=== PATIENT | female | born 1990 | race Caucasian/White ===

== ENCOUNTER 2023-08-05 05:45 | Emergency (ER) | payer MEDICAID, SELFPAY ==
[2023-08-05 05:46] VITALS: BP 163/101; PULSE 105; RESP 18; O2SAT 99
[2023-08-05 05:48] VITALS: BP 163/101; PULSE 105; RESP 20; TEMP 36.2; O2SAT 99; BMI 70.2
[2023-08-05] MEDS: Bupivacaine Mpf 0.5% 30 ML VIAL 10 ML INFILT (06:39)
[2023-08-05] MEDS: Amox/Clavulanate 875 MG Tablet PO (06:39)
--- NOTE | 2023-08-05 07:14 | EDS_ITS ---
HPI History of Present Illness Chief Complaint: Dental Informant: patient Narrative Narrative: Patient is a 33-year-old female with past medical history of anxiety. She states that she has a broken left lower tooth that has been there for quite some time. She states in the last 2 to 3 days she has had increasing dental pain and facial swelling. She denies any difficulty breathing or swallowing any fevers or chills but states that with persistent and increasing pain and swelling she is concerned for infection and therefore comes in for evaluation. [facility] Medical History (Updated 08/05/23 @ 07:[address] El Kasper, DO) PTSD (post-traumatic stress disorder) Depression Anxiety Cyst near [facility] Miscarriage Home Medications ?Medication ?Instructions ?Recorded ?Last Taken ?Type amoxicillin 875 mg-potassium 1 tab PO BID 10 days #20 tabs 08/05/23 Unknown Rx clavulanate 125 mg tablet bupropion HCl 150 mg 24 hr tablet, 150 mg PO DAILY 08/05/23 Unknown History extended release (Wellbutrin XL) buspirone 10 mg tablet 10 mg PO BID 08/05/23 Unknown History hydroxyzine HCl 10 mg tablet 30 mg PO QHS 08/05/23 Unknown History norgestimate 0.25 mg-ethinyl 1 tab PO DAILY 08/05/23 Unknown History estradiol 35 mcg tablet (Estarylla) ondansetron 4 mg disintegrating 4 mg PO Q6H PRN nausea and vomiting 08/05/23 Unknown History tablet oxycodone-acetaminophen 5 mg-325 1 tab PO Q6H PRN pain 3 days #12 08/05/23 Unknown Rx mg tablet (Percocet) tabs paroxetine HCl 30 mg tablet (Paxil) 30 mg PO DAILY 08/05/23 Unknown History trazodone 100 mg tablet 100 mg PO DAILY 08/05/23 Unknown History Allergy/AdvReac Type Severity Reaction Status Date / Time No Known Allergies Allergy Verified 08/05/23 06:39 Social History Smoking Status: Current some day smoker tobacco type: e-cigarettes ROS ROS ED Constitutional Constitutional ED: Denies chills or fever(s) ENT ENT ED: Reports other Details: Positive dental pain and gum/facial swelling ; Denies sore throat Cardiovascular Cardiovascular: Denies chest pain Respiratory/Chest Respiratory/Chest: Denies cough or dyspnea Gastrointestinal Gastrointestinal: Denies abdominal pain, diarrhea, nausea or vomiting Genitourinary Genitourinary ED: Denies dysuria Musculoskeletal Musculoskeletal: Denies neck pain Integumentary Reports abscess; Denies rash Neurologic Neurologic: Denies headache(s) Hematologic/Lymphatic Hematologic/Lymphatic: Denies easy bleeding or easy bruising EXAM Physical Exam Const Vital Signs: 08/05/23 05:46 08/05/23 05:48 Temperature 97.2 F L Temperature Source Temporal Pulse Rate 105 H 105 H Respiratory Rate 18 20 H Blood Pressure 163/101 H 163/101 H Blood Pressure Mean 121 121 Pulse Ox 99 99 Oxygen Delivery Method Room Air Room Air Positive well nourished, well developed and obese General Appearance ED: well developed Nutritional Appearance: obese HEENT HEENT Narrative: Patient has dental carry noted in the left lower jaw and at this site there is soft tissue swelling and erythema of the gingiva consistent with dental abscess. No tongue or lip swelling. No airway edema or compromise No signs of ANUG Eyes PERRL and EOMs intact bilaterally Neck supple Neck Narrative: No brawny edema in the submental space to suggest Demario's angina Resp normal respiratory effort and clear to auscultation bilaterally Cardio regular rate and regular rhythm Extremity normal to inspection Neuro oriented x3, CN's II-XII intact bilaterally and no sensory deficits noted Sensorium / Orientation: alert Motor Exam: strength 5/5 throughout Psych mental status grossly normal Skin Skin Narrative: Soft tissue swelling with faint erythema to the left lower jaw/cheek region consistent with abscess MDM MDM MDM Narrative Medical decision making narrative: Patient arrived to the ER hypertensive and tachycardic but states she has a history of anxiety and PTSD and feels is related to her pain as this is not a typical finding for her. She denies any trauma and states has been no difficulty swallowing or breathing going against systemic infection or posterior pharynx infection. Differential diagnosis is for dental abscess versus Demario's angina versus salivary gland infection versus cellulitis. Without brawny edema in the submental space there is no physical exam findings to suggest Demario's angina and based on physical exam there is no swelling along the salivary gland going against sialadenitis. With exam indicating this is dental abscess the patient underwent a dental block and then incision and drainage as documented below. Without signs of airway edema or respiratory distress or systemic infection there is no need for admission and she is otherwise safe for discharge Patient was given the left inferior alveolar dental block using 2 ml's of 2% lidocaine with epinephrine and 1 mL of 0.5% Marcaine. Patient achieved good anesthesia with this injection. Then a #11 blade was used to make a 1 cm incision over top the area of fluctuance within the left lower jaw/gingiva. A large amount of purulent material was expressed. Patient tolerated the procedure well without complication. History & Record Review Discussion w/independent historian: Patient Discharge Plan Triage Chief Complaint: Dental ED Provider: El Kasper Dx/Rx/DC Orders Clinical Impression: Dental abscess, Dental caries, Anxiety, Morbid obesity Instructions: Dental Abscess Prescriptions: New amoxicillin-pot clavulanate 875-125 mg tablet 1 tab PO BID 10 Days Qty: 20 0RF oxycodone-acetaminophen [Percocet] 5-325 mg tablet 1 tab PO Q6H PRN (Reason: pain) 3 Days Qty: 12 0RF No Action norgestimate-ethinyl estradiol [Estarylla] 0.25-35 mg-mcg tablet 1 tab PO DAILY bupropion HCl [Wellbutrin XL] 150 mg tablet extended release 24 hr 150 mg PO DAILY buspirone 10 mg tablet 10 mg PO BID hydroxyzine HCl 10 mg tablet 30 mg PO QHS ondansetron 4 mg tablet,disintegrating 4 mg PO Q6H PRN (Reason: nausea and vomiting) paroxetine HCl [Paxil] 30 mg tablet 30 mg PO DAILY trazodone 100 mg tablet 100 mg PO DAILY Stand Alone Forms: ED Work / School Excuse Primary Care Provider: Care Physician,No Primary Referrals: Care Physician,No Primary [Primary Care Provider] - Activity Restrictions/Additional Instructions: Please follow-up with your dentist for further evaluation. Continue with salt water gargles roughly 3 times a day to help pull out any remaining infection. Use the antibiotic as directed to resolve the infection as well and return to the ER should you have any further concerns Print Language: Belgian Disposition Disposition: Home, Self Care
[2023-08-05 07:17] VITALS: BP 158/90; PULSE 100; RESP 18; TEMP 36.6; O2SAT 100
== END 2023-08-05 07:23 | disposition home or self-care (01) ==
PROVIDERS: Emergency Provider Emergency Medicine; Visit Provider Emergency Medicine
DX: K04.7 Periapical abscess without sinus (principal); E66.01 Morbid (severe) obesity due to excess calories; K02.9 Dental caries, unspecified; F17.290 Nicotine dependence, other tobacco product, uncomplicated; Z79.899 Other long term (current) drug therapy
CPT/HCPCS: 64999; 99282

== ENCOUNTER 2024-03-21 17:16 | Emergency (ER) | payer MEDICAID, SELFPAY ==
[2024-03-21 17:16] VITALS: BP 150/89; PULSE 99; RESP 16; TEMP 36.9; O2SAT 98; BMI 67.0
--- NOTE | 2024-03-21 17:28 | EKG12_ITS ---
Test Reason : CP Blood Pressure : */* mmHG Vent. Rate : 103 BPM Atrial Rate : 103 BPM P-R Int : 138 ms QRS Dur : 90 ms QT Int : 370 ms P-R-T Axes : 55 33 40 degrees QTcB Int : 484 ms Sinus tachycardia Possible Left atrial enlargement Borderline ECG Confirmed by JEAN GUERRERO, ANGEL ([id number]), greeting card editor YVETTE ULRICH ([id number]) on 03/23/2024 7:01:42 AM Referred By: BB/AR Confirmed By: ANGEL PENA MD
--- NOTE | 2024-03-21 17:40 | RAD_ITS ---
EXAM: XR CHEST, 2 VIEWS CLINICAL INDICATION: chest pain TECHNIQUE: Frontal and lateral views of the chest. COMPARISON: No relevant prior studies available. FINDINGS: LUNGS AND PLEURAL SPACES: Unremarkable. No consolidation or edema. No pneumothorax. No effusion. HEART: Unremarkable. Cardiac silhouette not enlarged. MEDIASTINUM: Central airways and mediastinal contour are unremarkable. BONES/JOINTS: Unremarkable. No acute fracture. SOFT TISSUES: Unremarkable. Cholecystectomy clips are noted. RAD/Chest PA and Lateral IMPRESSION: No radiographic evidence of acute cardiopulmonary disease. Electronically Signed: Samira Bundy MD at 19:30 EST ,
--- NOTE | 2024-03-21 17:56 | EDS_ITS ---
HPI <REJI Matthews - Last Filed: 03/21/24 20:43> History of Present Illness Chief Complaint: Chest Pain Narrative Narrative: Patient presenting today due to pressure across her chest that started randomly this afternoon. She reports that she feels anxious/panicked, lightheaded, feeling like she cannot catch her breath, and is shaky. She does have a history of anxiety, depression, and panic attacks and has had panic attacks in the past but never this severe. She did try taking hydroxyzine around 3 PM with minimal relief. She denies any personal or significant family cardiac history. No history of blood clots or recent surgery/immobilization/oral contraceptive use/unilateral leg swelling. [facility] <REJI Matthews - Last Filed: 03/21/24 20:43> [facility] Medical History PTSD (post-traumatic stress disorder) Depression Anxiety Cyst near [facility] Miscarriage Home Medications ?Medication ?Instructions ?Recorded ?Last Taken ?Type amoxicillin 875 mg-potassium 1 tab PO BID 10 days #20 tabs 08/05/23 Unknown Rx clavulanate 125 mg tablet bupropion HCl 150 mg 24 hr tablet, 150 mg PO DAILY 08/05/23 Unknown History extended release (Wellbutrin XL) buspirone 10 mg tablet 10 mg PO BID 08/05/23 Unknown History hydroxyzine HCl 10 mg tablet 30 mg PO QHS 08/05/23 Unknown History norgestimate 0.25 mg-ethinyl 1 tab PO DAILY 08/05/23 Unknown History estradiol 35 mcg tablet (Estarylla) ondansetron 4 mg disintegrating 4 mg PO Q6H PRN nausea and vomiting 08/05/23 Unknown History tablet oxycodone-acetaminophen 5 mg-325 1 tab PO Q6H PRN pain 3 days #12 08/05/23 Unknown Rx mg tablet (Percocet) tabs paroxetine HCl 30 mg tablet (Paxil) 30 mg PO DAILY 08/05/23 Unknown History trazodone 100 mg tablet 100 mg PO DAILY 08/05/23 Unknown History Allergy/AdvReac Type Severity Reaction Status Date / Time No Known Allergies Allergy Verified 03/21/24 17:16 Social History Smoking Status: Current some day smoker tobacco type: e-cigarettes ROS <REJI Matthews - Last Filed: 03/21/24 20:43> ROS ED Constitutional Constitutional ED: Denies chills or fever(s) Cardiovascular Cardiovascular: Reports chest pain; Denies palpitations Respiratory/Chest Respiratory/Chest: Reports dyspnea; Denies cough Gastrointestinal Gastrointestinal: Denies abdominal pain, nausea or vomiting Musculoskeletal Musculoskeletal: Denies arthralgias or myalgias Integumentary Denies rash Neurologic Neurologic: Denies weakness Psychiatric Psychiatric: Reports anxiety; Denies suicidal ideation or suicidal thoughts EXAM <REJI Matthews - Last Filed: 03/21/24 20:43> Physical Exam Const Vital Signs: 03/21/24 17:16 03/21/24 18:16 03/21/24 19:00 Temperature 98.5 F Temperature Source Oral Pulse Rate 99 84 85 Respiratory Rate 16 16 16 Blood Pressure 150/89 H 128/72 H Blood Pressure Mean 109 90 Pulse Ox 98 99 99 Oxygen Delivery Method Room Air Room Air Room Air 03/21/24 20:00 03/21/24 20:19 Temperature 98.0 F Temperature Source Pulse Rate 81 82 Respiratory Rate 18 Blood Pressure 108/69 Blood Pressure Mean 82 Pulse Ox 97 Oxygen Delivery Method Positive well nourished, well developed and no apparent distress General Appearance ED: well developed HEENT Reports normocephalic and head/scalp atraumatic Mouth ED: Yes moist mucous membranes normal Eyes PERRL and EOMs intact bilaterally Neck full ROM and supple Chest Wall inspection of chest normal Resp normal respiratory effort and clear to auscultation bilaterally Cardio regular rate and regular rhythm GI soft to palpation, non-tender, non-distended and no masses Back/Spine normal ROM and normal to inspection Extremity normal to inspection and full ROM Extremity Narrative: No asymmetric leg edema or pain. General Extremety ED: Negative for edema General Extremity: Negative for edema Neuro oriented x3, CN's II-XII intact bilaterally, moves all extremities, no focal motor deficits and no sensory deficits noted Sensorium / Orientation: awake and alert Psych cooperative and denies suicidal ideation Mood & Affect: anxious and tearful Skin no rashes or lesions noted and no wounds <Leodan Naylor MD - Last Filed: 03/21/24 21:48> Physical Exam Const Vital Signs: 03/21/24 17:16 03/21/24 18:16 03/21/24 19:00 Temperature 98.5 F Temperature Source Oral Pulse Rate 99 84 85 Respiratory Rate 16 16 16 Blood Pressure 150/89 H 128/72 H Blood Pressure Mean 109 90 Pulse Ox 98 99 99 Oxygen Delivery Method Room Air Room Air Room Air 03/21/24 20:00 03/21/24 20:19 Temperature 98.0 F Temperature Source Pulse Rate 81 82 Respiratory Rate 18 Blood Pressure 108/69 Blood Pressure Mean 82 Pulse Ox 97 Oxygen Delivery Method MDM <REJI Matthews - Last Filed: 03/21/24 20:43> [facility] Narrative Medical decision making narrative: Patient presenting today with pressure across her chest, anxiety, dyspnea, and shakiness that started this afternoon. She does appear to be having a panic attack and is visibly anxious and hyperventilates at times, I was able to calm her down. I do think she would benefit from Ativan here and she is agreeable with trying this. She is PERC negative, low suspicion for PE. Cardiac labs obtained, her CBC, BMP, and troponin are unremarkable. Her chest x-ray is negative for any acute cardiopulmonary abnormality. Her EKG is sinus rhythm with no ischemia. On reexamination she does report improvement of her symptoms. She does appear more calm. I do suspect that patient likely was having a panic attack which caused her chest discomfort. I recommended that she follow-up closely with her PCP. She will be discharged in stable condition. Lab Data Attestation: I reviewed the patient's lab results. Labs: Laboratory Results - last 24 hr 03/21/24 18:06 WBC 7.4 RBC 4.50 Hgb 12.3 Hct 39.1 MCV 86.9 MCH 27.3 MCHC 31.5 L RDW Std Deviation 44.1 H RDW Coeff of Cecilia 13.8 Plt Count 296 MPV 10.4 Immature Gran % (Auto) 0.300 Neut % (Auto) 69.2 Lymph % (Auto) 20.7 Tyrrell % (Auto) 8.4 Eos % (Auto) 1.1 Baso % (Auto) 0.3 Absolute Neuts (auto) 5.1 Absolute Lymphs (auto) 1.53 Nucleated RBC % 0 Sodium 141 Potassium 3.9 Chloride 114 H Carbon Dioxide 23.0 Anion Gap 4 L BUN 16 Creatinine 0.73 Estim Creat Clear Calc 167.11 Est GFR (MDRD) Af Amer 118 Est GFR (MDRD) Non-Af 98 BUN/Creatinine Ratio 22.0 H Glucose 112 H Calcium 9.4 Troponin I High Sens < 3 L Radiography X-Ray: Read by ED Physician Diagnostic Testing: Clinical Impression(s) from Imaging Studies Chest X-Ray 03/21/24 17:40 IMPRESSION: No radiographic evidence of acute cardiopulmonary disease. Electronically Signed: Samira Bundy MD at 19:30 EST , EKG Initial EKG: Comments: 103 bpm, sinus tachycardia, no ST elevation, interpreted by attending ED physician <Leodan Naylor MD - Last Filed: 03/21/24 21:48> [facility] MDM Narrative Medical decision making narrative: Patient presenting today with pressure across her chest, anxiety, dyspnea, and shakiness that started this afternoon. She does appear to be having a panic attack and is visibly anxious and hyperventilates at times, I was able to calm her down. I do think she would benefit from Ativan here and she is agreeable with trying this. She is PERC negative, low suspicion for PE. Cardiac labs obtained, her CBC, BMP, and troponin are unremarkable. Her chest x-ray is negative for any acute cardiopulmonary abnormality. Her EKG is sinus rhythm with no ischemia. On reexamination she does report improvement of her symptoms. She does appear more calm. I do suspect that patient likely was having a panic attack which caused her chest discomfort. I recommended that she follow-up closely with her PCP. She will be discharged in stable condition. Dr. Naylor: I have personally performed a face to face assessment of the patient and have reviewed the LODY Note. I performed a substantive portion of the visit including all aspects of the following. My regan findings include: History is chest pain and heaviness. History of panic attacks/PTSD. Exam is afebrile. Vital signs noted. Intermittent tachycardia. Lungs clear to auscultation bilaterally. Abdomen soft nontender with positive bowel sounds. Neurological examination nonfocal and nonlateralizing. Medical Decision Making: EKG obtained and interpreted by myself independently as sinus tachycardia [address] changes. No STEMI. Chest x-ray in 1 view interpreted by myself independently shows no evidence of pneumothorax or pneumonia. I reviewed the radiology report which confirms my independent interpretation. Check labs. I doubt pulmonary embolism as she has no longer tachycardic and was not initially, and her pulse ox is 97 to 98% on room air and she does not have any risk factors. Patient reassured. Check troponin. I do not feel she requires serial enzymes. Discharge. Other additions or changes: [None] History & Record Review Discussion w/independent historian: Patient Lab Data Labs: Laboratory Results - last 24 hr 03/21/24 18:06 WBC 7.4 RBC 4.50 Hgb 12.3 Hct 39.1 MCV 86.9 MCH 27.3 MCHC 31.5 L RDW Std Deviation 44.1 H RDW Coeff of Cecilia 13.8 Plt Count 296 MPV 10.4 Immature Gran % (Auto) 0.300 Neut % (Auto) 69.2 Lymph % (Auto) 20.7 Tyrrell % (Auto) 8.4 Eos % (Auto) 1.1 Baso % (Auto) 0.3 Absolute Neuts (auto) 5.1 Absolute Lymphs (auto) 1.53 Nucleated RBC % 0 Sodium 141 Potassium 3.9 Chloride 114 H Carbon Dioxide 23.0 Anion Gap 4 L BUN 16 Creatinine 0.73 Estim Creat Clear Calc 167.11 Est GFR (MDRD) Af Amer 118 Est GFR (MDRD) Non-Af 98 BUN/Creatinine Ratio 22.0 H Glucose 112 H Calcium 9.4 Troponin I High Sens < 3 L Radiography Diagnostic Testing: Clinical Impression(s) from Imaging Studies Chest X-Ray 03/21/24 17:40 IMPRESSION: No radiographic evidence of acute cardiopulmonary disease. Electronically Signed: Samira Bundy MD at 19:30 EST , Discharge Plan Triage Chief Complaint: Chest Pain ED Midlevel Provider: Lizzette Rivers ED Provider: Leodan Naylor Dx/Rx/DC Orders Clinical Impression: Anxiety, Atypical chest pain Instructions: ED Anxiety Reaction, ED Chest Pain, Noncardiac Prescriptions: No Action norgestimate-ethinyl estradiol [Estarylla] 0.25-35 mg-mcg tablet 1 tab PO DAILY bupropion HCl [Wellbutrin XL] 150 mg tablet extended release 24 hr 150 mg PO DAILY buspirone 10 mg tablet 10 mg PO BID hydroxyzine HCl 10 mg tablet 30 mg PO QHS ondansetron 4 mg tablet,disintegrating 4 mg PO Q6H PRN (Reason: nausea and vomiting) paroxetine HCl [Paxil] 30 mg tablet 30 mg PO DAILY trazodone 100 mg tablet 100 mg PO DAILY amoxicillin-pot clavulanate 875-125 mg tablet 1 tab PO BID 10 Days Qty: 20 0RF oxycodone-acetaminophen [Percocet] 5-325 mg tablet 1 tab PO Q6H PRN (Reason: pain) 3 Days Qty: 12 0RF Primary Care Provider: Care Physician,No Primary Referrals: Care Physician,No Primary [Primary Care Provider] - Activity Restrictions/Additional Instructions: Follow-up with your PCP and return for any other concerns. Print Language: Bulgarian Disposition Disposition: Home, Self Care Discharge Date/Time: 03/21/24 20:20
[2024-03-21] MEDS: LORazepam 2 MG/ML Syringe 0.5 MG IV (18:03)
[2024-03-21 18:15] LABS: Absolute Lymphocyte Count 1.53 X10^3/uL (0.83-4.51); Absolute Neutrophil Count 5.1 X10^3/uL (2.0-7.7); Basophil# 0.02 X10^3/uL; Basophil% 0.3 % (0-1); Eosinophil# 0.08 X10^3/uL; Eosinophils% 1.1 % (0-5); Hematocrit 39.1 % (37-47); Hemoglobin 12.3 g/dL (12.0-15.0); Lymphocyte # 1.53 X10^3/ul (0.83-4.51); Lymphocyte % 20.7 % (19-41); Mean Corp Hgb Conc 31.5 g/dL (32-36); Mean Corpuscular Hgb 27.3 pg (27.0-32.0); Mean Corpuscular Volume 86.9 fL (81-99); Mean Platelet Vol. 10.4 fl (6.2-12.0); Monocyte# 0.62 X10^3/uL; Monocyte% 8.4 % (0-10); NRBC Flagged by Analyzer 0 % (0-5); Neutrophil # 5.12 X10^3/uL (2.7-7.7); Neutrophil % 69.2 % (47-70); Platelet Count 296 K/mm3 (150-450); RBC Distribution Width CV 13.8 % (11.6-14.6); RBC Distribution Width SD 44.1 fl (35.1-43.9); White Blood Count 7.4 K/mm3 (4.4-11.0)
[2024-03-21 18:16] VITALS: BP 128/72; PULSE 84; RESP 16; O2SAT 99
[2024-03-21 18:31] LABS: Anion Gap 4 (5-15); BUN 16 mg/dL (7-18); Calcium,Total 9.4 mg/dL (8.5-10.1); Chloride 114 mmol/L (98-107); Creatinine, Serum 0.73 mg/dL (0.55-1.02); EST Glomerular Filtration Rate 98 mL/min (>60); Est Glom Filt Rate - Afr Amer 118 mL/min (>60); Estimated Creatinine Clearance 167.11 ml/min; Glucose 112 mg/dL (74-106); Potassium 3.9 mmol/L (3.5-5.1); Sodium Level 141 mmol/L (136-145); Troponin-I HS < 3 pg/mL (3.0-54.0)
[2024-03-21 19:00] VITALS: PULSE 85; RESP 16; O2SAT 99
[2024-03-21 20:00] VITALS: PULSE 81
[2024-03-21 20:19] VITALS: BP 108/69; PULSE 82; RESP 18; TEMP 36.7; O2SAT 97
== END 2024-03-21 20:20 | disposition home or self-care (01) ==
PROVIDERS: Physician Assistant; Emergency Provider Emergency Medicine; Visit Provider Emergency Medicine
DX: F41.9 Anxiety disorder, unspecified (principal); R07.89 Other chest pain; R06.00 Dyspnea, unspecified; F17.210 Nicotine dependence, cigarettes, uncomplicated; F32.A Depression, unspecified; F43.10 Post-traumatic stress disorder, unspecified
CPT/HCPCS: 71046; 80048; 84484; 85025; 93005; 99283

== ENCOUNTER 2025-03-09 00:45 | Emergency (ER) | payer SELFPAY ==
[2025-03-09 00:46] VITALS: BP 155/95; PULSE 90; RESP 18; TEMP 36.8; O2SAT 99; BMI 68.5
--- NOTE | 2025-03-09 00:55 | EDS_ITS ---
HPI HPI - Female History of Present Illness Chief Complaint: Complaint Informant: patient Narrative Narrative: Patient is a 34-year-old female with no significant PMHx presenting to the ED with frequent urination and right-sided abdominal pain. 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 - Tonight, experienced sudden onset of severe right-sided abdominal pain described as doubling over pain while showering; pain has since decreased to a dull ache, rated 4/10. - Denies radiation of pain to groin or back. Denies nausea, emesis, or fevers. - Noted an abnormal menstrual period, with only a pinky smear for 2 days instead of her usual heavy flow; LMP was due on the . - History of miscarriage at age 23. - Denies known previous UTIs. [facility] Medical History PTSD (post-traumatic stress disorder) Depression Anxiety Cyst near [facility] Miscarriage Home Medications ?Medication ?Instructions ?Recorded ?Last Taken ?Type amoxicillin 875 mg-potassium 1 tab PO BID 10 days #20 tabs 08/05/23 Unknown Rx clavulanate 125 mg tablet bupropion HCl 150 mg 24 hr tablet, 150 mg PO DAILY Unknown History extended release (Wellbutrin XL) buspirone 10 mg tablet 10 mg PO BID 08/05/23 Unknow n History hydroxyzine HCl 10 mg tablet 30 mg PO QHS 08/05/23 Unk nown History norgestimate 0.25 mg-ethinyl 1 tab PO DAILY 08/05/23 U nknown History estradiol 0.035 mg tablet (Estarylla) ondansetron 4 mg disintegrating 4 mg PO Q6H PRN nausea and vomiting 08/05/23 Unknown History tablet oxycodone-acetaminophen 5 mg-325 1 tab PO Q6H PRN pain 3 days #12 08/05/23 Unknown Rx mg tablet (Percocet) tabs paroxetine HCl 30 mg tablet (Paxil) 30 mg PO DAILY Unknown History trazodone 100 mg tablet 100 mg PO DAILY 08/05/23 Unk nown History Allergy/AdvReac Type Severity Reaction Status Date / Time No Known Allergies Allergy Verified 03/09/25 00:49 Social History Smoking Status: Former smoker ROS ROS ED Constitutional Constitutional ED: Denies chills or fever(s) Eyes Eyes: Denies change in vision or diplopia ENT ENT ED: Denies rhinorrhea or sore throat Cardiovascular Cardiovascular: Denies chest pain or palpitations Respiratory/Chest Respiratory/Chest: Denies cough or dyspnea Gastrointestinal Gastrointestinal: Reports abdominal pain; Denies diarrhea, nausea or vomiting Genitourinary Genitourinary ED: Reports as per HPI, flank pain, urinary frequency and urinary urgency; Denies dysuria or hematuria Musculoskeletal Musculoskeletal: Denies back pain or neck pain Integumentary Denies abscess or rash Neurologic Neurologic: Denies headache(s), paresthesias or weakness Psychiatric Psychiatric: Denies suicidal thoughts EXAM Physical Exam Const Vital Signs: 03/09/25 00:46 Temperature 98.2 F Temperature Source Oral Pulse Rate 90 Respiratory Rate 18 Blood Pressure 155/95 H Blood Pressure Mean 115 Pulse Ox 99 Oxygen Delivery Method Room Air Positive well nourished, well developed and obese Constitutional Narrative: comfortable General Appearance ED: well developed and NAD Nutritional Appearance: obese HEENT Reports moist mucous membranes normocephalic and atraumatic Eyes PERRL and EOMs intact bilaterally Neck full ROM and supple Resp normal respiratory effort and clear to auscultation bilaterally Cardio regular rate, regular rhythm and no murmurs GI non-distended GI Narrative: Tender throughout the right mid abdomen and a little bit in the right lower quadrant but not distally in the pelvis. Some mild involuntary guarding. No rebound tenderness. Negative obturator and Rovsing and psoas signs. No right upper quadrant tenderness. No left-sided abdominal tenderness. Obesity limits exam. Auscultation: normoactive bowel sounds Palpation: soft Back/Spine no CVA tenderness General Back: other FROM Extremity normal to inspection General Extremety ED: Negative for edema, pulses abnormal or tenderness General Extremity: Negative for edema or pulses abnormal Neuro oriented x3, CN's II-XII intact bilaterally and no sensory deficits noted Sensorium / Orientation: awake and alert Motor Exam: strength 5/5 throughout Skin no rashes or lesions noted and no wounds MDM MDM MDM Narrative Medical decision making narrative: Assessment: The patient is a 34-year-old female with history of prior miscarriage at age 23 presenting for three weeks of pronounced urinary frequency and urgency culminating in urge incontinence, now accompanied by new right-sided abdominal/flank pain rated 4/10. Exam maneuvers (psoas/obturator) were negative, making appendicitis less likely. Differential considered included nephrolithiasis versus ovarian pathology; CT abdomen/pelvis revealed a 3 cm right ovarian cyst with no obstructive uropathy, and urinalysis was negative, arguing against infection or stone. Post-void residual was 20 cc, making urinary retention unlikely. Most likely diagnoses are urge incontinence with incidental right ovarian cyst. Not able to obtain ultrasound of the pelvis at 3:30 AM given that it is not for torsion or ectopic since staff is not in the hospital; she is not having severe pain, Toradol really helped and she is virtually pain- free right now, this is may be related to the pain but at 3 cm without any ad ditional mass or ovarian enlargement torsion is considered extremely unlikely. She could have had a ruptured cyst or a hemorrhagic cyst that could have caused this pain as well. The urinary symptoms are thought to be unrelated and a pelvic ultrasound may help diagnose why. Thought less likely to be neurologic at this time. Follow-up advised. Plan: - Offered Walker catheter for symptomatic relief; patient declined. - Discussed findings and possible need for outpatient pelvic ultrasound; patient agrees. - Advised follow-up with urology and gynecology through [facility] where she is established. - Discharge home in stable condition; understands return precautions. Diagnostics: - CT abdomen/pelvis: 3 cm right ovarian cyst; no obstructive uropathy; a few enlarged lymph nodes; otherwise no acute abnormality. Independently interpreted by me, Mert Pratt. - Urinalysis: negative for infection. - Serum test: negative. - Basic metabolic panel: renal function normal. - Bladder scan post-void residual: 20 cc. Portions of this note were generated using voice recognition software ([employer]). I have reviewed the contents and every effort has been made to ensur e accuracy; however, inadvertent errors in grammar, spelling, punctuation, or word choice may occur, that were not noted before signing the document and should not alter the intended clinical meaning. Lab Data Attestation: I reviewed the patient's lab results. Labs: Laboratory Results - last 24 hr 03/09/25 03/09/25 01:00 02:18 WBC 8.4 RBC 4.31 Hgb 12.0 Hct 38.7 MCV 89.8 MCH 27.8 MCHC 31.0 L RDW Std Deviation 43.2 RDW Coeff of Cecilia 13.1 Plt Count 338 MPV 10.6 Immature Gran % (Auto) 0.200 Neut % (Auto) 55.7 Lymph % (Auto) 35.1 [place]aves % (Auto) 6.0 Eos % (Auto) 2.6 Baso % (Auto) 0.4 Absolute Neuts (auto) 4.7 Absolute Lymphs (auto) 2.94 Nucleated RBC % 0 Sodium 140 Potassium 4.0 Chloride 103 Carbon Dioxide 25.0 Anion Gap 12 BUN 16 Creatinine 0.78 Estim Creat Clear Calc 157.32 Est GFR (MDRD) Non-Af 100 BUN/Creatinine Ratio 21.0 H Glucose 100 H Calcium 9.3 Serum , Qual NEGATIVE Urine Color Yellow Urine Clarity Clear Urine pH 5.0 Ur Specific [place] 1.025 Urine Protein 30 H Urine Glucose (UA) Normal Urine Ketones Negative Urine Occult Blood Negative Urine Nitrite Negative Urine Bilirubin Negative Urine Urobilinogen Normal Ur Leukocyte Esterase 25 H Urine RBC 0 SEEN Urine WBC 0-5 SEEN Ur Squamous Epith Cells 0-5 SEEN Urine Bacteria 0 SEEN Urine Mucus 0 SEEN Radiography Diagnostic Testing: Clinical Impression(s) from Imaging Studies Abdomen/Pelvis CT 03/09/25 01:35 IMPRESSION: No obstructive uropathy. Mesenteric stranding with prominent mesenteric lymph nodes may reflect panniculitis. Reading Location: [facility] Discharge Plan Triage Chief Complaint: Complaint ED Provider: Mert Pratt Dx/Rx/DC Orders Clinical Impression: Urge incontinence of urine, Frequency of micturition, Acute right flank pain, Cyst of right ovary Instructions: ED Flank Pain with Uncertain Cause, ED Ovarian Cyst Prescriptions: No Action norgestimate-ethinyl estradiol [Estarylla] 0.25-35 mg-mcg tablet 1 tab PO DAILY bupropion HCl [Wellbutrin XL] 150 mg tablet extended release 24 hr 150 mg PO DAILY buspirone 10 mg tablet 10 mg PO BID hydroxyzine HCl 10 mg tablet 30 mg PO QHS ondansetron 4 mg tablet,disintegrating 4 mg PO Q6H PRN (Reason: nausea and vomiting) paroxetine HCl [Paxil] 30 mg tablet 30 mg PO DAILY trazodone 100 mg tablet 100 mg PO DAILY amoxicillin-pot clavulanate 875-125 mg tablet 1 tab PO BID 10 Days Qty: 20 0RF oxycodone-acetaminophen [Percocet] 5-325 mg tablet 1 tab PO Q6H PRN (Reason: pain) 3 Days Qty: 12 0RF Primary Care Provider: Care Physician,No Primary Referrals: Pilar Stallworth MD [Med Staff - Active Staff, Urology] - As soon as possible Mora Jett DO [Med Staff - Active Staff, Obstetrics-Gynecology (OBGYN)] - As soon as possible Referral Note: with first available provider Print Language: Romansh Disposition Disposition: Home, Self Care
[2025-03-09] MEDS: Ketorolac 30 MG/ML Syringe IV (00:59)
[2025-03-09 01:06] LABS: Hematocrit 38.7 % (37-47); Hemoglobin 12.0 g/dL (12.0-15.0); Immature Granulocytes Count 0.020 X10^3/uL (0.0-0.0); Mean Corp Hgb Conc 31.0 g/dL (32-36); Mean Corpuscular Volume 89.8 fL (81-99); Mean Platelet Vol. 10.6 fl (6.2-12.0); NRBC Flagged by Analyzer 0 % (0-5); Platelet Count 338 K/mm3 (150-450); RBC Distribution Width CV 13.1 % (11.6-14.6); RBC Distribution Width SD 43.2 fl (35.1-43.9); Red Blood Count 4.31 M/mm3 (4.2-5.4); White Blood Count 8.4 K/mm3 (4.4-11.0)
--- OUTSIDE RECORDS SUMMARY | 2025-03-09 01:12 | XMS RPT_ITS | CCD ---
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 Sergio Haywood Referring Unavailable Dr. Jonathan Ramírez Attending Nia vailable NO FAMILY PHYSICIAN, 837 Primary Care Unavail able CHING ANDERSON PsyD Attending Unavailable NO FAMILY PHYSICIAN, 837 Primary Care Unavail able DEREK HALEY, ALBERT Attending Unavailable NO FAMILY PHYSICIAN, 837 Primary Care Unavail able NO FAMILY PHYSICIAN, 837 Primary Care Unavail able NO FAMILY PHYSICIAN, 837 Primary Care Unavail able DEREK BUILD ENGINEER, ALBERT Attending Unavailable NO FAMILY PHYSICIAN, 837 Primary Care Unavail able PRISTLIZZIE DAVIS DO Attending Unavailable NO FAMILY PHYSICIAN, 837 Primary Care Unavail able PRISTLIZZIE DAVIS DO K Attending Unavailable NO FAMILY PHYSICIAN, 837 Primary Care Unavail able NO FAMILY PHYSICIAN, 837 Primary Care Unavail able PRISTLIZZIE DAVIS DO Admitting Unavailable PRISTLIZZIE DAVIS DO Attending Unavailable NO FAMILY PHYSICIAN, 837 Primary Care Unavail able DEREK BUILD ENGINEER, ALBERT Attending Unavailable PRISTAS CHEN JOHNSONLILori Ayala Attending Unavailable NO FAMILY PHYSICIAN, 837 Primary Care Unavail able PRISTAS LIZZIE JOHNSON Attending Unavailable NO FAMILY PHYSICIAN, 837 Primary Care Unavail able NO FAMILY PHYSICIAN, 837 Primary Care Unavail able DEREK BUILD ENGINEER, ALBERT Attending Unavailable Nae Aguilar MD [facility] Primary Care Provider DEREK BUILD ENGINEER, ALBERT Attending Unavailable NO FAMILY PHYSICIAN, 837 Primary Care Unavail able PRISTAS DO, LIZZIE K Admitting Unavailable PRISTAS DO, LIZZIE K Attending Unavailable NO FAMILY PHYSICIAN, 837 Primary Care Unavail able PRISTAS DO, LIZZIE K Attending Unavailable NO FAMILY PHYSICIAN, 837 Primary Care Unavail able PRISTAS DO, LIZZIE K Attending Unavailable NO FAMILY PHYSICIAN, 837 Primary Care Unavail able PRISTAS DO, LIZZIE K Attending Unavailable NO FAMILY PHYSICIAN, 837 Primary Care Unavail able PRISTAS DO, LIZZIE K Attending Unavailable NO FAMILY PHYSICIAN, 837 Primary Care Unavail able DEREK BUILD ENGINEER, ALBERT Attending Unavailable NO FAMILY PHYSICIAN, [facility] Primary Care Unavail able Lizeth GUERRERO, [facility] Primary Care Provider France Sutton PA-C Unavailable [phone] [facility] Care Physician, No Primary Primary Care Unava ilable Leodan Naylor Attending Unavailable Care Physician, No Primary Primary Care Unava ilable El Kasper Attending Unavailable KELSEY, SOCO Attending Unavailable LIZETH, NAE [facility] Primary Care Unavailable KELSEYSOCO Attending Unavailable LIZETH, NAE [facility] Primary Care Unavailable LIZETH, NAE JOHNSON Primary Care Unavailable LIZETH, NAE JOHNSON Primary Care Unavailable JULIENNE BOYLE Attending Unavailable LIZETH, NAE JOHNSON Primary Care Unavailable TOSIN AVINA Attending Unavailable LIZETH, NAE JOHNSON Primary Care Unavailable JULIENNE BOYLE Referring Unavailable MARLEN RILEY Attending Unavailable LIZETH, NAE JOHNSON Primary Care Unavailable JULIENNE BOYLE Referring Unavailable LIZETH, NAE JOHNSON Primary Care Unavailable MARLEN RILEY Referring Unavailable KELSEY, SOCO Attending Unavailable LIZETH, NAE JOHNSON Primary Care Unavailable LIZETH, NAE JOHNSON Primary Care Unavailable KELSEY, SOCO Referring Unavailable KELSEY, SOCO Attending Unavailable LIZETH, NAE JOHNSON Primary Care Unavailable PADMINI FARR DO Attending Unavailable PADMINI FARR DO Primary Care Unavailable PADMINI FARR DO Admitting Unavailable Medications Current Medications Medication Drug Class(es) Dates Sig (Normalized) Sig (Original) [id number] 200 actuat albuterol 0.09 mg/actuat metered dose inhaler (13 sources) beta2-Adrenergic Agonist Start: 04-27-2023 take 2 puff(s) by inhalation every four hours as needed for cough albuterol HFA (PROVENTIL HFA, VENTOLIN HFA) 90 mcg/actuation inhaler INHALE 2 (TWO) puffs EVERY 4 HOURS NEEDED for cough 04/27/2023 Active Comment on above: INHALE 2 (TWO) puffs EVERY 4 HOURS NEEDED for cough amoxicillin 875 mg / clavulanate 125 mg oral tablet (1 source) Penicillin-class Antibacterial Start: 06-09-2023 End: 06-14-2023 take 1 tablet by mouth twice daily amoxicillin-clavula dee potassium (AUGMENTIN) 875-125 mg per tablet Indications: Cracked tooth , Tooth abscess Take 1 tablet by mouth two times a day for 5 days. 10 tablet 0 06/09/2023 06/14/2023 Active Comment on above: Take 1 tablet by natali two times a day for 5 days. ARIPiprazole 5 mg oral tablet (10 sources) Atypical Antipsychotic take 1 tablet by mouth once daily ARIPiprazole (ABILIFY) 5 mg tablet Take 5 mg by mouth once daily. Active 24 hr buPROPion hydrochloride 150 mg extended release oral tablet (14 sources) Aminoketone Start: 03-21-2023 take 1 tablet by mouth once daily in the morning buPROPion XL (WELLBUTRIN XL) 150 mg 24 hr tablet Take 1 oral tablet every morning 03/21/2023 Active Comment on above: Take 1 oral tablet e very morning busPIRone hydrochloride 10 mg oral tablet (14 sources) Start: 04-17-2023 take 1 tablet by mouth every twelve hours busPIRone (BUSPAR) 10 mg tablet Take 1 tablet by mouth every 12 hours. 04/17/2023 Active Comment on above: Take 1 tablet by natali th every 12 hours. clindamycin 10 mg/ml topical lotion (14 sources) Lincosamide Antibacterial Start: 05-17-2023 Clindamycin Phosphate (CLEOCIN T) 1 % lotion Indications: Acne vulgaris Apply a thin film 1-2 times daily to affected areas on chin. Use enough to cover the entire affected area lightly 60 mL 3 05/17/2023 Active Comment on above: Apply a thin film 1- 2 times daily to affected areas on chin. Use enough to cover the entire affected area lightly 0.5 ml dulaglutide 1.5 mg/ml auto-injector (6 sources) GLP-1 Receptor Agonist Start: 03-25-2024 inject 0.75 mg by subcutaneous injection every week dulaglutide (TRULICITY) 0.75 mg/0.5 mL pen injector Inject 0.75 mg subcutaneously one time a week. 2 mL 2 03/25/2024 Active ergocalciferol 1.25 mg oral capsule (18 sources) Provitamin D2 Compound Start: 12-02-2023 End: 05-30-2024 take 1 capsule by mouth every week ergocalciferol 50,000 unit capsule (VITAMIN D2, DRISDOL) Take 1 capsule by mouth one time a week. 25 capsule 12/02/2023 05/30/2024 Active Start: 08-27-2022 End: 05-20-2023 take 1 capsule by mouth every week ergocalciferol 50,000 unit capsule (VITAMIN D2, DRISDOL) Indications: vitamin D deficiency Take 1 capsule by mouth one time a week. 4 capsule 5 08/27/2022 05/20/2023 Discontinued (Other) Start: 12-20-2021 take 1 capsule by mo uth every week ergocalciferol 50,000 unit capsule (VITAMIN D2, DRISDOL) Take 1 capsule by mouth one time a week. 12 capsule 0 12/20/2021 Active Start: 09-04-2021 End: 01-02-2022 take 1 capsule by mouth two times weekly, then take 1 capsule by mouth every week ergocalciferol 50,000 unit capsule (VITAMIN D2, DRISDOL) Indications: vitamin D deficiency Take 1 capsule by mouth two times a week for 30 days, THEN 1 capsule one time a week. 8 capsule 2 09/04/2021 12/20/2021 Discontinued Comment on above: Take 1 capsule by mo uth two times a week for 30 days, THEN 1 capsule one time a week. Take 1 capsule by mo uth one time a week. Ethinyl Estradiol / norgestimate (10 sources) Progestin, Estrogen Start: End: 01-10-202 5 take 1 tablet by mouth once daily norgestimate 0.25 mg-ethinyl estradiol 35 mcg (SPRINTEC) 0.25-35 mg-mcg per tablet Take 1 tablet by mouth once daily. 28 tablet 3 05/20/2023 03/27/2024 Discontinued (Course of therapy completed) Start: 05-20-2023 take 1 tablet by natali th once daily norgestimate 0.25 mg-ethinyl estradiol 35 mcg (SPRINTEC) 0.25-35 mg-mcg per tablet Take 1 tablet by mouth once daily. 28 tablet 3 05/20/2023 Active Comment on above: Take 1 tablet by natali th once daily. hydrOXYzine hydrochloride 10 mg oral tablet (14 sources) Antihistamine Start : 03-20 take 3 tablets by mouth once daily at bedtime hydrOXYzine HCl (ATARAX) 10 mg tablet Take 30 mg by mouth daily at bedtime. 03/20/2023 Active Comment on above: Take 30 mg by mouth daily at bedtime. medroxyPROGESTERone acetate 10 mg oral tablet (6 sources) Progestin Start : 03-27 End: 04-10 take 1 tablet by mouth once daily medroxyPROGESTERone (PROVERA) 10 mg tablet Take 1 tablet by mouth once daily. 10 tablet 5 04/10/2024 Active Start: 06-08-2021 End: 09-01-2021 take 1 tablet by mouth once daily medroxyPROGESTERone (PROVERA) 10 mg tablet Take 1 tablet by mouth once daily. 5 tablet 11 06/08/2021 09/01/2021 Discontinued (Course of therapy completed) Comment on above: Take 1 tablet by natali th once daily. ondansetron 4 mg disintegrating oral tablet (14 sources) Serotonin-3 Receptor Antagonist Start: 04-27-19 take 1 tablet by mouth four times daily as needed for nausea ondansetron orally disintegrating (ZOFRAN ODT) 4 mg disintegrating tablet TAKE 1 TABLET BY MOUTH FOUR TIMES DAILY NEEDED FOR NAUSEA 04/27/2023 Active Comment on above: TAKE 1 TABLET BY NATALI TH FOUR TIMES DAILY NEEDED FOR NAUSEA PARoxetine hydrochloride 30 mg oral tablet (14 sources) Serotonin Reuptake Inhibitor Start: 03-20-19 take 1 tablet by mouth once PARoxetine (PAXIL) 30 mg tablet Take 1 tablet by mouth every afternoon. 03/20/2023 Active Comment on above: [facility] topiramate 25 mg oral tablet (6 sources) Start: 01-06-20 24 TOPAMAX 25 mg tablet 01/06/2024 Active traZODone hydrochloride 100 mg oral tablet (14 sources) Serotonin Reuptake Inhibitor Start: 03-21-19 take 1 tablet by mouth once daily at bedtime traZODone (DESYREL) 100 mg tablet Take 100 mg by mouth daily at bedtime. 03/21/2023 Active Comment on above: Take 100 mg by mouth daily at bedtime. Completed/Discontinued Medications Medication Drug Class(es) Dates Sig (Normalized) Sig (Original) ascorbic acid / biotin / ferrous bisglycinate / folic acid / formic acid / iron-dextran complex / niacin / pantothenate / pyridoxine / riboflavin / thiamine / vitamin B12 (3 sources) Nicotinic Acid, Vitamin B12, Vitamin C iron bisgly,ps-FA-B-C#12 -succ 65 mg-65 mg -1,000 mcg (24) tab Take by mouth once daily. 0 Active Comment on above: Take by mouth once d aily. Bacillus coagulans / Inulin (6 sources) take 1 capsule by mouth once daily Bacillus coagulans/inulin (PROBIOTIC WITH PREBIOTIC ORAL) Take 1 capsule by mouth once daily. 0 Active Comment on above: Take 1 capsule by mo [facility] once daily. metroNIDAZOLE 0.0075 mg/mg topical gel (9 sources) Nitroimidazole Antimicrobial Start: 05-17-2023 End: 03-25-2024 metroNIDAZOLE (METROGEL) 0.75 % Topical Gel Indications: Rosacea Apply to affected areas twice daily 45 g 3 05/17/2023 03/25/2024 Discontinued (Course of therapy completed) Comment on above: Apply to affected ar eas twice daily Multivitamin preparation (3 sources) multivitamin (MULTI-DAY ORAL) Take by mouth once daily. 0 Active Comment on above: Take by mouth once d aily. multivitamin with minerals (HAIR,SKIN AND NAILS ORAL) (3 sources) multivitamin wit h minerals (HAIR,SKIN AND NAILS ORAL) Take by mouth once daily. 0 Active Comment on above: Take by mouth once d aily. PNV no.95/ferrous fum/folic ac ( ORAL) (2 sources) PNV no.95/ferrou s fum/folic ac ( ORAL) Take by mouth. 0 Active Comment on above: Take by mouth. vitamin b12 1 mg oral tablet (3 sources) Vitamin B12 take 1 tablet by mouth once daily cyanocobalamin (VITAMIN B-12) 1,000 mcg tab Take 1,000 mcg by mouth once daily. 0 Active Comment on above: Take 1,000 mcg by mo ut once daily. Problems Active Problems Problem Classification Problem Date Documented Da te Episodic/Chronic Abdominal hernia (1 source) Hiatal hernia; Translations: [Diaphragmatic hernia without obstruction or gangrene] Onset: 05-22-2024 05-22-2024 Episodic Abdominal pain (1 source) Unspecified abdominal pain; Translations: [Unspecified abdominal pain] Onset: 02-06-2018 Episodic Anxiety disorders (20 sources) Mixed anxiety and depressive disorder; Translations: [Anxiety disorder, unspecified] Onset: 04-20-2001 Chronic Disorders of lipid metabolism (2 sources) Mixed hyperlipidemia; Translations: [Mixed hyperlipidemia] Onset: 11-28-2023 11-05-2023 Chronic Immunizations and screening for infectious disease (8 sources) Patient encounter status; Translations: [Encounter for immunization] Episodic Menstrual disorders (20 sources) Amenorrhea; Translations: [Amenorrhea, unspecified] Onset: 05-22-2021 05-22-2021 Chronic Mood disorders (20 sources) Bipolar affective disorder, most recent episode mixed; Translations: [Bipolar disorder, in partial remission, most recent episode mixed] Onset: 10-28-2014 Chronic Nonspecific chest pain (1 source) Other chest pain; Translations: [Other chest pain] Onset: 04-15-2024 Episodic Nutritional deficiencies (4 sources) Vitamin D deficiency; Translations: [Vitamin D deficiency, unspecified] Onset: 11-28-2023 Chronic Other and unspecified benign neoplasm (1 source) Melanocytic nevus of skin ; Translations: [Melanocytic nevi, unspecified] 05-17-2023 Episodic Other complications of (1 source) ; Translations: [ with inconclusive viability, not applicable or unspecified] Episodic Other endocrine disorders (1 source) Polycystic ovary syndrome; Translations: [Polycystic ovarian syndrome] 04-10-2024 Chronic Other gastrointestinal disorders (1 source) Constipation, unspecified; Translations: [Constipation, unspecified] Onset: 02-06-2018 Episodic Other inflammatory condition of skin (1 source) Rosacea; Translations: [Rosacea, unspecified] 05-17-2023 Chronic Other nervous system disorders (1 source) Spasmodic movement; Translations: [Fasciculation] Episodic Other non-traumatic joint disorders (1 source) Pain in right knee; Translations: [Pain in joint, lower leg] 10-10-2023 Episodic Other nutritional; endocrine; and metabolic disorders (20 sources) Body mass index 40+ - severely obese; Translations: [Body mass index (BMI) 70 or greater, adult] Onset: 09-01-2021 Chronic Other nutritional; endocrine; and metabolic disorders (1 source) Obesity, unspecified; Translations: [Obesity, unspecified] Onset: 03-26-2022 Chronic Other nutritional; endocrine; and metabolic disorders (2 sources) Body mass index (BMI) 60.0-69.9, adult; Translations: [Body mass index [BMI] 60.0-69.9, adult] Onset: 03-26-2022 Chronic Other nutritional; endocrine; and metabolic disorders (1 source) Morbid obesity; Translations: [Body mass index (BMI) 60.0-69.9, adult] 03-25-2024 Chronic Other nutritional; endocrine; and metabolic disorders (1 source) Morbid (severe) obesity due to excess calories; Translations: [Class 3 severe obesity due to excess calories without serious comorbidity with body mass index (BMI) of 60.0 to 69.9 in adult (HCC)] Onset: 03-25-2024 Chronic Other skin disorders (1 source) Acne vulgaris; Translations: [Acne vulgaris] 05-17-2023 Episodic Residual codes; unclassified (4 sources) Obstructive sleep apnea (adult) (pediatric); Translations: [Obstructive sleep apnea (adult) (pediatric)] Onset: 03-26-2022 Chronic Residual codes; unclassified (1 source) Sleep apnea; Translations: [Sleep apnea, unspecified] Onset: 05-22-2024 05-22-2024 Chronic Spontaneous (1 source) Miscarriage; Translations: [Complete or unspecified spontaneous without complication] Episodic Unclassified (1 source) Tobacco use / Z72.0(ICD-9) Onset: 02-06-2018 Unclassified (1 source) Hemorrhage of anus and rectum / K62.5(ICD-9) Onset: 02-06-2018 Unclassified (1 source) Residual hemorrhoidal skin tags / K64.4(ICD-9) Onset: 02-06-2018 Unclassified (1 source) Herpesviral infection of urogenital system, unspecified / A60.00(ICD-9) Onset: 02-06-2018 Unclassified (1 source) Bipolar disorder, unspecified / F31.9(ICD-9) Onset: 02-06-2018 Unclassified (1 source) Borderline personality disorder / F60.3(ICD-9) Onset: 02-06-2018 Unclassified (1 source) Unspecified abdominal pain / R10.9(ICD-9) Onset: 02-06-2018 Unclassified (1 source) Constipation, unspecified / K59.00(ICD-9) Onset: 02-06-2018 Unclassified (1 source) Class 3 severe obesity due to excess calories without serious comorbidity with body mass index (BMI) of 60.0 to 69.9 in adult ([facility]); Translations: [Class 3 severe obesity due to excess calories without serious comorbidity with body mass index (BMI) of 60.0 to 69.9 in adult ([facility])] Onset: 03-25-2024 Urinary tract infections (1 source) Urinary tract infections Onset: 02-06-2018 Viral infection (20 sources) Herpes simplex; Translations: [Herpesviral infection of urogenital system, unspecified] Onset: 02-06-2018 06-08-2021 Chronic Past or Other Problems Problem Classification Problem Date Documented Da te Episodic/Chronic Disorders of teeth and jaw (3 sources) Cracked tooth; Translations: [Cracked tooth] Onset: 08-09-2023 06-09-2023 Episodic Other female genital disorders (2 sources) Recurrent loss; Translations: [Recurrent loss without current ] Onset: 11-28-2023 11-28-2023 Episodic Other nervous system disorders (20 sources) Tremor; Translations: [Tremor, unspecified] Onset: 09-01-2021 Episodic Other nutritional; endocrine; and metabolic disorders (19 sources) Severe obesity; Translations: [Morbid (severe) obesity due to excess calories] Onset: 10-28-2014 Resolved: 08-24-2022 05-22-2021 Chronic Other screening for suspected conditions (not mental disorders or infectious disease) (20 sources) Decreased vitamin D; Translations: [Other specified abnormal findings of blood chemistry] Onset: 12-20-2021 Episodic Residual codes; unclassified (14 sources) Tobacco user; Translations: [Tobacco use] Onset: 02-06-2018 Resolved: 12-20-2021 06-08-2021 Episodic Screening and history of mental health and substance abuse codes (18 sources) H/O: psychiatric disorder; Translations: [Personal history of other mental and behavioral disorders] Onset: 08-24-2022 08-24-2022 Episodic Unclassified (1 source) Hemorrhage of anus and rectum; Translations: [Hemorrhage of anus and rectum] Onset: 02-06-2018 Results Test Name Value Interpretation Reference Range Facil ity ED MED ADMINISTRATION DETAIL on 07-20-2024 ED MED ADMINISTRATION DETAIL Reading Efficiency Course Director Medication Administration Record [address] [address] [id number] 07/19/2024 Patient: MORGAN ORELLANA Sex: Female : 1990 Age: 34y MEASUREMENTS: Wt: 154.2 kg, Ht/Charlie: 62.0 in, BMI: 62.19 ALLERGIES: No known drug allergies Medication Ordered Medication Administration Date/Time Aspirin PO Chew 20:25 07/19 Aspirin PO Chew 324 mg given. Allergies verified and Given 324 mg (NOW x1) confirmed 5 rights. Information reviewed with patient including 20:25 07/19/2024 reason for taking this medication. Verbalizes understanding. - Lina Klein R.N. 20:25 Lina Klein R.N. Scanned Milind-Synephrine Completed Nasal Sikes 2 spray 21:17 07/19/2024 Lina Klein R.N. Order Comments: 21:17 07/19/2024 administered Lina Klein R.N. 1 of 3 Reading Efficiency Course Director Medication Ordered Medication Administration Date/Time TXA Tranexamic 21:58 07/19 TXA Tranexamic Started Acid IVPB Acid IVPB 1000mg/100ml NS 21:58 07/19/2024 1000mg/100ml NS 1000 mg started in bag#1 100 Joshua Supa, E.M.T.-P. 1000 mg at 300 mL at 300 mL/hr over 20 Stopped mL/hr (NOW x1) minute(s) via Site# 1. Allergies 01:15 07/20/2024 verified and confirmed 5 rights. Lina Klein R.N. IV patency established. IV site Scanned checked: no pain, redness, or swelling. IV flushed thoroughly pre-medication administration. Information reviewed with patient. Verbalizes understanding. Vitals: 21:31 07/19/2024 BP: 94/63 MAP: 74 mmHg. HR: 75 bpm. Completed per protocol. - 21:59 Joshua Cowart E.M.T.-P. 01:15 07/20 Medication Discontinued: bag #1 infused. Total amount infused: 100 mL. IV patency established. IV site checked: no pain, redness, or swelling. IV flushed thoroughly post-medication administration. - 01:15 Lina Klein R.N. Silver Sulfadiazine Completed Topical Sticks 1 22:44 07/19/2024 applic Lina Klein R.N. Order Comments: 22:44 07/19/2024 MD administered Lina Klein R.N. 2 of 3 Reading Efficiency Course Director Medication Ordered Medication Administration Date/Time lidocaine Viscous 21:59 07/19 lidocaine Viscous Given Liq 2 % 15ml UD 10 Liq 2 % 15ml UD 10 mL given. 21:59 07/19/2024 mL (NOW x1) Allergies verified and confirmed Joshua Cowart E.M.T.-P. 5 rights. Information reviewed Scanned with patient. (Used for rapid rhino insertion.). Vitals: 21:31 07/19/2024 BP: 94/63 MAP: 74 mmHg. HR: 75 bpm. Medication Wastage: 5 mL wasted. - 22:00 Joshua Cowart E.M.T.-P. [address] [facility] ED NURSES CLINICAL NOTEon ED NURSES CLINICAL NOTE Nurse Narrative Nurse Clinical [address] [address] [id number] 07/19/2024 19:32:00 Patient: MORGAN ORELLANA Sex: Female : 1990 Age: 34y Disposition: Discharge to Home Disposition Decision Time: 00:57 07/20/2024 Departure Time: 01:16 07/20/2024 TRIAGE Arrived by private vehicle. Historian: (patient). Primary physician (none). Triage time: 19:25 07/19/2024. Acuity: LEVEL 3. Chief Complaint: CHEST PAIN and (CP started at 1855 while pt was at work. Pt started with nosebleed at 1730.). Alert. No acute distress. This started just prior to arrival. No difficulty breathing, sweating episodes, nausea, vomiting or fever. No cough. SEPSIS SCREEN: NEGATIVE. SIRS criteria negative. No possible sources of infection. -- 19:53 07/19/24 EDT Lina Klein R.N. 19:51 07/19/24. BP: 122/81 (regular cuff) taken on right arm, while sitting. MAP: 95. HR: 82. Regular and normal rate. RR: 20. Regular and unlabored. O2 saturation: 96% on room air. Temperature: 98.2 F (oral). Pain level now 5/10. Describes the pain as sharp. Constant. -- 19:52 07/19/24 EDT Lina Klein R.N. Measurements: 19:50 07/19/24 Wt: 154.2 kg, Ht/Charlie: 62.0 in, BMI: 62.19 -- 19:51 07/19/24 EDT Lina Klein R.N. Medications: topiramate 25 mg tablet: TAKE 1 TABLET BY MOUTH TWICE DAILY -- 20:16 07/19/24 KYLET Lina Klein R.N. 1 of 4 Nurse Narrative medroxyprogesterone 10 mg tablet: Take 1 tablet by mouth once daily. -- 20:16 07/19/24 KYLET Lina Klein R.N. bupropion HCl XL 150 mg 24 hr tablet, extended release: TAKE 1 TABLET BY MOUTH EVERY MORNING -- 20:16 07/19/24 LOW Klein R.N. buspirone 10 mg tablet: Take 1 oral tablet 2 times a day -- 20:16 07/19/24 LOW Klein R.N. paroxetine 30 mg tablet: Take 1 oral tablet once a day -- 20:16 07/19/24 EDT Lina Klein R.N. aripiprazole 5 mg tablet: Take 1 oral tablet once a day -- 20:16 07/19/24 EDT Lina Klein R.N. Trulicity 0.75 mg/0.5 mL subcutaneous pen injector: Inject 0.75 mg subcutaneously one time a week. -- 20:16 07/19/24 EDT Lina Klein R.N.Patient no longer takes -- 20:19 07/19/24 EDT Tory Arreola R.N. Allergies: no known drug allergies -- 19:47 07/19/24 EDT Lina Klein R.N. Problems: Depression -- 19:47 07/19/24 KYLET Lina Klein R.N. Anxiety disorder -- 19:48 07/19/24 EDT Lina Klein R.N. PTSD -- 19:48 07/19/24 EDT Lina Klein R.N. ADDITIONAL SURGERIES: Cholecystectomy -- 19:48 07/19/24 EDT Lina Klein R.N. miscarriage X2 -- 19:49 07/19/24 EDT Lina Klein R.N. cyst on tailbone -- 19:49 07/19/24 EDT Lina Klein R.N. hiatal hernia -- 19:49 07/19/24 EDT Lina Klein R.N. History 19:25 07/19/24. SOCIAL HX: Former smoker, end date 2022. Occasional alcohol use. Weekly drug use: marijuana. The patient has not traveled outside the [place] Infectious disease exposure: No infectious disease exposure. ABUSE ASSESSMENT: The patient answered yes to the question(s) Do you feel safe in your home? and no to the question(s) Are you afraid to go home?. SELF HARM ASSESSMENT: Self harm assessment was performed. The patient answered no to the question(s) Have you recently felt down, depressed, or hopeless? and Do you have thoughts of harming or killing yourself?. 2 of 4 Nurse Narrative FALL RISK ASSESSMENT: Fall risk assessment completed. No risk factors identified. -- 19:53 07/19/24 KYLET Lina Klein R.N. Interventions 19:25 07/19/24. Identification band on patient. Advanced care plan discussed with patient. Patient does not have advanced directive. -- 19:53 07/19/24 EDT Lina Klein R.N. PHYSICAL ASSESSMENT 20:19 07/19/24. Ambulatory to room. Patient gowned. GENERAL / NEURO / PSYCH: Alert. Oriented X 4. Appears in no acute distress. ( Nose bleed X 3 since 1730 today. Left nares. Clip applied to nares, ice pack applied). RESPIRATORY: Respirations not labored. Chest nontender. Breath sounds within normal limits. CVS: Normal sinus rhythm noted. Heart sounds within normal limits. Pulses within normal limits. Capillary refill less than 2 seconds. GI / : Abdomen soft and nontender. No nausea noted. No emesis noted. EXTREMITIES: No lower extremity edema. SKIN: Skin is warm and dry. Skin is non-tender. -- 20:19 07/19/24 EDT Lina Klein R.N. NURSING PROGRESS NOTES 20:07 07/19/24. Site #1 started via IV in the left antecubital space with an 18g angiocath with aseptic technique and good blood return; 1 attempt. Blood drawn: rainbow set tube(s). Labeled in the presence of the patient and sent to the lab. Saline lock flushed with 5 mL saline. -- 20:11 07/19/24 EDT Joshua Cowart E.M.T.-P. 20:22 07/19/24. 12-LEAD EKG: EKG time: (19:35 07/19/2024). 12-Lead EKG was ordered, performed by me and shown to the ED physician (19:35 07/19/2024). Two patient identifiers checked. Call light placed in reach. Side rails up x 2. [facility] placed in [facility] (more content not included)... Normal [facility] ED ORDER SHEET (CPOE ONLY)on 07-20-2024 ED ORDER SHEET (CPOE ONLY) Order Sheet Order Sheet [address] [place] [address] [id number] 07/19/2024 Patient: MORGAN ORELLANA Sex: Female : 1990 Age: 34y MEASUREMENTS: Wt: 154.2 kg, Ht/Charlie: 62.0 in, BMI: 62.19 ALLERGIES: No known drug allergies MEDICATION/IV/DRIP/FLUID ORDERS Order Description Priority Entered Acknowledged Completed Aspirin PO Vckr220 mg (NOW 20:17 07/19/2024 20:23 20:25 x1) Padmini Farr D.O. 07/19/2024 07/19/2024 Karo Bobo R.N. Milind-Synephrine Nasal Spray2 20:46 07/19/2024 20:47 21:17 spray (NOW x1, left nare) Padmini Farr D.O. 07/19/2024 07/19/2024 Karo Bobo R.N. Order Comments: 21:17 07/19/2024: administered Lina Klein R.N. TXA Tranexamic Acid IVPB 21:47 07/19/2024 21:47 21:59 1000mg/100ml [id number] mg at Padmini Farr D.O. 07/19/2024 07/19/2024 300 mL/hr (NOW x1) Karo Bobo E.M.T.-PLaurent Silver Sulfadiazine Topical 21:47 07/19/2024 21:47 22:44 Sticks1 applic (NOW x1) Padmini Farr D.O. 07/19/2024 07/19/2024 Karo Bobo R.N. Order Comments: 22:44 07/19/2024: administered Lina Klein R.N. lidocaine Viscous Liq 2 % 15ml 21:53 07/19/2024 21:57 22:00 1 of 4 Order Sheet UD10 mL (NOW x1) Padmini Farr D.O. 07/19/2024 07/19/2024 Joshua Millard E.M.T.-P. ELaurentMLaurentT.-P. LAB ORDERS Order Description Priority Entered Acknowledged Collected Completed CBC w Diff Stat Stat 20:17 07/19/2024 20:20 07/19/2024 20:20 07/19/2024 Manoj Lovett Bryan Parker, E.M.T.-PLaurent IsaacsT.-P. BNP Stat Stat 20:17 07/19/2024 20:20 07/19/2024 20:20 07/19/2024 Manoj Lovett Bryan Parker, E.M.T.-PLaurent IsaacsT.-P. CMP Stat Stat 20:17 07/19/2024 20:20 07/19/2024 20:20 07/19/2024 Manoj Lovett Bryan Parker, E.M.T.-PLaurent IsaacsT.-P. PT with INR Stat Stat 20:17 07/19/2024 20:20 07/19/2024 20:20 07/19/2024 Manoj Lovett Bryan Parker, E.M.T.-PLaurent IsaacsT.-P. PTT Stat Stat 20:17 07/19/2024 20:20 07/19/2024 20:20 07/19/2024 Manoj Lovett Bryan Parker, E.M.T.-PLaurent IsaacsT.-PLaurent D-Dimer Stat Stat 20:17 07/19/2024 20:20 07/19/2024 20:20 07/19/2024 Manoj Lovett Bryan Parker, E.M.T.-PLaurent IsaacsT.-P. EKG - ED Stat Stat 20:17 07/19/2024 20:20 07/19/2024 20:20 07/19/2024 Manoj Lovett Bryan Parker, E.M.T.-PLaurent IsaacsT.-P. Troponin-I Protocol Stat 20:17 07/19/2024 20:20 07/19/2024 20:20 07/19/2024 (STAT 1hr) (Sched: q1h Manoj Lovett Bryan Parker, X2); Stat 1 of 2 E.M.T.-P. E.M.T.-P. 2 of 4 Order Sheet Troponin-I Protocol Stat 20:17 07/19/2024 20:20 07/19/2024 21:17 07/19/2024 (STAT 1hr) (Sched: q1h Manoj Lovett Anne Rutt, R.N. X2); Stat 2 of 2 E.M.T.-P. HCG, Qual Serum Stat Stat 20:17 07/19/2024 20:20 07/19/2024 20:20 07/19/2024 Manoj Lovett Bryan Parker, E.MLaurentT.-P. E.M.T.-P. DIAGNOSTIC STUDY ORDERS Order Description Priority Entered Acknowledged Completed Chest 1V Stat Stat 20:17 07/19/2024 20:20 21:16 Padmini Farr D.O. 07/19/2024 07/19/2024 Lina Millard R.N. E.M.T.-P. Order Comments: 20:17 07/19/2024: Status: Not . Padmini Farr D.O. Reason for Study: Chest Pain CT Chest PE Study Stat Stat 21:46 07/19/2024 21:47 23:25 Padmini Farr D.O. 07/19/2024 07/19/2024 Lina Klein, R.N. Lina Klein, R.N. Reason for Study: Chest Pain STAFF ORDERS Order Description Priority Entered Acknowledged Collected Completed Obtain Old EKG 20:17 07/19/2024 20:20 07/19/2024 20:23 07/19/2024 Manoj Lovett Anne Rutt, R.N. E.M.T.-P. Oxygen titrate to 92% 20:17 07/19/2024 20:20 07/19/2024 20:20 07/19/2024 Manoj Lovett Bryan Parker, E.MLaurentT.-PLaurent MaganaM.T.-P. Rail Operator 20:17 07/19/2024 20:20 07/19/2024 20:20 07/19/2024 Manoj Lovett Bryan Parker, E.M.T.-P. E.M.T.-P. 3 of 4 Order Sheet Vital signs every 15 20:17 07/19/2024 20:20 07/19/2024 20:20 07/19/2024 minutes Manoj Lovett Bryan Parker, E.M.T.-P. E.M.T.-P. IV Saline Lock 20:17 07/19/2024 20:20 07/19/2024 20:20 07/19/2024 Manoj Lovett Bryan Parker, E.M.T.-P. E.M.T.-P. [Electronically signed by Padmini Farr D.O. (07/20/2024 01:00 EDT)] [address] [facility] ED PHYSICIAN CLINICAL REPORT on 07-20-2024 ED PHYSICIAN CLINICAL REPORT Narrative Physician Clinical Narrative [address] [address] [id number] 07/19/2024 19:32:00 Patient: MORGAN ORELLANA Sex: Female : 1990 Age: 34y Disposition: Discharge to Home Disposition Decision Time: 00:57 07/20/2024 Measurements Wt: 154.2 kg, Ht/Charlie: 62.0 in, BMI: 62.19 Initial Vital Sign Measured Time BP MAP HR RR O2Sat ETCO2 Temp Pain GCS RTS 19:51 07/19/2024 122/81 95 82 20 96% RA 98.2 F 5 Time Seen: 19:49 07/19/2024. Arrived- By private vehicle. Historian- patient. HISTORY OF PRESENT ILLNESS Chief Complaint: CHEST PAIN. It is described as sharp and it is described as located in the central chest area. This started today Started at 6:45 p.m. today. and is still present (better). At its maximum, severity described as 6 / 10. When seen in the E.D., severity described as 3 / 10. No nausea, vomiting or diaphoresis. The patient has had difficulty breathing. Similar symptoms previously. Patient has had similar symptoms once. ( Had chest pain once before when she had a panic attack.). Recent medical care: Not recently seen/assessed. REVIEW OF SYSTEMS 1 of 14 Narrative RESPIRATORY: No cough. CVS: No pedal edema or calf pain. NEUROLOGICAL: No fainting episodes or headache. THROAT: No sore throat. EYES: No blurred vision. GI: No abdominal pain or black stools. CONSTITUTIONAL: No fever or chills. : No difficulty with urination. ENDO/HEME/LYMPH: No enlarged lymph nodes. MUSCULOSKELETAL: No joint pain. SKIN: No skin rash. Status: Not . PAST HISTORY See nurses notes. Anxiety disorder Depression PTSD Surgeries: Cholecystectomy cyst on tailbone hiatal hernia miscarriage X2 Medications: aripiprazole 5 mg tablet: Take 1 oral tablet once a day bupropion HCl XL 150 mg 24 hr tablet, extended release: TAKE 1 TABLET BY MOUTH EVERY MORNING buspirone 10 mg tablet: Take 1 oral tablet 2 times a day medroxyprogesterone 10 mg tablet: Take 1 tablet by mouth once daily. paroxetine 30 mg tablet: Take 1 oral tablet once a day topiramate 25 mg tablet: TAKE 1 TABLET BY MOUTH TWICE DAILY Allergies: no known drug allergies SOCIAL HISTORY Heavy tobacco smoker- less than 1 pack per day. Occasional alcohol use. Drug use: marijuana. ADDITIONAL NOTES The nursing notes have been reviewed. 2 of 14 Narrative PHYSICAL EXAM Appearance: Alert. Oriented X3. No acute distress. Eyes: Pupils equal, round and reactive to light. ENT: Pharynx normal. Neck: Normal inspection. Neck supple. CVS: Normal heart rate and rhythm. Heart sounds normal. Pulses normal. Respiratory: No respiratory distress. Breath sounds normal. Chest nontender. Abdomen: Soft and nontender. Bowel sounds normal. No mass. Skin: Skin warm and dry. No rash. Extremities: Extremities exhibit normal ROM. No lower extremity edema. Neuro: Oriented X 3. No motor deficit. No sensory deficit. LABS, X-RAYS, AND EKG 12-LEAD EKG: EKG time: 19:35 07/19/2024. Normal sinus rhythm. Rate: 95. Normal P waves. Normal QRS complex. Normal ST and T waves. The study has been interpreted contemporaneously by me. The EKG appears to be a good tracing. Interpretation time: 19:36 07/19/2024. Chest X-ray: No acute disease. Views: PA. Technique: under penetrated. The X-rays were independently viewed by me. Interpretation time: 22:59 07/19/2024. Chest CT: No acute disease. (Negative for pulmonary embolism. Negative for thoracic aortic aneurysm. No infiltrate, pleural effusion or pneumothorax. No acute fracture. No acute process in the upper abdomen.). Chest CT performed with contrast. The study was interpreted by the radiologist. Interpretation time: 00:04 07/20/2024. Laboratory Tests: APTT Final EVGENY: 07/19/2024 20:07:00 EDT MsgRcvd: 07/19/2024 20:49 EDT Lab Test Result Reference Status Received Comments 07/19/2024 20:49 PTT 27.8 sec 25.4 - 38.4 Final EDT CBC + DIFF Final EVGENY: 07/19/2024 20:07:00 EDT MsgRcvd: 07/19/2024 20:33 EDT 3 of 14 Narrative Lab Test Result Reference Status Received Comments 07/19/2024 20:33 CBC-COMPLETE CBC + DIFF Final EDT BLOOD COUNT 07/19/2024 20:33 WBC 7.9 x 10/UL 4.5 - 10.8 Final EDT 07/19/2024 20:33 RBC 4.53 x 10/UL 4.10 - 5.30 Final EDT 07/19/2024 20:33 HEMOGLOBIN 12.9 g/dl 12.0 - 16.0 Final EDT 07/19/2024 20:33 HEMATOCRIT 38.0 % 34.0 - 46.0 Final EDT 07/19/2024 20:33 MCV 84 fl 80 - 99 Final EDT 07/19/2024 20:33 MCH 28 pg 27 - 33 Final EDT 07/19/2024 20:33 MCHC 34 X10 3 32 - 36 Final EDT 07/19/2024 20:33 RDW/CV 13.3 % 12.0 - 15.6 Final EDT 07/19/2024 20:33 PLATELET 309 x10/UL 150 - 450 Final EDT 07/19/2024 20:33 AUTOMATED MPV 8.1 fl 6.6 - 10.5 Final EDT DIFFERENTIAL 07/19/2024 20:33 NEUT % 71.3 % 46.0 - 76.0 (more content not included)... Normal [facility] ED SUPER BILLon 07-20-2024 ED SUPER BILL [place] [id number] [place] [address] [phone] 07/19/2024 Patient: MORGAN ORELLANA Sex: Female : 1990 Age: 34y Facility Professional Category Item Description Code Code Quantity Fee Total Nurse/E/M EMERGENCY 118882 1 $0.00 $0.00 DEPT VISIT HIGH SEVERITYFUNCJ (96554-48) Nurse/IV/IM/Infusions Drip/IVPB 308011 2 $0.00 $0.00 additional hour (49841) Nurse/IV/IM/Infusions Drip/IVPB initial 568696 1 $0.00 $0.00 (96966) Nurse/Supplies Nosebleed Tray 836056 1 $0.00 $0.00 (716541) Physician/Procedures Epistaxis 112749 727645 1 $0.00 $0.00 management- Anterior simple (48535) Grand $0.00 Total Providers Padmini Farr D.O. 1 of 2 [facility] Chief Complaint CHEST PAIN. Principal Diagnosis Acute anterior, mild epistaxis Atypical chest pain. ICD-10 Codes R07.89: Other chest pain R04.0: Epistaxis [address] [facility] ED VISIT SUMMARYon ED VISIT SUMMARY Visit Overview Visit Overview [address] [place] [address] [id number] 07/19/2024 Patient: MORGAN ORELLANA Sex: Female : 1990 Age: 34y 07/20/2024 01:24 AM EDT ED Arrival:19:32 07/19/2024 EDT Status:not Recent Travel:no Language:eng Adv Directive:No Isolation Status: Ethnicity:N Fall Risk:no risk Infectious Disease Exposure:no Measurements:5'2 / 157.5 Self-Harm Status:risk Sepsis Screen:negative cm 340.0 lb / 154.2 kg Chief Complaint:CHEST PAIN, (CP started at 1855 while pt was at work. Pt started with nosebleed at 1730. ), and (none) ALLERGIES No Known Drug Allergies HOME MEDICATIONS aripiprazole 5 mg tablet: Take 1 oral tablet once a day bupropion HCl XL 150 mg 24 hr tablet, extended release: TAKE 1 TABLET BY MOUTH EVERY MORNING buspirone 10 mg tablet: Take 1 oral tablet 2 times a day medroxyprogesterone 10 mg tablet: Take 1 tablet by mouth once daily. 1 of 4 Visit Overview paroxetine 30 mg tablet: Take 1 oral tablet once a day topiramate 25 mg tablet: TAKE 1 TABLET BY MOUTH TWICE DAILY PAST MEDICAL HISTORY / PROBLEMS Anxiety disorder Depression PTSD See nurses notes PAST SURGICAL HISTORY Cholecystectomy miscarriage X2 SOCIAL HISTORY Smoking status: No Alcohol use: Yes Drug use: Yes ED COURSE MEDICATIONS GIVEN IN EMERGENCY DEPARTMENT 20:25 07/19/24 Aspirin PO Chew 324 mg 21:58 07/19/24 TXA Tranexamic Acid IVPB 1000mg/100ml NS 1000 mg 300 mL/hr over 20 minute(s) 21:59 07/19/24 lidocaine Viscous Liq 2 % 15ml UD 10 mL IV SITE INFORMATION INTAKE OUTPUT REASSESMENT (most recent) 2 of 4 Visit Overview 20:19 07/19/24. Ambulatory to room. Patient gowned. GENERAL / NEURO / PSYCH: Alert. Oriented X 4. Appears in no acute distress. ( Nose bleed X 3 since 1730 today. Left nares. Clip applied to nares, ice pack applied). RESPIRATORY: Respirations not labored. Chest nontender. Breath sounds within normal limits. CVS: Normal sinus rhythm noted. Heart sounds within normal limits. Pulses within normal limits. Capillary refill less than 2 seconds. GI / : Abdomen soft and nontender. No nausea noted. No emesis noted. EXTREMITIES: No lower extremity edema. SKIN: Skin is warm and dry. Skin is non-tender. VITAL SIGNS First Vitals Last Vitals Temp 19:51 07/19/24 98.2 F Temp 00:07/20/24 BP 19:07/19/24 122/81 BP 00:07/20/24 125/79 HR 19:07/19/24 82 HR 00:07/20/24 62 RR 19:07/19/24 20 RR 00:07/20/24 O2 Sat 19:51 07/19/24 96% RA O2 Sat 00:31 07/20/24 Pain 19:51 07/19/24 5 Pain 00:31 07/20/24 ETCO2 19:51 07/19/24 ETCO2 00:31 07/20/24 GCS 19:51 07/19/24 GCS 00:31 07/20/24 RTS 19:51 07/19/24 RTS 00:31 07/20/24 PROCEDURES NURSING INTERVENTIONS LABS / STUDIES LABS / STUDIES ORDERED BNP CBC w Diff Chest 1V CMP CT Chest PE Study D-Dimer EKG - ED HCG, Qual Serum PT with INR PTT Troponin-I Protocol (STAT 1hr) 3 of 4 Visit Overview Troponin-I Protocol (STAT 1hr) CLINICAL IMPRESSION ACUTE ANTERIOR, MILD EPISTAXIS ATYPICAL CHEST PAIN [address] [facility] ED VITALS FLOW SHEETon 07-20 ED VITALS FLOW SHEET Vitals Vital Sign Flow Sheet [address] [address] [id number] 07/19/2024 Patient: MORGAN ORELLANA Sex: Female : 1990 Age: 34y Measurements Wt: 154.2 kg, Ht/Charlie: 62.0 in, BMI: 62.19 Measured Time BP MAP HR RR O2Sat ETCO2 Temp Pain GCS RTS 00:31 07/20/2024 125/79 89 62 00:07 07/20/2024 65 95% 00:02 07/20/2024 62 95% 00:01 07/20/2024 118/71 84 66 23:57 07/19/2024 64 95% 23:52 07/19/2024 60 95% 23:47 07/19/2024 64 96% 23:42 07/19/2024 60 97% 23:32 07/19/2024 68 96% 23:31 07/19/2024 92/67 75 63 23:22 07/19/2024 65 96% 23:01 07/19/2024 108/67 80 64 22:31 07/19/2024 113/76 88 69 22:01 07/19/2024 142/86 99 69 21:31 07/19/2024 94/63 74 75 1 of 2 Vitals Measured Time BP MAP HR RR O2Sat ETCO2 Temp Pain GCS RTS 21:01 07/19/2024 108/71 80 72 20:31 07/19/2024 111/69 76 78 20:02 07/19/2024 88 95% 20:01 07/19/2024 118/68 84 82 19:51 07/19/2024 122/81 95 82 20 96% RA 98.2 F [address] [facility] APTTon 07-19-2024 aPTT Coag (Bld) [Time] 27.8 s Normal 25.4 - 38.4 [facility] Comment on above: Performed By: #### 2 10360 #### [facility],[address] [place] [address] CBC + DIFFon 07-19-2024 Baso # 0.02 x10EE3/UL Normal 0.00 - 0.10 [facility] Comment on above: Performed By: #### 2 73308 #### [facility],[address] [place], [place] [id number] Basophils/100 WBC (Bld) 0.3 % Normal 0.0 - 2.0 [facility] Comment on above: Performed By: #### 2 02009 #### [facility],[address] [place] [address] CBC + DIFF Normal [facility] Comment on above: Result Comment: CBC- COMPLETE BLOOD COUNT Performed By: #### 2 82578 #### [facility],[address] [place] [address] EO # 0.19 x10EE3/UL Normal 0.00 - 0.50 [facility] Comment on above: Performed By: #### 2 48516 #### [facility],[address] [place] [address] Eosinophils/100 WBC (Bld) 2.4 % Normal 0.0 - 7.0 [facility] Comment on above: Performed By: #### 2 62985 #### [facility],[address] [place], [place] [id number] Erythrocyte distribution width (RBC) [Ratio] 13.3 % Normal 12.0 - 15.6 [facility] Comment on above: Performed By: #### 2 14426 #### [facility],[address] [place] [address] Hematocrit (Bld) [Volume fraction] 38.0 % Normal 34.0 - 46.0 [facility] Comment on above: Performed By: #### 2 90638 #### [facility],[address] [place] [address] Hemoglobin (Bld) [Mass/Vol] 12.9 g/dL Normal 12.0 - 16.0 [facility] Comment on above: Performed By: #### 2 29156 #### [facility],[address] [place] [address] Lymph # 1.53 x10EE3/UL Normal 0.80 - 2.80 [facility] Comment on above: Performed By: #### 2 82750 #### [facility],[address] [place], [place] [id number] Lymphocytes/100 WBC (Bld) 19.4 % Low 20.0 - 45.0 [facility] Comment on above: Performed By: #### 2 83580 #### [facility],[address] [place], [place] [id number] MANUAL DIFF N/A Normal [facility] Comment on above: Performed By: #### 2 18097 #### [facility],[address] [place] [address] MCH (RBC) [Entitic mass] 28 pg Normal 27 - 33 [facility] Comment on above: Performed By: #### 2 37073 #### [facility],[address] [place] [address] MCHC 34 X10 3 Normal 32 - 36 [facility] Comment on above: Performed By: #### 2 06028 #### [facility],[address] [place] [address] MCV (RBC) [Entitic vol] 84 fL Normal 80 - 99 [facility] Comment on above: Performed By: #### 2 30264 #### [facility],[address] [place] [address] Upson # 0.53 x10EE3/UL Normal 0.20 - 1.00 [facility] Comment on above: Performed By: #### 2 40830 #### [facility],[address] [place] [address] 25285 MONOS % 6.7 % Normal 0.0 - 10.0 [facility] Comment on above: Performed By: #### 2 85643 #### [facility],[address] [place] [address] Morphology Cornel (Bld) [Interp] N/A Normal [facility] Comment on above: Performed By: #### 2 92226 #### [facility],[address] [place] [address] Neut # 5.63 x10EE3/UL Normal 1.50 - 7.10 [facility] Comment on above: Performed By: #### 2 07464 #### [facility],[address] [place], [place] [id number] Neutrophils/100 WBC (Bld) 71.3 % Normal 46.0 - 76.0 [facility] Comment on above: Performed By: #### 2 57692 #### [facility],[address] [place], [place] [address] PLATELET 309 x10EE3/UL Normal 150 - 450 [facility] Comment on above: Performed By: #### 2 75578 #### [facility],[address] [place] [address] Platelet mean volume (Bld) [Entitic vol] 8.1 fL Normal 6.6 - 10.5 [facility] Comment on above: Result Comment: AUTO MATED DIFFERENTIAL Performed By: #### 2 98611 #### [facility],[address] [place] [address] 80232 RBC 4.53 x 10EE6/UL Normal 4.10 - 5.30 [facility] Comment on above: Performed By: #### 2 75083 #### [facility],[address] [place] [address] 19634 WBC 7.9 x 10EE3/UL Normal 4.5 - 10.8 [facility] Comment on above: Performed By: #### 2 53987 #### [facility],[address] [place] [address] CHEST 1 VIEWon 07-19-2024 CHEST [address] [address] Patient: MORGAN ORELLANA Phone#: : 1990 Age: 34 Gender: F Pt. Type: ER Account: [id number] Location: [facility] Ordering: PADMINI FARR Exam Date: 07/19/2024/20:49 Family Phys: Charge Code: 193363 Physician: [place] Order #: [id number] Dose#: PROCEDURE: X-RAY CHEST 1 VIEW COMPARISON: [facility], CT, CHEST PE W CON, 07/19/2024, 23:13. INDICATIONS: Chest pain FINDINGS: Study limited by patient body habitus LUNGS: Poor inspiratory effort. Bilateral perihilar bronchial wall thickening. VASCULATURE: Normal. Unremarkable pulmonary vasculature. CARDIAC: Cardiomegaly MEDIASTINUM: Normal. No visible mass or adenopathy. PLEURA: Normal. No effusion or pleural thickening. BONES: Normal. No fracture or visible bony lesion. OTHER: Negative. CONCLUSION: 1. Bilateral perihilar bronchial wall thickening, this can be seen with bronchial inflammation. Dictated by: Darlene Foster MD on 07/20/2024 at 9:00 Approved by: Darlene Foster MD on 07/20/2024 at 9:[address] [facility] CMP with eGFRon 07-19-[address] AGE [address] [facility] Comment on above: Performed By: #### 2 91884 #### [facility],[address] [place] [address] 76513 Albumin [Mass/Vol] 3.4 g/dL Normal 3.4 - 5.0 [facility] Comment on above: Performed By: #### 2 82827 #### [facility],[address] [place] [address] Albumin/Globulin [Mass ratio] 0.9 {ratio} Normal 0.9 - 1.6 [facility] Comment on above: Performed By: #### 2 39098 #### [facility],[address] [place], [place] [id number] ALK PHOS 73 U/L Normal 46 - 116 [facility] Comment on above: Performed By: #### 2 37174 #### [facility],[address] [place], [place] [id number] ALT [Catalytic activity/Vol] 17 U/L Normal 16 - 63 [facility] Comment on above: Performed By: #### 2 74476 #### [facility],[address] [place] [address]98[address] Anion gap [Moles/Vol] 13 mmol/L Normal 10 - 20 [facility] Comment on above: Performed By: #### 2 15071 #### [facility],[address] [place] [address] AST [Catalytic activity/Vol] 8 U/L Low 13 - 39 [facility] Comment on above: Performed By: #### 2 68861 #### [facility],[address] [place] [address] B/C RATIO 16 ratio Normal 0 - 30 [facility] Comment on above: Performed By: #### 2 47672 #### [facility],[address] [place], [place] [id number] Bilirubin [Mass/Vol] 0.2 mg/dL Normal 0.2 - 1.0 [facility] Comment on above: Performed By: #### 2 22768 #### [facility],[address] [place], [place] [address] Calcium [Mass/Vol] 9.5 mg/dL Normal 8.5 - 10.1 [facility] Comment on above: Performed By: #### 2 62201 #### [facility],[address] [place] [address] Chloride [Moles/Vol] 108 mmol/L High 98 - 107 [facility] Comment on above: Performed By: #### 2 80278 #### [facility],[address] [place] [address] CMP with eGFR Normal [facility] Comment on above: Result Comment: CORRECTED REPORT COMPREHENSIVE METABOLIC PANEL Performed By: #### 2 48400 #### [place] [id number] CO2 [Moles/Vol] 26.1 mmol/L Normal 21.0 - 32.0 [facility] Comment on above: Performed By: #### 2 84162 #### [facility],[address] [place] [address] Creatinine [Mass/Vol] 0.80 mg/dL Normal 0.55 - 1.02 [facility] Comment on above: Performed By: #### 2 50862 #### [place] [address] ERROR DUE TO Normal [facility] Comment on above: Result Comment: AUTO RESULT REPEATED NA eGFR 33 L <-- *Previously reported in error [id number]/19/24.2107.LZ . . . .64193-2 . eGFR(AA) 40 L <-- *Previously reported in error 07/19/24.2106.LZ . . . .36594-5 . ERROR Performed By: #### 2 13045 #### [facility],[address] [place] [address]474 GFR/1.73 sq M.predicted among non-blacks MDRD (S/P/Bld) [Vol rate/Area] mL/min/{1.73_m2} Normal 60 - 999 [facility] Comment on above: Performed By: #### 2 79907 #### [facility],[address] [place] [address] Result Comment: ACCO RDING TO THE NATIONAL KIDNEY DISEASE EDUCATION PROGRAM(NKDE), A NORMAL eGFR IS A VALUE GREATER THAN OR EQUAL TO 60 ML/MIN/1.73 SQ METERS. CHRONIC KIDNEY DISEASE: <60mL/MIN/1.73 SQ METERS KIDNEY FAILURE: <15mL/MIN/1.73 SQ METERS THIS TEST SHOULD ONLY BE USED FOR PATIENTS 18 YEARS OF AGE AND OLDER. FOLLOWING RESULTS REPORTED IN ERROR ] AST/SGOT 0 L <-- *Previously reported in error 07/19/24.LZ . .DIM1. .1920-8 . AGE 34 <-- *Previously reported in error 07/19/24.LZ . .DIM1. . . eGFR > 60 <-- *Previously reported in error 07/19/24.LZ . . . .93854-7 . eGFR(AA) > 60 <-- *Previously reported in error 07/19/24.LZ . . . .85858-1 . Globulin (S) [Mass/Vol] 3.8 g/dL Normal 1.5 - 3.8 [facility] Comment on above: Performed By: #### 2 37655 #### [facility],[address] [place] [address] Glucose [Mass/Vol] 91 mg/dL Normal 74 - 106 [facility] Comment on above: Performed By: #### 2 04321 #### [facility],[address] [place] [address]46 Potassium [Moles/Vol] 4.1 mmol/L Normal 3.5 - 5.1 [facility] Comment on above: Performed By: #### 2 39341 #### [address] [address] Protein [Mass/Vol] 7.2 g/dL Normal 6.4 - 8.2 [facility] Comment on above: Performed By: #### 2 05014 #### [address] [address] Sodium [Moles/Vol] 143 mmol/L Normal 136 - 145 [facility] Comment on above: Performed By: #### 2 44801 #### [facility],[address] [place] [address] Urea nitrogen [Mass/Vol] 13 mg/dL Normal 7 - 18 [facility] Comment on above: Performed By: #### 2 13528 #### [address] [address] [address] CHEST (PE PROTOCOL)on CT CHEST (PE PROTOCOL) [place] [address] Patient: MORGAN ORELLANA Phone#: : 1990 Age: 34 Gender: F Pt. Type: ER Account: [id number] Location: [facility] Ordering: PADMINI AFRR Exam Date: 07/19/2024/23:13 Family Phys: Charge Code: [id number] Physician: Redwood Order #: [id number] Dose#: 12.3 PROCEDURE: CT CHEST WITH CONTRAST FOR PE COMPARISON: None. INDICATIONS: Chest pain. TECHNIQUE: After obtaining the patient's consent, CT images were obtained with non-ionic intravenous contrast material. Multi-planar images were created to optimize visualization of vascular anatomy with MPR/MIPS and 3D imaging. All CT scans at this facility use dose modulation, iterative reconstruction, and/or weight based dosing when appropriate to reduce radiation dose to as low as reasonably achievable. IV CONTRAST: Omnipaque 350,80ml TOTAL DOSE: 12.3 CTDIvol(mGy) FINDINGS: VASCULATURE: No pulmonary embolism. AORTA: No aortic aneurysm. LUNGS: Normal. No visible pulmonary disease. WING: Normal. No mass or adenopathy. MEDIASTINUM: Normal. No mass or adenopathy. CARDIAC: Normal. No enlargement, pericardial thickening, or significant calcification. PLEURA: Normal. No mass or effusion. CHEST WALL: Normal. No mass or axillary adenopathy. LIMITED ABDOMEN: Normal. Limited images of the upper abdomen are unremarkable. BONES: Normal. No bony lesion or fracture. OTHER: Negative. CONCLUSION: 1. No pulmonary embolism. No appreciable acute intrathoracic abnormality. Dictated by: Darlene Foster MD on 07/20/2024 at 9:40 Continued Report - Page 2 of 2 Patient: MORGAN ORELLANA Phone#: : 1990 Age: 34 Gender: F Pt. Type: ER Account: [id number] Location: 052 Ordering: PADMINI FARR Exam Date: 07/19/2024/23:13 Family Phys: Charge Code: [id number] Physician: Redwood Order #: [id number] Dose#: 12.3 Approved by: Darlene Foster MD on 07/20/2024 at 9:[address] [facility] D-DIMER, QUANTITATIVEon 05-0 D-DIMER QUANT 377 ng/ml High 0 - 230 [facility] Comment on above: Result Comment: ==== FOLLOWING RESULTS REPORTED IN ERROR DD] D-DIMER QUANT 428 H <-- *Previously reported in error 07/19/24.2049.LZ . .ACLT Performed By: #### 2 26229 ####[facility],[address] [place], [place] [id number] D-DIMER, QUANTITATIVE Normal [facility] Comment on above: Result Comment: CORRECTED REPORT QUANT D-DIMER Performed By: #### 2 83577 ####[facility],[address] [place] [address] ERROR DUE TO QC ERROR Normal [facility] Comment on above: Performed By: #### 2 26982 ####[facility],[address] [place] [address] NT-proBNPon 07-19-2024 Natriuretic peptide B (Bld) [Mass/Vol] 195 pg/mL High 0 - 125 [facility] Comment on above: Performed By: #### 2 31050 ####[facility],[address] [place] [address] SERUM QUALon 07-19 EXTERNAL QC DONE? YES Normal [facility] Comment on above: Performed By: #### 2 76844 ####[facility],[address] [place] [address] INTERNAL QC PASS Normal [facility] Comment on above: Performed By: #### 2 99578 ####[facility],[address] [place], [place] [id number] SER Negative Normal NEGATIVE [facility] Comment on above: Performed By: #### 2 99300 ####[facility],[address] [place], [place] [address] PROTHROMBIN TIME AND INRon 0 07-19-2024 INR Coag (PPP) [Relative time] 1.0 {INR} Normal 0.8 - 1.2 [facility] Comment on above: Result Comment: T HE HEMOSIL THROMBOPLASTIN REAGENT USED IN THE PROTHROMBIN TIME TEST INTERACTS WITH THE DRUG CUBICIN (DAPTOMYCIN) AND WILL RESULT IN FALSELY ELEVATED PT / INR RESULTS INR INTERPRETATION INR INDICATION PREVENTION AND TREATMENT OF THROMBOEMBOLISM ASSOCIATED WITH: 2.0 - 3.0 ATRIAL FIBRILLATION, BIOPROSTHETIC HEART VALVES, PULMONARY EMBOLISM, VENOUS THROMBOSIS, SYSTEMIC EMBOLISM POST MYOCARDIAL INFARCTION 2.5 - 3.5 MECHANICAL HEART VALVES Performed By: #### 2 73315 ####[facility],[address] [place] [address] PROTHROMBIN TIME AND INR Normal [facility] Comment on above: Result Comment: PROT HROMBIN TIME AND INR Performed By: #### 2 33376 ####[place] [address] PT-COUMADIN 11.0 sec Normal 9.3 - 14.1 [facility] Comment on above: Performed By: #### 2 38125 ####[place] [address] TROPONINon 07-19-2024 HS TROPONIN <4.0 Normal 0.0 - 51.4 [facility] Comment on above: Performed By: #### 2 97794 #### [facility],[address] [place] [address] HS TROPONIN <4.0 Normal 0.0 - 51.4 [facility] Comment on above: Performed By: #### 2 03952 #### 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 LMP 05/01/2024- w/o Provera Menses: cycles irregular days and 3-5 days of flow Contraception: none HPV vaccine: no HPV:negative, 05/22/2021 Last pap: 05/22/2021, negative. History of abnormal pap: No, all prior PAP smears have been normal Last mammogram: never Sexually active: Yes OB History Gravida2 Para0 Term0 Preterm0 AB2 Living0 SAB2 IAB0 Ectopic0 Multiple0 Live Births0 Mailroom Manager History LMP: 05/01/2024 (Exact Date), Having periods Age at Menarche: 12 Age at First : Age at Menopause: Mailroom Manager History Comments: Sexual Activity: Yes; Male Contraception: Not used Menstrual Tracking History Flowsheet Row Office Visit from 05/22/2024 in OB/Gynecology Menstrual Flow Moderate PAST MEDICAL HISTORY Diagnosis Date Anxiety Bipolar affective disorder (HCC) 03/18/1999 multiple personalities? Cyst near tailbone Gall stones H/O borderline personality disorder Hiatal hernia Manic-depressive (HCC) Miscarriage 07/2022 PCOS (polycystic ovarian syndrome) 03/2024 Tobacco user 02/06/2018 PAST SURGICAL HISTORY Procedure Laterality Date CHOLECYSTECTOMY 12/16/2012 Cholecystectomy PAST SURGICAL HISTORY OF removal of tailbone cyst FAMILY HISTORY Problem Relation Age of Onset Multiple Sclerosis Mother Mental illness Mother No Known Problems Father No Known Problems Sister No Known Problems Sister No Known Problems Brother No Known Problems Brother Heart Maternal Grandmother stent AND pacemaker other (endometrial cancer) Maternal Grandmother COPD Maternal Grandfather No Known Problems Paternal Grandmother Prostate Cancer Paternal Grandfather SOCIAL HISTORY Social History Tobacco Use Smoking status: Former Types: Cigarettes Smokeless tobacco: Never Tobacco comments: Quit July 2021 Vaping Use Vaping status: Former Substances: Flavoring Devices: Pre-filled or refillable cartridge Substance Use Topics Alcohol use: Yes Comment: Occasionally Drug use: No REVIEW OF SYSTEMS Abdomen: No abdominal pain, nausea, vomiting, diarrhea, or constipation. No bloating, early satiety, indigestion, or increased flatulence. Bladder: No dysuria, gross hematuria, urinary frequency, urinary urgency, or incontinence. Breast: No breast lumps, nipple d/c, overlying skin changes, redness or skin retraction. Allergies and current medication updated:Yes SENSITIVE EXAM: The sensitive examination was discussed with the Patient or Patient's Authorized Driver License Technician. As applicable, any other physician, advance practice provider, medical student, or other health professional student that will be observing or involved in the sensitive examination for educational or training purposes was discussed with the Patient or Authorized Driver License Technician. The Patient or Authorized Driver License Technician has agreed to proceed with the sensitive examination. (Sensitive examination includes inspection and/or palpation of the breasts, pelvis, prostate and anorectal regions). EXAM: BP 122/74 Ht 5' 1.85 (1.57m) Wt 345 lb (156.5kg) LMP 05/01/2024 BMI 63.41 kg/(m2). GENERAL: pleasant, female in no apparent distress HEENT: Normocephalic, atraumatic, mucus membranes moist, and no lesions DERMATOLOGY: Normal, without lesions, non-icteric, and non-hirsute BREAST: soft, non-tender, symmetric, no dominant mass, normal nipple-areolar complex, no lymphadenopathy, and no nipple discharge CHEST: Normal inspiratory effort ABDOMEN: soft, non-tender, and no masses PELVIC: external genitalia normal, normal Bartholin's glands, urethra, [place]'s glands, no vulvar lesions, no cervical lesions, good vaginal support, physiologic discharge present, normal appearing perineal body and perianal region BIMANUAL: uterus normal size, shape and consistency, no adnexal masses, and non-tender RECTOVAGINAL: deferred. NEURO: alert and oriented x3,exam grossly non-focal EXTREMITIES: normal ASSESSMENT/PLAN: 1) Health maintenance: Pap/HPV up to date. Mammogram starting age 40. Nutrition, exercise and routine health maintenance exams reviewed. Calcium/Vitamin D supplementation information provided. Colon cancer screening: start at age 45 2) Contraception: none. Contraceptive options reviewed and information provided. 3) STD screening: Declined STD check. 4) Follow up one year or sooner as needed Soco Cole APRN.BUILD ENGINEER Allergies As of (more content not included)... Normal [facility] CNPNon 03-27-2024 CNPN Telephone (OBGYWM) -- ELAINE ORELLANA ([id number]) 1990 [facility] Date Time Provider Department 03/27/24 SOCO COLE OBGYWM During your visit today, we recorded the following information about you: Soco Cole APRN.CNP 03/27/2024 7:06 AM Signed Please let the pt know that her test is negative and I sent in Provera for her to induce a period. PHILIP Almazan Trisha, RN 03/27/2024 8:30 AM Signed Patient notified. Briana Flower RN The following approved medication requests have been transmitted electronically. Requested Prescriptions Signed Prescriptions Disp Refills medroxyPROGESTERone (PROVERA) 10 mg tablet 10 tablet 0 Sig: Take 1 tablet by mouth once daily. Authorizing Provider: SOCO COLE Pharmacy Information Pharmacy Address [phone], [place] [address] Allergies As of Date: 03/27/2024 (No Known Allergies) Date Reviewed: 03/26/2024 Reviewed by: Odette Wilcox LPN - Fully Assessed Reason for Visit: Results [95] Order(s):medroxyPROGESTERo ne (PROVERA) 10 mg tabletTake 1 tablet by mouth once daily.Disp: 10 tabletRfl: 0 Prescriptions as of 03/27/2024 - medroxyPROGESTERone (PROVERA) 10 mg tablet Take 1 tablet by mouth once daily. - TOPAMAX 25 mg tablet - dulaglutide (TRULICITY) 0.75 mg/0.5 mL pen injector Inject 0.75 mg subcutaneously one time a week. - ergocalciferol 50,000 unit capsule (VITAMIN D2, DRISDOL) Take 1 capsule by mouth one time a week. - ARIPiprazole (ABILIFY) 5 mg tablet Take 5 mg by mouth once daily. - albuterol HFA (PROVENTIL HFA, VENTOLIN HFA) 90 mcg/actuation inhaler INHALE 2 (TWO) puffs EVERY 4 HOURS NEEDED for cough - buPROPion XL (WELLBUTRIN XL) 150 mg 24 hr tablet Take 1 oral tablet every morning - busPIRone (BUSPAR) 10 mg tablet Take 1 tablet by mouth every 12 hours. - hydrOXYzine HCl (ATARAX) 10 mg tablet Take 30 mg by mouth daily at bedtime. - ondansetron orally disintegrating (ZOFRAN ODT) 4 mg disintegrating tablet TAKE 1 TABLET BY MOUTH FOUR TIMES DAILY NEEDED FOR NAUSEA - PARoxetine (PAXIL) 30 mg tablet Take 1 tablet by mouth every afternoon. - traZODone (DESYREL) 100 mg tablet Take 100 mg by mouth daily at bedtime. - Clindamycin Phosphate (CLEOCIN T) 1 % lotion Apply a thin film 1-2 times daily to affected areas on chin. 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 Medications Discontinued During This Encounter Prescriptions - norgestimate 0.25 mg-ethinyl estradiol 35 mcg (SPRINTEC) 0.25-35 mg-mcg per tablet (Discontinued) Take 1 tablet by mouth once daily. Encounter Status:Closed by BRIANA FLOWER on 03/27/24 Normal [facility] B-HCG SerPl-aCncon 5 HCG.beta subunit Qn m[IU]/mL Normal <5.0 [facility] Comment on above: Order Comment: Speci men Type: BLOOD SPECIMENOrdering Facility: [facility] Address: [address] [place] [address] Result Comment: Nega tive Performed By: #### 2 1198-7 ####[facility] LABCLIA [id number] [address] [facility] CNOVon 03-26-2024 CNOV Office Visit (OBGYWM ) -- JOSEROBERT IRWINY ([id number]) 1990 [facility] Date Time Provider Department 03/26/24 10:00 AM SOCO COLE OBGYWM During your visit today, we recorded the following information about you: Blood pressure Last Period 128/86 01/19/24 Soco Cole APRN.BUILD ENGINEER 03/26/2024 10:15 AM Signed Elaine Orellana is a 33 year old female who presents for problem visit irregular menses for 2 month(s), HPT negative February 2024, denied pain. HPI: LMP 01/18-01/21, cycle are regular. She has never gone this long w/o a period. 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 Cyst near tailbone Gall stones H/O borderline personality disorder Hiatal hernia Manic-depressive (HCC) Miscarriage 07/2022 Tobacco user 02/06/2018 PAST SURGICAL HISTORY Procedure Laterality Date CHOLECYSTECTOMY 12/16/2012 Cholecystectomy PAST SURGICAL HISTORY OF removal of tailbone cyst FAMILY HISTORY Problem Relation Age of Onset Multiple Sclerosis Mother Mental illness Mother No Known Problems Father No Known Problems Sister No Known Problems Sister No Known Problems Brother No Known Problems Brother Heart Maternal Grandmother stent AND pacemaker other (endometrial cancer) Maternal Grandmother COPD Maternal Grandfather No Known Problems Paternal Grandmother Prostate Cancer Paternal Grandfather Social History Tobacco Use Smoking status: Former Types: Cigarettes Smokeless tobacco: Never Tobacco comments: Quit July 2021 Vaping Use Vaping status: Former Substances: Flavoring Devices: Pre-filled or refillable cartridge Substance Use Topics Alcohol use: Yes Comment: Occasionally Drug use: No Current Outpatient Medications Medication Sig TOPAMAX 25 mg tablet dulaglutide (TRULICITY) 0.75 mg/0.5 mL pen injector Inject 0.75 mg subcutaneously one time a week. ergocalciferol 50,000 unit capsule (VITAMIN D2, DRISDOL) Take 1 capsule by mouth one time a week. ARIPiprazole (ABILIFY) 5 mg tablet Take 5 mg by mouth once daily. albuterol HFA (PROVENTIL HFA, VENTOLIN HFA) 90 mcg/actuation inhaler INHALE 2 (TWO) puffs EVERY 4 HOURS NEEDED for cough norgestimate 0.25 mg-ethinyl estradiol 35 mcg (SPRINTEC) 0.25-35 mg-mcg per tablet Take 1 tablet by mouth once daily. buPROPion XL (WELLBUTRIN XL) 150 mg 24 hr tablet Take 1 oral tablet every morning busPIRone (BUSPAR) 10 mg tablet Take 1 tablet by mouth every 12 hours. hydrOXYzine HCl (ATARAX) 10 mg tablet Take 30 mg by mouth daily at bedtime. ondansetron orally disintegrating (ZOFRAN ODT) 4 mg disintegrating tablet TAKE 1 TABLET BY MOUTH FOUR TIMES DAILY NEEDED FOR NAUSEA PARoxetine (PAXIL) 30 mg tablet Take 1 tablet by mouth every afternoon. traZODone (DESYREL) 100 mg tablet Take 100 mg by mouth daily at bedtime. Clindamycin Phosphate (CLEOCIN T) 1 % lotion Apply a thin film 1-2 times daily to affected areas on chin. Use enough to cover the entire affected area lightly No current facility-administered medications for this visit. Allergies As of Date: 03/26/2024 (No Known Allergies) Fully Assessed 03/26/2024 REVIEW OF SYSTEMS Abdomen: No bloating, early satiety, indigestion, or increased flatulence. No abdominal pain, nausea, vomiting, diarrhea, or constipation. Bladder: No dysuria, gross hematuria, urinary frequency, urinary urgency, or incontinence. Expanded ROS: N/A Allergies and current medication updated:Yes SENSITIVE EXAM: Sensitive exam not performed. EXAM: BP 128/86 Wt 0 lb (0.0kg) LMP 01/19/2024 GENERAL: pleasant, female in no apparent distress HEENT: Normocephalic, atraumatic, mucus membranes moist, and no lesions CHEST: Normal inspiratory effort NEURO: alert and oriented x3,exam grossly non-focal EXTREMITIES: normal ASSESSMENT AND PLAN: Assessment AND Plan Irregular menses Orders: PROLACTIN; Future TESTOSTERONE, FREE AND TOTAL, BY EQUILIBRIUM ULTRAFILTRATION MASS SPECTROMETRY; Future DHEA-S BLD; Future HYDROXYPROGESTERONE-17; Future FOLLICLE STIMULATING HORMONE; Future LUTEINIZING HORMONE; Future ESTRADIOL-17B BLD; Future HCG QUANTITATIVE; Future If HCG is negative will order 10 days of yudi Cole APRN.CNP Medical Decision Making: Problems: Low: Acute, uncomplicated illness or injury Data: Unique test(s) ordered: 3+ Risk: Low: Low risk from testing/treatment Medical Decision Making Level: 3 - Low Allergies As of Date: 03/26/2024 (No Known Allergies) Date Reviewed: (more content not included)... Normal [facility] DHEA-S BLDon 03-26-2024 DHEA-S [Mass/Vol] 362.6 ug/dL High 98.8-340.0 [facility] Comment on above: Order Comment: Speci men Type: BLOOD SPECIMENOrdering Facility: [facility] Address: [address] [place] [address] Result Comment: Jaye maldonado ranges are age and gender specific. For additional information, reference range tables can be found in the laboratory test directory. The normal values are based on the following source: Dehydroepiandrosterone sulfate (DHEA S) [package insert V 17.0 [place]an]. [employer], [place], [place]: October 2012. Performed By: #### Rodney ARTEAGA, 2243-4, 13890-7, 23099-1 ####[facility] LABCLIA [id number] [place] [address] [place] Estradiol SerPl-mCncon 03-26 E2 [Mass/Vol] 62 pg/mL Normal [facility] Comment on above: Order Comment: Speci men Type: BLOOD SPECIMENOrdering Facility: [facility] Address: [address] [place] [address] Result Comment: This test is not suitable for patients receiving treatment with the drug Fulvestrant (Faslodex). The drug causes an interference leading to falsely elevated estradiol results. Menstrual cycle Estradiol reference ranges: Follicular : < 234 pg/mL Ovulation : 41 to 398 pg/mL Luteal : < 342 pg/mL Estradiol reference ranges vary by gestational period: First trimester : 154 to 3243 pg/mL Second trimester : 1561 to 79127 pg/mL Third trimester : 8285 to >08135 pg/mL Post-menopausal Estradiol reference range: < 41 pg/mL Reference: 1. Estradiol - E2 (Estradiol III) [package insert V 3.0 [place]an]. [employer], [place], [place], August 2015. Performed By: #### Rodney ARTEAGA, 2243-4, 14752-5, 86442-5 ####[facility]CL[facility] [id number] [place] [id number] [place] FSH SerPl-aCncon 03-26-2024 Follitropin Qn 1.9 m[IU]/mL Normal See comment [facility] Comment on above: Order Comment: Speci men Type: BLOOD SPECIMENOrdering Facility: [facility] Address: [address] [place] [address] Result Comment: Refe rence range: Follicular: 3.5-12.5 mIU/mL Ovulation: 4.7-21.5 mIU/mL Luteal: 1.7-7.7 mIU/mL Postmenopausal: 25.8-134.8 mIU/mL Performed By: #### D JENNI, 2243-4, 07809-2, 69045-7 ####[facility]CLIA [id number] TAMANNARodney [facility]Jamie [id number] [facility] HYDROXYPROGESTERONE-17on 17-HYDROXYPROGEST ERONE QUANTITATIVE BY HPLC-MS/MS, SERUM OR PLASMA 27.52 ng/dL Normal <=206.00 [facility] Comment on above: Order Comment: Speci men Type: BLOOD SPECIMENOrdering Facility: [facility] Address: [address] [place] [address] Result Comment: INTERPRETIVE INFORMATION for 17-Hydroxyprogesterone in females: Follicular 15 to 70 ng/dL Luteal 35 to 290 ng/dL REFERENCE INTERVAL: 17-Hydroxyprogesterone Qnt, HPLC-MS/MS Access complete set of age- and/or gender-specific reference intervals for this test in the [facility] Test Directory (Animated Speech). This test was developed and its performance characteristics determined by [employer]. It has not been cleared or approved by the [place] Food and Drug Administration. This test was performed in a CLIA certified laboratory and is intended for clinical purposes. Performed By: [employer] [address] [place] [address] Leather Tooler: Cruz Zimmer MD, PhD CLIA Number: [id number] Performed By: #### H PROG ####[facility] LABORATORIESIA [id number] [place] [address] LH SerPl-aCncon 03-26-2024 Lutropin Qn 2.1 m[IU]/mL Normal See comment [facility] Comment on above: Order Comment: Speci men Type: BLOOD SPECIMENOrdering Facility: [facility] Address: [address] [place] [address] Result Comment: Refe rence range: Follicular: 2.4-12.6 mIU/mL Midcycle: 14.0-95.6 mIU/mL Luteal: 1.0-11.4 mIU/mL Post Neva: 7.7-58.5 mIU/mL Performed By: #### D JENNI, 2243-4, 10778-3, 86592-6 ####[facility]CLIA [id number] [place] [address] [place] Prolactin SerPl-mCncon 03-26 Prolactin [Mass/Vol] 29.0 ng/mL Normal 4.4-33.8 [facility] Comment on above: Order Comment: Speci men Type: BLOOD SPECIMENOrdering Facility: [facility] Address: [address] [place] [address] Result Comment: Prol actin test is performed using the [employer] Electrochemiluminescence Immunoassay method. Results obtained with different methods or kits cannot be used interchangeably. Performed By: #### 2 842-3 ####[facility]CLIA [id number] [place] [address] [place] OF [place] TESTOSTERONE, FREE AND TOTAL , BY EQUILIBRIUM ULTRAFILTRATION MASS SPECTROMETRYon 03-26-2024 Testosterone [Mass/Vol] 30.9 ng/dL Normal 10.0-55.0 [facility] Comment on above: Order Comment: Speci men Type: BLOOD SPECIMENOrdering Facility: [facility] Address: [address] [place] [address] Performed By: #### T FTEST ####[facility] LABCLIA [id number] [place] [address] Testosterone Free [Mass/Vol] 1.00 ng/dL High 0.10-0.85 [facility] Comment on above: Order Comment: Speci men Type: BLOOD SPECIMENOrdering Facility: [facility] Address: [address] [place] [address] Performed By: #### T FTEST ####[facility] LABCLIA [id number] [place] [address] Testosterone Free/Testosterone .total [Mass fraction] 3.24 % High 0.50-2.80 [facility] Comment on above: Order Comment: Speci men Type: BLOOD SPECIMENOrdering Facility: [facility] Address: [address], [place] [address] Performed By: #### T FTEST ####[facility] LABNARESH [id number] [place] [address] CNOVon 03-25-2024 CNOV Office Visit (ENMBHT ) -- ELAINE ORELLANA ([id number]) 1990 F [facility] Date Time Provider Department 03/25/24 1:00 PM MARLEN RILEY During your visit today, we recorded the following information about you: Temperature Pulse Blood pressure Weight 98.6 degrees 85/minute 104/69 165.8 kg Height Last Period 1.575 m 01/19/24 Marlen Riley, MANNIE.BUILD ENGINEER 03/25/2024 1:28 PM Addendum Start Trulicity 0.75 mg weekly. -Possible side effects of this class of medications: nausea, reflux, constipation, redness/irritation at the injection site. If you experience nausea or reflux, eating smaller meals can be helpful. -Acute pancreatitis is a rare side effect, presents with severe abdominal pain, nausea/vomiting--go to ER if you experience these side effects. -For more information on the medication, including instructions on how to administer the medication, visit [email or web address] General recommendations: - Weight loss medications are more effective if combined with healthy diets and routine exercise - Recommend a daily probiotic (such as Culturelle or Align, or similar) for healthy gut biome - Weigh yourself at least once per week - Recommend diet/nutrition trackers (food log, MyFitnessPal) and activity trackers (smart watch, etc) - Adequate, good quality sleep is an important part of weight management. We recommend 7-8 hours of sleep nightly and routine sleep schedules when possible. - For females of child-bearing age: it is not recommended to become while taking medications for weight loss. Please contact our office if you become . Follow-up with [facility] Follow-up with me in 3 months Marlen Riley APRN.BUILD ENGINEER 03/25/2024 1:59 PM Addendum [facility] NEW PATIENT VISIT HISTORY OF PRESENT ILLNESS: Patient is 33 year old year old female with a history of obesity class 3, bipolar disorder, anxiety, vitamin D deficiency presenting as a new patient to me for weight management. Referred by: Julienne Boyle PA PCP: Nae Aguilar MD Consultation requested for an opinion regarding weight management and my final recommendations will be communicated back to the requesting physician by way of shared medical record or letter via US mail. Weight history: Struggled with weight since age 15 Previous attempts at weight loss: Adipex, 12/2021-07/2022 Bariatric [place] at [facility] (surgery canceled d/t ), WW, calorie deficit Most weight lost: 60 lbs with calorie deficit Weight at end of high school: unsure Maximum weight: 420 lbs Current weight: 365 lbs Patient goal or motivation for weight loss: be healthy, be a mom someday Weight graph: Factors associated with weight gain: Family history of overweight: dad, MGM Weight gain associated with or menopause: n/a Tobacco use: smoked off and on over the years Weight gain associated with shift work: no Poor quality, unrestful sleep: no Medications that may be associated with weight gain: hydroxyzine, Abilify, Paxil, trazodone Diet: 24 hour recall: B at 0800: ham sandwich L at 1600: cheese quesadilla with odessa sauce D: none Sn: none Beverages: water Sugar-containing beverages: none EtOH: none Eating out/take out: 2 meals per week Feel hungry frequently: no Takes more food than average to feel full: no Feels hungry quickly after eating a meal: no Eat when not hungry (boredom, stress/emotional): no Frequent cravings or preoccupation with food: no Frequently overeating or binge eating: no Portion control: good Late night or middle of night eating: no Exercise/activity level: Cardio + weight lifting at [employer] 1 hr every other day Hikes some days On feet long hours at work Sleep: Averages 7 hours per night No difficulty falling or staying asleep Feels rested upon waking Denies snoring, improved after weight loss TANIA: moderate TANIA per PSG 12/25/21 CPAP: used previously, stopped after weight loss Mood, stress: Stress elevated Struggles with panic attacks, depression, PTSD Sees therapist every 2 weeks and psychiatrist 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 Weight Watchers, Noom, medically supervised programs, etc.)? no Medical history pertaining to weight loss medications: History of pancreatitis or gallstones: s/p cholecystectomy 2012 History of kidney stones: no (more content not included)... Normal [facility] HEMOGLOBIN A1C (POC)on 03-25 HbA1c (Bld) [Mass fraction] 5.5 % 4.3 - 5.6 % [facility] Comment on above: Location:[facility], [address], [place], [address] Point of care (POC) Hemoglobin A1c (HGBA1C) testing is intended to assess glucose control and provide a management tool for patients known to have diabetes and their healthcare providers. Target HGBA1C levels may depend on specific clinical circumstances. POC HGBA1C is not intended for use as a diagnostic or screening test; laboratory-based testing should be used for diagnostic purposes. The following information is supplemental and may not be applicable to specific diabetes management situations: The POC device canal equipment maintenance supervisor provides a normal range of 4.2% to 6.5% for the HGBA1C POC test. However, the [place] Diabetes Association guidelines indicate that patients with HGBA1C in the range of 5.7% to 6.4% are at increased risk for development of diabetes and that intervention by lifestyle modification may be beneficial. A HGBA1C level greater than or equal to 6.5% is considered diagnostic of diabetes, pending confirmatory testing. Use of HGBA1C testing to evaluate glucose control may not be appropriate for patients with hemoglobin variants or other conditions (e.g. anemia) that alter red blood cell lifespan. [facility] TSH SerPl-aCncon 03-25-2024 TSH Qn 3.880 m[IU]/L Normal 0.270-4.200 [facility] Comment on above: Order Comment: Speci men Type: BLOOD SPECIMENOrdering Facility: [facility] Address: [address] [place] [address] Result Comment: If t he patient is , TSH reference range varies by gestational period: First Trimester (weeks 9-12): 0.180-2.990 mIU/L Second Trimester: 0.110-3.980 mIU/L Third Trimester: 0.480-4.710 mIU/L Jose Walton et al. A Practical Approach for the Verifications and Determination of Site- and Trimester-Specific Reference Intervals for Thyroid Function tests in . Thyroid, 2019:29:3:412-420. Percy Sandoval, et al. 2017 Guidelines of the [place] Thyroid Association for the Diagnosis and Management of Thyroid Disease during and the . Thyroid, 2017:27:3:315-389. Performed By: #### 3 016-3 ####[facility] LABCLIA [id number] [facility] [id number] [place] [address] [place] 12 Lead EKGon 03-21-2024 12 Lead EKG [facility] Cardiovascular Services [address] [place] [address] 12 Lead EKG 03/21/24 1725 MR#: [id number] Acct: [id number] Name: ELAINE ORELLANA Howard Rep #: [id number] : 1990 33 From: Michael Dueñas MD Attending Dr: Status: DEP ER Ordering Dr: Lizzette Rivers Date: 03/21/24 Location: ED Sex: F C Admitted: Test Reason : CP Blood Pressure : */* mmHG Vent. Rate : 103 BPM Atrial Rate : 103 BPM P-R Int : 138 ms QRS Dur : 90 ms QT Int : 370 ms P-R-T Axes : 55 33 40 degrees QTcB Int : 484 ms Sinus tachycardia Possible Left atrial enlargement Borderline ECG Confirmed by JEAN GUERRERO, MICHAEL ([id number]), commissioning editor YVETTE ULRICH ([id number]) on 03/23/2024 7:01:42 AM Referred By: OTIS/CEE Confirmed By: MICHAEL DUEÑAS MD 03/23/24 07 Date Michael Dueñas MD CC: Dr. Leodan Naylor MD; REJI Matthews; No Primary Care Physician Signed Normal [facility] Basic Metabolic Profile (BMP )on 03-21-2024 BUN/CRE 22.0 RATIO High 10-20 [facility] Comment on above: Order Comment: 'TROP ' Serial specimen #1, #2 or #3: 1 Performed By: #### L 501.4020, L500.2500 #### [facility] Laboratory [address] [place], [address] CA,Total 9.4 mg/dL Normal 8.5-10.1 [facility] Comment on above: Order Comment: 'TROP ' Serial specimen #1, #2 or #3: 1 Performed By: #### L 501.4020, L500.2500 #### [facility] [address] [place], [address] Chloride [Moles/Vol] 114 mmol/L High 98-107 [facility] Comment on above: Order Comment: 'TROP ' Serial specimen #1, #2 or #3: 1 Performed By: #### L 501.4020, L500.2500 #### [facility] [address] [place], [address] CO2 [Moles/Vol] 23.0 mmol/L Normal 21.0-32.0 [facility] Comment on above: Order Comment: 'TROP ' Serial specimen #1, #2 or #3: 1 Performed By: #### L 501.4020, L500.2500 #### [facility] [address] [place], [address] Creatinine [Mass/Vol] 0.73 mg/dL Normal 0.55-1.02 [facility] Comment on above: Order Comment: 'TROP ' Serial specimen #1, #2 or #3: 1 Result Comment: The validity of the calculated GFR GFRAA in patients over 70 years has not been determined. Clinical correlation is essential. Performed By: #### L 501.4020, L500.2500 #### [facility] [address] [place], [address] ECRCL 167.11 ml/min Normal [facility] Comment on above: Order Comment: 'TROP ' Serial specimen #1, #2 or #3: 1 Performed By: #### L 501.4020, L500.2500 #### [facility] [address] [place], [address] EST GFR - AA 118 mL/min Normal >60 [facility] Comment on above: Order Comment: 'TROP ' Serial specimen #1, #2 or #3: 1 Result Comment: Afri can [place] GFR Calc Performed By: #### L 501.4020, L500.2500 #### [facility] [address] [place], [address] GAP 4 Low 5-15 [facility] Comment on above: Order Comment: 'TROP ' Serial specimen #1, #2 or #3: 1 Performed By: #### L 501.4020, L500.2500 #### [facility] [address] [place], [address] GFR/1.73 sq M.predicted among non-blacks MDRD (S/P/Bld) [Vol rate/Area] 98 mL/min/{1.73_m2} Normal >60 [facility] Comment on above: Order Comment: 'TROP ' Serial specimen #1, #2 or #3: 1 Result Comment: Non- GFR Calc Performed By: #### L 501.4020, L500.2500 #### [facility] [address] [place], [address] Glucose [Mass/Vol] 112 mg/dL High 74-106 [facility] Comment on above: Order Comment: 'TROP ' Serial specimen #1, #2 or #3: 1 Result Comment: Fast ing Glucose result from 100 to 125 mg/dL suggests IMPAIRED HOMEOSTASIS per A.D.A. criteria. Performed By: #### L 501.4020, L500.2500 #### [facility] [address] [place], [address] Potassium [Moles/Vol] 3.9 mmol/L Normal 3.5-5.1 [facility] Comment on above: Order Comment: 'TROP ' Serial specimen #1, #2 or #3: 1 Performed By: #### L 501.4020, L500.2500 #### [facility] [address] [place], [address] Sodium [Moles/Vol] 141 mmol/L Normal 136-145 [facility] Comment on above: Order Comment: 'TROP ' Serial specimen #1, #2 or #3: 1 Performed By: #### L 501.4020, L500.2500 #### [facility] [address] [place], [address] Urea nitrogen [Mass/Vol] 16 mg/dL Normal 7-18 [facility] Comment on above: Order Comment: 'TROP ' Serial specimen #1, #2 or #3: 1 Performed By: #### L 501.4020, L500.2500 #### [facility] [address] [place], [address] CBC W/Diff, Automatedon 01-0 4-2024 Absolute Lymph 1.53 X10 3/uL Normal 0.83-4.51 [facility] Comment on above: Performed By: #### L 100.0100 #### [facility] [address] [place], [address] Absolute Neut 5.1 X10 3/uL Normal 2.0-7.7 [facility] Comment on above: Performed By: #### L 100.0100 #### [facility] [address] [place], [address] Basophils/100 WBC (Bld) 0.3 % Normal 0-1 [facility] Comment on above: Performed By: #### L 100.0100 #### [facility] [address] [place], [address] Eosinophils/100 WBC (Bld) 1.1 % Normal 0-5 [facility] Comment on above: Performed By: #### L 100.0100 #### [facility] [address] [place], [address] Erythrocyte distribution width (RBC) [Ratio] 13.8 % Normal 11.6-14.6 [facility] Comment on above: Performed By: #### L 100.0100 #### [facility] [address] [place], [address] Hematocrit (Bld) [Volume fraction] 39.1 % Normal 37-47 [facility] Comment on above: Performed By: #### L 100.0100 #### [facility] [address] [place], [address] Hemoglobin (Bld) [Mass/Vol] 12.3 g/dL Normal 12.0-15.0 [facility] Comment on above: Performed By: #### L 100.0100 #### [facility] [address] [place], [address] IG% 0.300 Normal 0.0-0.9 [facility] Comment on above: Result Comment: IG% - Immature Granulocytes (promyelocytes, myelocytes and metamyelocytes) > 1% indicates that a LEFT SHIFT is Present. Performed By: #### L 100.0100 #### [facility] [address] [place], [address] Lymphocytes/100 WBC (Bld) 20.7 % Normal 19-41 [facility] Comment on above: Performed By: #### L 100.0100 #### [facility] [address] [place], [address] MCH (RBC) [Entitic mass] 27.3 pg Normal 27.0-32.0 [facility] Comment on above: Performed By: #### L 100.0100 #### [facility] [address] [place], [address] MCHC (RBC) [Mass/Vol] 31.5 g/dL Low 32-36 [facility] Comment on above: Performed By: #### L 100.0100 #### [facility] [address] [place], [address] MCV (RBC) [Entitic vol] 86.9 fL Normal 81-99 [facility] Comment on above: Performed By: #### L 100.0100 #### [facility] [address] [place], [address] Monocytes/100 WBC (Bld) 8.4 % Normal 0-10 [facility] Comment on above: Performed By: #### L 100.0100 #### [facility] [address] [place], [address] Neutrophils/100 WBC (Bld) 69.2 % Normal 47-70 [facility] Comment on above: Performed By: #### L 100.0100 #### [facility] [address] [place], [address] Nucleated RBC (Bld) [#/Vol] 0 10*3/uL Normal 0-5 [facility] Comment on above: Performed By: #### L 100.0100 #### [facility] [address] [place], [address] Platelet mean volume (Bld) [Entitic vol] 10.4 fL Normal 6.2-12.0 [facility] Comment on above: Performed By: #### L 100.0100 #### [facility] [address] [place], [address] Platelets (Bld) [#/Vol] 296 10*3/uL Normal 150-450 [facility] Comment on above: Performed By: #### L 100.0100 #### [facility] [address] [place], [address] RBC (Bld) [#/Vol] 4.50 10*6/uL Normal 4.2-5.4 [facility] Comment on above: Performed By: #### L 100.0100 #### [facility] [address] [place], [address] RDW SD 44.1 fl High 35.1-43.9 [facility] Comment on above: Performed By: #### L 100.0100 #### [facility] [address] [place], [address] WBC (Bld) [#/Vol] 7.4 10*3/uL Normal 4.4-11.0 [facility] Comment on above: Performed By: #### L 100.0100 #### [facility] [address] [place], [address] Chest PA and Lateralon 03-21 Chest PA and Lateral [facility] Imaging Services [address] [place] [address] Chest PA and Lateral MR#: [id number] Acct: [id number] Name: ELAINE ORELLANA Rep #: [id number] : 1990 F 33 From: Samira Bundy MD PCP: Care Physician,No Primary Status: [facility] ER Study: Chest PA and Lateral Date of Exam: 03/21/24 Exam# [id number] Ordering Dr: Lizzette Rivers [id number] EXAM: XR CHEST, 2 VIEWS CLINICAL INDICATION: chest pain TECHNIQUE: Frontal and lateral views of the chest. COMPARISON: No relevant prior studies available. FINDINGS: LUNGS AND PLEURAL SPACES: Unremarkable. No consolidation or edema. No pneumothorax. No effusion. HEART: Unremarkable. Cardiac silhouette not enlarged. MEDIASTINUM: Central airways and mediastinal contour are unremarkable. BONES/JOINTS: Unremarkable. No acute fracture. SOFT TISSUES: Unremarkable. Cholecystectomy clips are noted. RAD/Chest PA and Lateral IMPRESSION: No radiographic evidence of acute cardiopulmonary disease. Electronically Signed: Samira Bundy MD at 19:30 EST , CC: REJI Matthews; No Primary Care Physician Assistant Professor Of Spanish: Signed Normal [facility] Emergency Department Summary on 03-21-2024 Emergency Department Summary [facility] Medical Records Department [address] [place] [address] Emergency Department Summary 03/21/24 MR#: [id number] Acct: [id number] Name: ELAINE ORELLANA Rep #: [id number] : 1990 33 From: Lizzette MENDOZA PCP: Care Physician,No Primary Status:DEP ER Location: ED HPI History of Present Illness Chief Complaint: Chest Pain Narrative Narrative: Patient presenting today due to pressure across her chest that started randomly this afternoon. She reports that she feels anxious/panicked, lightheaded, feeling like she cannot catch her breath, and is shaky. She does have a history of anxiety, depression, and panic attacks and has had panic attacks in the past but never this severe. She did try taking hydroxyzine around 3 PM with minimal relief. She denies any personal or significant family cardiac history. No history of blood clots or recent surgery/immobilization/ora l contraceptive use/unilateral leg swelling. [facility] Medical History PTSD (post-traumatic stress disorder) Depression Anxiety Cyst near tailbone Miscarriage Home Medications ???Medication ???Instructions ???Recorded ???Last Taken ???Type amoxicillin 875 mg-potassium 1 tab PO BID 10 days #20 tabs 08/05/23 Unknown Rx clavulanate 125 mg tablet bupropion HCl 150 mg 24 hr tablet, 150 mg PO DAILY 08/05/23 Unknown History extended release (Wellbutrin XL) buspirone 10 mg tablet 10 mg PO BID 08/05/23 Unknown History hydroxyzine HCl 10 mg tablet 30 mg PO QHS 08/05/23 Unknown History norgestimate 0.25 mg-ethinyl 1 tab PO DAILY 08/05/23 Unknown History estradiol 35 mcg tablet (Estarylla) ondansetron 4 mg disintegrating 4 mg PO Q6H PRN nausea and vomiting 08/05/23 Unknown History tablet oxycodone-acetaminophen 5 mg-325 1 tab PO Q6H PRN pain 3 days #12 08/05/23 Unknown Rx mg tablet (Percocet) tabs paroxetine HCl 30 mg tablet (Paxil) 30 mg PO DAILY 08/05/23 Unknown History trazodone 100 mg tablet 100 mg PO DAILY 08/05/23 Unknown History Allergy/AdvReac Type Severity Reaction Status Date / Time No Known Allergies Allergy Verified 03/21/24 17:16 Social History Smoking Status: Current some day smoker tobacco type: e-cigarettes ROS ROS ED Constitutional Constitutional ED: Denies chills or fever(s) Cardiovascular Cardiovascular: Reports chest pain; Denies palpitations Respiratory/Chest Respiratory/Chest: Reports dyspnea; Denies cough Gastrointestinal Gastrointestinal: Denies abdominal pain, nausea or vomiting Musculoskeletal Musculoskeletal: Denies arthralgias or myalgias Integumentary Denies rash Neurologic Neurologic: Denies weakness Psychiatric Psychiatric: Reports anxiety; Denies suicidal ideation or suicidal thoughts EXAM Physical Exam Const Vital Signs: 03/21/24 17:16 03/21/24 18:16 03/21/24 19:00 Temperature 98.5 F Temperature Source Oral Pulse Rate 99 84 85 Respiratory Rate 16 16 16 Blood Pressure 150/89 H 128/72 H Blood Pressure Mean 109 90 Pulse Ox 98 99 99 Oxygen Delivery Method Room Air Room Air Room Air 03/21/24 20:00 03/21/24 20:19 Temperature 98.0 F Temperature Source Pulse Rate 81 82 Respiratory Rate 18 Blood Pressure 108/69 Blood Pressure Mean 82 Pulse Ox 97 Oxygen Delivery Method Positive well nourished, well developed and no apparent distress General Appearance ED: well developed HEENT Reports normocephalic and head/scalp atraumatic Mouth ED: Yes moist mucous membranes normal Eyes PERRL and EOMs intact bilaterally Neck full ROM and supple Chest Wall inspection of chest normal Resp normal respiratory effort and clear to auscultation bilaterally Cardio regular rate and regular rhythm GI soft to palpation, non-tender, non-distended and no masses Back/Spine normal ROM and normal to inspection Extremity normal to inspection and full ROM Extremity Narrative: No asymmetric leg edema or pain. General Extremety ED: Negative for edema General Extremity: Negative for edema Neuro oriented x3, CN's II-XII intact bilaterally, moves all extremities, no focal motor deficits and no sensory deficits noted Sensorium / Orientation: awake and alert Psych cooperative and denies suicidal ideation Mood Affect: anxious and tearful Skin no rashes or lesions noted and no wounds Physical Exam Const Vital Signs: 03/21/24 17:16 03/21/24 18:16 03/21/24 19:00 Temperature 98.5 F Temperature Source Oral Pulse Rate 99 84 85 Respiratory Rate 16 16 16 Blood Pressure 150/89 H 128/72 H Blood Pressure Mean 109 90 Pulse Ox 98 99 99 Oxygen Delivery Method Room Air Room (more content not included)... Normal [facility] L501.4020on 03-21-2024 TROPONIN-I HS < 3 Low 3.0-54.0 [facility] Comment on above: Order Comment: 'TROP ' Serial specimen #1, #2 or #3: 1 Result Comment: Chris ovalle Note: New Test Units and Gender Specific Reference Ranges. For more information see Policy Stat Procedure [place] High Sensitivity Troponin (TNIH) and attachments. Performed By: #### L 501.4020, L500.2500 #### [facility] [address] [place], [address] [facility] 12-02-2023 [facility] Telephone ([facility]) -- ELAINE ORELLANA ([id number]) 1990 F [facility] Date Time Provider Department 12/02/23 JULIENNE BOYLE [facility] During your visit today, we recorded the following information about you: Julienne Boyle PA-C 12/02/2023 9:50 AM Signed Patient's request for medication is as follows: Requested Prescriptions Signed Prescriptions Disp Refills ergocalciferol 50,000 unit capsule (VITAMIN D2, DRISDOL) 25 capsule 0 Sig: Take 1 capsule by mouth one time a week. Authorizing Provider: JULIENNE BOYLE Prescription(s) as above. Please process accordingly. Julienne Boyle PA-C Allergies As of Date: 12/02/2023 (No Known Allergies) Date Reviewed: 11/28/2023 Reviewed by: Tosin Avina MD - Fully Assessed Order(s):ergocalciferol 50,000 unit capsule (VITAMIN D2, DRISDOL)Take 1 capsule by mouth one time a week.Disp: 25 capsuleRfl: 0 Prescriptions as of 12/02/2023 - ergocalciferol 50,000 unit capsule (VITAMIN D2, DRISDOL) Take 1 capsule by mouth one time a week. - ARIPiprazole (ABILIFY) 5 mg tablet Take 5 mg by mouth once daily. - albuterol HFA (PROVENTIL HFA, VENTOLIN HFA) 90 mcg/actuation inhaler INHALE 2 (TWO) puffs EVERY 4 HOURS NEEDED for cough - norgestimate 0.25 mg-ethinyl estradiol 35 mcg (SPRINTEC) 0.25-35 mg-mcg per tablet Take 1 tablet by mouth once daily. - buPROPion XL (WELLBUTRIN XL) 150 mg 24 hr tablet Take 1 oral tablet every morning - busPIRone (BUSPAR) 10 mg tablet Take 1 tablet by mouth every 12 hours. - hydrOXYzine HCl (ATARAX) 10 mg tablet Take 30 mg by mouth daily at bedtime. - ondansetron orally disintegrating (ZOFRAN ODT) 4 mg disintegrating tablet TAKE 1 TABLET BY MOUTH FOUR TIMES DAILY NEEDED FOR NAUSEA - PARoxetine (PAXIL) 30 mg tablet Take 1 tablet by mouth every afternoon. - traZODone (DESYREL) 100 mg tablet Take 100 mg by mouth daily at bedtime. - metroNIDAZOLE (METROGEL) 0.75 % Topical Gel Apply to affected areas twice daily - Clindamycin Phosphate (CLEOCIN T) 1 % lotion Apply a thin film 1-2 times daily to affected areas on chin. 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 Encounter Status:Closed by JULIENNE BOYLE on 12/02/23 Normal [facility] 25(OH)D3 [facility] 25-hydroxyvitamin D3 [Mass/Vol] 14.5 ng/mL Low 31.0-80.0 [facility] Comment on above: Order Comment: Speci men Type: BLOOD SPECIMENOrdering Facility: [facility] Address: [address] [place] [address] Performed By: #### 1 989-3 ####[facility] LABCLIA [id number] [facility] [place] [address] [place] BETA 2 GLYCOPROTEIN 1, IGAon 09-12-2024 BETA 2 GLYCOPROTEIN 1, IGA <10 Normal <=20 [facility] Comment on above: Order Comment: Speci men Type: BLOOD SPECIMENOrdering Facility: [facility] Address: [address] [place] [address] Result Comment: Perf ormed By: FLNELLY [address] [place] [address] Leather Tooler: Cruz Zimmer MD, PhD CLIA Number: [id number] Performed By: #### B ETAA ####[facility]ENTERCLIA [id number] [place] [address] BETA 2 GLYCOPROTEIN, IGGon 0 11-28-2023 Beta 2 glycoprotein 1 IgG IA Qn <9 Normal <20 [facility] Comment on above: Order Comment: Speci men Type: BLOOD SPECIMENOrdering Facility: [facility] Address: [address] [place] [address] Result Comment: <20 SGU Negative 20-80 SGU Low Positive >80 SGU High Positive These results were obtained with the Inova QUANTA Lite B2 GPI IgG MUSHTAQ. B2 GPI IgG values obtained with different manufacturers' assay methods may not be used interchangeably. The magnitude of the reported IgG levels cannot be correlated to an endpoint titer. Performed By: #### B ETA2M, BETA2G ####[facility] LABCLIA [id number] [address] [facility] BETA 2 GLYCOPROTEIN, IGMon 0 11-28-2023 Beta 2 glycoprotein 1 IgM IA Qn <9 Normal <20 [facility] Comment on above: Order Comment: Speci men Type: BLOOD SPECIMENOrdering Facility: [facility] Address: [address] [place] [address] Result Comment: <20 SMU Negative 20-80 SMU Low Positive >80 SMU High positive These results were obtained with the Inova QUANTA Lite B2 GPI IgM MUSHTAQ. B2 GPI IgM values obtained with different manufacturers' assay methods may not be used interchangeably. The magnitude of the reported IgM levels cannot be correlated to an endpoint titer. Performed By: #### B ETA2M, BETA2G ####[facility] LABCLIA [id number] [place] [address], [place] [address] [place] CBC W Auto Differential pane l (Bld)on 11-28-2023 Basophils (Bld) [#/Vol] 10*3/uL Normal <0.11 [facility] Comment on above: Order Comment: Speci men Type: BLOOD SPECIMENOrdering Facility: [facility] Address: [address] [place] [address] Performed By: #### 5 7021-8 ####[facility] HOSPITALLIA [id number] [place] [address] [place] Basophils/100 WBC (Bld) 0.3 % Normal [facility] Comment on above: Order Comment: Speci men Type: BLOOD SPECIMENOrdering Facility: [facility] Address: [address] [place] [address] Performed By: #### 5 7021-8 ####[facility] [id number] [place] [address] [place] Differential cell count method Nom (Bld) Auto Normal [facility] Comment on above: Order Comment: Speci men Type: BLOOD SPECIMENOrdering Facility: [facility] Address: [address] [place] [address] Performed By: #### 5 7021-8 ####[facility] [id number] [place] [address] [place] Eosinophils (Bld) [#/Vol] 0.10 10*3/uL Normal <0.46 [facility] Comment on above: Order Comment: Speci men Type: BLOOD SPECIMENOrdering Facility: [facility] Address: [address] [place] [address] Performed By: #### 5 7021-8 ####[facility] HOSPITALLIA [id number] [place] [address] [place] Eosinophils/100 WBC (Bld) 1.4 % Normal [facility] Comment on above: Order Comment: Speci men Type: BLOOD SPECIMENOrdering Facility: [facility] Address: [address] [place] [address] Performed By: #### 5 7021-8 ####[facility] DANIALNCJAYY [id number] [place] [address] [place] Erythrocyte distribution width (RBC) [Ratio] 13.3 % Normal 11.5-15.0 [facility] Comment on above: Order Comment: Speci men Type: BLOOD SPECIMENOrdering Facility: [facility] Address: [address] [place] [address] Performed By: #### 5 7021-8 ####[facility] BENBUCKLANDNCLIHoward [id number] [place] [address] [place] Hematocrit (Bld) [Volume fraction] 40.2 % Normal 36.0-46.0 [facility] Comment on above: Order Comment: Speci men Type: BLOOD SPECIMENOrdering Facility: [facility] Address: [address] [place] [address] Performed By: #### 5 7021-8 ####[facility] BENKOSCIUSKO COMMUNITY HOSPITALLIA [id number] [place] [address] [place] Hemoglobin (Bld) [Mass/Vol] 12.7 g/dL Normal 11.5-15.5 [facility] Comment on above: Order Comment: Speci men Type: BLOOD SPECIMENOrdering Facility: [facility] Address: [address] [place] [address] Performed By: #### 5 7021-8 ####[facility] NORTHNCLIA [id number] [place] [address] [place] Immature granulocytes (Bld) [#/Vol] 10*3/uL Normal <0.10 [facility] Comment on above: Order Comment: Speci men Type: BLOOD SPECIMENOrdering Facility: [facility] Address: [address] [place] [address] Performed By: #### 5 7021-8 ####[facility] MILLWNCLIA [id number] [place] [address] [place] [facility] Immature granulocytes/100 WBC (Bld) 0.3 % Normal [facility] Comment on above: Order Comment: Speci men Type: BLOOD SPECIMENOrdering Facility: [facility] Address: [address] [place] [address] Performed By: #### 5 7021-8 ####[facility] NORTHJADALIA [id number] [place] [address] [place] Lymphocytes (Bld) [#/Vol] 2.02 10*3/uL Normal 1.00-4.00 [facility] Comment on above: Order Comment: Speci men Type: BLOOD SPECIMENOrdering Facility: [facility] Address: [address] [place] [address] Performed By: #### 5 7021-8 ####[facility]ITALA [id number] [place] [address] [place] Lymphocytes/100 WBC (Bld) 28.1 % Normal [facility] Comment on above: Order Comment: Speci men Type: BLOOD SPECIMENOrdering Facility: [facility] Address: [address] [place] [address] Performed By: #### 5 7021-8 ####[facility] NORTHJADALIA [id number] [place] [address] [place] MCH (RBC) [Entitic mass] 27.3 pg Normal 26.0-34.0 [facility] Comment on above: Order Comment: Speci men Type: BLOOD SPECIMENOrdering Facility: [facility] Address: [address] [place] [address] Performed By: #### 5 7021-8 ####[facility] NORTHNCLI [id number] [place] [address] [place] MCHC (RBC) [Mass/Vol] 31.6 g/dL Normal 30.5-36.0 [facility] Comment on above: Order Comment: Speci men Type: BLOOD SPECIMENOrdering Facility: [facility] Address: [address] [place] [address] Performed By: #### 5 7021-8 ####[facility] [id number] [place] [address] [place] MCV (RBC) [Entitic vol] 86.5 fL Normal 80.0-100.0 [facility] Comment on above: Order Comment: Speci men Type: BLOOD SPECIMENOrdering Facility: [facility] Address: [address] [place] [address] Performed By: #### 5 7021-8 ####[facility] [id number] [place] [address] [place] Monocytes (Bld) [#/Vol] 0.54 10*3/uL Normal <0.87 [facility] Comment on above: Order Comment: Speci men Type: BLOOD SPECIMENOrdering Facility: [facility] Address: [address] [place] [address] Performed By: #### 5 7021-8 ####[facility]ITALA [id number] [place] [address] [place] Monocytes/100 WBC (Bld) 7.5 % Normal [facility] Comment on above: Order Comment: Speci men Type: BLOOD SPECIMENOrdering Facility: [facility] Address: [address] [place] [address] Performed By: #### 5 7021-8 ####[facility] NORTHNCLIA [id number] [place] [address] [place] Neutrophils (Bld) [#/Vol] 4.49 10*3/uL Normal 1.45-7.50 [facility] Comment on above: Order Comment: Speci men Type: BLOOD SPECIMENOrdering Facility: [facility] Address: [address] [place] [address] Performed By: #### 5 7021-8 ####[facility] BENSTEVEN [id number] [place] [address] [place] Neutrophils/100 WBC (Bld) 62.4 % Normal [facility] Comment on above: Order Comment: Speci men Type: BLOOD SPECIMENOrdering Facility: [facility] Address: [address] [place] [address] Performed By: #### 5 7021-8 ####[facility] [id number] [place] [address] [place] Nucleated RBC (Bld) [#/Vol] 10*3/uL Normal <0.01 [facility] Comment on above: Order Comment: Speci men Type: BLOOD SPECIMENOrdering Facility: [facility] Address: [address] [place] [address] Performed By: #### 5 7021-8 ####[facility] [id number] [place] [address] [place] Nucleated RBC/100 WBC (Bld) [Ratio] 0.0 /100 WBC Normal [facility] Comment on above: Order Comment: Speci men Type: BLOOD SPECIMENOrdering Facility: [facility] Address: [address] [place] [address] Performed By: #### 5 7021-8 ####[facility] [id number] [place] [address] [place] Platelet mean volume (Bld) [Entitic vol] 9.7 fL Normal 9.0-12.7 [facility] Comment on above: Order Comment: Speci men Type: BLOOD SPECIMENOrdering Facility: [facility] Address: [address] [place] [address] Performed By: #### 5 7021-8 ####[facility] BENWNCLIA [id number] [place] [address] [place] Platelets (Bld) [#/Vol] 324 10*3/uL Normal 150-400 [facility] Comment on above: Order Comment: Speci men Type: BLOOD SPECIMENOrdering Facility: [facility] Address: [address] [place] [address] Performed By: #### 5 7021-8 ####[facility] NORTHNCLIA [id number] [place] [address] [place] RBC (Bld) [#/Vol] 4.65 10*6/uL Normal 3.90-5.20 [facility] Comment on above: Order Comment: Speci men Type: BLOOD SPECIMENOrdering Facility: [facility] Address: [address] [place] [address] Performed By: #### 5 7021-8 ####[facility] NORTHNCLIA [id number] [place] [address] [place] WBC (Bld) [#/Vol] 7.19 10*3/uL Normal 3.70-11.00 [facility] Comment on above: Order Comment: Speci men Type: BLOOD SPECIMENOrdering Facility: [facility] Address: [address] [place], [place] [address] Performed By: #### 5 7021-8 ####[facility] NORTHNCLIA [id number] [place] [address] [place] [facility] [place] CNOVon 11-28-2023 CNOV Office Visit (OBGYWM ) -- ELAINE ORELLANA ([id number]) 1990 F [facility] Date Time Provider Department 11/28/23 9:00 AM TOSIN AVINA During your visit today, we recorded the following information about you: Blood pressure Weight Last Period 126/80 167.8 kg 11/15/23 Tosin Avina MD 11/28/2023 12:50 PM Signed Elaine Orellana is a 33 year old female who presents for problem visit miscarriage for . HPI: Recently had a second early miscarriage (09/2023). Previous miscarriage in 07/2022. Was approximately 5 weeks for both. Same partner. No fetus was present on US in 2022. Did not have an US prior to most recent loss. Has fairly regular periods. Partner has no children. No known genetic problems in the family. No known clotting disorders. Is wanting to be . Is concerned that her weight is a contributing factor. She was enrolled in a bypass program at the time of the first . Was at the hospital for surgery when she learned she was and miscarried 2 days later. Was able to lose about 70 lbs with the lead up to surgery but became very depressed after the loss and gained back about 60 lbs. She is currently scheduled to meet with endocrinology weight management. Discussed getting does not appear to be the problem. Which suggests normal cycles and anatomy. Given how early she was when she miscarried it is more than likely a genetic issue with the fetus that lead to the loss. Possible blood clotting issues also but genetically abnormal fetuses are the leading cause of losses. Losing weight would be a benefit to an overall outcome as morbidly obese women have a higher risk of complications like DM, HTN, Pre E and IUFD. As well as undiagnosed anatomical problems given the limitations of ultrasound evaluation of the fetus. Her mental health has improved. She does meet with a psychologist and therapist. She on a few medications but is hoping to decrease the number of medications. If she does miscarry again, I recommended genetic testing of the fetus. She would also like to be teste for antiphosolipid disorder. OB History T0 L0 SAB1 IAB0 Ectopic0 Multiple0 Live Births0 Mailroom Manager History LMP: 11/15/2023 (Exact Date), Having periods Age at Menarche: 11 Age at First : Age at Menopause: Mailroom Manager History Comments: Sexual Activity: Yes; Male Contraception: None PAST MEDICAL HISTORY No date: Anxiety 03/18/1999: Bipolar affective disorder (HCC) Comment: multiple personalities? No date: Cyst near tailbone No date: Gall stones No date: H/O borderline personality disorder No date: Hiatal hernia No date: Manic-depressive (HCC) No date: Miscarriage Comment: 07/202202/06/2018: Tobacco user PAST SURGICAL HISTORY 12/16/2012: CHOLECYSTECTOMY Comment: Cholecystectomy No date: PAST SURGICAL HISTORY OF Comment: removal of tailbone cyst FAMILY HISTORY Problem Relation Age of Onset Multiple Sclerosis Mother Mental illness Mother No Known Problems Father No Known Problems Sister No Known Problems Sister No Known Problems Brother No Known Problems Brother Heart Maternal Grandmother stent AND pacemaker other (endometrial cancer) Maternal Grandmother COPD Maternal Grandfather No Known Problems Paternal Grandmother Prostate Cancer Paternal Grandfather Social History Tobacco Use Smoking status: Former Types: Cigarettes Smokeless tobacco: Never Tobacco comments: Quit July 2021 Vaping Use Vaping status: Former Substances: Flavoring Devices: Pre-filled or refillable cartridge Substance Use Topics Alcohol use: Yes Comment: Occasionally Drug use: No Current Outpatient Medications Medication Sig ARIPiprazole (ABILIFY) 5 mg tablet Take 5 mg by mouth once daily. albuterol HFA (PROVENTIL HFA, VENTOLIN HFA) 90 mcg/actuation inhaler INHALE 2 (TWO) puffs EVERY 4 HOURS NEEDED for cough buPROPion XL (WELLBUTRIN XL) 150 mg 24 hr tablet Take 1 oral tablet every morning busPIRone (BUSPAR) 10 mg tablet Take 1 tablet by mouth every 12 hours. hydrOXYzine HCl (ATARAX) 10 mg tablet Take 30 mg by mouth daily at bedtime. ondansetron orally disintegrating (ZOFRAN ODT) 4 mg disintegrating tablet TAKE 1 TABLET BY MOUTH FOUR TIMES DAILY NEEDED FOR NAUSEA PARoxetine (PAXIL) 30 mg tablet Take 1 tablet by mouth every afternoon. traZODone (DESYREL) 100 mg tablet Take 100 mg by mouth daily at bedtime. metroNIDAZOLE (METROGEL) 0.75 % Topical Gel Apply to affected areas twice daily Clindamycin Phosphate (CLEOCIN T) 1 % lotion Apply a thin film 1-2 times daily to affected areas on chin. Use enough to cover the entire affected area lightly norgestimate 0.25 mg-ethinyl estradiol 35 mcg (SPRINTEC) 0.25-35 mg-mcg per tablet Take 1 tablet by mouth once daily. (Patient not taking: Reported on 11/28/2023) No (more content not included)... Normal [place] metabolic 2000 panelon 11-28-2023 Albumin [Mass/Vol] 4.4 g/dL Normal 3.9-4.9 [facility] Comment on above: Order Comment: Speci men Type: BLOOD SPECIMENOrdering Facility: [facility] Address: [address] [place] [address] Performed By: #### 2 4323-8 ####[facility] NORTHJADAHoward [id number] [place] [address] [place] ALP [Catalytic activity/Vol] 73 U/L Normal 34-123 [facility] Comment on above: Order Comment: Speci men Type: BLOOD SPECIMENOrdering Facility: [facility] Address: [address] [place] [address] Performed By: #### 2 4323-8 ####[facility] NORTHJU[facility] [id number] [place] [address] [place] ALT [Catalytic activity/Vol] 11 U/L Normal 7-38 [facility] Comment on above: Order Comment: Speci men Type: BLOOD SPECIMENOrdering Facility: [facility] Address: [address] [place] [address] Performed By: #### 2 4323-8 ####[facility] HOSPITALLIA [id number] [place] [address] [place] Anion gap [Moles/Vol] 11 mmol/L Normal 8-15 [facility] Comment on above: Order Comment: Speci men Type: BLOOD SPECIMENOrdering Facility: [facility] Address: [address] [place] [address] Performed By: #### 2 4323-8 ####[facility] MILLTOWNCLIA [id number] [place] [address] [place] AST [Catalytic activity/Vol] 11 U/L Low 13-35 [facility] Comment on above: Order Comment: Speci men Type: BLOOD SPECIMENOrdering Facility: [facility] Address: [address] [place] [address] Performed By: #### 2 4323-8 ####[facility] BENWNCLIA [id number] [place] [address] [place] Bilirubin [Mass/Vol] 0.7 mg/dL Normal 0.2-1.3 [facility] Comment on above: Order Comment: Speci men Type: BLOOD SPECIMENOrdering Facility: [facility] Address: [address] [place] [address] Performed By: #### 2 4323-8 ####[facility] PETERSBURGWNCLIA [id number] [place] [address] [place] Calcium [Mass/Vol] 9.9 mg/dL Normal 8.5-10.2 [facility] Comment on above: Order Comment: Speci men Type: BLOOD SPECIMENOrdering Facility: [facility] Address: [address] [place] [address] Performed By: #### 2 4323-8 ####[facility] PETERSBURGWNCLIA [id number] [place] [address] [place] Chloride [Moles/Vol] 102 mmol/L Normal 98-107 [facility] Comment on above: Order Comment: Speci men Type: BLOOD SPECIMENOrdering Facility: [facility] Address: [address] [place] [address] Performed By: #### 2 4323-8 ####[facility] NORTHNCLIA [id number] [place] [address] [place] CO2 [Moles/Vol] 24 mmol/L Normal 22-30 [facility] Comment on above: Order Comment: Speci men Type: BLOOD SPECIMENOrdering Facility: [facility] Address: [address] [place] [address] Performed By: #### 2 4323-8 ####[facility] [id number] [place] [address] [place] Creatinine [Mass/Vol] 0.69 mg/dL Normal 0.58-0.96 [facility] Comment on above: Order Comment: Speci men Type: BLOOD SPECIMENOrdering Facility: [facility] Address: [address] [place] [address] Performed By: #### 2 4323-8 ####[facility] [id number] [place] [address] [place] Creatinine and Glomerular filtration rate.predicted panel (S/P/Bld) 118 mL/min/1.73m??? Normal >=60 [facility] Comment on above: Order Comment: Speci men Type: BLOOD SPECIMENOrdering Facility: [facility] Address: [address] [place] [address] Result Comment: Grace mated Glomerular Filtration Rate (eGFR) is calculated using the 2020 CKD-EPI creatinine equation. This equation utilizes serum creatinine, sex, and age as parameters. The creatinine assay has traceable calibration to isotope dilution-mass spectrometry. Refer to KDIGO guidelines for clinical interpretation. In patients with unstable renal function, e.g. those with acute kidney injury, the eGFR may not accurately reflect actual GFR. Performed By: #### 2 4323-8 ####[facility] [id number] [place] [address] [place] Glucose [Mass/Vol] 97 mg/dL Normal 74-99 [facility] Comment on above: Order Comment: Speci men Type: BLOOD SPECIMENOrdering Facility: [facility] Address: [address] [place] [address] Result Comment: The [place] Diabetes Association (ADA) provides guidance for cutoff values for fasting glucose and random glucose. The ADA defines fasting as no caloric intake for at least 8 hours. Fasting plasma glucose results between 100 to 125 mg/dL indicate increased risk for diabetes (prediabetes). Fasting plasma glucose results greater than or equal to 126 mg/dL meet the criteria for diagnosis of diabetes. In the absence of unequivocal hyperglycemia, results should be confirmed by repeat testing. In a patient with classic symptoms of hyperglycemia or hyperglycemic crisis, random plasma glucose results greater than or equal to 200 mg/dL meet the criteria for diagnosis of diabetes. Reference: Standards of Medical Care in Diabetes 2016, [place] Diabetes Association. Diabetes Care. 2016.39(Suppl 1). Performed By: #### 2 4323-8 ####[facility] [id number] [place] [address] [place] Potassium [Moles/Vol] 4.1 mmol/L Normal 3.7-5.1 [facility] Comment on above: Order Comment: Adamsi men Type: BLOOD SPECIMENOrdering Facility: [facility] Address: [address] [place] [address] Performed By: #### 2 4323-8 ####[facility] [id number] [place] [address] [place] Protein [Mass/Vol] 7.5 g/dL Normal 6.3-8.0 [facility] Comment on above: Order Comment: Adamsi men Type: BLOOD SPECIMENOrdering Facility: [facility] Address: [address] [place] [address] Performed By: #### 2 4323-8 ####[facility] [id number] [place] [address] [place] Sodium [Moles/Vol] 137 mmol/L Normal 136-144 [facility] Comment on above: Order Comment: Speci men Type: BLOOD SPECIMENOrdering Facility: [facility] Address: [address] [place] [address] Performed By: #### 2 4323-8 ####[facility] [id number] [place] [address] [place] Urea nitrogen [Mass/Vol] 12 mg/dL Normal 7-21 [facility] Comment on above: Order Comment: Speci men Type: BLOOD SPECIMENOrdering Facility: [facility] Address: [address] [place] [address] Performed By: #### 2 4323-8 ####[facility] [id number] [place] [address] [place] Lipid 1996 panelon 4 Cholesterol [Mass/Vol] 160 mg/dL Normal <200 [facility] Comment on above: Order Comment: Speci men Type: BLOOD SPECIMENOrdering Facility: [facility] Address: [address] [place] [address] Result Comment: <200 mg/dL, Desirable 200-239 mg/dL, Borderline high >239 mg/dL, High Performed By: #### 2 4331-1 ####[facility] [id number] [address] [id number] [address] [place] Cholesterol in HDL [Mass/Vol] 36 mg/dL Low >39 [facility] Comment on above: Order Comment: Speci men Type: BLOOD SPECIMENOrdering Facility: [facility] Address: [address] [place] [address] Result Comment: 40-5 9 mg/dL, Acceptable >59 mg/dL, High: Negative risk factor for coronary heart disease <40 mg/dL, Low: Positive risk factor for coronary heart disease Performed By: #### 2 4331-1 ####[facility] [id number] [address] [id number] [place] [address] [place] Cholesterol in LDL [Mass/Vol] 96 mg/dL Normal <100 [facility] Comment on above: Order Comment: Ivon rios Type: BLOOD SPECIMENOrdering Facility: [facility] Address: [address] [place] [address] Result Comment: <100 mg/dL, Optimal 100-129 mg/dL, Near optimal/above optimal 130-159 mg/dL, Borderline high 160-189 mg/dL, High >189 mg/dL, Very high Secondary prevention optimal LDL Cholesterol levels are recommended to be < 70 mg/dL Performed By: #### 2 4331-1 ####[facility] [id number] [address] [id number] [place] [address] Cholesterol in LDL/Cholesterol in HDL [Mass ratio] 2.67 {ratio} High <2.54 [facility] Comment on above: Order Comment: Ivon rios Type: BLOOD SPECIMENOrdering Facility: [facility] Address: [address] [place] [address] Result Comment: Jaye maldonado: 1. National Cholesterol Education Program ATP III Guideline At-A-Glance Quick Desk Reference: National Heart, Lung, and Blood [place]. National Institutes of Health. 2001: NIH Publication No. 01-3305. 2. An International Atherosclerosis Society position paper: global recommendations for the management of dyslipidemia: executive summary, Atherosclerosis. 2014: 232(2):410-413. Performed By: #### 2 4331-1 ####[facility] [id number] [address] [id number] [address] Cholesterol in VLDL [Mass/Vol] 28 mg/dL Normal <30 [facility] Comment on above: Order Comment: Ivon blanca Type: BLOOD SPECIMENOrdering Facility: [facility] Address: [address] [place] [address] Performed By: #### 2 4331-1 ####[facility] [id number] [place] [id number] [facility] [id number] [place] [address] [place] Cholesterol non HDL [Mass/Vol] 124 mg/dL Normal <130 [facility] Comment on above: Order Comment: Speci men Type: BLOOD SPECIMENOrdering Facility: [facility] Address: [address] [place] [address] Result Comment: <130 mg/dL, Optimal 130-159 mg/dL, Near optimal/above optimal 160-189 mg/dL, Borderline high 190-219 mg/dL, High >219 mg/dL, Very high Secondary prevention optimal non HDL Cholesterol levels are recommended to be <100 mg/dL Performed By: #### 2 4331-1 ####[facility] [id number] [address] [id number] [place] [address] [place] Cholesterol.total /Cholesterol in HDL [Mass ratio] 4.44 {ratio} Normal <5.10 [facility] Comment on above: Order Comment: Speci men Type: BLOOD SPECIMENOrdering Facility: [facility] Address: [address] [place] [address] Performed By: #### 2 4331-1 ####[facility] [id number] [address] [id number] [place] [address] [place] FASTING TIME 12 hrs Normal [facility] Comment on above: Order Comment: Speci men Type: BLOOD SPECIMENOrdering Facility: [facility] Address: [address] [place] [address] Performed By: #### 2 4331-1 ####[facility] [id number] [address] [id number] [address] STATES [facility] Triglyceride [Mass/Vol] 139 mg/dL Normal <150 [facility] Comment on above: Order Comment: Speci men Type: BLOOD SPECIMENOrdering Facility: [facility] Address: [address] [place] [address] Result Comment: <150 mg/dL, Normal 150-199 mg/dL, Borderline high 200-499 mg/dL, High >499 mg/dL, Very high Performed By: #### 2 4331-1 ####[facility] [id number] [address] [id number] [address] [facility] CNPJen 11-15-2023 CNPN Telephone (OBGYWM) -- ELAINE ORELLANA ([id number]) 1990 [facility] Date Time Provider Department 11/15/23 SOCO COLE During your visit today, we recorded the following information about you: Jossie Flores RN 11/15/2023 1:37 PM Signed Left message to call office. Patient has appointment on 11/18 with Soco Cole that she scheduled herself on MyChart. Appointment is to discuss recurring miscarriages. 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 Patient needs scheduled with a doctor in the office to discuss her concerns. CAHNI Zapata Lindsey, CHANI 11/15/2023 4:30 PM Signed Patient changed her appointment on 11/18 with to and annual exam and then made an appointment with to discuss miscarriages. Jossie Flores RN Allergies As of Date: 11/15/2023 (No Known Allergies) Date Reviewed: 11/05/2023 Reviewed by: Julienne Boyle PA-C - Fully Assessed Reason for Visit: Future Appointment [256] Prescriptions as of 11/15/2023 - ARIPiprazole (ABILIFY) 5 mg tablet Take 5 mg by mouth once daily. - albuterol HFA (PROVENTIL HFA, VENTOLIN HFA) 90 mcg/actuation inhaler INHALE 2 (TWO) puffs EVERY 4 HOURS NEEDED for cough - norgestimate 0.25 mg-ethinyl estradiol 35 mcg (SPRINTEC) 0.25-35 mg-mcg per tablet Take 1 tablet by mouth once daily. - buPROPion XL (WELLBUTRIN XL) 150 mg 24 hr tablet Take 1 oral tablet every morning - busPIRone (BUSPAR) 10 mg tablet Take 1 tablet by mouth every 12 hours. - hydrOXYzine HCl (ATARAX) 10 mg tablet Take 30 mg by mouth daily at bedtime. - ondansetron orally disintegrating (ZOFRAN ODT) 4 mg disintegrating tablet TAKE 1 TABLET BY MOUTH FOUR TIMES DAILY NEEDED FOR NAUSEA - PARoxetine (PAXIL) 30 mg tablet Take 1 tablet by mouth every afternoon. - traZODone (DESYREL) 100 mg tablet Take 100 mg by mouth daily at bedtime. - metroNIDAZOLE (METROGEL) 0.75 % Topical Gel Apply to affected areas twice daily - Clindamycin Phosphate (CLEOCIN T) 1 % lotion Apply a thin film 1-2 times daily to affected areas on chin. 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 Tremor [R25.1] 09/01/2021 Morbid obesity with BMI of 60.0-69.9, adult (HC*09/01/2021 Low vitamin D level [R79.89] 12/20/2021 H/O borderline personality disorder [Z86.59] 08/24/2022 Encounter Status:Closed by JOSSIE FLORES on 11/15/23 [facility] CNOVon 11-05-2023 CNOV Office Visit ([facility] ) -- ELAINE ORELLANA ([id number]) 1990 [facility] Date Time Provider Department 11/05/23 10:00 AM JULIENNE BOYLE [facility] During your visit today, we recorded the following information about you: Temperature Pulse Blood pressure Weight 97.8 degrees 80/minute 120/76 170.5 kg Height Last Period 1.58 m 10/08/23 Julienne Boyle PA-C 11/05/2023 10:25 AM Signed Elaine Orellana is a 33 year old female who presents for a comprehensive problem evaluation. New concerns today include: Feels well in general, reports no problems or concerns Labs ordered today Interested in referral to endo weight management Was supposed to undergo bariatric surgery last year however learned she was when the surgery date came. Miscarried soon after and was never back on the schedule for surgery PAST MEDICAL HISTORY No date: Anxiety 03/18/1999: Bipolar affective disorder (HCC) Comment: multiple personalities? No date: Cyst near tailbone No date: Gall stones No date: H/O borderline personality disorder No date: Hiatal hernia No date: Manic-depressive (HCC) No date: Miscarriage Comment: 07/202202/06/2018: Tobacco user PAST SURGICAL HISTORY 12/16/2012: CHOLECYSTECTOMY Comment: Cholecystectomy No date: PAST SURGICAL HISTORY OF Comment: removal of tailbone cyst Family Status Relation Name Status Mo Alive Fa no contact Alive Sis no contact Alive Sis no contact Alive Bro no contact Alive Bro no contact Alive MGMo MGFa Alive PGMo Alive PGFa No partnership data on file Social History Tobacco Use Smoking status: Former Types: Cigarettes Smokeless tobacco: Never Tobacco comments: Quit July 2021 Vaping Use Vaping status: Former Substances: Flavoring Devices: Pre-filled or refillable cartridge Substance Use Topics Alcohol use: Yes Comment: Occasionally Drug use: No REVIEW OF SYSTEMS: GENERAL: No weight loss, malaise or fevers HEENT: Negative for frequent or significant headaches, No changes in hearing or vision, no nose bleeds or other nasal problems NECK: Negative for lumps, goiter, pain and significant neck swelling RESPIRATORY: Negative for cough, hemoptysis, wheezing, COPD, dyspnea or shortness of breath CARDIOVASCULAR: Negative for chest pain, leg swelling, hypertension, CHF or palpitations GI: No nausea, vomiting, or diarrhea MUSCULOSKELETAL: Negative for joint pain or swelling, back pain or muscle pain SKIN: Negative for lesions, rash, and itching HEMATOLOGY/LYMPHOLOGY Negative for prolonged bleeding, bruising easily or swollen nodes NEURO: negative for migraine headaches PHYSICAL EXAMINATION: BP 120/76 Pulse 80 Temp 36.6 ?C (97.8 ?F) (Temporal) Ht 158 cm (5' 2.21) Wt (!) 170.5 kg (375 lb 14.2 oz) LMP 10/08/2023 (Exact Date) BMI 68.30 kg/m? Body mass index is 68.3 kg/m?. General appearance - Well appearing, alert, in no acute distress, well-hydrated, well nourished. Skin - Skin color, texture, turgor normal, no suspicious rashes or lesions HEENT - Normocephalic, no masses, lesions, tenderness or abnormalities- Anicteric sclera. Pupils are equally round and reactive to light. Extraocular movements are intact. - External ears normal, canals clear - Nares normal, septum midline, mucosa normal, no drainage or sinus tenderness - Lips, mucosa, and tongue normal, teeth and gums normal, oropharynx normal Lungs - Lungs clear to auscultation. No wheezing, rhonchi, rales. Heart - RRR without murmur, gallop, or rubs. No ectopy Neuro - Gait normal. Reflexes normal and symmetric. Sensation grossly intact. ASSESSMENT/PLAN: 1. Wellness examination - ICD9: V70.0, ICD10: Z00.00 (primary diagnosis) - Counseled on healthy diet and regular exercise - Follow up for annual exam in one year - COMPREHENSIVE METABOLIC PANEL - COMPLETE BLOOD COUNT AND DIFFERENTIAL 2. Screening for depression - ICD9: V79.0, ICD10: Z13.31 - DEPRESSION SCREENING 3. Vitamin D deficiency - ICD9: 268.9, ICD10: E55.9 - VITAMIN D 25 HYDROXY 4. Mixed hyperlipidemia - ICD9: 272.2, ICD10: E78.2 - Control undetermined, due for labs - Counseled on healthy diet and regular exercise - LIPID PANEL BASIC 5. Class 3 severe obesity due to excess calories without serious comorbidity with body mass index (BMI) of 60.0 to 69.9 in adult (HCC) - ICD9: 278.01, V85.44, ICD10: E66.01, Z68.44 Weight increasing - ENDOCRINE MEDICAL WEIGHT MANAGEMENT Julienne Boyle PA-C Allergies As of Date: 11/05/2023 (No Known Allergies) Date Reviewed: 11/05/2023 Reviewed by: Julienne Boyle PA-C - Fully Assessed Reason for Visit: Physical [83] Primary Visit Diagnosis:Wellness examination [Z00.00] Other Visit Diagnoses:Screening for depression [Z13.31] Vitamin D deficiency [E55.9] Mixed hyperlipidemia [E78.2] Class 3 severe obesity due to excess calor (more content not included)... Normal [facility] Emergency Department Summary on 08-05-2023 Emergency Department Summary [facility] Medical Records Department [address] [place] [address] Emergency Department Summary 08/05/23 MR#: [id number] Acct: [id number] Name: ELAINE ORELLANA Rep #: [id number] : 1990 33 From: El Kasper DO PCP: Care Physician,No Primary Status:REG ER Location: ED HPI History of Present Illness Chief Complaint: Dental Informant: patient Narrative Narrative: Patient is a 33-year-old female with past medical history of anxiety. She states that she has a broken left lower tooth that has been there for quite some time. She states in the last 2 to 3 days she has had increasing dental pain and facial swelling. She denies any difficulty breathing or swallowing any fevers or chills but states that with persistent and increasing pain and swelling she is concerned for infection and therefore comes in for evaluation. [facility] Medical History (Updated 08/05/23 @ 07:[address] El Kasper, DO) PTSD (post-traumatic stress disorder) Depression Anxiety Cyst near tailbone Miscarriage Home Medications ???Medication ???Instructions ???Recorded ???Last Taken ???Type amoxicillin 875 mg-potassium 1 tab PO BID 10 days #20 tabs 08/05/23 Unknown Rx clavulanate 125 mg tablet bupropion HCl 150 mg 24 hr tablet, 150 mg PO DAILY 08/05/23 Unknown History extended release (Wellbutrin XL) buspirone 10 mg tablet 10 mg PO BID 08/05/23 Unknown History hydroxyzine HCl 10 mg tablet 30 mg PO QHS 08/05/23 Unknown History norgestimate 0.25 mg-ethinyl 1 tab PO DAILY 08/05/23 Unknown History estradiol 35 mcg tablet (Estarylla) ondansetron 4 mg disintegrating 4 mg PO Q6H PRN nausea and vomiting 08/05/23 Unknown History tablet oxycodone-acetaminophen 5 mg-325 1 tab PO Q6H PRN pain 3 days #12 08/05/23 Unknown Rx mg tablet (Percocet) tabs paroxetine HCl 30 mg tablet (Paxil) 30 mg PO DAILY 08/05/23 Unknown History trazodone 100 mg tablet 100 mg PO DAILY 08/05/23 Unknown History Allergy/AdvReac Type Severity Reaction Status Date / Time No Known Allergies Allergy Verified 08/05/23 06:39 Social History Smoking Status: Current some day smoker tobacco type: e-cigarettes ROS ROS ED Constitutional Constitutional ED: Denies chills or fever(s) ENT ENT ED: Reports other Details: Positive dental pain and gum/facial swelling ; Denies sore throat Cardiovascular Cardiovascular: Denies chest pain Respiratory/Chest Respiratory/Chest: Denies cough or dyspnea Gastrointestinal Gastrointestinal: Denies abdominal pain, diarrhea, nausea or vomiting Genitourinary Genitourinary ED: Denies dysuria Musculoskeletal Musculoskeletal: Denies neck pain Integumentary Reports abscess; Denies rash Neurologic Neurologic: Denies headache(s) Hematologic/Lymphatic Hematologic/Lymphatic: Denies easy bleeding or easy bruising EXAM Physical Exam Const Vital Signs: 08/05/23 05:46 08/05/23 05:48 Temperature 97.2 F L Temperature Source Temporal Pulse Rate 105 H 105 H Respiratory Rate 18 20 H Blood Pressure 163/101 H 163/101 H Blood Pressure Mean 121 121 Pulse Ox 99 99 Oxygen Delivery Method Room Air Room Air Positive well nourished, well developed and obese General Appearance ED: well developed Nutritional Appearance: obese HEENT HEENT Narrative: Patient has dental carry noted in the left lower jaw and at this site there is soft tissue swelling and erythema of the gingiva consistent with dental abscess. No tongue or lip swelling. No airway edema or compromise No signs of ANUG Eyes PERRL and EOMs intact bilaterally Neck supple Neck Narrative: No brawny edema in the submental space to suggest Demario's angina Resp normal respiratory effort and clear to auscultation bilaterally Cardio regular rate and regular rhythm Extremity normal to inspection Neuro oriented x3, CN's II-XII intact bilaterally and no sensory deficits noted Sensorium / Orientation: alert Motor Exam: strength 5/5 throughout Psych mental status grossly normal Skin Skin Narrative: Soft tissue swelling with faint erythema to the left lower jaw/cheek region consistent with abscess MDM MDM MDM Narrative Medical decision making narrative: Patient arrived to the ER hypertensive and tachycardic but states she has a history of anxiety and PTSD and feels is related to her pain as this is not a typical finding for her. She denies any trauma and states has been no difficulty swallowing or breathing going against systemic infection or posterior pharynx infection. Differential diagnosis is for dental abscess versus Demario's angina versus salivary gland infection versus cellulitis. Without brawny edema in the submental space there is no physical exam findings to suggest Demario's angina and based on physical exam there is no s (more content not included)... Normal [facility] C. trachomatis+N. gonorrhoea e DNA DEJAN+probe Ql (Unsp spec)on 07-21-2022 C. trachomatis DNA DEJAN+probe Ql (Unsp spec) Negative Negative for Chlamydia trachomatis by amplificaton [facility] N. gonorrhoeae DNA DEJAN+probe Ql (Unsp spec) Negative Negative for Neisseria gonorrhoeae by amplification [facility] ABO Recheckon 07-18-2022 a cells 4+ Normal [facility] Comment on above: Performed By: #### C [id number] ####[facility] [id number] [place] [address] Medical Director: Mynor Hernández MD ABO Interp Positive Normal [facility] Comment on above: Performed By: #### C [id number] ####[facility] [id number] [place] [address] Medical Director: Mynor Hernández MD Anti-A 0 [facility] Comment on above: Performed By: #### C [id number] ####[facility] [id number] [place] [address] Medical Director: Mynor Hernández MD Anti-B 0 [facility] Comment on above: Performed By: #### C [id number] ####[facility] [id number] [place] [address] [facility] Director: Mynor Hernández MD Anti-D 4+ [facility] Comment on above: Performed By: #### C [id number] ####[facility] [address] [place] [address] [facility] Director: Mynor Hernándze MD b cells 4+ [facility] Comment on above: Performed By: #### C [id number] ####[facility] [address] [place] [address] Medical Director: Mynor Hernández MD Admission (Data) Adult-Texto n 07-18-2022 Admission (Data) Adult-Text Adult Admission Data Entered On: 07/18/2022 7:41 EDT Performed On: 07/18/2022 7:39 EDT by Grace Cardenas RN Patient Safety Grid ID Band on and Verified : Yes Fall Risk Blackjack Supervisor : Yes Grace Cardenas RN - 07/18/2022 7:39 EDT (As Of: 07/18/2022 07:41:39 EDT) Allergies (Active) No Known Allergies Estimated Onset Date: Unspecified ; Created By: Mario Burciaga; Reaction Status: Active ; Category: Drug ; Substance: No Known Allergies ; Type: Allergy ; Updated By: Mario Burciaga; Reviewed Date: 07/18/2022 7:37 EDT Subjective Pain Symptoms : No Numeric Pain Scale Acceptable Intensity : 7 = Severe Pain Question Ability to Self Report Pain : No Unable to Self Report Pain : No Sensory Deficits : None Cardiopulmonary Symptoms : None GI Symptoms : None Skin Symptoms : None Genitourinary Symptoms : None Neuromuscular Symptoms : None Abuse/Violence Concerns? : Patient denies Ronald WILDE, [facility] 07/18/2022 7:39 EDT Depression Screening Patient able to verbalize? : Yes Feeling Down, Depressed, Hopeless : Not at all Little Interest - Pleasure in Activities : Not at all Initial Depression Screen Score : 0 Depression Screening Score 0 : No IP Pt being evaluated or treated for BH conditions : No Ronald WILDE [facility] 07/18/2022 7:39 EDT Rapelje Coma Eye Opening Response Rapelje : Spontaneously Best Verbal Response Eri : Oriented Best Motor Response Eri : Obeys simple commands Eri Coma Score : 15 Ronald WILDE [facility] 07/18/2022 7:39 EDT Neuro Characteristics of Speech : Clear Orientation : Oriented x 3 Level of Consciousness : Alert Affect / Behavior : Calm, Cooperative Ronald WILDE, [facility] 07/18/2022 7:39 EDT Neurological Strengths Grid Left Upper Extremity Right Upper Extremity Left Lower Extremity Right Lower Extremity Strength : 5 able to move against full resistance 5 able to move against full resistance 5 able to move against full resistance 5 able to move against full resistance Sensation : Intact Intact Intact Intact Ronald WILDE, [facility] 07/18/2022 7:39 EDT Ronald WILDE Grace - 07/18/2022 7:39 EDT Ronald WILDE [facility] 07/18/2022 7:39 EDT Ronald WILDE [facility] 07/18/2022 7:39 EDT Sensory Perception Fawad : No impairment Extremity Movement : Equal Gait : Steady Aspiration Risk : None CN VII Facial Expression and Symmetry : Facial movement symmetrical Ronald WILDE Grace - 07/18/2022 7:39 EDT CardioVascular Heart Rhythm : Regular Capillary Refill : Less than 2 seconds Edema : None Grace Cardenas RN 07/18/2022 7:39 EDT Pulses Detailed Grid Dorsalis Pedis Pulse, Left : 2+ Normal Dorsalis Pedis Pulse, Right : 2+ Normal Grace Cardenas RN 07/18/2022 7:39 EDT Respiratory Respirations : Unlabored Respiratory Pattern Description : Regular Grace Cardenas RN 07/18/2022 7:39 EDT JAY : Clear LLL : Clear RUL : Clear RML : Clear RLL : Clear Grace Cardenas RN 07/18/2022 7:39 EDT Cough : None Grace Cardenas RN 07/18/2022 7:39 EDT Musculoskeletal Activity Fawad : Walks frequently Mobility Fawad : No limitations Ambulatory Devices : None Special Orthopedic Devices : None ADLs : Independent Grace Cardenas RN 07/18/2022 7:39 EDT Bathing : Independent (2) Dressing : Independent (2) Toileting : Independent (2) Transferring Bed or Chair : Independent (2) Continence : Independent (2) Feeding : Independent (2) Grace Cardenas RN 07/18/2022 7:39 EDT ADL Index Score : 12 Grace Cardenas RN 07/18/2022 7:39 EDT GI Abdomen Description : Symmetric Abdomen Palpation : Non-Tender, Soft Grace Cardenas RN 07/18/2022 7:39 EDT Bowel Sounds Grid LUQ : Present RUQ : Present LLQ : Present RLQ : Present Grace Cardenas RN 07/18/2022 7:39 EDT Passing Flatus : Yes Bowel Movement Last Date Known : Yes Bowel Movement Last Date : 07/18/2022 EDT Grace Cardenas RN 07/18/2022 7:39 EDT Bladder Distention : Absent Grace Cardenas RN 07/18/2022 7:39 EDT Integumentary Skin Integrity : Intact Skin Temperature : Warm Skin Color : [place] Skin Turgor : Elastic Mucous Membrane Color : [place] Mucous Membrane Description : Moist Skin Description : Dry Grace Cardenas RN 07/18/2022 7:39 EDT Present on Admission Medical Devices : None Medical Devices for Med Administration : None Grace Cardenas RN 07/18/2022 7:39 EDT Education Responsible Learner/s Present : No Data Available Barriers to Learning : None evident TeachBack Methodology : Explanation Grace Cardenas RN - 07/18/2022 7:39 EDT Cough/Deep Breathing : Verbalizes understanding Pain Management : Verbalizes understanding Plan of Care : Verbalizes understanding Planned Procedure : Verbalizes understanding Preoperative Instructions : Verbalizes understanding Grace Cardenas RN - 07/18/2022 7:39 EDT Notifications PCP notified of your admission? (more content not included)... Normal [facility] DVT/VTE Risk Factor-Texton 0 07-18-2022 DVT/VTE Risk Factor-Text DVT/VTE Risk Factor Entered On: 07/18/2022 7:41 EDT Performed On: 07/18/2022 7:39 EDT by Grace Cardenas RN DVT/VTE Risk Factor Risk Factors=1 : Age 40-60 SCD's Ordered : Yes Antiembolism Device : SCDs, knee high Risk Factors=2 : Major Surgery (Surgery over 30 min or stay over 24hrs.) Total Risk score : 3 VTE Risk Level : Score 3 - 4 = HIGH RISK Grace Cardenas RN - 07/18/2022 7:39 EDT Normal [facility] HCGon 07-18-2022 HCG, Qual >1000.0 Normal [facility] Comment on above: Result Comment: 0 - 3 Negative 3 - 50 Inconclusive >50 Positive Performed By: #### 1 [id number] ####[facility] [address] [place] [address] [id number] Medical Director: Mynor Hernández MD POC Glucoseon 07-18-2022 Glucose [Mass/Vol] 89 mg/dL Normal 72-100 [facility] Comment on above: Performed By: #### 1 [id number] ####[facility] [address] [place] [address] Medical Director: Mynor Hernández MD U TESTon 3 Test, U Positive Normal [facility] Comment on above: Order Comment: Femal es: 10 and older Performed By: #### 1 [id number] #### [facility] [address] [place], [place] [id number] Hydrator: Mynor Hernández MD U Preg Internal QC Present Normal [facility] Comment on above: Order Comment: Femal es: 10 and older Performed By: #### 1 07142 #### [facility] [address] [place] [address] Hydrator: Mynor Hernández MD Utilization Review Noteon Utilization Review Note 06/25/2022 CPT CODE 39990 APPROVED FOR 1 DAY INPT DAY PER FRANCHESKACARO. NS Registered as Preadmit, No B slip in chart IPO procedure Approved for inpatient as noted above I entered inpatient LOC order. Normal [facility] Preadmission Testing Progres s Noteon 07-09-2022 Preadmission Testing Progress Note Dr Carreon (anesthesia) in PAT to evaluate patient. Faxed Nicotine Report to Dr. Camilo' s office. Normal [facility] MISC [id number] [facility] Report Normal [facility] Comment on above: Performed By: #### 1 04309 ####[facility] [address] [place] [address] Medical Director: MD LILIAN Omalley Bariatric Physician Prog ress Noteon 07-04-2022 AMB Bariatric Physician Progress Note Chief Complaint Presurgical Visit Sleeve Gastrectomy + Hiatal Hernia History of Present Illness Scheduled for Laparoscopic Sleeve Gastrectomy + Hiatal Hernia Repair on Monday July 18, [address] Camilo (1st case) Consent signed and copy received Medications and Allergies reviewed Medical and Surgical History reviewed Hibiclens received and instructions given Liver Shrinkage Diet - 5 shakes starts Saturday07/03/2022 Carb Loading Instructions Given E-Prescriptions sent for Toradol, Lyrica, Protonix, Zofran, Emend, & Lovenox #[id number] PAT at [facility] on 07/03/2022 Labs Reviewed from 07/03/2022 Iron 59 Sat 17.7% X1 dose IV Venofer post-operatively. Okay to proceed with Surgery. Physical Exam Vitals & Measurements Systolic Blood Pressure: 132 mmHg (07/03/22 08:30:00) Diastolic Blood Pressure: 69 mmHg (07/03/22 08:30:00) Temperature Temporal (F): 97.3 degF (07/03/22 08:30:00) Apical Heart Rate: 65 bpm (07/03/22 08:30:00) Mean Arterial Pressure: 90 mmHg (07/03/22 08:30:00) Height/Length Measured: 159 cm (07/03/22 08:30:00) Weight Measured: 163 kg (07/03/22 08:30:00) Body Mass Index Measured: 64.48 kg/m2 (07/03/22 08:30:00) Weight Measured - lbs2: 360 lb (07/03/22 08:30:00) Height/Length Measured - in2: 62.5 in (07/03/22 08:30:00) Body Mass Index Measured English2: 64.79 kg/m2 (07/03/22 08:30:00) BSA: 2.68 m2 (07/03/22 08:30:00) Ht/Wt Measurement Refused by Patient?2: No (07/03/22 08:30:00) Depression Screening Scores Initial Depression Screen Score: 0 (07/03/22 08:30:00) Fall Risk Assessment Is the patient ambulatory (mobile): Yes (07/03/22 08:30:00) Have you had a fall within the past: No (07/03/22 08:30:00) Have you had 2 or more falls in the past: No (07/03/22 08:30:00) Lab Results Last Month Blood Bank ABORH Interpretation O Positive 07/03/22 ABSC Final Interp Negative 07/03/22 Chemistry BUN 11 mg/dL 07/03/22 Na 136 mmol/L 07/03/22 K 4.1 mmol/L 07/03/22 Chloride 105 mmol/L 07/03/22 CO2, venous 27.0 mmol/L 07/03/22 Creatinine 0.7 mg/dL 07/03/22 Total Protein 6.7 g/dL 07/03/22 Calcium 9.3 mg/dL 07/03/22 Bilirubin, Total 0.60 mg/dL 07/03/22 Alk Phos 63 unit/L 07/03/22 GOT 15 unit/L 07/03/22 GPT 25 unit/L 07/03/22 BUN/Creat Ratio 15.7 07/03/22 Calculated Osmolality 272 mOsm/kg 07/03/22 Globulin 3.2 g/dL 07/03/22 A/G Ratio 1.1 07/03/22 IRON 59 ug/dl 07/03/22 TIBC 333 ug/ml 07/03/22 Saturation 17.7 % 07/03/22 Vitamin B12 439 pg/mL 07/03/22 HGB A1C 5.0 % 07/03/22 TSH 2.42 uIU/ml 07/03/22 ALB 3.5 g/dL 07/03/22 Glomerular Filtration Rate >60 mL/min/1.73m? 07/03/22 Vit D 25 23 ng/mL 07/03/22 Glucose 105 mg/dL 07/03/22 GFR AA >60 07/03/22 Estimated Creatinine Clearance 90.46 mL/min 07/03/22 Coagulation Protime Patient 11.4 seconds 07/03/22 INR 1.0 07/03/22 APTT Patient 27.0 seconds 07/03/22 Hematology WBC 8.3 x10 07/03/22 RBC 4.53 x10 07/03/22 HGB 12.8 g/dL 07/03/22 HCT 38.4 % 07/03/22 MCV 84.8 fL 07/03/22 MCH 28.2 pg 07/03/22 MCHC 33.2 g/dL 07/03/22 RDW 13.8 % 07/03/22 Platelet 273 x10 07/03/22 MPV 9.1 fL 07/03/22 Lymph % 21.0 % 07/03/22 Upson % 5.6 % 07/03/22 Neutrophil % 71.5 % 07/03/22 Eosin % 1.5 % 07/03/22 Basos % 0.4 % 07/03/22 Lymph Count 1.75 x1000 07/03/22 Upson Count 0.46 x1000 07/03/22 Neutrophil Count (ANC) 5.95 x1000 07/03/22 Eos Count 0.13 x1000 07/03/22 Baso Count 0.03 x1000 07/03/22 Nucleated RBC 0 /100WBC 07/03/22 Assessment/Plan This Visit Diagnosis 1. Morbid obesity E66.01 2. Acute post-operative pain G89.18 Problem List/Past Medical History Ongoing Adult BMI 60.0-69.9 kg/sq m Eating disorder, unspecified Former smoker Hiatal hernia Joint pain Morbid obesity Sleep apnea Historical No qualifying data Procedure/Surgical History Cholecystectomy;: 2012 Cyst Removal - Tailbone: 2008 [facility] Teeth Extraction Medications Emend 2-Day 80 mg oral capsule, 80 mg= 1 caps, ORAL, ONCE enoxaparin 40 mg/0.4 mL injectable solution, 40 mg= 0.4 mL, Subcutaneous, [id number] ketorolac 10 mg oral tablet, 10 mg= 1 tabs, ORAL, TID Lyrica 75 mg oral capsule, 75 mg= 1 caps, ORAL, BID ondansetron 4 mg oral tablet, disintegrating = Zofran, 4 mg= 1 tabs, ORAL, B4WSCIL, PRN pantoprazole 40 mg oral delayed release tablet, 40 mg= 1 tabs, ORAL, DAILY Allergies No Known Allergies Social History Alcohol - Denies Alcohol Use Home/Environment Lives with Alone. Living situation: Home/Independent. Home equipment: CPAP/BiPAP. Home monitoring equipment: None. Special/Community resources: None. Mobility prior to admit: Independent. Home Barriers: None. Will patient require additional/new services upon discharge? No. Substance Abuse - Denies Substance Abuse Tobacco For (more content not included)... Normal [facility] ABORHon 07-03-2022 ABORH Interpretation Positive Normal [facility] Comment on above: Performed By: #### C [id number], [id number] #### [facility] [address] [place] [address] Hydrator: Mynor Hernández MD Patient History Check No Previous Hx Normal [facility] Comment on above: Result Comment: 06/16 13:15 [id number] ABO Recheck to be ordered on admit. Surgery Date: 07/18/22 Performed By: #### C [id number], CD:[id number] #### [facility] [address] [place] [address] Hydrator: Mynor Hernández MD VS 0.8% a cells 4+ Normal [facility] Comment on above: Performed By: #### C [id number], [id number] #### [facility] [address] [place] [address] Hydrator: Mynor Hernández MD VS 0.8% b cells 4+ Normal [facility] Comment on above: Performed By: #### C [id number], [id number] #### [facility] [address] [place] [address] Hydrator: Mynor Hernández MD VS Anti-A Unit 0 [facility] Comment on above: Performed By: #### C [id number], [id number] #### [facility] [address] [place] [address] Hydrator: Mynor Hernández MD VS Anti-B Unit 0 [facility] Comment on above: Performed By: #### C [id number], CD:[id number] #### [facility] [address] [place] [address] Hydrator: Mynor Hernández MD VS Anti-D Unit 4+ Normal [facility] Comment on above: Performed By: #### C [id number], CD:[id number] #### [facility] [address] [place] [address] Hydrator: Mynor Hernández MD ABSCon 07-03-2022 ABSC Final Interp Negative Normal [facility] Comment on above: Performed By: #### C [id number], CD:[id number] #### [facility] [address] [place] [address] Hydrator: Mynor Hernández MD Pt Hx check done? Yes Normal [facility] Comment on above: Performed By: #### C [id number], CD:[id number] #### [facility] [address] [place] [address] Hydrator: Mynor Hernández MD VS SCI Gel 0 [facility] Comment on above: Performed By: #### C [id number], CD:[id number] #### [facility] [address] [place], [place] [address] Hydrator: Mynor Hernández MD VS SCII Gel 0 [facility] Comment on above: Performed By: #### C [id number], CD:[id number] #### [facility] [address] [place] [address] Hydrator: Mynor Hernández MD APTTon 07-03-2022 aPTT Coag (Bld) [Time] 27.0 s Normal 26.0-39.0 [facility] Comment on above: Performed By: #### 1 90867, 464580, 320260, 5665358, 771741, 891655, 5588777, 662062, 364527 #### [facility] [address] [place] [address] Hydrator: Mynor Hernández MD AUTO DIFFon 07-03-2022 Baso Count 0.03 x1000 Normal 0.00-0.20 [facility] Comment on above: Performed By: #### 1 63989, 542191, 471220, 1594755, 719188, 015409, 4091882, 460829, 215367 #### [facility] [address] [place] [address] Hydrator: Mynor Hernández MD Basos % 0.4 % [facility] Comment on above: Performed By: #### 1 19538, 692478, 089665, 7829571, 207771, 501561, 3081907, 927737, 656046 #### [facility] [address] [place] [address] Hydrator: Mynor Hernández MD Eos Count 0.13 x1000 Normal 0.00-0.50 [facility] Comment on above: Performed By: #### 1 96970, 298719, 367058, 7646011, 789645, 307876, 0150435, 713758, 468556 #### [facility] [address] [place], [place] [address] Hydrator: Mynor Hernández MD Eosinophils/100 WBC (Bld) 1.5 % Normal [facility] Comment on above: Performed By: #### 1 04961, 347286, 180621, 9400927, 355594, 393944, 2695768, 028459, 850179 #### [facility] [address] [place], [place] [address] Hydrator: Mynor Hernández MD Lymph Count 1.75 x1000 Normal 1.20-4.80 [facility] Comment on above: Performed By: #### 1 05090, 310503, 750398, 9582047, 365174, 299104, 9926874, 640002, 178164 #### [facility] [address] [place], [place] [address] Hydrator: Mynor Hernández MD Lymphocytes/100 WBC (Bld) 21.0 % Normal [facility] Comment on above: Performed By: #### 1 08324, 028503, 273973, 1285842, 169557, 879753, 3996428, 847225, 405513 #### [facility] [address] [place] [address] [id number] Hydrator: Mynor Hernández MD Upson Count 0.46 x1000 Normal 0.10-1.00 [facility] Comment on above: Performed By: #### 1 33420, 675348, 938596, 8894376, 725856, 699555, 1777110, 877591, 792784 #### [facility] [address] [place] [address] Hydrator: Mynor Hernández MD Monocytes/100 WBC (Bld) 5.6 % Normal [facility] Comment on above: Performed By: #### 1 70673, 341371, 113256, 4191728, 218113, 607132, 2602041, 160781, 544937 #### [facility] [address] [place] [address] Hydrator: Mynor Hernández MD Neutrophil Count (ANC) 5.95 x1000 Normal 1.40-8.80 [facility] Comment on above: Performed By: #### 1 30045, 413305, 943656, 8213033, 215988, 156116, 6892535, 141913, 309431 #### [facility] [address] [place] [address] Hydrator: Mynor Hernández MD Neutrophils/100 WBC (Bld) 71.5 % Normal [facility] Comment on above: Performed By: #### 1 35495, 845230, 091795, 3778189, 896774, 582741, 7443469, 549381, 368534 #### [facility] [address] [place] [address] Hydrator: Mynor Hernández MD COMPMETAon 07-03-2022 Albumin [Mass/Vol] 3.5 g/dL Normal 3.4-5.0 [facility] Comment on above: Performed By: #### 1 93163, 691565, 166089, 4549491, 473017, 550365, 5866081, 026814, 499680 ####[facility] [address] [place] [address] [id number] Medical Director: Mynor Hernández MD Albumin/Globulin [Mass ratio] 1.1 {ratio} Normal [facility] Comment on above: Performed By: #### 1 21161, 644755, 938178, 9709588, 908530, 622828, 2016398, 760532, 920807 ####[facility] [address] [place] [address] Medical Director: Mynor Hernández MD Alk Phos 63 unit/L Normal 46-116 [facility] Comment on above: Performed By: #### 1 67682, 968057, 596595, 6445136, 741773, 536896, 6199159, 918856, 884486 ####[facility] [address] [place] [address] Medical Director: Mynor Hernández MD Bilirubin [Mass/Vol] 0.60 mg/dL Normal 0.20-1.00 [facility] Comment on above: Result Comment: Use of this assay is not recommended for patients undergoing treatment with eltrombopag due to the potential for falsely elevated results. Performed By: #### 1 30568, 237834, 933993, 1872584, 193821, 615064, 6295642, 292694, 485959 ####[facility] [address] [place] [address] Medical Director: Mynor Hernández MD Calcium [Mass/Vol] 9.3 mg/dL Normal 8.7-10.4 [facility] Comment on above: Performed By: #### 1 09786, 240680, 237000, 3308680, 290016, 367881, 6098985, 214209, 198103 ####[facility] [address] [place] [address] Medical Director: Mynor Hernández MD Chloride [Moles/Vol] 105 mmol/L Normal 98-107 [facility] Comment on above: Performed By: #### 1 48621, 776621, 167382, 3428280, 603337, 116604, 1191200, 858522, 424437 ####[facility] [address] [place] [address] Medical Director: Mynor Hernández MD CO2 [Moles/Vol] 27.0 mmol/L Normal 20.0-31.0 [facility] Comment on above: Performed By: #### 1 94673, 153844, 699530, 5845593, 443308, 604361, 8410444, 574311, 470098 ####[facility] [address] [place] [address] Medical Director: Mynor Hernández MD Creatinine [Mass/Vol] 0.7 mg/dL Normal 0.5-0.8 [facility] Comment on above: Performed By: #### 1 97502, 618321, 360112, 6987029, 538730, 421109, 2815773, 929945, 173848 ####[facility] [address] [place] [address] Medical Director: Mynor Hernández MD GFR AA >60 Normal [facility] Comment on above: Result Comment: Afri can Colombian GFR Calc Medical judgement is necessary to interpret GFR. The calculated GFR may not accurately reflect renal status in patients >70 years, women, acutely ill hospitalized patients and patients with acute renal failure or known renal disease. The MDRD GFR formula is valid only for adults greater than 18 years of age. Note: Creatinine clearance (not GFR) should be used for drug dosing. Performed By: #### 1 61935, 521390, 384012, 2177775, 505394, 423086, 9732356, 412481, 289402 ####[facility] [address] [place] [address] Medical Director: Mynor Hernández MD Globulin (S) [Mass/Vol] 3.2 g/dL Normal [facility] Comment on above: Performed By: #### 1 30923, 881511, 747335, 2096794, 515415, 120889, 9463329, 306097, 200843 ####[facility] [address] [place] [address] Medical Director: Mynor Hernández MD Glomerular Filtration Rate >60 Normal [facility] Comment on above: Result Comment: Non- GFR Calc Medical judgement is necessary to interpret GFR. The calculated GFR may not accurately reflect renal status in patients >70 years, women, acutely ill hospitalized patients and patients with acute renal failure or known renal disease. The MDRD GFR formula is valid only for adults greater than 18 years of age. Note: Creatinine clearance (not GFR) should be used for drug dosing. Performed By: #### 1 22803, 243337, 695340, 3606876, 834885, 033954, 1138456, 633803, 767388 ####[facility] [address] [place], [place] [id number]) [phone] Director: Mynor Hernández MD Glucose [Mass/Vol] 105 mg/dL Normal 74-106 [facility] Comment on above: Performed By: #### 1 64201, 523252, 116860, 0568863, 832506, 633805, 1126523, 493668, 738024 ####[facility] [address] [place] [address] Medical Director: Mynor Hernández MD GOT 15 unit/L Normal 15-37 [facility] Comment on above: Performed By: #### 1 09160, 135996, 521009, 2994873, 450633, 202514, 9898392, 874072, 143972 ####[facility] [address] [place] [address] Medical Director: Mynor Hernández MD GPT 25 unit/L Normal 10-49 [facility] Comment on above: Performed By: #### 1 45039, 109916, 997426, 1407257, 035947, 958997, 7989324, 882966, 128109 ####[facility] [address] [place] [address] Medical Director: Mynor Hernández MD Osmolality [Osmolality] 272 mosm/kg Low 275-295 [facility] Comment on above: Performed By: #### 1 36331, 197616, 039735, 0769293, 483985, 006070, 1808636, 403696, 295179 ####[facility] [address] [place] [address] Medical Director: Mynor Hernández MD Potassium [Moles/Vol] 4.1 mmol/L Normal 3.5-5.1 [facility] Comment on above: Performed By: #### 1 30211, 167421, 067610, 1339676, 471453, 048088, 6102800, 048923, 077517 ####[facility] [address] [place] [address] Medical Director: Mynor Hernández MD Protein [Mass/Vol] 6.7 g/dL Normal 5.7-8.2 [facility] Comment on above: Result Comment: Tota l Protein results may be increased in patients receiving dextran as a blood volume polymer engineer Performed By: #### 1 92743, 175410, 015279, 8727865, 763122, 972324, 8363402, 682609, 660462 ####[facility] [address] [place] [address] Medical Director: Mynor Hernández MD Sodium [Moles/Vol] 136 mmol/L Normal 135-145 [facility] Comment on above: Performed By: #### 1 15099, 387236, 621234, 2873636, 314310, 443886, 1692655, 967563, 866724 ####[facility] [address] [place] [address] Medical Director: Mynor Hernández MD Urea nitrogen [Mass/Vol] 11 mg/dL Normal 9-23 [facility] Comment on above: Result Comment: - Ve nipuncture should occur prior to N-Acetyl Cysteine (NAC) or Metamizole (Sulpyrine) administration due to the potential for falsely depressed results. - Blood samples from some patients with monoclonal gammopathies may produce falsely elevated results Performed By: #### 1 71456, 516802, 521096, 8395007, 688208, 290240, 4417530, 359932, 428117 ####[facility] [address] [place] [address] Medical Director: Mynor Hernández MD Urea nitrogen/Creatini ne [Mass ratio] 15.7 mg/mg Normal [facility] Comment on above: Performed By: #### 1 72240, 578703, 301014, 7320157, 822493, 105217, 5638781, 397671, 298931 ####[facility] [address] [place] [address] Medical Director: Mynor Hernández MD Comprehensive Intake - Baria tric - Texton 07-03-2022 Comprehensive Intake - Bariatric - Text Comprehensive Intake - Bariatric Entered On: 07/03/2022 8:32 EDT Performed On: 07/03/2022 8:30 EDT by Naomy Rogers MA Summary Chief Complaint : Bariatric Pre-Surgical Visit Bladder Control Issues? : No Urine Leakage? : No Presence or absence of urinary incontinence assessed : Yes CPT-II Medication list doc'd in medical record : Yes Influenza immunization administered or previously received : No Pneumococcal vaccine administered or previously received : No Naomy Rogers MA - 07/03/2022 8:30 EDT Measurements - Bariatrics Ht/Wt Measurement Refused by Patient? : No Weight Measured : 163 kg(Converted to: 359 lb 6 oz, 359.354 lb) Height/Length Measured : 159 cm(Converted to: 5 ft 3 in, 62.60 in) Body Mass Index Measured : 64.48 kg/m2 Body Mass Index documented : Yes Weight Measured - lbs : 360 lb(Converted to: 360 lb 0 oz, 163 kg) Height/Length Measured - in : 62.5 in(Converted to: 5 ft 3 in, 159 cm) Body Mass Index Measured Zimbabwean : 64.79 kg/m2 BSA Zimbabwean : 2.68 m2 [place] Body Weight : 51.476 kg Naomy Rogers MA [place] 07/03/2022 8:30 EDT Vitals Require BP : Yes Systolic Blood Pressure : 132 mmHg Diastolic Blood Pressure : 69 mmHg Mean Arterial Pressure : 90 mmHg Apical Heart Rate : 65 bpm Last Systolic BP : 130-139 mmHg Last Diastolic BP : less than 80 mmHg Temperature Temporal (F) : 97.3 degF(Converted to: 36 degC) Pain Present : No actual or suspected pain Pain : 0 Pain severity quantified : No pain present Gorge Rogers MAyoselin Antunez 07/03/2022 8:30 EDT Infection Screening - Ambulatory Exposure AND/OR close contact with a person under investigation or laboratory-confirmed COVID-19 individual within 14 days of symptom onset AND/OR any of the following: : No Do you live/work in a high risk situation (congregated living, hemodialysis, infusion clinic, assisted, assisted living, group home, homeless care home, etc.)? : No Ken MEJIA Naomy - 07/03/2022 8:30 EDT Depression Screening Is patient currently : None of the Below Feeling Down, Depressed, Hopeless : Not at all Little Interest - Pleasure in Activities : Not at all Initial Depression Screen Score : 0 Depression Screening Score 0 : No Gorge Rogers MAyoselin Antunez 07/03/2022 8:30 EDT Falls Risk Assessment Is the patient ambulatory (mobile) : Yes Have you had 2 or more falls in the past year : No Have you had a fall within the past year that has caused an injury : No Patient screen for fall risk : no falls in last year OR 1 fall with no injury in last year Kalinakody JACKIENaomy 07/03/2022 8:30 EDT Normal [facility] HEMOon 07-03-2022 DIFF? No Normal [facility] Comment on above: Performed By: #### 1 96412, 263660, 432076, 3443699, 602212, 620820, 9141330, 565163, 635271 #### [facility] [address] [place] [address] Hydrator: Mynor Hernández MD Erythrocyte distribution width (RBC) [Ratio] 13.8 % Normal 11.5-14.5 [facility] Comment on above: Performed By: #### 1 28565, 512865, 586824, 2850058, 328504, 075907, 8979408, 609170, 708053 #### [facility] [address] [place] [address] Hydrator: Mynor Hernández MD Hematocrit (Bld) [Volume fraction] 38.4 % Normal 36.0-46.0 [facility] Comment on above: Performed By: #### 1 16246, 866196, 647449, 6517888, 224447, 537705, 5573892, 293430, 357837 #### [facility] [address] [place] [address] Hydrator: Mynor Hernández MD Hemoglobin (Bld) [Mass/Vol] 12.8 g/dL Normal 12.0-16.0 [facility] Comment on above: Performed By: #### 1 54289, 030687, 229295, 4773607, 680302, 140499, 0926102, 214991, 622527 #### [facility] [address] [place] [address] Hydrator: Mynor Hernández MD Instr WBC 8.3 Normal [facility] Comment on above: Performed By: #### 1 86653, 644855, 548162, 6543387, 156543, 534615, 5561275, 769906, 004503 #### [facility] [address] [place] [address] Hydrator: Mynor Hernández MD MCH (RBC) [Entitic mass] 28.2 pg Normal 27.0-34.0 [facility] Comment on above: Performed By: #### 1 83010, 331619, 197789, 7301541, 279548, 393872, 0494975, 095301, 145257 #### [facility] [address] [place] [address] Hydrator: Mynor Hernández MD MCHC (RBC) [Mass/Vol] 33.2 g/dL Normal 32.0-37.0 [facility] Comment on above: Performed By: #### 1 90290, 053377, 651352, 9283496, 553845, 648349, 9860585, 275662, 744256 #### [facility] [address] [place] [address] Hydrator: Mynor Hernández MD MCV (RBC) [Entitic vol] 84.8 fL Normal 80.0-100.0 [facility] Comment on above: Performed By: #### 1 12774, 988227, 190870, 3710696, 115569, 093100, 0460747, 844352, 966256 #### [facility] [address] [place] [address] Hydrator: Mynor Hernández MD Nucleated RBC 0 /100WBC Normal [facility] Comment on above: Performed By: #### 1 80000, 316419, 764767, 9912407, 306387, 815463, 7241567, 671239, 248515 #### [facility] [address] [place] [address] Hydrator: Mynor Hernández MD Platelet 273 x10 Normal 150-450 [facility] Comment on above: Performed By: #### 1 79515, 910054, 155692, 8844412, 209655, 359333, 2664041, 690322, 540274 #### [facility] [address] [place] [address] Hydrator: Mynor Hernández MD Platelet mean volume (Bld) [Entitic vol] 9.1 fL Normal 7.4-10.4 [facility] Comment on above: Performed By: #### 1 86207, 014452, 132447, 6327884, 551622, 322939, 2436362, 340260, 320646 #### [facility] [address] [place] [address] Hydrator: Mynor Hernández MD RBC 4.53 x10 Normal 4.20-5.40 [facility] Comment on above: Result Comment: Note : RBC morphology is normal unless otherwise stated. Evaluation performed only if differential is requested. Performed By: #### 1 45614, 621817, 821306, 1061491, 065782, 668954, 7187948, 079323, 809607 #### [facility] [address] [place] [address] Hydrator: Mynor Hernández MD WBC 8.3 x10 Normal 4.5-11.0 [facility] Comment on above: Performed By: #### 1 38816, 964859, 961733, 7238254, 084169, 588775, 9504878, 407168, 008375 #### [facility] [address] [place] [address] Hydrator: Mynor Hernández MD HGB A1Con 07-03-2022 HbA1c (Bld) [Mass fraction] 5.0 % Normal [facility] Comment on above: Result Comment: Refe rence Range: Diabetic Greater than or equal to 6.5 % Prediabetic 5.7?6.4 % Normal Less than 5.7 % Performed By: #### 1 78527 #### [facility] [address] [place] [address] Hydrator: Mynor Hernández MD IRON GROUPon 07-03-2022 Iron [Mass/Vol] 59 ug/dL Normal 40-170 [facility] Comment on above: Result Comment: Resu lts may be inaccurate if performed within 14 days of IV iron dextran administration. Performed By: #### 1 26501, 928765, 451890, 7737012, 024342, 530408, 5306564, 668194, 471748 ####[facility] [id number] [place] [address] Medical Director: Mynor Hernández MD Saturation 17.7 % Low 20.0-50.0 [facility] Comment on above: Performed By: #### 1 44463, 494084, 653393, 5693137, 684964, 881370, 0572802, 580504, 771905 ####[facility] [id number] [place] [address] Medical Director: Mynor Hernández MD TIBC 333 ug/ml Normal 250-425 [facility] Comment on above: Result Comment: Resu lts may be inaccurate if performed within 14 days of IV iron dextran administration. Performed By: #### 1 46973, 972374, 676132, 3545108, 573462, 107716, 4159845, 956533, 257433 ####[facility] [id number] [place] [address] Medical Director: Mynor Hernández MD PT INRon 07-03-2022 INR Coag (PPP) [Relative time] 1.0 {INR} Normal [facility] Comment on above: Result Comment: INR Reference Range: Normal reference range for INR on patients not on anticoagulant therapy: 0.9-1.1 General therapeutic range for patients on anticoagulant therapy: 2.0-3.5 Performed By: #### 1 53495, 767481, 558073, 8239834, 722729, 051213, 2884779, 858190, 160222 #### [facility] [address] [place] [address] Hydrator: Mynor Hernández MD Protime Patient 11.4 seconds Normal 9.8-13.4 [facility] Comment on above: Performed By: #### 1 73704, 177126, 545770, 1655806, 489769, 800414, 9000608, 412566, 267046 #### [facility] [address] [place] [address] Hydrator: Mynor Hernández MD Preadmission Testing Progres s Noteon 07-03-2022 Preadmission Testing Progress Note PREADMISSION TESTING (PAT) INSTRUCTION SHEET [ X] Bring your Surgery Guide with you on day of surgery [ X ] Read and complete your Discharge Planning Checklist [ X ] Take only highlighted medications on morning of surgery [ X ] Follow Dr Camilo' orders on ALL medications, vitamins, and diet instruction [X ] 2 bottle Hibiclens given - follow Dr Camilo' orders on usage - PM and AM of surgery [X ] You will be asked to give urine specimen on arrival to surgery [X ] Bring on day of surgery: [X ] Inhaler (if applicable) [X ] C-PAP (if prescribed) [X ] Advance Directives (if applicable) [X ] Green blood band (in Surgery Guide) [X ] Additional instructions: No visitors will be allowed in pre-op or recovery on day of surgery Normal [facility] TSHon 07-03-2022 TSH Qn 2.42 m[IU]/L Normal 0.55-4.78 [facility] Comment on above: Result Comment: - Do not use samples that contain fluorescein. Fluorescein levels > 0.24 ?g/mL may decrease results in this assay - Patients undergoing retinal fluorescein angiography can retain amounts of fluorescein in the body for up to 48?72 hours post-treatment. Such samples can produce falsely depressed values when tested with this assay, and should not be tested Performed By: #### 1 26267, 155375, 608894, 7037837, 709815, 509814, 4507131, 854773, 480456 ####[facility] [id number] [place], [place] [address] Medical Director: Mynor Hernández MD VIT B12 LEVELon 07-03-2022 Cobalamin (Vitamin B12) [Mass/Vol] 439 pg/mL Normal 211-911 [facility] Comment on above: Performed By: #### 1 59765, 884791, 318049, 5799457, 091577, 366958, 2251221, 408853, 734035 ####[facility] [id number] [place] [address] Medical Director: Mynor Hernández MD VIT D 25 LEVELon 07-03-2022 Vit D 25 23 ng/mL Normal [facility] Comment on above: Result Comment: Less than 20 ng/mL Deficient 20 ? 30 ng/mL Insufficient 30 ? 100 ng/mL Sufficiency Greater than 100 ng/mL Potential Toxicity Performed By: #### 1 09384, 284813, 649714, 0881062, 091265, 572294, 2592750, 903747, 690516 ####[facility] [id number] [place] [address] Medical Director: MD LILIAN Omalley Bariatric Physician Prog ress Noteon 06-19-2022 AMB Bariatric Physician Progress Note Chief Complaint update consult History of Present Illness Patient returns to discuss progress through the bariatric program and continued interest in bariatric surgery. 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 Has focused on not eating when bored or for reasons other than hunger (emotional eating). Her weight has consistently trended down throughout her time in the program. Quit smoking when she started the program. Congratulated her on this. Discussed life-long commitment to smoking cessation as requirement to be a surgical candidate and to avoid future complications. Is using CPAP nightly as instructed. EGD demonstrated 2-3 cm hiatal hernia. Denies any heartburn or reflux symptoms. The options of sleeve gastrectomy and gastric bypass were again reviewed as well as the risks and benefits of each. She would like to go forward with sleeve with hiatal hernia repair. Physical Exam Vitals & Measurements Systolic Blood Pressure: 124 mmHg (06/19/22 13:30:00) Diastolic Blood Pressure: 59 mmHg Low (06/19/22 13:30:00) Peripheral Pulse Rate: 82 bpm (06/19/22 13:30:00) Mean Arterial Pressure: 81 mmHg (06/19/22 13:30:00) BP Site2: Left arm (06/19/22 13:30:00) Height/Length Measured: 159 cm (06/19/22 13:30:00) Weight Measured: 161 kg (06/19/22 13:30:00) Body Mass Index Measured: 63.68 kg/m2 (06/19/22 13:30:00) Weight Measured - lbs2: 354 lb (06/19/22:30:00) Height/Length Measured - in2: 62.5 in (06/19/22:30:00) Body Mass Index Measured English2: 63.71 kg/m2 (06/19/22:30:00) BSA: 2.66 m2 (06/19/22:30:) Ht/Wt Measurement Refused by Patient?2: No (06/19/22:30:) Depression Screening Scores Initial Depression Screen Score: 0 (06/19/22:30:) Fall Risk Assessment Is the patient ambulatory (mobile): Yes (06/19/22::) Have you had a fall within the past: No (06/19/22:) Have you had 2 or more falls in the past: No (06/19/22) General - alert and oriented, no acute distress HEENT - normocephalic, atraumatic, extraocular muscles intact CV - regular rate and rhythm Respiratory - unlabored breathing Abdomen - soft, obese, nontender, nondistended Musculoskeletal - extremities warm and well perfused Neuro - no gross deficits, cranial nerves II-XII grossly intact Psych - alert and cooperative; normal mood and affect; normal attention span and concentration Assessment/Plan This Visit Diagnosis 1. Adult BMI 60.0-69.9 kg/sq m Z68.44 32F with BMI 63.71 at 354 pounds down from initial weight 384 who has completed preop evaluation and consultations for bariatric surgery. The risks and benefits of sleeve gastrectomy with hiatal hernia repair (including but not limited to bleeding, leak, infection, postop DVT/PE/MN, stricture, worsening GERD, hernia, weight regain) were again reviewed and she asked appropriate questions. She understands she will need life-long follow up and protein and vitamins supplementation. She wishes to proceed Ordered: AMB Office/Outpt Est Pt Mod MDM / 30-39 min 24903, 06/19/2022 16:53:00 EDT, Adult BMI 60.0-69.9 kg/sq m / Morbid obesity / Sleep apnea / Hiatal hernia / Joint pain 2. Morbid obesity E66.01 Ordered: AMB Office/Outpt Est Pt Mod MDM / 30-39 min 62381, 06/19/2022 16:53:00 EDT, Adult BMI 60.0-69.9 kg/sq m / Morbid obesity / Sleep apnea / Hiatal hernia / Joint pain 3. Sleep apnea G47.30 Ordered: AMB Office/Outpt Est Pt Mod MDM / 30-39 min 63454, 06/19/2022 16:53:00 EDT, Adult BMI 60.0-69.9 kg/sq m / Morbid obesity / Sleep apnea / Hiatal hernia / Joint pain 4. Hiatal hernia K44.9 Ordered: AMB Office/Outpt Est Pt Mod MDM / 30-39 min 14559, 06/19/2022 16:53:00 EDT, Adult BMI 60.0-69.9 kg/sq m / Morbid obesity / Sleep apnea / Hiatal hernia / Joint pain 5. Joint pain M25.50 Ordered: AMB Office/Outpt Est Pt Mod MDM / 30-39 min 88116, 06/19/2022 16:53:00 EDT, Adult BMI 60.0-69.9 kg/sq m / Morbid obesity / Sleep apnea / Hiatal hernia / Joint pain Problem List/Past Medical History Ongoing Adult BMI 60.0-69.9 kg/sq m Eating disorder, unspecified Former smoker Hiatal hernia Joint pain Morbid obesity Sleep apnea Historical No qualifying data Procedure/Surgical History Cholecystectomy;: 2012 Cyst Removal - Tailbone: 2008 [facility] Extraction Medications biotin 10 mg oral tablet, 10 mg= 1 tabs, ORAL, DAILY multivitamin, 1 tabs, ORAL, DAILY Vitamin B12, DAILY Allergies No Known Allergies Social History Tobacco Former smoker, quit more than 30 days ago Tobacco Use:. Family History Heart disease: Grandmother. Care Team Primary Care Physician NO FAMILY PHYSICIAN, 837 Attending Physician LIZZIE CAMILO DO [phone] . Health Maintenance Pending (in the next year) Due MMR Vaccine Dose 1 due 06/19/22 One-time only Tetanus Vaccine due 06/19/22 Variable frequency Varicella Vaccine Dose 1 due 06/19/22 One-time only (more content not included)... Normal [facility] Comprehensive Intake - Baria tric - Texton 06-19-2022 Comprehensive Intake - Bariatric - Text Comprehensive Intake - Bariatric Entered On: 06/19/2022 13:37 EDT Performed On: 06/19/2022 13:30 EDT by Rosi Rand MA Summary Chief Complaint : update consul Bladder Control Issues? : Yes Urine Leakage? : No Presence or absence of urinary incontinence assessed : Yes CPT-II Medication list doc'd in medical record : Yes Influenza immunization administered or previously received : No Pneumococcal vaccine administered or previously received : No Rosi Rand MA - 06/19/2022 13:30 EDT Measurements - Bariatrics Ht/Wt Measurement Refused by Patient? : No Weight Measured : 161 kg(Converted to: 354 lb 15 oz, 354.944 lb) Height/Length Measured : 159 cm(Converted to: 5 ft 3 in, 62.60 in) Body Mass Index Measured : 63.68 kg/m2 Body Mass Index documented : Yes Weight Measured - lbs : 354 lb(Converted to: 354 lb 0 oz, 161 kg) Height/Length Measured - in : 62.5 in(Converted to: 5 ft 3 in, 159 cm) Body Mass Index Measured Zimbabwean : 63.71 kg/m2 BSA Zimbabwean : 2.66 m2 [place] Body Weight : 51.476 kg Rosi Rand MA - 06/19/2022 13:30 EDT Vitals Require BP : Yes Systolic Blood Pressure : 124 mmHg Diastolic Blood Pressure : 59 mmHg (LOW) Mean Arterial Pressure : 81 mmHg Pulse Rate : 82 bpm BP Site : Left arm Last Systolic BP : less than 130 mmHg Last Diastolic BP : less than 80 mmHg Pain Present : No actual or suspected pain Pain : 0 Pain severity quantified : No pain present Rosi Rand MA - 06/19/2022 13:30 EDT Infection Screening - Ambulatory Exposure AND/OR close contact with a person under investigation or laboratory-confirmed COVID-19 individual within 14 days of symptom onset AND/OR any of the following: : No Do you live/work in a high risk situation (congregated living, hemodialysis, infusion clinic, assisted, assisted living, group home, homeless care home, etc.)? : No Rosi Rand MA - 06/19/2022 13:30 EDT Depression Screening Is patient currently : None of the Below Feeling Down, Depressed, Hopeless : Not at all Little Interest - Pleasure in Activities : Not at all Initial Depression Screen Score : 0 Depression Screening Score 0 : No Rosi Rand MA - 06/19/2022 13:30 EDT Falls Risk Assessment Is the patient ambulatory (mobile) : Yes Have you had 2 or more falls in the past year : No Have you had a fall within the past year that has caused an injury : No Patient screen for fall risk : no falls in last year OR 1 fall with no injury in last year Giorgi MEJIA Rosi - 06/19/2022 13:30 EDT Normal [facility] AMB Bariatric Physician Prog ress Noteon 05-31-2022 AMB Bariatric Physician Progress Note Chief Complaint MSWL 6 of 6 History of Present Illness Elaine is here for her 6th presurgical visit. Today she weighs 359# BMI 64.61 This is a 7# weight loss since her last visit She is down 25# since consultation (384) Exercise: Dance classes weekly. Walking. Kettle Ball workouts - 2x a week. Diet has remained consistent. 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 Will send compliance to OCP for clearance. Okay to update. Physical Exam Vitals & Measurements Systolic Blood Pressure: 128 mmHg (05/30/22 11:02:00) Diastolic Blood Pressure: 67 mmHg (05/30/22 11:02:00) Temperature Temporal (F): 97.7 degF (05/30/22 11:02:00) Apical Heart Rate: 89 bpm (05/30/22 11:02:00) Mean Arterial Pressure: 87 mmHg (05/30/22 11:02:00) Height/Length Measured: 159 cm (05/30/22 11:02:00) Weight Measured: 163 kg (05/30/22 11:02:00) Body Mass Index Measured: 64.48 kg/m2 (05/30/22 11:02:00) Weight Measured - lbs2: 359 lb (05/30/22 11:02:00) Height/Length Measured - in2: 62.5 in (05/30/22 11:02:00) Body Mass Index Measured English2: 64.61 kg/m2 (05/30/22 11:02:00) BSA: 2.68 m2 (05/30/22 11:02:00) Ht/Wt Measurement Refused by Patient?2: No (05/30/22 11:02:00) Depression Screening Scores Initial Depression Screen Score: 0 (05/30/22 11:02:00) Fall Risk Assessment Is the patient ambulatory (mobile): Yes (05/30/22 11:02:00) Have you had a fall within the past: No (05/30/22 11:02:00) Have you had 2 or more falls in the past: No (05/30/22 11:02:00) General: Well developed, well nourished, in no acute distress. Abdomen: Soft, non-tender, obese Extremities: No calf tenderness. No pretibial edema. Psych: Alert and cooperative; normal mood and affect; normal attention span and concentration. Assessment/Plan This Visit Diagnosis 1. Morbid obesity E66.01 Continue to make healthy lifestyle changes. Healthy changes in eating habits need to be a life-long commitment. Your goal is to become a healthy person through eating healthy and lifestyle changes. Making these change now, will make changes after surgery easier to follow through with the rest of your life. Follow recommendations provided to you from the dietitian. Increase physical activity as able. Try to aim to do something physically active for 30 minutes every day. Diet changes help you lose weight. Exercise helps you keep it off and maintain weight lose. Complete your required clearances. Follow-up update Ordered: AMB Office/Outpt Est Pt Low MDM / 20-29 min 72843, 05/31/2022 15:32:00 EDT, Morbid obesity / Adult BMI 60.0-69.9 kg/sq m / Sleep apnea / Hiatal hernia AMB Office/Outpt Est Pt Low MDM / 20-29 min 31957, 05/30/2022 15:36:00 EDT, Morbid obesity / Adult BMI 60.0-69.9 kg/sq m / Sleep apnea / Hiatal hernia 2. Adult BMI 60.0-69.9 kg/sq m Z68.44 BMI 64.61 The risks of obesity were discussed with the patient. Individuals with obesity are more likely to develop a number of potentially serious health problems including; heart disease, strokes, high blood pressure, abnormal cholesterol, sleep apnea, or type 2 diabetes. Ordered: AMB Office/Outpt Est Pt Low MDM / 20-29 min 34325, 05/31/2022 15:32:00 EDT, Morbid obesity / Adult BMI 60.0-69.9 kg/sq m / Sleep apnea / Hiatal hernia AMB Office/Outpt Est Pt Low MDM / 20-29 min 45600, 05/30/2022 15:36:00 EDT, Morbid obesity / Adult BMI 60.0-69.9 kg/sq m / Sleep apnea / Hiatal hernia 3. Sleep apnea G47.30 CPAP therapy Ordered: AMB Office/Outpt Est Pt Low MDM / 20-29 min 92105, 05/31/2022 15:32:00 EDT, Morbid obesity / Adult BMI 60.0-69.9 kg/sq m / Sleep apnea / Hiatal hernia AMB Office/Outpt Est Pt Low MDM / 20-29 min 24361, 05/30/2022 15:36:00 EDT, Morbid obesity / Adult BMI 60.0-69.9 kg/sq m / Sleep apnea / Hiatal hernia 4. Hiatal hernia K44.9 Ordered: AMB Office/Outpt Est Pt Low MDM / 20-29 min 70102, 05/31/2022 15:32:00 EDT, Morbid obesity / Adult BMI 60.0-69.9 kg/sq m / Sleep apnea / Hiatal hernia AMB Office/Outpt Est Pt Low MDM / 20-29 min 01065, 05/30/2022 15:36:00 EDT, Morbid obesity / Adult BMI 60.0-69.9 kg/sq m / Sleep apnea / Hiatal hernia Problem List/Past Medical History Ongoing Adult BMI 60.0-69.9 kg/sq m Eating disorder, unspecified Former smoker Hiatal hernia Joint pain Morbid obesity Sleep apnea Historical No qualifying data Procedure/Surgical History Cholecystectomy;: 2012 Cyst Removal - Tailbone: 2008 [facility] Extraction Medications biotin 10 mg oral tablet, 10 mg= 1 tabs, ORAL, DAILY multivitamin, 1 tabs, ORAL, DAILY Vitamin B12, DAILY Allergies No Known Allergies Social History Tobacco Former smoker, quit more than 30 days ago Tobacco Use:. Family History Heart disease: Grandmother. Care Team Primary Care Physician NO FAMILY PHYSICIAN, 837 Attending Physician ALBERT REED CNP [phone] (more content not included)... Normal [facility] Comprehensive Intake - Baria tric - Texton 05-30-2022 Comprehensive Intake - Bariatric - Text Comprehensive Intake - Bariatric Entered On: 05/30/2022 11:09 EDT Performed On: 05/30/2022 11:02 EDT by Naomy Rogers MA Summary Chief Complaint : MSWL 6 of 6 Bladder Control Issues? : No Urine Leakage? : No Presence or absence of urinary incontinence assessed : Yes CPT-II Medication list doc'd in medical record : Yes Influenza immunization administered or previously received : No Pneumococcal vaccine administered or previously received : No Naomy Rogers MA - 05/30/2022 11:02 EDT Measurements - Bariatrics Ht/Wt Measurement Refused by Patient? : No Weight Measured : 163 kg(Converted to: 359 lb 6 oz, 359.354 lb) Height/Length Measured : 159 cm(Converted to: 5 ft 3 in, 62.60 in) Body Mass Index Measured : 64.48 kg/m2 Body Mass Index documented : Yes Weight Measured - lbs : 359 lb(Converted to: 359 lb 0 oz, 163 kg) Height/Length Measured - in : 62.5 in(Converted to: 5 ft 3 in, 159 cm) Body Mass Index Measured Zimbabwean : 64.61 kg/m2 BSA Zimbabwean : 2.68 m2 [place] Body Weight : 51.476 kg Naomy Rogers MA - 05/30/2022 11:02 EDT Vitals Require BP : Yes Systolic Blood Pressure : 128 mmHg Diastolic Blood Pressure : 67 mmHg Mean Arterial Pressure : 87 mmHg Apical Heart Rate : 89 bpm Last Systolic BP : less than 130 mmHg Last Diastolic BP : less than 80 mmHg Temperature Temporal (F) : 97.7 degF(Converted to: 37 degC) Pain Present : No actual or suspected pain Pain : 0 Pain severity quantified : No pain present Naomy Rogers MA - 05/30/2022 11:02 EDT Infection Screening - Ambulatory Exposure AND/OR close contact with a person under investigation or laboratory-confirmed COVID-19 individual within 14 days of symptom onset AND/OR any of the following: : No Do you live/work in a high risk situation (congregated living, hemodialysis, infusion clinic, assisted, assisted living, group home, homeless care home, etc.)? : No Naomy Rogers MA - 05/30/2022 11:02 EDT Depression Screening Is patient currently : None of the Below Feeling Down, Depressed, Hopeless : Not at all Little Interest - Pleasure in Activities : Not at all Initial Depression Screen Score : 0 Depression Screening Score 0 : No Naomy Rogers MA - 05/30/2022 11:02 EDT Falls Risk Assessment Is the patient ambulatory (mobile) : Yes Have you had 2 or more falls in the past year : No Have you had a fall within the past year that has caused an injury : No Patient screen for fall risk : no falls in last year OR 1 fall with no injury in last year Naomy Rogers MA - 05/30/2022 11:02 EDT Normal [facility] AMB Bariatric Physician Prog ress Noteon 05-02-2022 AMB Bariatric Physician Progress Note Chief Complaint MSWL 5 of 6 History of Present Illness Elaine is here for here 5th presurgical visit. Today she weighs 366 BMI 65.87 She is down 2# from her last visit She is down 18# from consultation (384) Exercise: Walking. She went to [place] this past month // she was able to keep up her friends and not feel short of breath. (+) TANIA // Has her CPAP machine - is suppose to get set up this week. Seen OCP. 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 Once CPAP compliance obtained - and pulmonary clearance obtained may update. Physical Exam Vitals & Measurements Systolic Blood Pressure: 129 mmHg (05/02/22 09:15:00) Diastolic Blood Pressure: 61 mmHg (05/02/22 09:15:00) Temperature Temporal (F): 98.1 degF (05/02/22 09:15:00) Apical Heart Rate: 61 bpm (05/02/22 09:15:00) Mean Arterial Pressure: 84 mmHg (05/02/22 09:15:00) Height/Length Measured: 159 cm (05/02/22 09:15:00) Weight Measured: 166 kg (05/02/22 09:15:00) Body Mass Index Measured: 65.66 kg/m2 (05/02/22 09:15:00) Weight Measured - lbs2: 366 lb (05/02/22 09:15:00) Height/Length Measured - in2: 62.5 in (05/02/22 09:15:00) Body Mass Index Measured English2: 65.87 kg/m2 (05/02/22 09:15:00) BSA: 2.7 m2 (05/02/22:15:00) Ht/Wt Measurement Refused by Patient?2: No (05/02/22:15:00) Depression Screening Scores Initial Depression Screen Score: 0 (05/02/22 09:15:00) Fall Risk Assessment Is the patient ambulatory (mobile): Yes (05/02/22:15:00) Have you had a fall within the past: No (05/02/22:15:) Have you had 2 or more falls in the past: No (05/02/22:15:00) General: Well developed, well nourished, in no acute distress. Abdomen: Soft, non-tender, obese Extremities: No calf tenderness. No pretibial edema. Psych: Alert and cooperative; normal mood and affect; normal attention span and concentration. Assessment/Plan This Visit Diagnosis 1. Morbid obesity E66.01 Continue to make healthy lifestyle changes. Healthy changes in eating habits need to be a life-long commitment. Your goal is to become a healthy person through eating healthy and lifestyle changes. Making these change now, will make changes after surgery easier to follow through with the rest of your life. Follow recommendations provided to you from the dietitian. Increase physical activity as able. Try to aim to do something physically active for 30 minutes every day. Diet changes help you lose weight. Exercise helps you keep it off and maintain weight lose. Complete your required clearances. Follow-up in 1 month. Ordered: AMB Office/Outpt Est Pt Low MDM / 20-29 min [id number], 05/02/2022 16:41:00 EST, Morbid obesity / Adult BMI 60.0-69.9 kg/sq m / Sleep apnea 2. Adult BMI 60.0-69.9 kg/sq m Z68.44 BMI 65.87 The risks of obesity were discussed with the patient. Individuals with obesity are more likely to develop a number of potentially serious health problems including; heart disease, strokes, high blood pressure, abnormal cholesterol, sleep apnea, or type 2 diabetes. Ordered: AMB Office/Outpt Est Pt Low MDM / 20-29 min [id number], 05/02/2022 16:41:00 EST, Morbid obesity / Adult BMI 60.0-69.9 kg/sq m / Sleep apnea 3. Sleep apnea G47.30 CPAP Therapy Ordered: AMB Office/Outpt Est Pt Low MDM / 20-29 min [id number], 05/02/2022 16:41:00 EST, Morbid obesity / Adult BMI 60.0-69.9 kg/sq m / Sleep apnea Problem List/Past Medical History Ongoing Adult BMI 60.0-69.9 kg/sq m Eating disorder, unspecified Former smoker Hiatal hernia Joint pain Morbid obesity Sleep apnea Historical No qualifying data Procedure/Surgical History Cholecystectomy;: 2012 Cyst Removal - Tailbone: 2008 [facility] Extraction Medications biotin 10 mg oral tablet, 10 mg= 1 tabs, ORAL, DAILY multivitamin, 1 tabs, ORAL, DAILY Vitamin B12, DAILY Allergies No Known Allergies Social History Tobacco Former smoker, quit more than 30 days ago Tobacco Use:. Family History Heart disease: Grandmother. Care Team Primary Care Physician NO FAMILY PHYSICIAN, 837 Attending Physician ALBERT REED CNP [phone] . Health Maintenance Pending (in the next year) Due MMR Vaccine Dose 1 due 05/02/22 One-time only Tetanus Vaccine due 05/02/22 Variable frequency Varicella Vaccine Dose 1 due 05/02/22 One-time only Satisfied (in the past 1 year) There are no satisfied recommendations within the defined date range Normal [facility] Comprehensive Intake - Texto n 05-02-2022 Comprehensive Intake - Text Comprehensive Intake Entered On: 05/02/2022 9:18 EST Performed On: 05/02/2022 9:15 EST by Naomy Rogers MA Summary Chief Complaint : MSWL 5 of 6 Bladder Control Issues? : No Urine Leakage? : No Presence or absence of urinary incontinence assessed : Yes CPT-II Medication list doc'd in medical record : Yes Influenza immunization administered or previously received : No Pneumococcal vaccine administered or previously received : No Naomy Rogers MA - 05/02/2022 9:15 EST Measurements Ht/Wt Measurement Refused by Patient? : No Weight Measured : 166 kg(Converted to: 365 lb 15 oz, 365.967 lb) Height/Length Measured : 159 cm(Converted to: 5 ft 3 in, 62.60 in) Body Mass Index Measured : 65.66 kg/m2 Body Mass Index documented : Yes Weight Measured - lbs : 366 lb(Converted to: 366 lb 0 oz, 166 kg) Height/Length Measured - in : 62.5 in(Converted to: 5 ft 3 in, 159 cm) Body Mass Index Measured Zimbabwean : 65.87 kg/m2 BSA Zimbabwean : 2.7 m2 Naomy Rogers MA 05/02/2022 9:15 EST Vitals Require BP : Yes Systolic Blood Pressure : 129 mmHg Diastolic Blood Pressure : 61 mmHg Mean Arterial Pressure : 84 mmHg Apical Heart Rate : 61 bpm Last Systolic BP : less than 130 mmHg Last Diastolic BP : less than 80 mmHg Temperature Temporal (F) : 98.1 degF(Converted to: 37 degC) Pain Present : No actual or suspected pain Pain : 0 Pain severity quantified : No pain present Naomy Rogers MA 05/02/2022 9:15 EST Infection Screening - Ambulatory Exposure AND/OR close contact with a person under investigation or laboratory-confirmed COVID-19 individual within 14 days of symptom onset AND/OR any of the following: : No Do you live/work in a high risk situation (congregated living, hemodialysis, infusion clinic, assisted, assisted living, group home, homeless care home, etc.)? : No Naomy Rogers MA 05/02/2022 9:15 EST Depression Screening Is patient currently : None of the Below Feeling Down, Depressed, Hopeless : Not at all Little Interest - Pleasure in Activities : Not at all Initial Depression Screen Score : 0 Depression Screening Score 0 : No Naomy Rogers MA 05/02/2022 9:15 EST Falls Risk Assessment Is the patient ambulatory (mobile) : Yes Have you had 2 or more falls in the past year : No Have you had a fall within the past year that has caused an injury : No Patient screen for fall risk : no falls in last year OR 1 fall with no injury in last year Naomy Rogers MA 05/02/2022 9:15 EST Normal [facility] AMB Bariatric Physician Prog ress Noteon 03-28-2022 AMB Bariatric Physician Progress Note Chief Complaint MSWL 4 of 6 History of Present Illness Elaine is here for her 4th presurgical visit. Today she weighs 368# BMI 66.23 This is a 7# weight loss from her last visit. She is down 16# from consultation (384) Exercise: Gym 2x a week. Goal is to get up 3x. Feels her diet has remained consistent. Meets with Dr. Maximin Sleep Study 12/25/2021 (+) TANIA - Titration Study completed 03/26/2022 Waiting on CPAP machine. Has met with OCP. Physical Exam Vitals & Measurements Systolic Blood Pressure: 129 mmHg (03/28/22:23:00) Diastolic Blood Pressure: 71 mmHg (03/28/22:23:00) Temperature Temporal (F): 97.4 degF (03/28/22:23:00) Apical Heart Rate: 78 bpm (03/28/22:23:00) Mean Arterial Pressure: 90 mmHg (03/28/22:23:00) Height/Length Measured: 159 cm (03/28/2223:00) Weight Measured: 167 kg (03/28/22:) Body Mass Index Measured: 66.06 kg/m2 (03/28/2223:) Weight Measured - lbs2: 368 lb (03/28/22:23:) Height/Length Measured - in2: 62.5 in (03/28/22:) Body Mass Index Measured English2: 66.23 kg/m2 (03/28/2223:00) BSA: 2.71 m2 (03/28/22:23:00) Ht/Wt Measurement Refused by Patient?2: No (03/28/2223:) Depression Screening Scores Initial Depression Screen Score: 0 (03/28/22:23:00) Fall Risk Assessment Is the patient ambulatory (mobile): Yes (03/28/22:23:00) Have you had a fall within the past: No (03/28/2223:) Have you had 2 or more falls in the past: No (03/28/22:23:) General: Well developed, well nourished, in no acute distress. Abdomen: Soft, non-tender, obese Extremities: No calf tenderness. No pretibial edema. Psych: Alert and cooperative; normal mood and affect; normal attention span and concentration. Assessment/Plan This Visit Diagnosis 1. Morbid obesity E66.01 Continue to make healthy lifestyle changes. Healthy changes in eating habits need to be a life-long commitment. Your goal is to become a healthy person through eating healthy and lifestyle changes. Making these change now, will make changes after surgery easier to follow through with the rest of your life. Follow recommendations provided to you from the dietitian. Increase physical activity as able. Try to aim to do something physically active for 30 minutes every day. Diet changes help you lose weight. Exercise helps you keep it off and maintain weight lose. Complete your required clearances. Follow-up in 1 month. Ordered: AMB Office/Outpt Est Pt Low MDM / 20-29 min [id number], 03/28/2022 09:54:00 EST, Morbid obesity / Adult BMI 60.0-69.9 kg/sq m / Sleep apnea 2. Adult BMI 60.0-69.9 kg/sq m Z68.44 BMI 66.23 The risks of obesity were discussed with the patient. Individuals with obesity are more likely to develop a number of potentially serious health problems including; heart disease, strokes, high blood pressure, abnormal cholesterol, sleep apnea, or type 2 diabetes. Ordered: AMB Office/Outpt Est Pt Low MDM / 20-29 min [id number], 03/28/2022 09:54:00 EST, Morbid obesity / Adult BMI 60.0-69.9 kg/sq m / Sleep apnea 3. Sleep apnea G47.30 Titration study done 03/26/22 waiting on CPAP Ordered: AMB Office/Outpt Est Pt Low MDM / 20-29 min [id number], 03/28/2022 09:54:00 EST, Morbid obesity / Adult BMI 60.0-69.9 kg/sq m / Sleep apnea Problem List/Past Medical History Ongoing Adult BMI 60.0-69.9 kg/sq m Former smoker Hiatal hernia Joint pain Morbid obesity Sleep apnea Historical No qualifying data Procedure/Surgical History Cholecystectomy;: 2012 Cyst Removal - Tailbone: 2008 [facility] Extraction Medications biotin 10 mg oral tablet, 10 mg= 1 tabs, ORAL, DAILY multivitamin, 1 tabs, ORAL, DAILY Vitamin B12, DAILY Allergies No Known Allergies Social History Tobacco Former smoker, quit more than 30 days ago Tobacco Use:. Family History Heart disease: Grandmother. Care Team Primary Care Physician NO FAMILY PHYSICIAN, 837 Attending Physician ALBERT REED CNP [phone] . Health Maintenance Pending (in the next year) Due MMR Vaccine Dose 1 due 03/28/22 One-time only Tetanus Vaccine due 03/28/22 Variable frequency Varicella Vaccine Dose 1 due 03/28/22 One-time only Satisfied (in the past 1 year) There are no satisfied recommendations within the defined date range Normal [facility] Comprehensive Intake - Texto n 03-28-2022 Comprehensive Intake - Text Comprehensive Intake Entered On: 03/28/2022 9:28 EST Performed On: 03/28/2022 9:23 EST by Naomy Rogers MA Chief Complaint : MSWL Bladder Control Issues? : No Urine Leakage? : No Presence or absence of urinary incontinence assessed : Yes CPT-II Medication list doc'd in medical record : Yes Influenza immunization administered or previously received : Yes Pneumococcal vaccine administered or previously received : No Naomy Rogers MA - 03/28/2022 9:23 EST Measurements Ht/Wt Measurement Refused by Patient? : No Weight Measured : 167 kg(Converted to: 368 lb 3 oz, 368.172 lb) Height/Length Measured : 159 cm(Converted to: 5 ft 3 in, 62.60 in) Body Mass Index Measured : 66.06 kg/m2 Body Mass Index documented : Yes Weight Measured - lbs : 368 lb(Converted to: 368 lb 0 oz, 167 kg) Height/Length Measured - in : 62.5 in(Converted to: 5 ft 3 in, 159 cm) Body Mass Index Measured Zimbabwean : 66.23 kg/m2 BSA Zimbabwean : 2.71 m2 Naomy Rogers MA - 03/28/2022 9:23 EST Vitals Require BP : Yes Systolic Blood Pressure : 129 mmHg Diastolic Blood Pressure : 71 mmHg Mean Arterial Pressure : 90 mmHg Apical Heart Rate : 78 bpm Last Systolic BP : less than 130 mmHg Last Diastolic BP : less than 80 mmHg Temperature Temporal (F) : 97.4 degF(Converted to: 36 degC) Pain Present : No actual or suspected pain Pain : 0 Pain severity quantified : No pain present Naomy Rogers MA - 03/28/2022 9:23 EST Infection Screening - Ambulatory Exposure AND/OR close contact with a person under investigation or laboratory-confirmed COVID-19 individual within 14 days of symptom onset AND/OR any of the following: : No Do you live/work in a high risk situation (congregated living, hemodialysis, infusion clinic, assisted, assisted living, group home, homeless care home, etc.)? : No Naomy Rogers MA - 03/28/2022 9:23 EST Depression Screening Is patient currently : None of the Below Feeling Down, Depressed, Hopeless : Not at all Little Interest - Pleasure in Activities : Not at all Initial Depression Screen Score : 0 Depression Screening Score 0 : No Naomy Rogers MA - 03/28/2022 9:23 EST Falls Risk Assessment Is the patient ambulatory (mobile) : Yes Have you had 2 or more falls in the past year : No Have you had a fall within the past year that has caused an injury : No Patient screen for fall risk : no falls in last year OR 1 fall with no injury in last year Gorge Rogers MAal - 03/28/2022 9:23 EST Normal [facility] Ancillary Visit (Sleep Lab)o n 03-26-2022 Ancillary Visit (Sleep Lab) Risk Screening Initial Fall Risk Screening: ELAINE has not fallen in the last 6 months. Her fall did not result in injury. ELAINE does not have a fear of falling. She does not need assistance with sitting, standing or walking. Does not need assistance walking in her home. She does not need assistance in an unfamiliar setting. The patient is not using an assistive device. Sleep Study Appointment ELAINE ORELLANA arrived for her appointment on 03/26/2022 for PAP Titration. The full study was completed. Signatures Electronically signed by : Ventura Riggs, ; Mar 27 2022 2:30AM EST (Author) [facility] AMB Bariatric Sewer And Inspector Prog ress Noteon 02-19-2022 AMB Bariatric Sewer And Inspector Progress Note Weight Measured: 375 lbs Body Mass Index Measured: 67.24 kg/m2 (02/19/22 09:12:00) [place] body weight -9 lbs Total weight loss since initial Weight loss range -2 lbs Food logs provided? no Diet habits Same Due to: Ability to achieve goals? good Adherence to Meal Plan: _ Excessive Energy Intake (NI-1.5) _ Excessive Fat Intake (NI- 5.6.2) _ Excessive Intake of Carbohydrate (NI-53.2) _ Overweight/Obesity (NC- 3.3) _ Unintended Weight Gain (NC- 3.4) _ Altered Nutrition- Related Lab Value (NC-2.2) _ Food and Nutrition-Related Knowledge Deficit (NB-1.1) _ Not Ready for Diet/Lifestyle Change (NB 1.3) _ Self Monitoring Deficit (NB-1.4) _ Disordered Eating Pattern (ND -1.5) _ Limited Adherence to Nutrition-Related Recommendations _ Undesirable Food Choices (NB 1.7) _ Physical inactivity (ND-2.1) _X Other: Assessment: Patient is here for her third visit. She had to work longer shifts the last month. A few days she had to grab lunch instead of packing. She was making different choices at fast food. She was not able to exercise as much the last month. She also had to help her grandfather for a few days. She has not been drinking any pop. She got a cirkul water bottle. She is trying to stay under 1800 kcal per day- still tracking. She says not she has been eating a little slower. She is not watching the TV anymore when eating. Previous goals: Stay consistent with meal schedule- met overall Diet: B: crack an egg (2 eggs), orange or strawberries or special K cereal L: 1 cup cottage cheese, turkey meatballs S: cheese stick or nut/snack pack or protein bar D: chicken, veggies, brown rice or ff refined beans with cheese Beverages: Water with flavoring Exercise: gym 1-3 x per week Intervention: Reviewed not drinking fluids with meals after surgery-wait 30 minutes after meals to resume fluids Discussed artificials sweeteners Discussed general exercise recommendations Discussion and Goals: 1. Gym 3 x per week Literature Provided: Hydrate with Flavor Follow Up: 1 month Topic for Next Visit: Label Reading Normal [facility] AMB Bariatric Physician Prog ress Noteon 02-19-2022 AMB Bariatric Physician Progress Note Chief Complaint MSWL 3 of 6 History of Present Illness Elaine is here for her 3rd presurgical visit. Today she weighs 375# BMI 67.49 This is a 2# weight loss since her last visit. She is down 9# since consultation (375) Exercise Gym 2x a week. Was picking up a work more. Has completely quit smoking // Last cigarette July 2021. Has not vaped since Dec 11, 2021 Urine Cotinine Order provided. Had sleep study, needs titration - had to cancel due to family emergency. 03/26/22 Seen at [facility] at [place] office. Has PFT scheduled for this upcoming Saturday. EGD showed 2-3cm Hiatal Hernia Physical Exam Vitals & Measurements Systolic Blood Pressure: 122 mmHg (02/19/22 09:12:00) Diastolic Blood Pressure: 68 mmHg (02/19/22 09:12:00) Peripheral Pulse Rate: 70 bpm (02/19/22:12:00) Mean Arterial Pressure: 86 mmHg (02/19/22 09:12:00) BP Site2: Left arm (02/19/22 09:12:00) Height/Length Measured: 159 cm (02/19/22:12:00) Weight Measured: 170 kg (02/19/22:12:00) Body Mass Index Measured: 67.24 kg/m2 (02/19/22:12:00) Weight Measured - lbs2: 375 lb (02/19/22:12:00) Height/Length Measured - in2: 62.5 in (02/19/22:12:00) Body Mass Index Measured English2: 67.49 kg/m2 (02/19/22:12:00) BSA: 2.74 m2 (02/19/22:12:00) Ht/Wt Measurement Refused by Patient?2: No (02/19/22 09:12:00) Depression Screening Scores Initial Depression Screen Score: 0 (02/19/22 09:12:00) Fall Risk Assessment Is the patient ambulatory (mobile): Yes (02/19/22 09:12:00) Have you had a fall within the past: No (02/19/22 09:12:00) Have you had 2 or more falls in the past: No (02/19/22 09:12:00) General: Well developed, well nourished, in no acute distress. Abdomen: Soft, non-tender, obese Extremities: No calf tenderness. No pretibial edema. Psych: Alert and cooperative; normal mood and affect; normal attention span and concentration. Assessment/Plan This Visit Diagnosis 1. Morbid obesity E66.01 Continue to make healthy lifestyle changes. Healthy changes in eating habits need to be a life-long commitment. Your goal is to become a healthy person through eating healthy and lifestyle changes. Making these change now, will make changes after surgery easier to follow through with the rest of your life. Follow recommendations provided to you from the dietitian. Increase physical activity as able. Try to aim to do something physically active for 30 minutes every day. Diet changes help you lose weight. Exercise helps you keep it off and maintain weight lose. Complete your required clearances. Follow-up in 1 month. Ordered: AMB Office/Outpt Est Pt Low MDM / 20-29 min [id number], 02/19/2022 09:44:00 EST, Morbid obesity / Adult BMI 60.0-69.9 kg/sq m / Former smoker [facility], ROUTINE, 02/19/2022, Urine Cotinine Screen [id number], Order for future visit, Dx: Morbid obesity / Former smoker 2. Adult BMI 60.0-69.9 kg/sq m Z68.44 BMI 67.49 The risks of obesity were discussed with the patient. Individuals with obesity are more likely to develop a number of potentially serious health problems including; heart disease, strokes, high blood pressure, abnormal cholesterol, sleep apnea, or type 2 diabetes. Ordered: AMB Office/Outpt Est Pt Low MDM / 20-29 min [id number], 02/19/2022 09:44:00 EST, Morbid obesity / Adult BMI 60.0-69.9 kg/sq m / Former smoker 3. Former smoker Z87.891 Urine nicotine order provided today/ Ordered: AMB Office/Outpt Est Pt Low MDM / 20-29 min [id number], 02/19/2022 09:44:00 EST, Morbid obesity / Adult BMI 60.0-69.9 kg/sq m / Former smoker [facility], ROUTINE, 02/19/2022, Urine Cotinine Screen [id number], Order for future visit, Dx: Morbid obesity / Former smoker Problem List/Past Medical History Ongoing Adult BMI 60.0-69.9 kg/sq m Former smoker Hiatal hernia Joint pain Morbid obesity Historical No qualifying data Procedure/Surgical History Cholecystectomy;: 2012 Cyst Removal - Tailbone: 2008 [facility] Extraction Medications biotin 10 mg oral tablet, 10 mg= 1 tabs, ORAL, DAILY multivitamin, 1 tabs, ORAL, DAILY Vitamin B12, DAILY Allergies No Known Allergies Social History Tobacco Former smoker, quit more than 30 days ago Tobacco Use:. Family History Heart disease: Grandmother. Care Team Primary Care Physician NO FAMILY PHYSICIAN, 837 Attending Physician LIZZIE CAMILO DO [phone] . Health Maintenance Pending (in the next year) Due MMR Vaccine Dose 1 due 02/19/22 One-time only Tetanus Vaccine due 02/19/22 Variable frequency Varicella Vaccine Dose 1 due 02/19/22 One-time only Satisfied (in the past 1 year) There are no satisfied recommendations within the defined date range Normal [facility] Comprehensive Intake - Baria tric - Texton 02-19-2022 Comprehensive Intake - Bariatric - Text Comprehensive Intake - Bariatric Entered On: 02/19/2022 9:15 EST Performed On: 02/19/2022 9:12 EST by Rosi Rand MA Summary Chief Complaint : MSWL Bladder Control Issues? : Yes Urine Leakage? : No Presence or absence of urinary incontinence assessed : Yes CPT-II Medication list doc'd in medical record : Yes Influenza immunization administered or previously received : Yes Pneumococcal vaccine administered or previously received : No Rosi Rand MA - 02/19/2022 9:12 EST Measurements - Bariatrics Ht/Wt Measurement Refused by Patient? : No Weight Measured : 170 kg(Converted to: 374 lb 13 oz, 374.786 lb) Height/Length Measured : 159 cm(Converted to: 5 ft 3 in, 62.60 in) Body Mass Index Measured : 67.24 kg/m2 Body Mass Index documented : Yes Weight Measured - lbs : 375 lb(Converted to: 375 lb 0 oz, 170 kg) Height/Length Measured - in : 62.5 in(Converted to: 5 ft 3 in, 159 cm) Body Mass Index Measured Zimbabwean : 67.49 kg/m2 BSA Zimbabwean : 2.74 m2 [place] Body Weight : 51.476 kg Rosi Rand MA - 02/19/2022 9:12 EST Vitals Require BP : Yes Systolic Blood Pressure : 122 mmHg Diastolic Blood Pressure : 68 mmHg Mean Arterial Pressure : 86 mmHg Pulse Rate : 70 bpm BP Site : Left arm Last Systolic BP : less than 130 mmHg Last Diastolic BP : less than 80 mmHg Pain Present : No actual or suspected pain Pain : 0 Pain severity quantified : No pain present Rosi Rand MA - 02/19/2022 9:12 EST Infection Screening - Ambulatory Exposure AND/OR close contact with a person under investigation or laboratory-confirmed COVID-19 individual within 14 days of symptom onset AND/OR any of the following: : No Do you live/work in a high risk situation (congregated living, hemodialysis, infusion clinic, assisted, assisted living, group home, homeless care home, etc.)? : No Rosi Rand MA - 02/19/2022 9:12 EST Depression Screening Is patient currently : None of the Below Feeling Down, Depressed, Hopeless : Not at all Little Interest - Pleasure in Activities : Not at all Initial Depression Screen Score : 0 Depression Screening Score 0 : No Rosi Rand MA - 02/19/2022 9:12 EST Falls Risk Assessment Is the patient ambulatory (mobile) : Yes Have you had 2 or more falls in the past year : No Have you had a fall within the past year that has caused an injury : No Patient screen for fall risk : no falls in last year OR 1 fall with no injury in last year Rosi Rand MA - 02/19/2022 9:12 EST Normal [facility] ENDOSCOPY DC INSTRUCTIONSon 01-03-2022 ENDOSCOPY DC INSTRUCTIONS Discharge Instructions Patient: Elaine Orellana Patient : 1990 Procedure: Upper GI endoscopy Procedure Date: Monday, January 03, 2022 Endoscopist: Beatrice Rogers You had a Upper GI endoscopy today. Dr. Rogers found the following: - Z-line irregular, 36 cm from the incisors. - 2-3 cm hiatal hernia. - Erythematous mucosa in the antrum. Biopsied. - Bilious gastric fluid. - Normal examined duodenum. Dr. Rogers recommends: We are waiting for your pathology results. You are being discharged to home. Resume your previous diet. Take Prilosec OTC 20 mg by mouth once a day x 6 wks then as needed. . Return to your referring physician as previously scheduled. Do not drive, operate machinery, make critical decisions, or do activities that require coordination or balance for 24 hours. Contact the GI lab at for any questions regarding your procedure. Go directly to the emergency room if you notice any of the following: Chills and fever over 101 Persistent vomiting or vomiting with blood Severe abdominal pain, other than gas cramps Severe chest pain Black, tarry stools Any bleeding - exceeding one tablespoon If you have any questions on the above instructions, please call your physician at . Beatrice Rogers, 01/03/2022 9:42:16 AM Normal [facility] ENDOSCOPY REPORTon ENDOSCOPY REPORT [facility] Endoscopy _ Patient Name: Elaine Orellana Procedure Date: 01/03/2022 8:31 AM Date of : 1990 Gender: Female Note Status: Finalized _ Providers: Beatrice Rogers (Doctor) Referring MD: Lizzie Camilo DO Exam Type: Upper GI endoscopy _ Indications: Preoperative assessment for bariatric surgery to treat morbid obesity.No previous EGD Impression: - Z-line irregular, 36 cm from the incisors. - 2-3 cm hiatal hernia. - Erythematous mucosa in the antrum. Biopsied. - Bilious gastric fluid. - Normal examined duodenum. Medications: Midazolam 6 mg IV, Fentanyl 50 micrograms IV, Lidocaine spray Complications: No immediate complications. _ Comorbidities S/P cholecystectomy in 2012.Low normal B12 Procedure: Pre-Anesthesia Assessment: - The risks and benefits of the procedure and the sedation options and risks were discussed with the patient. All questions were answered and informed consent was obtained. - Patient identification and proposed procedure were verified prior to the procedure by the physician and the nurse. The procedure was verified in the endoscopy suite. - CV Examination: normal. - Mental Status Examination: alert and oriented. - Respiratory Examination: clear to auscultation. - ASA Grade Assessment: I - A normal, healthy patient. After obtaining informed consent, the endoscope was passed under direct vision. Throughout the procedure, the patient's blood pressure, pulse, and oxygen saturations were monitored continuously. The Endoscope was introduced through the mouth, and advanced to the second part of duodenum. The upper GI endoscopy was accomplished without difficulty. The patient tolerated the procedure well. Findings: The Z-line was irregular and was found 36 cm from the incisors. A 2-3 cm hiatal hernia was present. Localized mildly erythematous mucosa without bleeding was found in the gastric antrum. Biopsies were taken with a cold forceps for Helicobacter pylori testing. Small amount of Bilious fluid was found in the stomach. The examined duodenum was normal. Recommendation: - Await pathology results. - Discharge patient to home. - Resume previous diet. - Use Prilosec OTC 20 mg PO daily x 6 wks then as needed. - Return to referring physician as previously scheduled. Beatrice Rogers, 01/03/2022 9:42:16 AM Signed Date: 01/03/2022 8:31 AM Scope Withdrawal Time Total Procedure Duration Time 0 hours 5 minutes 32 seconds Scope In: 9:21:43 AM Scope Out: 9:27:15 AM Review Medical Record Forms for possible GI photos Normal [facility] SURGon 01-03-2022 SURG Normal [facility] Comment on above: Result Comment: RUN DATE: 01/04/22 [facility] LAB *LIVE* PAGE 1RUN TIME: 1514 Specimen InquiryRUN USER: [place] Name: ELAINE ORELLANA : [birth year] Sex:F Attend Dr: Beatrice Rogers [facility]#: [id number] Unit#: [id number] Status: [facility] Location: .[facility] Received: 01/03/22 Status: ACE Castrovianney#: [id number]#: [id number] Collected: 01/03/[address]: Beatrice Rogers MDTISSUES: A. BX. ANTRUM + BODY B. BX. GE JUNCTION MICROSCOPIC EXAM: A&B. One H&E-stained slide from each specimen is examined. DIAGNOSIS: A. ANTRUM AND BODY OF STOMACH, ENDOSCOPIC BIOPSY: - MILD REACTIVE GASTRITIS/GASTROPATHY B. GE JUNCTION, ENDOSCOPIC BIOPSY: - FRAGMENTS OF GASTROESOPHAGEAL JUNCTIONAL TISSUE WITH CHANGES CONSISTENT WITH GASTROESOPHAGEAL REFLUX DISEASE (GERD) - NO INTESTINAL METAPLASIA, DYSPLASIA OR MALIGNANCY IS IDENTIFIED Signed Signature on File ENZO MULLER 01/04/22 [address] [facility] Name: [facility] Hosp Num: [id number] A [facility] of Age / Sex: [facility] Physician: Beatrice Rogers MD [address] [place] [address] Location: ENDOSCOPY END OF REPORT Performed By: #### P SURG ####Test performed at: [place] [address] H PYLORI ABon 12-13-2021 H PYLORI AB 0.56 Normal 0.00-0.79 [facility] Comment on above: Result Comment: INFC E Result Units: Index Value Negative <0.80 Equivocal 0.80 - 0.89 Positive >0.89 Performed At: [facility] ([facility])[address] [id number] Nasir Serna PhD [id number] Performed By: #### L 750.16898 #### Test performed at: [facility] [id number] [address] [place] [id number] VIT D 25-OHon 12-12-2021 VIT D 25-OH 28.26 ng/mL Low 30-100 [facility] Comment on above: Result Comment: ADUL TS: Vitamin D Status Range ----- Deficiency <20 ng/mL Insufficiency 20-<30 ng/mL Sufficiency 30-100 ng/mL Toxicity >100 ng/mL ~\R\~\R\~\R\~\R\~\R\~\R\~\R\~\R\~\R\~\R\~\R\~\R\~\R\~\R\~\R\~\R\~ PEDIATRICS: Vitamin D Status Range ----- Deficiency <15 ng/mL Insufficiency 15-<20 ng/mL Sufficiency 20-100 ng/mL Toxicity >100 ng/mL Certified procedure of the [facility] Vitamin D Standardization Certification Program (VDSCP) Performed By: #### L 550.91372 #### Test performed at: [address] [address] B12on 12-11-2021 Cobalamin (Vitamin B12) [Mass/Vol] 269 pg/mL Normal 193-986 [facility] Comment on above: Order Comment: Is reji tieshira fasting? UNKNOWN Performed By: #### L 200.56663 #### Test performed at: [address] [address] CBC W/DIFFon 12-11-2021 BASO ABS 0.0 K/uL Normal 0.0-0.2 [facility] Comment on above: Performed By: #### L 200.96817 #### Test performed at: [address] [address] Basophils/100 WBC (Bld) 0.2 % Normal [facility] Comment on above: Performed By: #### L 200.59035 #### Test performed at: [address] [address] EOS ABS 0.1 K/uL Normal 0.0-0.5 [facility] Comment on above: Performed By: #### L 200.93150 #### Test performed at: [address] [address] Eosinophils/100 WBC (Bld) 1.0 % Normal [facility] Comment on above: Performed By: #### L 200.51988 #### Test performed at: [address] [address] Erythrocyte distribution width (RBC) [Ratio] 13.4 % Normal 11.5-14.5 [facility] Comment on above: Performed By: #### L 200.25714 #### Test performed at: [address] [address] Hematocrit (Bld) [Volume fraction] 40.7 % Normal 36.0-48.0 [facility] Comment on above: Performed By: #### L 200.61017 #### Test performed at: [address] [address] Hemoglobin (Bld) [Mass/Vol] 12.8 g/dL Normal 12.0-15.0 [facility] Comment on above: Performed By: #### L 200.71074 #### Test performed at: [place] [address] IG % 0.2 % Normal [facility] Comment on above: Performed By: #### L 200.73285 #### Test performed at: [address] [address] IG ABS 0.02 K/uL Normal 0-0.05 [facility] Comment on above: Performed By: #### L 200.14331 #### Test performed at: [address] [address] Lymphocytes (Bld) [#/Vol] 2.0 10*3/uL Normal 1.2-3.5 [facility] Comment on above: Performed By: #### L 200.47868 #### Test performed at: [address] [address] Lymphocytes/100 WBC (Bld) 22.1 % Normal [facility] Comment on above: Performed By: #### L 200.22506 #### Test performed at: [place] [address] MCH (RBC) [Entitic mass] 28.2 pg Normal 25.4-34.6 [facility] Comment on above: Performed By: #### L 200.73897 #### Test performed at: [address] [address] MCHC (RBC) [Mass/Vol] 31.4 g/dL Low 31.5-36.5 [facility] Comment on above: Performed By: #### L 200.57896 #### Test performed at: [address] [address] MCV (RBC) [Entitic vol] 89.6 fL Normal 79.0-98.0 [facility] Comment on above: Performed By: #### L 200.39676 #### Test performed at: [address] [address] MONO ABS 0.6 K/uL Normal 0.0-1.0 [facility] Comment on above: Performed By: #### L 200.86450 #### Test performed at: [address] [address] Monocytes/100 WBC (Bld) 6.6 % Normal [facility] Comment on above: Performed By: #### L 200.03433 #### Test performed at: [address] [address] NEUTROPHIL ABS 6.2 K/uL Normal 1.4-6.6 [facility] Comment on above: Performed By: #### L 200.99948 #### Test performed at: [address] [address] Neutrophils/100 WBC (Bld) 69.9 % Normal [facility] Comment on above: Performed By: #### L 200.97618 #### Test performed at: [address] [address] NRBC # 0.000 K/uL Normal 0-0.012 [facility] Comment on above: Performed By: #### L 200.57669 #### Test performed at: [address] [address] NRBC % 0.0 /100 WBC Normal 0-0.2 [facility] Comment on above: Performed By: #### L 200.39594 #### Test performed at: [address] [address] Platelet mean volume (Bld) [Entitic vol] 11.6 fL Normal 8.7-12.4 [facility] Comment on above: Performed By: #### L 200.15377 #### Test performed at: [address] [address] Platelets (Bld) [#/Vol] 325 10*3/uL Normal 140-440 [facility] Comment on above: Performed By: #### L 200.94205 #### Test performed at: [address] [address] RBC (Bld) [#/Vol] 4.54 10*6/uL Normal 3.5-5.5 [facility] Comment on above: Performed By: #### L 200.58083 #### Test performed at: [address] [address] WBC (Bld) [#/Vol] 8.8 10*3/uL Normal 3.9-11.0 [facility] Comment on above: Performed By: #### L 200.18439 #### Test performed at: [address] [address] COMP META PANELon 12-11-2021 Albumin [Mass/Vol] 3.9 g/dL Normal 3.4-5.0 [facility] Comment on above: Order Comment: Is pa tient fasting? UNKNOWN Performed By: #### L 500.35992, L500.43331, L500.82186, L500.41353, L500.55057, L500.16799 #### Test performed at: [address] [address] ALK PHOS TOTAL 71 U/L Normal 45-117 [facility] Comment on above: Order Comment: Is pa tient fasting? UNKNOWN Performed By: #### L 500.42527, L500.85122, L500.22553, L500.92900, L500.67119, L500.44960 #### Test performed at: [address] [address] ALT [Catalytic activity/Vol] 34 U/L Normal 13-61 [facility] Comment on above: Order Comment: Is pa tient fasting? UNKNOWN Performed By: #### L 500.66157, L500.28919, L500.82074, L500.95654, L500.75666, L500.14977 #### Test performed at: [address] [address] AST [Catalytic activity/Vol] 16 U/L Normal 15-37 [facility] Comment on above: Order Comment: Is pa tient fasting? UNKNOWN Performed By: #### L 500.07750, L500.10421, L500.79410, L500.85810, L500.44432, L500.92426 #### Test performed at: [address] [address] BILI TOTAL 0.5 mg/dL Normal 0.2-1.0 [facility] Comment on above: Order Comment: Is pa tient fasting? UNKNOWN Performed By: #### L 500.53805, L500.11419, L500.67492, L500.50851, L500.76647, L500.30682 #### Test performed at: [address] [address] Calcium [Mass/Vol] 9.8 mg/dL Normal 8.5-10.1 [facility] Comment on above: Order Comment: Is pa tient fasting? UNKNOWN Performed By: #### L 500.39487, L500.29040, L500.78761, L500.09661, L500.64258, L500.08307 #### Test performed at: [address] [address] Chloride [Moles/Vol] 104 mmol/L Normal 98-107 [facility] Comment on above: Order Comment: Is pa tient fasting? UNKNOWN Performed By: #### L 500.11231, L500.77273, L500.45319, L500.39360, L500.49001, L500.03490 #### Test performed at: [address] [address] CO2 [Moles/Vol] 30 mmol/L Normal 21-32 [facility] Comment on above: Order Comment: Is pa tient fasting? UNKNOWN Performed By: #### L 500.06684, L500.35442, L500.36205, L500.76995, L500.09258, L500.38129 #### Test performed at: [address] [address] Creatinine [Mass/Vol] 0.790 mg/dL Normal 0.550-1.020 [facility] Comment on above: Order Comment: Is pa tient fasting? UNKNOWN Performed By: #### L 500.23713, L500.29006, L500.16873, L500.01452, L500.74735, L500.42387 #### Test performed at: [address] [address] Glucose [Mass/Vol] 83 mg/dL Normal 70-99 [facility] Comment on above: Order Comment: Is pa tient fasting? UNKNOWN Result Comment: Fast ing GLUCOSE reference range has been updated per (ADA) [place] [employer]'s recommendation. 06/10/2018 Performed By: #### L 500.48908, L500.11833, L500.11619, L500.50285, L500.82078, L500.88199 #### Test performed at: [address] [address] Potassium [Moles/Vol] 4.9 mmol/L Normal 3.5-5.1 [facility] Comment on above: Order Comment: Is pa tient fasting? UNKNOWN Performed By: #### L 500.55186, L500.94462, L500.58515, L500.85120, L500.98471, L500.48847 #### Test performed at: [address] [address] Protein [Mass/Vol] 7.6 g/dL Normal 6.4-8.2 [facility] Comment on above: Order Comment: Is pa tient fasting? UNKNOWN Performed By: #### L 500.68875, L500.11364, L500.83756, L500.90224, L500.10807, L500.80019 #### Test performed at: [address] [address] Sodium [Moles/Vol] 138 mmol/L Normal 136-145 [facility] Comment on above: Order Comment: Is pa tient fasting? UNKNOWN Performed By: #### L 500.63173, L500.59964, L500.50018, L500.20888, L500.04188, L500.01702 #### Test performed at: [address] [address] Urea nitrogen [Mass/Vol] 10 mg/dL Normal 7-18 [facility] Comment on above: Order Comment: Is pa tient fasting? UNKNOWN Performed By: #### L 500.98643, L500.09825, L500.00573, L500.18813, L500.16630, L500.56408 #### Test performed at: [place] [address] GFR ESTIMATEon 12-11-2021 IF AMER > 60 Normal > 60 [facility] Comment on above: Order Comment: Is pa tient fasting? UNKNOWN Result Comment: eGFR (Estimated GFR) Units of measure:mL/min/1.73 meters sq. *CALCULATION REVISED 01/04/2015;IDMS-traceable MDRD equation eGFR is derived from the reexpressed MDRD Study equation using the following parameters: serum creatinine, age, gender and race. An eGFR<60 mL/min/1.73m2 for >3 months is consistent with chronic kidney disease. Refer to KDOQI guidelines for clinical interpretation. Performed By: #### L 200.01697 #### Test performed at: [place] [address] IF non-AFR AMER > 60 Normal > 60 [facility] Comment on above: Order Comment: Is pa tient fasting? UNKNOWN Performed By: #### L 200.95203 #### Test performed at: [place] [address] GLYCO HEMOon 12-11-2021 HbA1c (Bld) [Mass fraction] 5.4 % Normal [facility] Comment on above: Result Comment: Keny duke Diagnosis HbA1c (%) --------- Diabetic > 6.4 Prediabetes 5.7-6.4 Normal < 5.7 Performed By: #### L 500.90747 #### Test performed at: [place] [address] IRON PROF W/Jesica 12-11-2021 FERR 144.9 ng/mL Normal 8-252 [facility] Comment on above: Order Comment: Is pa tient fasting? UNKNOWN Performed By: #### L 200.54972 #### Test performed at: [address] [address] Iron [Mass/Vol] 74 ug/dL Normal 50-170 [facility] Comment on above: Order Comment: Is pa tient fasting? UNKNOWN Performed By: #### L 200.67434 #### Test performed at: [address] [address] IRON SAT 21 % Low 25-35 [facility] Comment on above: Order Comment: Is pa tient fasting? UNKNOWN Performed By: #### L 200.37427 #### Test performed at: [address] [address] TIBC 345 ug/dL Normal 250-450 [facility] Comment on above: Order Comment: Is pa tient fasting? UNKNOWN Performed By: #### L 200.32196 #### Test performed at: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 08:46-0400 Systolic blood pressure 126 mm[Hg] Tosin Avina MD Work Phone: [facility] 11-05-2023 09:54-0400 Body height 158 cm Julienne Boyle PA-C Work Phone: [facility] 11-05-2023 09:54-0400 Body mass index (BMI) [Ratio] 68.3 kg/m2 Julienne Boyle PA-C Work Phone: [facility] 11-05-2023 09:54-0400 Body temperature 97.81 [degF] Julienne Boyle PA-C Work Phone: [facility] 11-05-2023 09:54-0400 Body weight 170.5 kg Julienne Joseph PA-C Work Phone: [facility] 11-05-2023 09:54-0400 Diastolic blood pressure 76 mm[Hg] Julienne Boyle PA-C Work Phone: [facility] 11-05-2023 09:54-0400 Heart rate 80 /min Julienne Boyle PA-C Work Phone: [facility] 11-05-2023 09:54-0400 Systolic blood pressure 120 mm[Hg] Julienne Boyle PA-C Work Phone: [facility] 05-20-2023 13:28-0500 Body height 157.5 cm Soco Meyersdale MUSIC MINISTER.BUILD ENGINEER Work Phone: [facility] 05-20-2023 13:28-0500 Body weight 171.91 kg Soco Kelsey MUSIC MINISTER.BUILD ENGINEER Work Phone: [facility] 05-20-2023 13:28-0500 Diastolic blood pressure 78 mm[Hg] Soco Kelsey MUSIC MINISTER.BUILD ENGINEER Work Phone: [facility] 05-20-2023 13:28-0500 Systolic blood pressure 126 mm[Hg] Soco Meyersdale MUSIC MINISTER.BUILD ENGINEER Work Phone: [facility] 07-20-2022 14:15-0400 Body height 157.5 cm Elisabeth Azar MD Work Phone: [facility] 07-20-2022 14:15-0400 Body weight 161.48 kg Elisabeth Azar MD Work Phone: [facility] 07-20-2022 14:15-0400 Diastolic blood pressure 90 mm[Hg] Elisabeth Azar MD Work Phone: [facility] 07-20-2022 14:15-0400 Systolic blood pressure 124 mm[Hg] Elisabeth Azar MD Work Phone: [facility] 12-20-2021 14:20-0400 Diastolic blood pressure 85 mm[Hg] Nae Aguilar MD Work Phone: [facility] 12-20-2021 14:20-0400 Heart rate 76 /min Nae Aguilar MD Work Phone: [facility] 12-20-2021 14:20-0400 Systolic blood pressure 132 mm[Hg] Nae Aguilar MD Work Phone: [facility] 12-20-2021 13:35-0400 Body height 157.5 cm Nae Aguilar MD Work Phone: [facility] 12-20-2021 13:35-0400 Body weight 176.09 kg Nae Aguilar MD Work Phone: [facility] 09-01-2021 09:15-0400 Body temperature 97.81 [degF] Nae Aguilar MD Work Phone: [facility] 09-01-2021 09:15-0400 Body weight 176.9 kg Nae Aguilar MD Work Phone: [facility] 09-01-2021 09:15-0400 Diastolic blood pressure 76 mm[Hg] Nae Aguilar MD Work Phone: [facility] 09-01-2021 09:15-0400 Heart rate 71 /min Nae Aguilar MD Work Phone: [facility] 09-01-2021 09:15-0400 SaO2% (BldA) [Mass fraction] 96 % Nae Aguilar MD Work Phone: [facility] 09-01-2021 09:15-0400 Systolic blood pressure 112 mm[Hg] Nae Aguilar MD Work Phone: [facility] Encounters Encounter Date Encounter Type Care Provider Facility Start: 07-19-2024 End: 07-20-2024 Emergency department patient visit [facility] Start: 05-22-2024 End: 05-22-2024 ambulatory SOCO COLE Facility:[facility] Start: 05-22-2024 End: 05-22-2024 Patient encounter procedure Soco Cole APRNPRISCILLA Work Phone: OB/Gynecology Comment on above: Encounter for gyneco logical examination (general) (routine) without abnormal findings (Primary Dx) Start: 05-22-2024 End: 05-22-2024 Patient encounter status Soco Cole MUSIC MINISTER.BUILD ENGINEER Work Phone: [facility] Start: 05-19-2024 End: 05-19-2024 ambulatory Marlen Riley MUSIC MINISTER.BUILD ENGINEER Work Phone: [facility] Comment on above: Question, Start: 04-10-2024 End: 04-10-2024 Telemedicine consultation with patient Soco Cole MUSIC MINISTER.BUILD ENGINEER Work Phone: OB/Gynecology Start: 04-10-2024 End: 04-10-2024 ambulatory Soco Cole MUSIC MINISTER.BUILD ENGINEER Work Phone: OB/Gynecology Comment on above: PCOS (polycystic ova kang syndrome) (Primary Dx) Start: 03-27-2024 End: 03-27-2024 Telephone encounter Soco Cole MUSIC MINISTER.BUILD ENGINEER Work Phone: OB/Gynecology Comment on above: Results Start: 03-26-2024 End: 03-26-[address] [facility] Facility:[facility] Start: 03-26-2024 End: 03-26-2024 Patient encounter procedure Soco Cole MUSIC MINISTER.BUILD ENGINEER Work Phone: OB/Gynecology Comment on above: Irregular menses (Pr imary Dx) Start: 03-25-2024 End: 03-25-[address] [facility] Facility:[facility] Start: 03-25-2024 End: 03-25-2024 Patient encounter procedure Marlen Riley MUSIC MINISTER.BUILD ENGINEER Work Phone: [facility] Comment on above: Severe obesity (BMI >= 40) (HCC) (Primary Dx); BMI 60.0-69.9, adult (HCC); Bipolar affective disorder, remission status unspecified (HCC); Low vitamin D level; Medication management; Dietary counseling; Exercise counseling Start: 03-21-2024 End: 03-21-2024 Emergency department patient visit No Primary Care Physician Facility:[facility] Start: 12-02-2023 End: 12-02-2023 Telephone encounter Julienne Boyle PA-C Work Phone: Internal Medicine Start: 11-28-2023 Encounter for genera l adult medical examination without abnormal findings SOCO COLE [facility] Start: 11-28-2023 End: 11-28-[address] [facility] Facility:[facility] Start: 11-28-2023 End: 11-28-2023 Office outpatient visit 15 minutes Tosin Avina MD Work Phone: OB/Gynecology Comment on above: History of recurrent miscarriages (Primary Dx) Start: 11-15-2023 End: 11-15-2023 Telephone encounter Soco Cole APRN.BUILD ENGINEER Work Phone: OB/Gynecology Comment on above: Future Appointment Start: 11-05-2023 End: 11-05-[address] [facility] Facility:[facility] Start: 11-05-2023 End: 11-05-2023 Patient encounter status Julienne Boyle PA-C Work Phone: [facility] Work Phone: Start: 11-05-2023 End: 11-05-2023 Periodic preventive med est patient 18-39 yrs Julienne Boyle PA-C Work Phone: Internal Medicine Comment on above: Wellness examination (Primary Dx); Screening for depression; Vitamin D deficiency; Mixed hyperlipidemia; Class 3 severe obesity due to excess calories without serious comorbidity with body mass index (BMI) of 60.0 to 69.9 in adult (HCC) Start: 10-10-2023 Orders Only Clarissa garcia PA-C Work Phone: Orthopaedics Comment on above: Right knee pain, uns pecified chronicity (Primary Dx) Start: 08-05-2023 End: 08-05-2023 Emergency department patient visit No Primary Care Physician Facility:[facility] Start: 06-09-2023 End: 06-09-2023 ambulatory Aury Pedersen APRN.BUILD ENGINEER Work Phone: Telemedicine Comment on above: Cracked tooth (Prima ry Dx); Tooth abscess Start: 06-09-2023 End: 06-09-2023 Telemedicine consultation with patient Aury Pedersen MUSIC MINISTER.BUILD ENGINEER Work Phone: [facility] Start: 05-20-2023 End: 05-20-2023 Patient encounter procedure Soco Cole MUSIC MINISTER.BUILD ENGINEER Work Phone: OB/Gynecology Comment on above: Encounter for arely l prescription of contraceptive pills (Primary Dx) Start: 05-17-2023 End: 05-17-2023 Patient encounter procedure Padma Steve MUSIC MINISTER.BUILD ENGINEER Work Phone: Dermatology Comment on above: Rosacea (Primary Dx) ; Benign nevus; Acne vulgaris Start: 04-10-2023 Telephone encounter Clarissa carr PA-C Work Phone: Orthopaedics Comment on above: Chart prep Start: 02-11-2023 Telephone encounter Nae Aguilar MD Work Phone: Internal Medicine Comment on above: Forms Start: 09-30-2022 End: 09-30-2022 ambulatory LIZZIE K PRISTAS DO Facility:[facility] Start: 09-16-2022 End: 09-16-2022 ambulatory [facility] Facility:[facility] Start: 09-02-2022 End: 09-02-2022 ambulatory LIZZIE K PRISTAS DO Facility:[facility] Start: 08-31-2022 Chart abstracting Tawanna Forrest Work Phone: Adult Psychology Comment on above: Behavioral Health/So cial Work Start: 08-27-2022 ambulatory France Sutton PA-C Work Phone: Internal Medicine Comment on above: Lab Results Start: 08-27-2022 E-mail encounter fro m caregiver France Sutton PA-C Work Phone: [facility] Start: 07-27-2022 Telephone encounter Elisabeth choudhary MD Work Phone: Obstetrics/Gynecology Comment on above: Results Start: 07-20-2022 End: 07-20-2022 Patient encounter procedure Elisabeth Azar MD Work Phone: Obstetrics/Gynecology Comment on above: of unknown anatomic location (Primary Dx) Start: 07-18-2022 End: 07-19-2022 ambulatory LIZZIE CAMILO DO Facility:[id number] Start: 07-18-2022 Evaluation and management of inpatient 837 NO FAMILY PHYSICIAN Facility:[id number] Start: 07-03-2022 End: 07-04-2022 ambulatory 837 NO FAMILY PHYSICIAN [facility] Start: 06-19-2022 End: 06-20-2022 ambulatory LIZZIE DICKINSONARPITA DO [facility] Start: 05-30-2022 End: 05-31-2022 ambulatory 837 NO FAMILY PHYSICIAN Facility:[facility] Start: 05-02-2022 End: 05-03-2022 ambulatory 837 NO FAMILY PHYSICIAN [facility] Start: 03-28-2022 End: 03-29-2022 ambulatory 837 NO FAMILY PHYSICIAN [facility] Start: 03-26-2022 ambulatory Dain Connell Facility:[id number] Start: 03-26-2022 Patient encounter procedure [id number] PMC MAC 4 SLEEP LAB ROOM 1 Work Phone: [facility] MAC[facility] [address] [place] Work Phone: Start: 03-13-[address] Jonathan Ramírez Facility:[id number] Start: 02-19-2022 End: 02-20-2022 ambulatory LIZZIE CAMILO DO Facility:[facility] Start: 01-26-2022 End: 01-27-2022 ambulatory LIZZIE CAMILO DO Facility:[facility] Start: 01-03-2022 ambulatory Beatrice Clarke ity:[facility] Start: 12-20-2021 End: 12-20-2021 Patient encounter procedure Nae Aguilar MD Work Phone: Internal Medicine Comment on above: Class 3 severe obesi ty due to excess calories without serious comorbidity with body mass index (BMI) greater than or equal to 70 in adult (HCC) (Primary Dx); Anxiety; Low vitamin D level; Tremor Start: 12-11-2021 ambulatory Lizzie Camilo Fac ility:[facility] Start: 09-04-2021 ambulatory Debra Lowe PA-C Work Phone: Internal Medicine Comment on above: Labs Start: 09-04-2021 E-mail encounter amberly ma caregiver Debra Lowe PA-C Work Phone: [facility] Start: 09-01-2021 Telephone encounter Rowan abebewilber LEGAL CONSULTANT Work Phone: Adult Psychology Comment on above: behavioral health so cial work Start: 09-01-2021 End: 09-01-2021 Patient encounter procedure Nae Aguilar MD Work Phone: Internal Medicine Comment on above: Encounter for medica l examination to establish care (Primary Dx); BMI 70 and over, adult (HCC); Bipolar disorder, in partial remission, most recent episode mixed (HCC); Anxiety and depression; Tremor; Encounter for immunization; Low vitamin D level; Special screening examination for viral disease; Screening for HIV (human immunodeficiency virus); Routine lab draw; Twitching Start: 09-01-2021 End: 09-01-2021 Patient encounter status Nae Aguilar MD Work Phone: Internal Medicine Start: 02-06-2018 End: 02-06-2018 Emergency department patient visit EDWARD WADE Facility:[id number] Procedures Date Procedure Procedure Detail Performing Clinician Start: 03-25-2024 Hemoglobin A1c/Hemoglobin.total in Blood Marlen Riley APRN.CNP Work Phone: Start: 11-05-2023 Adult depression scr eening assessment Julienne Boyle PA-C Work Phone: Start: 07-20-2022 Iadna chlamydia trachomatis amplified probe tq Elisabeth Azar MD Work Phone: Start: 08-30-2021 Adult depression scr eening assessment Nae Aguilar MD Work Phone: Plan of Treatment Date Care Activity Detail Author Start: 02-15-2033 Urine microalbumin profile DTaP,Tdap,Td Vaccine (8 - Td or Tdap) [facility] Start: 09-02-2031 Urine microalbumin profile [facility] Start: 05-22-2026 HPV TESTING HPV TESTING [facility] Start: 05-22-2026 PAP TESTING PAP TESTING [facility] Start: 05-22-2026 Screening for malignant neoplasm of cervix [facility] Start: 11-04-2024 Covid-19 Vaccine () Covid-19 Vaccine () [facility] Comment on above: Postponed from 11/16/2022 (Declined at t his time) Start: 11-04-2024 Depression Screening Depression Screening [facility] Start: 11-04-2024 Hepatitis B Vaccine (2 of 3 - 19+ 3-dose series) Hepatitis B Vaccine (2 of 3 - 19+ 3-dose series) [facility] Comment on above: Postponed from 04/03/2023 (Declined at t his time) Start: 06-23-2024 End: 06-23-2024 Follow-up encounter 06/23/2024 8:00 AM EDT [facility] [address] [place] [address] Marlen Riley, MANNIE.BUILD ENGINEER [address] [place] [address] 3 month weight management follow up Endocrinology [facility] Comment on above: 3 month weight management follow up Start: 06-08-2024 End: 06-08-2024 ambulatory 06/08/2024 9:00 AM EDT [facility] [address] [place] [address] [address] Severe obesity (BMI >= 40) (HCC) [E66.01] Endocrinology Comment on above: Severe obesity (BMI >= 40) (HCC) [E66.01 ] Start: 04-13-2024 End: 04-13-2024 ambulatory 04/13/2024 9:00 AM EST [facility] [address] [place] [address] [address] Severe obesity (BMI >= 40) ([facility]) [E66.01] Endocrinology Comment on above: Severe obesity (BMI >= 40) ([facility]) [E66.01 ] Start: 03-26-2024 End: 06-25-2024 17-Hydroxyprogesterone [Mass/volume] in Serum or Plasma [facility] Comment on above: Expected: 03/26/2024, Expires: Start: 03-26-2024 End: 06-25-2024 Choriogonadotropin.beta subunit [Units/volume] in Serum or Plasma [facility] Comment on above: Expected: 03/26/2024, Expires: Start: 03-26-2024 End: 06-25-2024 DHEA-S BLD [facility] Comment on above: Expected: 03/26/2024, Expires: Start: 03-26-2024 End: 06-25-2024 Estradiol (E2) [Mass/volume] in Serum or Plasma [facility] Comment on above: Expected: 03/26/2024, Expires: Start: 03-26-2024 End: 06-25-2024 Follitropin [Units/volume] in Serum or Plasma [facility] Comment on above: Expected: 03/26/2024, Expires: Start: 03-26-2024 End: 06-25-2024 Lutropin [Units/volume] in Serum or Plasma [facility] Comment on above: Expected: 03/26/2024, Expires: Start: 03-26-2024 End: 06-25-2024 Prolactin [Mass/volume] in Serum or Plasma [facility] Work Phone: Comment on above: Expected: 03/26/2024, Expires: Start: 03-26-2024 End: 06-25-2024 TESTOSTERONE, FREE AND TOTAL, BY EQUILIBRIUM ULTRAFILTRATION MASS SPECTROMETRY [facility] Comment on above: Expected: 03/26/2024, Expires: Start: 03-26-2024 End: 03-26-2024 Patient encounter procedure 03/26/2024 10:00 AM EST Office Visit OB/Gynecology [address] [place] [address] Soco Cole APRN.BUILD ENGINEER [address] [place] [address] Last period was 64 days ago. Not . OB/Gynecology Comment on above: Last period was 64 days ago. Not pregnan t. Start: 03-25-2024 End: 06-24-2024 Thyrotropin [Units/volume] in Serum or Plasma [facility] Work Phone: Comment on above: Expected: 03/25/2024, Expires: Start: 02-03-2024 End: 02-03-2024 Patient encounter procedure 02/03/2024 9:30 AM EST Office Visit Orthopaedics [address] [place] [address] Clarissa Lyman PA-C [address] [place] [address] Bilateral knee pain right worse Orthopaedics Comment on above: Bilateral knee pain right worse Start: 12-17-2023 End: 12-17-2023 ambulatory 12/17/2023 10:00 AM EDT [facility] [address] [place] [address] Tio Aguayo MD [facility] [place] [address] [facility] Managment Endocrinology Comment on above: Weight Managment Start: 11-28-2023 End: 02-27-2024 BETA 2 GLYCOPROTEIN 1, IGA [facility] Comment on above: Expected: 11/28/2023, Expires: Start: 11-28-2023 End: 02-27-2024 BETA 2 GLYCOPROTEIN, IGG [facility] Work Phone: Comment on above: Expected: 11/28/2023, Expires: Start: 11-28-2023 End: 02-27-2024 BETA 2 GLYCOPROTEIN, IGM [facility] Comment on above: Expected: 11/28/2023, Expires: 4 Start: 11-28-2023 End: 11-28-2023 Patient encounter procedure 11/28/2023 9:00 AM EDT Office Visit OB/Gynecology [address] [place] [address] Tosin Avina MD [address] [place] [address] miscarriages keep happening, run tests OB/Gynecology Comment on above: miscarriages keep happening, run tests Start: 11-19-2023 End: 11-19-2023 Patient encounter procedure OB/Gynecology Comment on above: Reasons miscarriages keep happening, run tests Annual Start: 11-19-2023 End: 11-19-2023 ambulatory 11/19/2023 8:30 AM EDT Results Only [facility] [address] [place] [address] [facility] Start: 11-17-2023 Covid-19 Vaccine ( season) Covid-19 Vaccine ( season) [facility] Start: 11-17-2023 Covid-19 Vaccine ( season) Covid-19 Vaccine ( season) [facility] Start: 11-17-2023 Influenza vaccination Influenza Vaccine (#1) [facility] Start: 11-06-2023 End: 11-06-2023 ambulatory 11/06/2023 9:30 AM EDT Results Only [facility] [address] [place] [address] [facility] Start: 11-05-2023 End: 02-04-2024 25-hydroxyvitamin D3 [Mass/volume] in Serum or Plasma VITAMIN D 25 HYDROXY Lab Routine Vitamin D deficiency Expected: 11/05/2023, Expires: 02/04/2024 [facility] Comment on above: Expected: 11/05/2023, Expires: 4 Start: 11-05-2023 End: 11-04-2024 CBC W Auto Differential panel - Blood COMPLETE BLOOD COUNT AND DIFFERENTIAL Lab Routine Wellness examination Expected: 11/05/2023, Expires: 11/04/2024 [facility] Comment on above: Expected: 11/05/2023, Expires: Start: 11-05-2023 End: 11-04-2024 Comprehensive metabolic 2000 panel - Serum or Plasma COMPREHENSIVE METABOLIC PANEL Lab Routine Wellness examination Expected: 11/05/2023, Expires: 11/04/2024 [facility] Comment on above: Expected: 11/05/2023, Expires: Start: 11-05-2023 End: 11-04-2024 Lipid 1996 panel - Serum or Plasma LIPID PANEL BASIC Lab Routine Mixed hyperlipidemia Expected: 11/05/2023, Expires: 11/04/2024 [facility] Work Phone: Comment on above: Expected: 11/05/2023, Expires: Start: 10-31-2023 End: 10-31-2023 Patient encounter procedure 10/31/2023 8:00 AM EDT Office Visit OB/Gynecology [address] [place] [address] Soco Cole APRN.BUILD ENGINEER [address] [facility] [place] [address] Check Up OB/Gynecology Comment on above: Check Up Start: 10-14-2023 End: 10-14-2023 Patient encounter procedure 10/14/2023 1:00 PM EDT Office Visit Orthopaedics [address] [place] [address] Clarissa Lyman PA-C [address] [place] [address] Aggressive Right Knee pain Orthopaedics Comment on above: Aggressive Right Knee pain Start: 08-25-2023 COVID-19 VACCINE (3 - Booster for Pfizer series) COVID-19 VACCINE (3 - Booster for Pfizer series) [facility] Comment on above: Postponed from 01/23/2021 (Declined at t his time) Start: 04-03-2023 Hepatitis B Vaccine (2 of 3 - 19+ 3-dose series) Hepatitis B Vaccine (2 of 3 - 19+ 3-dose series) [facility] Start: 03-18-2023 Depression Assessment Depression Assessment [facility] Start: 11-16-2022 Covid-19 Vaccine ( season) Covid-19 Vaccine (2022- season) [facility] Start: 11-16-2022 Influenza vaccination [facility] Start: 08-30-2022 Adult depression screening assessment DEPRESSION SCREENING [facility] Start: 07-27-2022 End: 09-26-2022 Choriogonadotropin.beta subunit [Units/volume] in Serum or Plasma HCG QUANTITATIVE Lab Routine SAB (spontaneous ) Expected: 07/27/2022, Expires: 09/26/2022 [facility] Work Phone: Comment on above: Expected: 07/27/2022, Expires: 3 Start: 03-18-2022 DEPRESSION ASSESSMENT DEPRESSION ASSESSMENT [facility] Start: 11-16-2021 Influenza vaccination [facility] Start: 09-01-2021 End: 11-01-2021 25-hydroxyvitamin D3 [Mass/volume] in Serum or Plasma [facility] Work Phone: Comment on above: Expected: 09/01/2021, Expires: 2 Start: 09-01-2021 End: 11-01-2021 Cobalamin (Vitamin B12) [Mass/volume] in Serum or Plasma [facility] Work Phone: Comment on above: Expected: 09/01/2021, Expires: 2 Start: 09-01-2021 End: 09-01-2022 Comprehensive metabolic 2000 panel - Serum or Plasma [facility] Work Phone: Comment on above: Expected: 09/01/2021, Expires: 3 Start: 09-01-2021 End: 11-01-2021 Hepatitis C virus Ab [Presence] in Serum [facility] Work Phone: Comment on above: Expected: 09/01/2021, Expires: 2 Start: 09-01-2021 End: 11-01-2021 HIV 1+2 Ab [Presence] in Serum or Plasma by Immunoassay [facility] Work Phone: Comment on above: Expected: 09/01/2021, Expires: 2 Start: 09-01-2021 End: 09-01-2022 Lipid 1996 panel - Serum or Plasma [facility] Work Phone: Comment on above: Expected: 09/01/2021, Expires: 3 Start: 09-01-2021 End: 11-01-2021 Thyrotropin [Units/volume] in Serum or Plasma [facility] Work Phone: Comment on above: Expected: 09/01/2021, Expires: 2 Start: 01-23-2021 COVID-19 VACCINE (3 - Booster for Pfizer series) COVID-19 VACCINE (3 - Booster for Pfizer series) [facility] Start: 2008 Depression Screening Depression Screening [facility] Start: 2008 HEPATITIS C SCREENING HEPATITIS C SCREENING [facility] Start: 2008 HIV SCREENING HIV SCREENING [facility] Start: 1995 COVID-19 VACCINE (#1) COVID-19 VACCINE (#1) [facility] Start: 1990 HEPATITIS B (1 of 3 - 3-dose series) HEPATITIS B (1 of 3 - 3-dose series) [facility] Start: 1990 Hepatitis B Vaccine (1 of 3 - 3-dose series) Hepatitis B Vaccine (1 of 3 - 3-dose series) [facility] End: 11-08-2024 XR Knee - right 4 Views XR KNEE GENERAL 4V AP BOTH/PA BOTH/LAT/MERC RIGHT Radiology Routine Right knee pain, unspecified chronicity 1 Occurrences starting 10/10/2023 until 11/08/2024 [facility] Work Phone: Comment on above: 1 Occurrences starting 10/10/2023 until 11/08/2024 [facility] Immunizations Immunization Date Immunization Notes Care Provider Jamarcus javier 03-06-2023 hepatitis B vaccine, adult dosage Julienne Boyle PA-C Work Phone: [facility] 03-06-2023 varicella virus vaccine Marshall Boyle PA-C Work Phone: [facility] 02-15-2023 influenza virus vaccine, unspecified formulation Clarissa Lyman PA-C Work Phone: [facility] 02-15-2023 tetanus toxoid, redu pawel diphtheria toxoid, and acellular pertussis vaccine, adsorbed Julienne Boyle PA-C Work Phone: [facility] 09-01-2021 tetanus toxoid, redu pawel diphtheria toxoid, and acellular pertussis vaccine, adsorbed Nae Aguilar MD Work Phone: [facility] 02-02-2009 TD(adult) unspecifie d formulation Nae Aguilar MD Work Phone: [facility] Work Phone: 09-23-2002 measles, mumps and rubella virus vaccine Nae Aguilar MD Work Phone: [facility] Work Phone: 11-06-1995 diphtheria, tetanus toxoids and acellular pertussis vaccine, unspecified formulation Nae Aguilar MD Work Phone: [facility] Work Phone: 11-06-1995 trivalent poliovirus vaccine, live, oral Nae Aguilar MD Work Phone: [facility] Work Phone: 11-04-1991 diphtheria, tetanus toxoids and acellular pertussis vaccine, unspecified formulation Nae Aguilar MD Work Phone: [facility] Work Phone: 11-04-1991 trivalent poliovirus vaccine, live, oral Nae Aguilar MD Work Phone: [facility] Work Phone: 09-02-1991 haemophilus influenz ae type b vaccine, conjugate unspecified formulation Nae Aguilar MD Work Phone: [facility] Work Phone: 09-02-1991 measles, mumps and rubella virus vaccine Nae Aguilar MD Work Phone: [facility] Work Phone: 1990 haemophilus influenz ae type b vaccine, conjugate unspecified formulation Nae Aguilar MD Work Phone: [facility] Work Phone: 1990 diphtheria, tetanus toxoids and pertussis vaccine Nae Aguilar MD Work Phone: [facility] Work Phone: 1990 haemophilus influenz ae type b vaccine, conjugate unspecified formulation Nae Aguilar MD Work Phone: [facility] Work Phone: 1990 diphtheria, tetanus toxoids and pertussis vaccine Nae Aguilar MD Work Phone: [facility] Work Phone: 1990 trivalent poliovirus vaccine, live, oral Nae Aguilar MD Work Phone: [facility] Work Phone: 1990 diphtheria, tetanus toxoids and pertussis vaccine Nae Aguilar MD Work Phone: [facility] Work Phone: 1990 haemophilus influenz ae type b vaccine, conjugate unspecified formulation Nae Aguilar MD Work Phone: [facility] Work Phone: 1990 trivalent poliovirus vaccine, live, oral Nae Aguilar MD Work Phone: [facility] Work Phone: Payers Date Payer Category Payer Self-pay 2023 Private Health Insurance EHP AET NA EHP PLUS STAFF/NON STAFF / EHP Plus [facility] [id number] 2023-Present [phone] [address] [place] [address] PPO [id number] 2022 Self-pay [id number] 2021 Medicaid [employer] [facility] [id number] 2021-Present [phone] [address] [place] [address] Medicaid [id number] 2021 Medicaid [id number] 2021 Medicaid [id number] 2008 Unknown 1990 Unknown [id number] 2.16.840.1.395237.3.579.2. 355 1990 Unknown [id number] 2.16.840.1.456063.3.579.2. 1046 1990 Unknown [id number] 2.16.840.1.219037.3.579.2. 1046 1990 Unknown [id number] 2.16.840.1.820865.3.579.2. 159 1990 Unknown [id number] 2.16.840.1.050904.3.579.2. 159 1990 Unknown [id number] 2.16.840.1.715424.3.579.2. 159 1990 Unknown [id number] 2.16.840.1.110371.3.579.2. 159 1990 Unknown [id number] 2.16.840.1.238145.3.579.2. 159 1990 Unknown [id number] 2.16.840.1.370999.3.579.2. 159 1990 Unknown [id number] 2.16.840.1.465354.3.579.2. 159 1990 Unknown [id number] 2.16.840.1.192406.3.579.2. 159 1990 Unknown [id number] 2.16.840.1.063373.3.579.2. 159 1990 Unknown [id number] 2.16.840.1.094561.3.579.2. 159 1990 Unknown [id number] 2.16840.1.080819.3.579.2. 159 1990 Unknown [id number] 2.16.840.1.401659.3.579.2. 159 1990 Unknown [id number] 2.16.840.1.705853.3.579.2. 159 1990 Unknown [id number] 2.16.840.1.227378.3.579.2. 159 1990 Unknown [id number] 2.16.840.1.556063.3.579.2. 159 1990 Unknown [id number] 2.16.840.1.956618.3.579.2. 159 1990 Unknown [id number] 2.16.840.1.599679.3.579.2. 159 1990 Unknown [id number] 2.16.840.1.404544.3.579.2. 159 1990 Unknown [id number] 2.16.840.1.607258.3.579.2. 159 1990 Unknown [id number] 2.16.840.1.690391.3.579.2. 159 1990 Unknown [id number] 2.16.840.1.019034.3.579.2. 159 Unknown [id number] 2.16.840.1.069934.3.579.2. 277 Unknown [id number] 2.16.840.1.085960.3.579.2. 277 Unknown [id number] 2.16.840.1.768296.3.579.2. 462 Unknown [id number] 2.16.840.1.809445.3.579.2. 462 Social History Date Type Detail Facility Start: 09-01-2021 End: 12-20-2021 Tobacco smoking status NHIS Ex-smoker [facility] History of tobacco use Cigarette Smoker [facility] Start: 09-01-2021 End: 12-20-2021 Tobacco use and exposure Smokeless tobacco non-user [facility] Start: 09-01-2021 End: 05-22-2024 Alcohol intake Current drinker of alcohol (finding) [facility] Start: 08-30-2021 History SDOH Alcohol Frequency 3 [facility] Start: 08-30-2021 End: 08-17-2022 History SDOH Alcohol Std Drinks 1 [facility] Start: 08-30-2021 End: 08-17-2022 History SDOH Alcohol Binge 2 [facility] Start: 10-28-2014 History SDOH Alcohol Comment a beer a week or less [facility] Start: 08-30-2021 End: 08-17-2022 History SDOH Social Connections Phone 5 [facility] Start: 08-30-2021 End: 08-17-2022 History SDOH Social Connections Living 7 [facility] Start: 09-01-2021 End: 12-20-2021 Tobacco Comment Quit July 2021 [facility] Start: 1990 Sex Assigned At Female [facility] Start: 08-22-2021 End: 09-01-2021 Exposure to SARS-CoV-2 (event) Not sure [facility] History of tobacco use Current smoker [facility] Work Phone: Start: 10-05-2022 History SDOH Alcohol Comment Occ [facility] Start: 07-20-2022 Alcohol intake Ex-drinker (finding) [facility] Start: 08-17-2022 History SDOH Physical Activity MPS 6 [facility] Start: 08-24-2022 Alcohol Comment Occasionally [facility] Start: 08-17-2022 End: 08-24-2022 History of Social function [facility] Start: 08-17-2022 End: 08-24-2022 Social connection and isolation panel [facility] Do you belong to any clubs or organizations such as gnosticist groups, unions, [employer] or athletic groups, or school groups? No [facility] Are you now , , , , never or living with a partner? Never [facility] How often to you hav e a drink containing alcohol? Monthly or less [facility] How many standard dr inks containing alcohol do you have on a typical day? 1 or 2 [facility] How often do you hav e 6 or more drinks on 1 occasion? Never [facility] How hard is it for y ou to pay for the very basics like food, housing, medical care, and heating Not hard at all [facility] Do you feel stress - tense, restless, nervous, or anxious, or unable to sleep at night because your mind is troubled all the time - these days [OSQ] Very much [facility] (I/We) worried wheth er (my/our) food would run out before (I/we) got money to buy more. Never true [facility] Start: 05-18-2021 Gender identity Identifies as female gender (finding) [facility] Start: 05-18-2021 Sexual orientation Heterosexual (finding) [facility] How many standard dr inks containing alcohol do you have on a typical day? 3 or 4 [facility] How hard is it for y ou to pay for the very basics like food, housing, medical care, and heating Somewhat hard [facility] (I/We) worried wheth er (my/our) food would run out before (I/we) got money to buy more. Often true [facility] The food that (I/we) bought just didn't last, and (I/we) didn't have money to get more. Sometimes true [facility] Clinical Notes 02-06-2018 to 05-22-2024 Soco Cole APRN.CNP - 05/22/2024 8:05 AM Soco Mo APRN.CNP - 04/10/2024 1:09 PM ESTTelephone Encounter - Briana Flower, CHANI - 03/27/2024 8:30 AM ESTPatient Instructions Note Date & Type Note Facility 05-22-2024 Note HNO ID: [id number] Author: SOCO COLE APRN.HALEY Service: ? Author Type: Nurse Practitioner Type: Progress Notes Filed: 05/22/2024 09:00 Note Text: Patient declined woodworker helperLaurent Henry is a 34 year old who presents for an annual gynecologic exam without complaints. LMP 05/01/2024- w/o Provera Menses: cycles irregular days and 3-5 days of flow Contraception: none HPV vaccine: no HPV:negative, 05/22/2021 Last pap: 05/22/2021, negative. History of abnormal pap: No, all prior PAP smears have been normal Last mammogram: never Sexually active: Yes OB History Gravida2 Para0 Term0 Preterm0 AB2 Living0 SAB2 IAB0 Ectopic0 Multiple0 Live Births0 Mailroom Manager History LMP: 05/01/2024 (Exact Date), Having periods Age at Menarche: 12 Age at First : Age at Menopause: Mailroom Manager History Comments: Sexual Activity: Yes; Male Contraception: Not used Menstrual Tracking History Flowsheet Row Office Visit from 05/22/2024 in OB/Gynecology Menstrual Flow Moderate PAST MEDICAL HISTORY Diagnosis Date Anxiety Bipolar affective disorder (HCC) 03/18/1999 multiple personalities? Cyst near tailbone Gall stones H/O borderline personality disorder Hiatal hernia Manic-depressive (HCC) Miscarriage 07/2022 PCOS (polycystic ovarian syndrome) 03/2024 Tobacco user 02/06/2018 PAST SURGICAL HISTORY Procedure Laterality Date CHOLECYSTECTOMY 12/16/2012 Cholecystectomy PAST SURGICAL HISTORY OF removal of tailbone cyst FAMILY HISTORY Problem Relation Age of Onset Multiple Sclerosis Mother Mental illness Mother No Known Problems Father No Known Problems Sister No Known Problems Sister No Known Problems Brother No Known Problems Brother Heart Maternal Grandmother stent AND pacemaker other (endometrial cancer) Maternal Grandmother COPD Maternal Grandfather No Known Problems Paternal Grandmother Prostate Cancer Paternal Grandfather SOCIAL HISTORY Social History Tobacco Use Smoking status: Former Types: Cigarettes Smokeless tobacco: Never Tobacco comments: Quit July 2021 Vaping Use Vaping status: Former Substances: Flavoring Devices: Pre-filled or refillable cartridge Substance Use Topics Alcohol use: Yes Comment: Occasionally Drug use: No REVIEW OF SYSTEMS Abdomen: No abdominal pain, nausea, vomiting, diarrhea, or constipation. No bloating, early satiety, indigestion, or increased flatulence. Bladder: No dysuria, gross hematuria, urinary frequency, urinary urgency, or incontinence. Breast: No breast lumps, nipple d/c, overlying skin changes, redness or skin retraction. Allergies and current medication updated:Yes SENSITIVE EXAM: The sensitive examination was discussed with the Patient or Patient's Authorized Driver License Technician. As applicable, any other physician, advance practice provider, medical student, or other health professional student that will be observing or involved in the sensitive examination for educational or training purposes was discussed with the Patient or Authorized Driver License Technician. The Patient or Authorized Driver License Technician has agreed to proceed with the sensitive examination. (Sensitive examination includes inspection and/or palpation of the breasts, pelvis, prostate and anorectal regions). EXAM: BP 122/74 Ht 5' 1.85 (1.57m) Wt 345 lb (156.5kg) LMP 05/01/2024 BMI 63.41 kg/(m2). GENERAL: pleasant, female in no apparent distress HEENT: Normocephalic, atraumatic, mucus membranes moist, and no lesions DERMATOLOGY: Normal, without lesions, non-icteric, and non-hirsute BREAST: soft, non-tender, symmetric, no dominant mass, normal nipple-areolar complex, no lymphadenopathy, and no nipple discharge CHEST: Normal inspiratory effort ABDOMEN: soft, non-tender, and no masses PELVIC: external genitalia normal, normal Bartholin's glands, urethra, [place]'s glands, no vulvar lesions, no cervical lesions, good vaginal support, physiologic discharge present, normal appearing perineal body and perianal region BIMANUAL: uterus normal size, shape and consistency, no adnexal masses, and non-tender RECTOVAGINAL: deferred. NEURO: alert and oriented x3,exam grossly non-focal EXTREMITIES: normal ASSESSMENT/PLAN: 1) Health maintenance: Pap/HPV up to date. Mammogram starting age 40. Nutrition, exercise and routine health maintenance exams reviewed. Calcium/Vitamin D supplementation information provided. Colon cancer screening: start at age 45 2) Contraception: none. Contraceptive options reviewed and information provided. 3) STD screening: Declined STD check. 4) Follow up one year or sooner as needed Soco Cole APRN.HALEY [facility] 05-22-2024 History of Presen t illness Narrative Patient declined woodworker helperLaurent Henry is a 34 year old who presents for an annual gynecologic exam without complaints. LMP 05/01/2024- w/o Provera Menses: cycles irregular days and 3-5 days of flow Contraception: none HPV vaccine: no HPV:negative, 05/22/2021 Last pap: 05/22/2021, negative. History of abnormal pap: No, all prior PAP smears have been normal Last mammogram: never Sexually active: Yes OB History Gravida2 Para0 Term0 Preterm0 AB2 Living0 SAB2 IAB0 Ectopic0 Multiple0 Live Births0 Mailroom Manager History LMP: 05/01/2024 (Exact Date), Having periods Age at Menarche: 12 Age at First : Age at Menopause: Mailroom Manager History Comments: Sexual Activity: Yes; Male Contraception: Not used Menstrual Tracking History Flowsheet Row Office Visit from 05/22/2024 in OB/Gynecology Menstrual Flow Moderate PAST MEDICAL HISTORY Diagnosis Date Anxiety Bipolar affective disorder (HCC) 03/18/1999 multiple personalities? Cyst near tailbone Gall stones H/O borderline personality disorder Hiatal hernia Manic-depressive (HCC) Miscarriage 07/2022 PCOS (polycystic ovarian syndrome) 03/2024 Tobacco user 02/06/2018 PAST SURGICAL HISTORY Procedure Laterality Date CHOLECYSTECTOMY 12/16/2012 Cholecystectomy PAST SURGICAL HISTORY OF removal of tailbone cyst FAMILY HISTORY Problem Relation Age of Onset Multiple Sclerosis Mother Mental illness Mother No Known Problems Father No Known Problems Sister No Known Problems Sister No Known Problems Brother No Known Problems Brother Heart Maternal Grandmother stent & pacemaker other (endometrial cancer) Maternal Grandmother COPD Maternal Grandfather No Known Problems Paternal Grandmother Prostate Cancer Paternal Grandfather SOCIAL HISTORY Social History Tobacco Use Smoking status: Former Types: Cigarettes Smokeless tobacco: Never Tobacco comments: Quit July 2021 Vaping Use Vaping status: Former Substances: Flavoring Devices: Pre-filled or refillable cartridge Substance Use Topics Alcohol use: Yes Comment: Occasionally Drug use: No REVIEW OF SYSTEMS Abdomen: No abdominal pain, nausea, vomiting, diarrhea, or constipation. No bloating, early satiety, indigestion, or increased flatulence. Bladder: No dysuria, gross hematuria, urinary frequency, urinary urgency, or incontinence. Breast: No breast lumps, nipple d/c, overlying skin changes, redness or skin retraction. Allergies and current medication updated:Yes SENSITIVE EXAM: The sensitive examination was discussed with the Patient or Patient's Authorized Driver License Technician. As applicable, any other physician, advance practice provider, medical student, or other health professional student that will be observing or involved in the sensitive examination for educational or training purposes was discussed with the Patient or Authorized Driver License Technician. The Patient or Authorized Driver License Technician has agreed to proceed with the sensitive examination. (Sensitive examination includes inspection and/or palpation of the breasts, pelvis, prostate and anorectal regions). EXAM: BP 122/74 Ht 5' 1.85 (1.57m) Wt 345 lb (156.5kg) LMP 05/01/2024 BMI 63.41 kg/(m^2). GENERAL: pleasant, female in no apparent distress HEENT: Normocephalic, atraumatic, mucus membranes moist, and no lesions DERMATOLOGY: Normal, without lesions, non-icteric, and non-hirsute BREAST: soft, non-tender, symmetric, no dominant mass, normal nipple-areolar complex, no lymphadenopathy, and no nipple discharge CHEST: Normal inspiratory effort ABDOMEN: soft, non-tender, and no masses PELVIC: external genitalia normal, normal Bartholin's glands, urethra, [place]'s glands, no vulvar lesions, no cervical lesions, good vaginal support, physiologic discharge present, normal appearing perineal body and perianal region BIMANUAL: uterus normal size, shape and consistency, no adnexal masses, and non-tender RECTOVAGINAL: deferred. NEURO: alert and oriented x3,exam grossly non-focal EXTREMITIES: normal ASSESSMENT/PLAN: 1) Health maintenance: Pap/HPV up to date. Mammogram starting age 40. Nutrition, exercise and routine health maintenance exams reviewed. Calcium/Vitamin D supplementation information provided. Colon cancer screening: start at age 45 2) Contraception: none. Contraceptive options reviewed and information provided. 3) STD screening: Declined STD check. 4) Follow up one year or sooner as needed Soco Cole APRN.CNP documented in this encounter [facility] 04-10-2024 Note HNO ID: [id number] Author: SOCO COLE APRN.CNP Service: ? Author Type: Nurse Practitioner Type: Progress Notes Filed: 04/10/2024 13:29 Note Text: VIRTUAL VISIT PROGRESS NOTE This is a virtual visit using [employer] Video Visit. It required patient-provider interaction for the medical decision making as documented below. I have communicated my name and active licensure. The patient's identity and physical location were verified at the time of this visit. Either the patient or their legal product support representative has been informed of the risks and benefits of -- and alternatives to -- treatment through a remote evaluation and consents to proceed with the evaluation remotely. Elaine Orellana is a 33 year old female seen for review labs. Since her last visit with me she has started on Trulicity and drop 11 lbs. She did have period on her own in Mar w/o using the Provera. Reviewed labs and likely has PCOS. Wanting to get . HISTORY REVIEWED (electronic chart updated): PAST MEDICAL HISTORY Diagnosis Date Anxiety Bipolar affective disorder (HCC) 03/18/1999 multiple personalities? Cyst near tailbone Gall stones H/O borderline personality disorder Hiatal hernia Manic-depressive (HCC) Miscarriage 07/2022 Tobacco user 02/06/2018 PAST SURGICAL HISTORY Procedure Laterality Date CHOLECYSTECTOMY 12/16/2012 Cholecystectomy PAST SURGICAL HISTORY OF removal of tailbone cyst FAMILY HISTORY Problem Relation Age of Onset Multiple Sclerosis Mother Mental illness Mother No Known Problems Father No Known Problems Sister No Known Problems Sister No Known Problems Brother No Known Problems Brother Heart Maternal Grandmother stent AND pacemaker other (endometrial cancer) Maternal Grandmother COPD Maternal Grandfather No Known Problems Paternal Grandmother Prostate Cancer Paternal Grandfather Social History Tobacco Use Smoking status: Former Types: Cigarettes Smokeless tobacco: Never Tobacco comments: Quit July 2021 Vaping Use Vaping status: Former Substances: Flavoring Devices: Pre-filled or refillable cartridge Substance Use Topics Alcohol use: Yes Comment: Occasionally Drug use: No Current Outpatient Medications Medication Sig medroxyPROGESTERone (PROVERA) 10 mg tablet Take 1 tablet by mouth once daily. TOPAMAX 25 mg tablet dulaglutide (TRULICITY) 0.75 mg/0.5 mL pen injector Inject 0.75 mg subcutaneously one time a week. ergocalciferol 50,000 unit capsule (VITAMIN D2, DRISDOL) Take 1 capsule by mouth one time a week. ARIPiprazole (ABILIFY) 5 mg tablet Take 5 mg by mouth once daily. albuterol HFA (PROVENTIL HFA, VENTOLIN HFA) 90 mcg/actuation inhaler INHALE 2 (TWO) puffs EVERY 4 HOURS NEEDED for cough buPROPion XL (WELLBUTRIN XL) 150 mg 24 hr tablet Take 1 oral tablet every morning busPIRone (BUSPAR) 10 mg tablet Take 1 tablet by mouth every 12 hours. hydrOXYzine HCl (ATARAX) 10 mg tablet Take 30 mg by mouth daily at bedtime. ondansetron orally disintegrating (ZOFRAN ODT) 4 mg disintegrating tablet TAKE 1 TABLET BY MOUTH FOUR TIMES DAILY NEEDED FOR NAUSEA PARoxetine (PAXIL) 30 mg tablet Take 1 tablet by mouth every afternoon. traZODone (DESYREL) 100 mg tablet Take 100 mg by mouth daily at bedtime. Clindamycin Phosphate (CLEOCIN T) 1 % lotion Apply a thin film 1-2 times daily to affected areas on chin. Use enough to cover the entire affected area lightly No current facility-administered medications for this visit. ALLERGIES No Known Allergies REVIEW OF SYSTEMS: As noted in HPI PHYSICAL EXAMINATION: VIDEO EXAM: (if completed, performed via video enabled technology) No exam performed ASSESSMENT/PLAN: 1. PCOS (polycystic ovarian syndrome) - ICD9: 256.4, ICD10: E28.2 Provera as needed to induce menses. Follow up at annual exam or sooner if needed Soco Cole APRN.HALEY Harrington spent a total of 20 minutes on the date of the service which included preparing to see the patient, [id number] patient care, completing clinical documentation, obtaining and/or reviewing separately obtained history, counseling and educating the patient/family/caregiver, and ordering medications, tests, or procedures Soco Cole APRN.CNP [facility] 04-10-2024 History of Presen t illness Narrative VIRTUAL VISIT PROGRESS NOTE This is a virtual visit using [employer] Video Visit. It required patient-provider interaction for the medical decision making as documented below. I have communicated my name and active licensure. The patient's identity and physical location were verified at the time of this visit. Either the patient or their legal product support representative has been informed of the risks and benefits of -- and alternatives to -- treatment through a remote evaluation and consents to proceed with the evaluation remotely. Elaine Orellana is a 33 year old female seen for review labs. Since her last visit with me she has started on Trulicity and drop 11 lbs. She did have period on her own in Mar w/o using the Provera. Reviewed labs and likely has PCOS. Wanting to get . HISTORY REVIEWED (electronic chart updated): PAST MEDICAL HISTORY Diagnosis Date Anxiety Bipolar affective disorder (HCC) 03/18/1999 multiple personalities? Cyst near tailbone Gall stones H/O borderline personality disorder Hiatal hernia Manic-depressive (HCC) Miscarriage 07/2022 Tobacco user 02/06/2018 PAST SURGICAL HISTORY Procedure Laterality Date CHOLECYSTECTOMY 12/16/2012 Cholecystectomy PAST SURGICAL HISTORY OF removal of tailbone cyst FAMILY HISTORY Problem Relation Age of Onset Multiple Sclerosis Mother Mental illness Mother No Known Problems Father No Known Problems Sister No Known Problems Sister No Known Problems Brother No Known Problems Brother Heart Maternal Grandmother stent & pacemaker other (endometrial cancer) Maternal Grandmother COPD Maternal Grandfather No Known Problems Paternal Grandmother Prostate Cancer Paternal Grandfather Social History Tobacco Use Smoking status: Former Types: Cigarettes Smokeless tobacco: Never Tobacco comments: Quit July 2021 Vaping Use Vaping status: Former Substances: Flavoring Devices: Pre-filled or refillable cartridge Substance Use Topics Alcohol use: Yes Comment: Occasionally Drug use: No Current Outpatient Medications Medication Sig medroxyPROGESTERone (PROVERA) 10 mg tablet Take 1 tablet by mouth once daily. TOPAMAX 25 mg tablet dulaglutide (TRULICITY) 0.75 mg/0.5 mL pen injector Inject 0.75 mg subcutaneously one time a week. ergocalciferol 50,000 unit capsule (VITAMIN D2, DRISDOL) Take 1 capsule by mouth one time a week. ARIPiprazole (ABILIFY) 5 mg tablet Take 5 mg by mouth once daily. albuterol HFA (PROVENTIL HFA, VENTOLIN HFA) 90 mcg/actuation inhaler INHALE 2 (TWO) puffs EVERY 4 HOURS NEEDED for cough buPROPion XL (WELLBUTRIN XL) 150 mg 24 hr tablet Take 1 oral tablet every morning busPIRone (BUSPAR) 10 mg tablet Take 1 tablet by mouth every 12 hours. hydrOXYzine HCl (ATARAX) 10 mg tablet Take 30 mg by mouth daily at bedtime. ondansetron orally disintegrating (ZOFRAN ODT) 4 mg disintegrating tablet TAKE 1 TABLET BY MOUTH FOUR TIMES DAILY NEEDED FOR NAUSEA PARoxetine (PAXIL) 30 mg tablet Take 1 tablet by mouth every afternoon. traZODone (DESYREL) 100 mg tablet Take 100 mg by mouth daily at bedtime. Clindamycin Phosphate (CLEOCIN T) 1 % lotion Apply a thin film 1-2 times daily to affected areas on chin. Use enough to cover the entire affected area lightly No current facility-administered medications for this visit. ALLERGIES No Known Allergies REVIEW OF SYSTEMS: As noted in HPI PHYSICAL EXAMINATION: VIDEO EXAM: (if completed, performed via video enabled technology) No exam performed ASSESSMENT/PLAN: 1. PCOS (polycystic ovarian syndrome) - ICD9: 256.4, ICD10: E28.2 Provera as needed to induce menses. Follow up at annual exam or sooner if needed Soco Cole APRN.CNP I spent a total of 20 minutes on the date of the service which included preparing to see the patient, [id number] patient care, completing clinical documentation, obtaining and/or reviewing separately obtained history, counseling and educating the patient/family/caregiver, and ordering medications, tests, or procedures Soco Cole APRN.BUILD ENGINEER documented in this encounter [facility] 03-27-2024 Telephone encounter Note Patient notified. Briana Flower RN The following approved medication requests have been transmitted electronically. Requested Prescriptions Signed Prescriptions Disp Refills medroxyPROGESTERone (PROVERA) 10 mg tablet 10 tablet 0 Sig: Take 1 tablet by mouth once daily. Authorizing Provider: SOCO COLE Pharmacy Information Pharmacy Address [phone] [place] [address] [facility] 03-27-2024 Miscellaneous Notes Patient notified. Briana Flower RN The following approved medication requests have been transmitted electronically. Requested Prescriptions Signed Prescriptions Disp Refills medroxyPROGESTERone (PROVERA) 10 mg tablet 10 tablet 0 Sig: Take 1 tablet by mouth once daily. Authorizing Provider: SOCO COLE Pharmacy Information Pharmacy Address [phone] [place], [place] [id number] Please let the pt know that her test is negative and I sent in Provera for her to induce a period. Soco Cole APRN.CNP documented in this encounter [facility] 03-27-2024 Telephone encounter Note Please let the pt know that her test is negative and I sent in Provera for her to induce a period. Soco Cole APRN.CNP [facility] 03-26-2024 History of Presen t illness Narrative Elaine Orellana is a 33 year old female who presents for problem visit irregular menses for 2 month(s), HPT negative February 2024, denied pain. HPI: LMP 01/18-01/21, cycle are regular. She has never gone this long w/o a period. 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 Cyst near tailbone Gall stones H/O borderline personality disorder Hiatal hernia Manic-depressive (HCC) Miscarriage 07/2022 Tobacco user 02/06/2018 PAST SURGICAL HISTORY Procedure Laterality Date CHOLECYSTECTOMY 12/16/2012 Cholecystectomy PAST SURGICAL HISTORY OF removal of tailbone cyst FAMILY HISTORY Problem Relation Age of Onset Multiple Sclerosis Mother Mental illness Mother No Known Problems Father No Known Problems Sister No Known Problems Sister No Known Problems Brother No Known Problems Brother Heart Maternal Grandmother stent & pacemaker other (endometrial cancer) Maternal Grandmother COPD Maternal Grandfather No Known Problems Paternal Grandmother Prostate Cancer Paternal Grandfather Social History Tobacco Use Smoking status: Former Types: Cigarettes Smokeless tobacco: Never Tobacco comments: Quit July 2021 Vaping Use Vaping status: Former Substances: Flavoring Devices: Pre-filled or refillable cartridge Substance Use Topics Alcohol use: Yes Comment: Occasionally Drug use: No Current Outpatient Medications Medication Sig TOPAMAX 25 mg tablet dulaglutide (TRULICITY) 0.75 mg/0.5 mL pen injector Inject 0.75 mg subcutaneously one time a week. ergocalciferol 50,000 unit capsule (VITAMIN D2, DRISDOL) Take 1 capsule by mouth one time a week. ARIPiprazole (ABILIFY) 5 mg tablet Take 5 mg by mouth once daily. albuterol HFA (PROVENTIL HFA, VENTOLIN HFA) 90 mcg/actuation inhaler INHALE 2 (TWO) puffs EVERY 4 HOURS NEEDED for cough norgestimate 0.25 mg-ethinyl estradiol 35 mcg (SPRINTEC) 0.25-35 mg-mcg per tablet Take 1 tablet by mouth once daily. buPROPion XL (WELLBUTRIN XL) 150 mg 24 hr tablet Take 1 oral tablet every morning busPIRone (BUSPAR) 10 mg tablet Take 1 tablet by mouth every 12 hours. hydrOXYzine HCl (ATARAX) 10 mg tablet Take 30 mg by mouth daily at bedtime. ondansetron orally disintegrating (ZOFRAN ODT) 4 mg disintegrating tablet TAKE 1 TABLET BY MOUTH FOUR TIMES DAILY NEEDED FOR NAUSEA PARoxetine (PAXIL) 30 mg tablet Take 1 tablet by mouth every afternoon. traZODone (DESYREL) 100 mg tablet Take 100 mg by mouth daily at bedtime. Clindamycin Phosphate (CLEOCIN T) 1 % lotion Apply a thin film 1-2 times daily to affected areas on chin. Use enough to cover the entire affected area lightly No current facility-administered medications for this visit. Allergies As of Date: 03/26/2024 (No Known Allergies) Fully Assessed 03/26/2024 REVIEW OF SYSTEMS Abdomen: No bloating, early satiety, indigestion, or increased flatulence. No abdominal pain, nausea, vomiting, diarrhea, or constipation. Bladder: No dysuria, gross hematuria, urinary frequency, urinary urgency, or incontinence. Expanded ROS: N/A Allergies and current medication updated:Yes SENSITIVE EXAM: Sensitive exam not performed. EXAM: BP 128/86 Wt 0 lb (0.0kg) LMP 01/19/2024 GENERAL: pleasant, female in no apparent distress HEENT: Normocephalic, atraumatic, mucus membranes moist, and no lesions CHEST: Normal inspiratory effort NEURO: alert and oriented x3,exam grossly non-focal EXTREMITIES: normal ASSESSMENT AND PLAN: Assessment & Plan Irregular menses Orders: PROLACTIN; Future TESTOSTERONE, FREE AND TOTAL, BY EQUILIBRIUM ULTRAFILTRATION MASS SPECTROMETRY; Future DHEA-S BLD; Future HYDROXYPROGESTERONE-17; Future FOLLICLE STIMULATING HORMONE; Future LUTEINIZING HORMONE; Future ESTRADIOL-17B BLD; Future HCG QUANTITATIVE; Future If HCG is negative will order 10 days of provera Soco Cole APRN.CNP Medical Decision Making: Problems: Low: Acute, uncomplicated illness or injury Data: Unique test(s) ordered: 3+ Risk: Low: Low risk from testing/treatment Medical Decision Making Level: 3 - Low documented in this encounter [facility] 03-26-2024 Note HNO ID: [id number] Author: SOCO COLE APRN.HALEY Service: ? Author Type: Nurse Practitioner Type: Progress Notes Filed: 03/26/2024 10:15 Note Text: Elaine Orellana is a 33 year old female who presents for problem visit irregular menses for 2 month(s), HPT negative February 2024, denied pain. HPI: LMP 01/18-01/21, cycle are regular. She has never gone this long w/o a period. 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 Cyst near tailbone Gall stones H/O borderline personality disorder Hiatal hernia Manic-depressive (HCC) Miscarriage 07/2022 Tobacco user 02/06/2018 PAST SURGICAL HISTORY Procedure Laterality Date CHOLECYSTECTOMY 12/16/2012 Cholecystectomy PAST SURGICAL HISTORY OF removal of tailbone cyst FAMILY HISTORY Problem Relation Age of Onset Multiple Sclerosis Mother Mental illness Mother No Known Problems Father No Known Problems Sister No Known Problems Sister No Known Problems Brother No Known Problems Brother Heart Maternal Grandmother stent AND pacemaker other (endometrial cancer) Maternal Grandmother COPD Maternal Grandfather No Known Problems Paternal Grandmother Prostate Cancer Paternal Grandfather Social History Tobacco Use Smoking status: Former Types: Cigarettes Smokeless tobacco: Never Tobacco comments: Quit July 2021 Vaping Use Vaping status: Former Substances: Flavoring Devices: Pre-filled or refillable cartridge Substance Use Topics Alcohol use: Yes Comment: Occasionally Drug use: No Current Outpatient Medications Medication Sig TOPAMAX 25 mg tablet dulaglutide (TRULICITY) 0.75 mg/0.5 mL pen injector Inject 0.75 mg subcutaneously one time a week. ergocalciferol 50,000 unit capsule (VITAMIN D2, DRISDOL) Take 1 capsule by mouth one time a week. ARIPiprazole (ABILIFY) 5 mg tablet Take 5 mg by mouth once daily. albuterol HFA (PROVENTIL HFA, VENTOLIN HFA) 90 mcg/actuation inhaler INHALE 2 (TWO) puffs EVERY 4 HOURS NEEDED for cough norgestimate 0.25 mg-ethinyl estradiol 35 mcg (SPRINTEC) 0.25-35 mg-mcg per tablet Take 1 tablet by mouth once daily. buPROPion XL (WELLBUTRIN XL) 150 mg 24 hr tablet Take 1 oral tablet every morning busPIRone (BUSPAR) 10 mg tablet Take 1 tablet by mouth every 12 hours. hydrOXYzine HCl (ATARAX) 10 mg tablet Take 30 mg by mouth daily at bedtime. ondansetron orally disintegrating (ZOFRAN ODT) 4 mg disintegrating tablet TAKE 1 TABLET BY MOUTH FOUR TIMES DAILY NEEDED FOR NAUSEA PARoxetine (PAXIL) 30 mg tablet Take 1 tablet by mouth every afternoon. traZODone (DESYREL) 100 mg tablet Take 100 mg by mouth daily at bedtime. Clindamycin Phosphate (CLEOCIN T) 1 % lotion Apply a thin film 1-2 times daily to affected areas on chin. Use enough to cover the entire affected area lightly No current facility-administered medications for this visit. Allergies As of Date: 03/26/2024 (No Known Allergies) Fully Assessed 03/26/2024 REVIEW OF SYSTEMS Abdomen: No bloating, early satiety, indigestion, or increased flatulence. No abdominal pain, nausea, vomiting, diarrhea, or constipation. Bladder: No dysuria, gross hematuria, urinary frequency, urinary urgency, or incontinence. Expanded ROS: N/A Allergies and current medication updated:Yes SENSITIVE EXAM: Sensitive exam not performed. EXAM: BP 128/86 Wt 0 lb (0.0kg) LMP 01/19/2024 GENERAL: pleasant, female in no apparent distress HEENT: Normocephalic, atraumatic, mucus membranes moist, and no lesions CHEST: Normal inspiratory effort NEURO: alert and oriented x3,exam grossly non-focal EXTREMITIES: normal ASSESSMENT AND PLAN: Assessment AND Plan Irregular menses Orders: PROLACTIN; Future TESTOSTERONE, FREE AND TOTAL, BY EQUILIBRIUM ULTRAFILTRATION MASS SPECTROMETRY; Future DHEA-S BLD; Future HYDROXYPROGESTERONE-17; Future FOLLICLE STIMULATING HORMONE; Future LUTEINIZING HORMONE; Future ESTRADIOL-17B BLD; Future HCG QUANTITATIVE; Future If HCG is negative will order 10 days of yudi Cole APRN.CNP Medical Decision Making: Problems: Low: Acute, uncomplicated illness or injury Data: Unique test(s) ordered: 3+ Risk: Low: Low risk from testing/treatment Medical Decision Making Level: 3 - Low [facility] 03-25-2024 History of Presen t illness Narrative Images from the original note were not included. [facility] NEW PATIENT VISIT HISTORY OF PRESENT ILLNESS: Patient is 33 year old year old female with a history of obesity class 3, bipolar disorder, anxiety, vitamin D deficiency presenting as a new patient to me for weight management. Referred by: Julienne Boyle PA PCP: Nae Aguilar MD Consultation requested for an opinion regarding weight management and my final recommendations will be communicated back to the requesting physician by way of shared medical record or letter via US mail. Weight history: Struggled with weight since age 15 Previous attempts at weight loss: Adipex, 12/2021-07/2022 Bariatric [place] at [facility] (surgery canceled d/t ), WW, calorie deficit Most weight lost: 60 lbs with calorie deficit Weight at end of high school: unsure Maximum weight: 420 lbs Current weight: 365 lbs Patient goal or motivation for weight loss: be healthy, be a mom someday Weight graph: Factors associated with weight gain: Family history of overweight: dad, MGM Weight gain associated with or menopause: n/a Tobacco use: smoked off and on over the years Weight gain associated with shift work: no Poor quality, unrestful sleep: no Medications that may be associated with weight gain: hydroxyzine, Abilify, Paxil, trazodone Diet: 24 hour recall: B at 0800: ham sandwich L at 1600: cheese quesadilla with odessa sauce D: none Sn: none Beverages: water Sugar-containing beverages: none EtOH: none Eating out/take out: 2 meals per week Feel hungry frequently: no Takes more food than average to feel full: no Feels hungry quickly after eating a meal: no Eat when not hungry (boredom, stress/emotional): no Frequent cravings or preoccupation with food: no Frequently overeating or binge eating: no Portion control: good Late night or middle of night eating: no Exercise/activity level: Cardio + weight lifting at [employer] 1 hr every other day Hikes some days On feet long hours at work Sleep: Averages 7 hours per night No difficulty falling or staying asleep Feels rested upon waking Denies snoring, improved after weight loss TANIA: moderate TANIA per PSG 12/25/21 CPAP: used previously, stopped after weight loss Mood, stress: Stress elevated Struggles with panic attacks, depression, PTSD Sees therapist every 2 weeks and psychiatrist 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 Weight Watchers, Noom, medically supervised programs, etc.)? no Medical history pertaining to weight loss medications: History of pancreatitis or gallstones: s/p cholecystectomy 2012 History of kidney stones: no History of seizures or bulimia nervosa: no Current opiate use: no History of glaucoma: no History of CAD or uncontrolled HTN: no Personal/family history of MEN2, MTC: no History of diabetic retinopathy: no Method of contraception if woman of child bearing age: no REVIEW OF SYSTEMS: Per HPI MEDICAL, FAMILY, and SOCIAL HISTORY: Reviewed and updated in chart. ACTIVE PROBLEM LIST Bipolar Disorder, Unspecified (Hcc) Amenorrhea Anxiety Herpes Simplex Infection of Genitourinary System Tremor Morbid Obesity With Bmi of 60.0-69.9, Adult (Hcc) Low Vitamin D Level H/O Borderline Personality Disorder Current Outpatient Medications on File Prior to Visit Medication Sig ergocalciferol 50,000 unit capsule (VITAMIN D2, DRISDOL) Take 1 capsule by mouth one time a week. ARIPiprazole (ABILIFY) 5 mg tablet Take 5 mg by mouth once daily. albuterol HFA (PROVENTIL HFA, VENTOLIN HFA) 90 mcg/actuation inhaler INHALE 2 (TWO) puffs EVERY 4 HOURS NEEDED for cough norgestimate 0.25 mg-ethinyl estradiol 35 mcg (SPRINTEC) 0.25-35 mg-mcg per tablet Take 1 tablet by mouth once daily. (Patient not taking: Reported on 11/28/2023) buPROPion XL (WELLBUTRIN XL) 150 mg 24 hr tablet Take 1 oral tablet every morning busPIRone (BUSPAR) 10 mg tablet Take 1 tablet by mouth every 12 hours. hydrOXYzine HCl (ATARAX) 10 mg tablet Take 30 mg by mouth daily at bedtime. ondansetron orally disintegrating (ZOFRAN ODT) 4 mg disintegrating tablet TAKE 1 TABLET BY MOUTH FOUR TIMES DAILY NEEDED FOR NAUSEA PARoxetine (PAXIL) 30 mg tablet Take 1 tablet by mouth every afternoon. traZODone (DESYREL) 100 mg tablet Take 100 mg by mouth daily at bedtime. metroNIDAZOLE (METROGEL) 0.75 % Topical Gel Apply to affected areas twice daily Clindamycin Phosphate (CLEOCIN T) 1 % lotion Apply a thin film 1-2 times daily to affected areas on chin. Use enough to cover the entire affected area lightly No current facility-administered medications on file prior to visit. PHYSICAL EXAM: BP 104/69 (BP Site: Right Arm, BP Position: Sitting, BP Cuff Size: Regular Adult) Pulse 85 Temp 37 C (98.6 F) (Temporal) Ht 157.5 cm (5' 2) Wt (!) 165.8 kg (365 lb 6.6 oz) LMP 01/19/2024 (Exact Date) BMI 66.83 kg/m General: well appearing Neck: supple, no LAD, no thyromegaly CV: RRR, no murmur Respiratory: breathing comfortably, symmetric chest rise, lungs are CTAB Neuro: speech and language are normal, no obvious deficits Extremities: no edema, warm and well perfused PERTINENT LABORATORY AND IMAGING: All pertinent laboratory / test results were reviewed Latest Ref Rng 03/25/2024 Hemoglobin A1C (POCT) 4.3 - 5.6 % 5.5 Latest Ref Rng 05/22/2021 09/01/2021 08/24/2022 11/28/2023 Protein, Total 6.3 - 8.0 g/dL 7.6 7.2 7.5 Albumin 3.9 - 4.9 g/dL 4.2 4.0 4.4 Calcium 8.5 - 10.2 mg/dL 9.8 10.1 9.9 Bilirubin, Total 0.2 - 1.3 mg/dL 0.4 0.4 0.7 Alkaline Phosphatase 34 - 123 U/L 76 59 73 AST 13 - 35 U/L 13 15 11 (L) ALT 7 - 38 U/L 14 13 11 Glucose 74 - 99 mg/dL 98 89 97 BUN 7 - 21 mg/dL 13 13 12 Creatinine 0.58 - 0.96 mg/dL 0.70 0.74 0.69 Sodium 136 - 144 mmol/L 138 140 137 Potassium 3.7 - 5.1 mmol/L 4.5 5.1 4.1 Chloride 98 - 107 mmol/L 103 105 102 CO2 22 - 30 mmol/L 26 23 24 Anion Gap 8 - 15 mmol/L 9 12 11 eGFR >=60 mL/min/1.73m 119 110 118 Cholesterol, Total <200 mg/dL 179 145 160 Triglyceride <150 mg/dL 191 (H) 98 139 HDL Cholesterol >39 mg/dL 36 (L) 36 (L) 36 (L) Non HDL Cholesterol <130 mg/dL 143 (H) 109 124 Fasting Time hrs 12 12 12 VLDL Cholesterol <30 mg/dL 38 (H) 20 28 TC:HDL Ratio <5.10 4.97 4.03 4.44 LDL Cholesterol <100 mg/dL 105 (H) 89 96 LDL:HDL Ratio <2.54 2.92 (H) 2.47 2.67 (H) Hemoglobin A1C 4.3 - 5.6 % 5.4 Estimated Average Glucose mg/dL 108 Vitamin D 25 Hydroxy 31.0 - 80.0 ng/mL 8.6 (L) 24.9 (L) 14.5 (L) Vitamin B12 232 - 1,245 pg/mL 242 488 TSH 0.270 - 4.200 mIU/L 2.220 Legend: (H) High (L) Low ASSESSMENT: (Z68.44) BMI 60.0-69.9, adult ([facility]) (primary encounter diagnosis) (E66.01) Severe obesity (BMI >= 40) ([facility]) (F31.9) Bipolar affective disorder, remission status unspecified ([facility]) (R79.89) Low vitamin D level (Z79.899) Medication management (Z71.3) Dietary counseling (Z71.82) Exercise counseling - Patient comes today for evaluation and weight management and its comorbidities. Patient has a BMI of 6.83 that is consistent with OBESITY CLASS 3. - Patient tried different weight loss modalities in the past including Adipex, 12/2021-07/2022 Bariatric [place] at [facility] (surgery canceled d/t ), WW, calorie deficit. - Pertinent co-morbidities of obesity include bipolar disorder, anxiety, vitamin D deficiency. - Patient's health and quality of life are compromised due to current weight and patient is motivated for weight loss. Our goal is to treat obesity to decrease long-term medical complications, comorbidities and improve lifestyle. PLAN: - Reviewed principles of energy metabolism, caloric intake and expenditure - Goals: -- 5-10% weight loss over 6 months is reasonable -- At least 6-month commitment to losing weight - Diet: restrictive, limited in calories, protein -- Will refer to [facility] dietitian to discuss nutrition and identify the best approach and the individualized nutritional plan--low-carb Mediterranean -- Portion control -- No skipping meals to avoid severe hunger, which can contribute to larger portions, overeating, less healthy dietary choices, etc. - Pharmacotherapy: -- I have reviewed with the patient the possibility of using weight loss medications and the various options available. -- Recommend starting Trulicity 0.75 mg weekly. Discussed expectations, risks, benefits, and common side effects of the prescribed medications. Patient has no history of pancreatitis and no personal or family history of medullary thyroid cancer/c-cell hyperplasia. -- Reviewed that there are no contraindications to the above medications; discussed expectations and common side effects of the prescribed medications. -- Reviewed that is not recommended while taking weight loss medications. -- Exercise: cardio + strength most days -- Discussed basic exercise recommendations, the role of exercise on weight loss and maintenance. Discussed the combination of aerobic and resistance exercise. -- Most patients benefit from a personalized exercise program. Will refer to [facility] content creation manager. -- Recommend gradual increase in exercise. Goal is 150 minutes moderate-intensity exercise per week + strength training/resistance exercise 2 days per week. -- Sleep: adequate, restful -- Discussed the importance of sleep hygiene -- Recommend 7-8 hours sleep per night -- Behavioral: -- Discussed the effect of stress and its relationship with weight gain. Stress management is very important. -- Self monitoring: suggest home weigh-ins at least 1x/week, food journals / trackers (Food log, My Fitness Pal), activity journals / trackers ([employer] watch, [employer], [employer] vivofit, Striiv). Orders placed: Orders Placed This Encounter HEMOGLOBIN A1C (POC) Thyroid Stimulating Hormone Standing Status: Future Standing Expiration Date: 06/24/2024 ENDOCRINOLOGY DIETITIAN VISIT (MNT) Standing Status: Future Standing Expiration Date: 03/25/2025 Scheduling Instructions: Appointment type requested: General nutrition education (ie: celiac disease, PCOS, Low fat, Other) and Mediterranean - low carb This order is valid for 12 months from the date of order. PLEASE SCHEDULE THIS VISIT IN YOUR [employer] ACCOUNT, OR CALL TO SCHEDULE FOLLOWS: [facility] [phone] ALL OTHER [facility] LOCATIONS [phone] Order Specific Question: Does consulting provider have [facility] Epic access? Answer: Yes TOPAMAX 25 mg tablet dulaglutide (TRULICITY) 0.75 mg/0.5 mL pen injector Sig: Inject 0.75 mg subcutaneously one time a week. Dispense: 2 mL Refill: 2 I have reviewed the ROS/Questionnaire with patient and recommend the following: Pt will follow-up with PCP for chronic health issues and preventive health screenings. All questions answered today. Follow-up in 3 months I spent a total of 45 minutes on the date of the service which included preparing to see the patient, [id number] patient care, completing clinical documentation, obtaining and/or reviewing separately obtained history, performing a medically appropriate examination, counseling and educating the patient/family/caregiver, and ordering medications, tests, or procedures. Marlen Riley APRN.HALEY Obesity Medicine Endocrinology and Metabolism [place] [facility] documented in this encounter [facility] 03-25-2024 Note HNO ID: [id number] Author: MARLEN RILEY APRN.HALEY Service: ? Author Type: Nurse Practitioner Type: Progress Notes Filed: 03/25/2024 13:59 Note Text: [facility] NEW PATIENT VISIT HISTORY OF PRESENT ILLNESS: Patient is 33 year old year old female with a history of obesity class 3, bipolar disorder, anxiety, vitamin D deficiency presenting as a new patient to me for weight management. Referred by: Julienne Boyle PA PCP: Nae Aguilar MD Consultation requested for an opinion regarding weight management and my final recommendations will be communicated back to the requesting physician by way of shared medical record or letter via US mail. Weight history: Struggled with weight since age 15 Previous attempts at weight loss: Adipex, 12/2021-07/2022 Bariatric [place] at [facility] (surgery canceled d/t ), WW, calorie deficit Most weight lost: 60 lbs with calorie deficit Weight at end of high school: unsure Maximum weight: 420 lbs Current weight: 365 lbs Patient goal or motivation for weight loss: be healthy, be a mom someday Weight graph: Factors associated with weight gain: Family history of overweight: dadFELIPE Weight gain associated with or menopause: n/a Tobacco use: smoked off and on over the years Weight gain associated with shift work: no Poor quality, unrestful sleep: no Medications that may be associated with weight gain: hydroxyzine, Abilify, Paxil, trazodone Diet: 24 hour recall: B at 0800: ham sandwich L at 1600: cheese quesadilla with odessa sauce D: none Sn: none Beverages: water Sugar-containing beverages: none EtOH: none Eating out/take out: 2 meals per week Feel hungry frequently: no Takes more food than average to feel full: no Feels hungry quickly after eating a meal: no Eat when not hungry (boredom, stress/emotional): no Frequent cravings or preoccupation with food: no Frequently overeating or binge eating: no Portion control: good Late night or middle of night eating: no Exercise/activity level: Cardio + weight lifting at [employer] 1 hr every other day Hikes some days On feet long hours at work Sleep: Averages 7 hours per night No difficulty falling or staying asleep Feels rested upon waking Denies snoring, improved after weight loss TANIA: moderate TANIA per PSG 12/25/21 CPAP: used previously, stopped after weight loss Mood, stress: Stress elevated Struggles with panic attacks, depression, PTSD Sees therapist every 2 weeks and psychiatrist 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 Weight Watchers, Noom, medically supervised programs, etc.)? no Medical history pertaining to weight loss medications: History of pancreatitis or gallstones: s/p cholecystectomy 2013 History of kidney stones: no History of seizures or bulimia nervosa: no Current opiate use: no History of glaucoma: no History of CAD or uncontrolled HTN: no Personal/family history of MEN2, MTC: no History of diabetic retinopathy: no Method of contraception if woman of child bearing age: no REVIEW OF SYSTEMS: Per HPI MEDICAL, FAMILY, and SOCIAL HISTORY: Reviewed and updated in chart. ACTIVE PROBLEM LIST Bipolar Disorder, Unspecified ([facility]) Amenorrhea Anxiety Herpes Simplex Infection of Genitourinary System Tremor Morbid Obesity With Bmi of 60.0-69.9, Adult ([facility]) Low Vitamin D Level H/O Borderline Personality Disorder Current Outpatient Medications on File Prior to Visit Medication Sig ergocalciferol 50,000 unit capsule (VITAMIN D2, DRISDOL) Take 1 capsule by mouth one time a week. ARIPiprazole (ABILIFY) 5 mg tablet Take 5 mg by mouth once daily. albuterol HFA (PROVENTIL HFA, VENTOLIN HFA) 90 mcg/actuation inhaler INHALE 2 (TWO) puffs EVERY 4 HOURS NEEDED for cough norgestimate 0.25 mg-ethinyl estradiol 35 mcg (SPRINTEC) 0.25-35 mg-mcg per tablet Take 1 tablet by mouth once daily. (Patient not taking: Reported on 11/28/2023) buPROPion XL (WELLBUTRIN XL) 150 mg 24 hr tablet Take 1 oral tablet every morning busPIRone (BUSPAR) 10 mg tablet Take 1 tablet by mouth every 12 hours. hydrOXYzine HCl (ATARAX) 10 mg tablet Take 30 mg by mouth daily at bedtime. ondansetron orally disintegrating (ZOFRAN ODT) 4 mg disintegrating tablet TAKE 1 TABLET BY MOUTH FOUR TIMES DAILY NEEDED FOR NAUSEA PARoxetine (PAXIL) 30 mg tablet Take 1 tablet by mouth every afternoon. traZODone (DESYREL) 100 mg tablet (more content not included)... [facility] 03-25-2024 Instructions Marlen Riley APRN.[facility] - 03/25/2024 12:45 PM EST Start Trulicity 0.75 mg weekly. -Possible side effects of this class of medications: nausea, reflux, constipation, redness/irritation at the injection site. If you experience nausea or reflux, eating smaller meals can be helpful. -Acute pancreatitis is a rare side effect, presents with severe abdominal pain, nausea/vomiting--go to ER if you experience these side effects. -For more information on the medication, including instructions on how to administer the medication, visit [email or web address] [place] General recommendations: - Weight loss medications are more effective if combined with healthy diets and routine exercise - Recommend a daily probiotic (such as Culturelle or Align, or similar) for healthy gut biome - Weigh yourself at least once per week - Recommend diet/nutrition trackers (food log, MyFitnessPal) and activity trackers (smart watch, etc) - Adequate, good quality sleep is an important part of weight management. We recommend 7-8 hours of sleep nightly and routine sleep schedules when possible. - For females of child-bearing age: it is not recommended to become while taking medications for weight loss. Please contact our office if you become . Follow-up with Pole [facility]amer Follow-up with me in 3 months documented in this encounter [facility] 12-02-2023 Telephone encounter Note Patient's request for medication is as follows: Requested Prescriptions Signed Prescriptions Disp Refills ergocalciferol 50,000 unit capsule (VITAMIN D2, DRISDOL) 25 capsule 0 Sig: Take 1 capsule by mouth one time a week. Authorizing Provider: JULIENNE BOYLE Prescription(s) as above. Please process accordingly. Julienne Boyle PA-C [facility] 12-02-2023 Miscellaneous Notes Patient's request for medication is as follows: Requested Prescriptions Signed Prescriptions Disp Refills ergocalciferol 50,000 unit capsule (VITAMIN D2, DRISDOL) 25 capsule 0 Sig: Take 1 capsule by mouth one time a week. Authorizing Provider: JULIENNE BOYLE Prescription(s) as above. Please process accordingly. Julienne Boyle PA-C documented in this encounter [facility] 11-28-2023 Note HNO ID: [id number] Author: TOSIN AVINA MD Service: ? Author Type: Physician Type: Progress Notes Filed: 11/28/2023 12:50 Note Text: Elaine Orellana is a 33 year old female who presents for problem visit miscarriage for . HPI: Recently had a second early miscarriage (09/2023). Previous miscarriage in 07/2022. Was approximately 5 weeks for both. Same partner. No fetus was present on US in 2022. Did not have an US prior to most recent loss. Has fairly regular periods. Partner has no children. No known genetic problems in the family. No known clotting disorders. Is wanting to be . Is concerned that her weight is a contributing factor. She was enrolled in a bypass program at the time of the first . Was at the hospital for surgery when she learned she was and miscarried 2 days later. Was able to lose about 70 lbs with the lead up to surgery but became very depressed after the loss and gained back about 60 lbs. She is currently scheduled to meet with endocrinology weight management. Discussed getting does not appear to be the problem.Which suggests normal cycles and anatomy. Given how early she was when she miscarried it is more than likely a genetic issue with the fetus that lead to the loss. Possible blood clotting issues also but genetically abnormal fetuses are the leading cause of losses. Losing weight would be a benefit to an overall outcome as morbidly obese women have a higher risk of complications like DM, HTN, Pre E and IUFD. As well as undiagnosed anatomical problems given the limitations of ultrasound evaluation of the fetus. Her mental health has improved. She does meet with a psychologist and therapist. She on a few medications but is hoping to decrease the number of medications. If she does miscarry again, I recommended genetic testing of the fetus. She would also like to be teste for antiphosolipid disorder. OB History T0 L0 SAB1 IAB0 Ectopic0 Multiple0 Live Births0 Mailroom Manager History LMP: 11/15/2023 (Exact Date), Having periods Age at Menarche: 11 Age at First : Age at Menopause: Mailroom Manager History Comments: Sexual Activity: Yes; Male Contraception: None PAST MEDICAL HISTORY No date: Anxiety 03/18/1999: Bipolar affective disorder (HCC) Comment: multiple personalities? No date: Cyst near tailbone No date: Gall stones No date: H/O borderline personality disorder No date: Hiatal hernia No date: Manic-depressive (HCC) No date: Miscarriage Comment: 07/202202/06/2018: Tobacco user PAST SURGICAL HISTORY 12/16/2012: CHOLECYSTECTOMY Comment: Cholecystectomy No date: PAST SURGICAL HISTORY OF Comment: removal of tailbone cyst FAMILY HISTORY Problem Relation Age of Onset Multiple Sclerosis Mother Mental illness Mother No Known Problems Father No Known Problems Sister No Known Problems Sister No Known Problems Brother No Known Problems Brother Heart Maternal Grandmother stent AND pacemaker other (endometrial cancer) Maternal Grandmother COPD Maternal Grandfather No Known Problems Paternal Grandmother Prostate Cancer Paternal Grandfather Social History Tobacco Use Smoking status: Former Types: Cigarettes Smokeless tobacco: Never Tobacco comments: Quit July 2021 Vaping Use Vaping status: Former Substances: Flavoring Devices: Pre-filled or refillable cartridge Substance Use Topics Alcohol use: Yes Comment: Occasionally Drug use: No Current Outpatient Medications Medication Sig ARIPiprazole (ABILIFY) 5 mg tablet Take 5 mg by mouth once daily. albuterol HFA (PROVENTIL HFA, VENTOLIN HFA) 90 mcg/actuation inhaler INHALE 2 (TWO) puffs EVERY 4 HOURS NEEDED for cough buPROPion XL (WELLBUTRIN XL) 150 mg 24 hr tablet Take 1 oral tablet every morning busPIRone (BUSPAR) 10 mg tablet Take 1 tablet by mouth every 12 hours. hydrOXYzine HCl (ATARAX) 10 mg tablet Take 30 mg by mouth daily at bedtime. ondansetron orally disintegrating (ZOFRAN ODT) 4 mg disintegrating tablet TAKE 1 TABLET BY MOUTH FOUR TIMES DAILY NEEDED FOR NAUSEA PARoxetine (PAXIL) 30 mg tablet Take 1 tablet by mouth every afternoon. traZODone (DESYREL) 100 mg tablet Take 100 mg by mouth daily at bedtime. metroNIDAZOLE (METROGEL) 0.75 % Topical Gel Apply to affected areas twice daily Clindamycin Phosphate (CLEOCIN T) 1 % lotion Apply a thin film 1-2 times daily to affected areas on chin. Use enough to cover the entire affected area lightly norgestimate 0.25 mg-ethinyl estradiol 35 mcg (SPRINTEC) 0.25-35 mg-mcg per tablet Take 1 tablet by mouth once daily. (Patient not taking: Reported on 11/28/2023) No current facility-administered medications for this visit. Allergies As of Date: 11/28/2023 (No Known Allergies) Fully Assessed 11/28/2023 REVIEW OF SYSTEMS Abdomen: No bloating, early satiety, indigestion, or increased flatulence. No abdominal pain, na (more content not included)... [facility] 11-28-2023 History of Presen t illness Narrative Elaine Orellana is a 33 year old female who presents for problem visit miscarriage for . HPI: Recently had a second early miscarriage (09/2023). Previous miscarriage in 07/2022. Was approximately 5 weeks for both. Same partner. No fetus was present on US in 2022. Did not have an US prior to most recent loss. Has fairly regular periods. Partner has no children. No known genetic problems in the family. No known clotting disorders. Is wanting to be . Is concerned that her weight is a contributing factor. She was enrolled in a bypass program at the time of the first . Was at the hospital for surgery when she learned she was and miscarried 2 days later. Was able to lose about 70 lbs with the lead up to surgery but became very depressed after the loss and gained back about 60 lbs. She is currently scheduled to meet with endocrinology weight management. Discussed getting does not appear to be the problem. Which suggests normal cycles and anatomy. Given how early she was when she miscarried it is more than likely a genetic issue with the fetus that lead to the loss. Possible blood clotting issues also but genetically abnormal fetuses are the leading cause of losses. Losing weight would be a benefit to an overall outcome as morbidly obese women have a higher risk of complications like DM, HTN, Pre E and IUFD. As well as undiagnosed anatomical problems given the limitations of ultrasound evaluation of the fetus. Her mental health has improved. She does meet with a psychologist and therapist. She on a few medications but is hoping to decrease the number of medications. If she does miscarry again, I recommended genetic testing of the fetus. She would also like to be teste for antiphosolipid disorder. OB History T0 L0 SAB1 IAB0 Ectopic0 Multiple0 Live Births0 Mailroom Manager History LMP: 11/15/2023 (Exact Date), Having periods Age at Menarche: 11 Age at First : Age at Menopause: Mailroom Manager History Comments: Sexual Activity: Yes; Male Contraception: None PAST MEDICAL HISTORY No date: Anxiety 03/18/1999: Bipolar affective disorder (HCC) Comment: multiple personalities? No date: Cyst near tailbone No date: Gall stones No date: H/O borderline personality disorder No date: Hiatal hernia No date: Manic-depressive (HCC) No date: Miscarriage Comment: 07/202202/06/2018: Tobacco user PAST SURGICAL HISTORY 12/16/2012: CHOLECYSTECTOMY Comment: Cholecystectomy No date: PAST SURGICAL HISTORY OF Comment: removal of tailbone cyst FAMILY HISTORY Problem Relation Age of Onset Multiple Sclerosis Mother Mental illness Mother No Known Problems Father No Known Problems Sister No Known Problems Sister No Known Problems Brother No Known Problems Brother Heart Maternal Grandmother stent & pacemaker other (endometrial cancer) Maternal Grandmother COPD Maternal Grandfather No Known Problems Paternal Grandmother Prostate Cancer Paternal Grandfather Social History Tobacco Use Smoking status: Former Types: Cigarettes Smokeless tobacco: Never Tobacco comments: Quit July 2021 Vaping Use Vaping status: Former Substances: Flavoring Devices: Pre-filled or refillable cartridge Substance Use Topics Alcohol use: Yes Comment: Occasionally Drug use: No Current Outpatient Medications Medication Sig ARIPiprazole (ABILIFY) 5 mg tablet Take 5 mg by mouth once daily. albuterol HFA (PROVENTIL HFA, VENTOLIN HFA) 90 mcg/actuation inhaler INHALE 2 (TWO) puffs EVERY 4 HOURS NEEDED for cough buPROPion XL (WELLBUTRIN XL) 150 mg 24 hr tablet Take 1 oral tablet every morning busPIRone (BUSPAR) 10 mg tablet Take 1 tablet by mouth every 12 hours. hydrOXYzine HCl (ATARAX) 10 mg tablet Take 30 mg by mouth daily at bedtime. ondansetron orally disintegrating (ZOFRAN ODT) 4 mg disintegrating tablet TAKE 1 TABLET BY MOUTH FOUR TIMES DAILY NEEDED FOR NAUSEA PARoxetine (PAXIL) 30 mg tablet Take 1 tablet by mouth every afternoon. traZODone (DESYREL) 100 mg tablet Take 100 mg by mouth daily at bedtime. metroNIDAZOLE (METROGEL) 0.75 % Topical Gel Apply to affected areas twice daily Clindamycin Phosphate (CLEOCIN T) 1 % lotion Apply a thin film 1-2 times daily to affected areas on chin. Use enough to cover the entire affected area lightly norgestimate 0.25 mg-ethinyl estradiol 35 mcg (SPRINTEC) 0.25-35 mg-mcg per tablet Take 1 tablet by mouth once daily. (Patient not taking: Reported on 11/28/2023) No current facility-administered medications for this visit. Allergies As of Date: 11/28/2023 (No Known Allergies) Fully Assessed 11/28/2023 REVIEW OF SYSTEMS Abdomen: No bloating, early satiety, indigestion, or increased flatulence. No abdominal pain, nausea, vomiting, diarrhea, or constipation. Bladder: No dysuria, gross hematuria, urinary frequency, urinary urgency, or incontinence. Breast: No breast lumps, nipple d/c, overlying skin changes, redness or skin retraction. Expanded ROS: N/A Allergies and current medication updated:Yes EXAM: BP 126/80 Wt 370 lb (167.8kg) LMP 11/15/2023 GENERAL: pleasant, female in no apparent distress HEENT: Normocephalic, atraumatic, mucus membranes moist, and no lesions NECK: full range of motion DERMATOLOGY: Normal, without lesions, non-icteric, and non-hirsute BREAST: deferred CHEST: Normal inspiratory effort ABDOMEN: Deferred PELVIC: deferred BIMANUAL: deferred NEURO: alert and oriented x3,exam grossly non-focal EXTREMITIES: normal ASSESSMENT AND PLAN: Encounter Diagnosis ICD-10-CM 1. History of recurrent miscarriages N96 BETA 2 GLYCOPROTEIN, IGG BETA 2 GLYCOPROTEIN 1, IGA BETA 2 GLYCOPROTEIN, IGM Tosin Avina MD documented in this encounter [facility] 11-15-2023 Telephone encounter Note Patient changed her appointment on 11/18 with to and annual exam and then made an appointment with to discuss miscarriages. Jossie Flores RN [facility] 11-15-2023 Miscellaneous Notes Patient changed her appointment on 11/18 with RM to and annual exam and then made an appointment with to discuss miscarriages. Jossie Flores RN Left message to call office. Patient has appointment on 11/18 with Soco Cole that she scheduled herself on MyChart. Appointment is to discuss recurring miscarriages. 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 Patient needs scheduled with a doctor in the office to discuss her concerns. oJssie Flores RN documented in this encounter [facility] 11-15-2023 Telephone encounter Note Left message to call office. Patient has appointment on 11/18 with Soco Cole that she scheduled herself on MyChart. Appointment is to discuss recurring miscarriages. 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 Patient needs scheduled with a doctor in the office to discuss her concerns. Jossie Flores RN [facility] 11-05-2023 Note HNO ID: [id number] Author: JULIENNE BOYLE PA-C Service: ? Author Type: Physician [employer] B[employer] Developer Type: Progress Notes Filed: 11/05/2023 10:25 Note Text: Elaine Orellana is a 33 year old female who presents for a comprehensive problem evaluation. New concerns today include: Feels well in general, reports no problems or concerns Labs ordered today Interested in referral to endo weight management Was supposed to undergo bariatric surgery last year however learned she was when the surgery date came. Miscarried soon after and was never back on the schedule for surgery PAST MEDICAL HISTORY No date: Anxiety 03/18/1999: Bipolar affective disorder (HCC) Comment: multiple personalities? No date: Cyst near tailbone No date: Gall stones No date: H/O borderline personality disorder No date: Hiatal hernia No date: Manic-depressive (HCC) No date: Miscarriage Comment: 07/202202/06/2018: Tobacco user PAST SURGICAL HISTORY 12/16/2012: CHOLECYSTECTOMY Comment: Cholecystectomy No date: PAST SURGICAL HISTORY OF Comment: removal of tailbone cyst Family Status Relation Name Status Mo Alive Fa no contact Alive Sis no contact Alive Sis no contact Alive Bro no contact Alive Bro no contact Alive MGMo MGFa Alive PGMo Alive PGFa No partnership data on file Social History Tobacco Use Smoking status: Former Types: Cigarettes Smokeless tobacco: Never Tobacco comments: Quit July 2021 Vaping Use Vaping status: Former Substances: Flavoring Devices: Pre-filled or refillable cartridge Substance Use Topics Alcohol use: Yes Comment: Occasionally Drug use: No REVIEW OF SYSTEMS: GENERAL: No weight loss, malaise or fevers HEENT: Negative for frequent or significant headaches, No changes in hearing or vision, no nose bleeds or other nasal problems NECK: Negative for lumps, goiter, pain and significant neck swelling RESPIRATORY: Negative for cough, hemoptysis, wheezing, COPD, dyspnea or shortness of breath CARDIOVASCULAR: Negative for chest pain, leg swelling, hypertension, CHF or palpitations GI: No nausea, vomiting, or diarrhea MUSCULOSKELETAL: Negative for joint pain or swelling, back pain or muscle pain SKIN: Negative for lesions, rash, and itching HEMATOLOGY/LYMPHOLOGY Negative for prolonged bleeding, bruising easily or swollen nodes NEURO: negative for migraine headaches PHYSICAL EXAMINATION: BP 120/76 Pulse 80 Temp 36.6 ?C (97.8 ?F) (Temporal) Ht 158 cm (5' 2.21) Wt (!) 170.5 kg (375 lb 14.2 oz) LMP 10/08/2023 (Exact Date) BMI 68.30 kg/m? Body mass index is 68.3 kg/m?. General appearance - Well appearing, alert, in no acute distress, well-hydrated, well nourished. Skin - Skin color, texture, turgor normal, no suspicious rashes or lesions HEENT - Normocephalic, no masses, lesions, tenderness or abnormalities- Anicteric sclera. Pupils are equally round and reactive to light. Extraocular movements are intact. - External ears normal, canals clear - Nares normal, septum midline, mucosa normal, no drainage or sinus tenderness - Lips, mucosa, and tongue normal, teeth and gums normal, oropharynx normal Lungs - Lungs clear to auscultation. No wheezing, rhonchi, rales. Heart - RRR without murmur, gallop, or rubs. No ectopy Neuro - Gait normal. Reflexes normal and symmetric. Sensation grossly intact. ASSESSMENT/PLAN: 1. Wellness examination - ICD9: V70.0, ICD10: Z00.00 (primary diagnosis) - Counseled on healthy diet and regular exercise - Follow up for annual exam in one year - COMPREHENSIVE METABOLIC PANEL - COMPLETE BLOOD COUNT AND DIFFERENTIAL 2. Screening for depression - ICD9: V79.0, ICD10: Z13.31 - DEPRESSION SCREENING 3. Vitamin D deficiency - ICD9: 268.9, ICD10: E55.9 - VITAMIN D 25 HYDROXY 4. Mixed hyperlipidemia - ICD9: 272.2, ICD10: E78.2 - Control undetermined, due for labs - Counseled on healthy diet and regular exercise - LIPID PANEL BASIC 5. Class 3 severe obesity due to excess calories without serious comorbidity with body mass index (BMI) of 60.0 to 69.9 in adult (HCC) - ICD9: 278.01, V85.44, ICD10: E66.01, Z68.44 Weight increasing - ENDOCRINE MEDICAL WEIGHT MANAGEMENT Julienne Boyle PA-C [facility] 11-05-2023 History of Presen t illness Narrative Elaine Orellana is a 33 year old female who presents for a comprehensive problem evaluation. New concerns today include: Feels well in general, reports no problems or concerns Labs ordered today Interested in referral to endo weight management Was supposed to undergo bariatric surgery last year however learned she was when the surgery date came. Miscarried soon after and was never back on the schedule for surgery PAST MEDICAL HISTORY No date: Anxiety 03/18/1999: Bipolar affective disorder (HCC) Comment: multiple personalities? No date: Cyst near tailbone No date: Gall stones No date: H/O borderline personality disorder No date: Hiatal hernia No date: Manic-depressive (HCC) No date: Miscarriage Comment: 07/202202/06/2018: Tobacco user PAST SURGICAL HISTORY 12/16/2012: CHOLECYSTECTOMY Comment: Cholecystectomy No date: PAST SURGICAL HISTORY OF Comment: removal of tailbone cyst Family Status Relation Name Status Mo Alive Fa no contact Alive Sis no contact Alive Sis no contact Alive Bro no contact Alive Bro no contact Alive MGMo MGFa Alive PGMo Alive PGFa No partnership data on file Social History Tobacco Use Smoking status: Former Types: Cigarettes Smokeless tobacco: Never Tobacco comments: Quit July 2021 Vaping Use Vaping status: Former Substances: Flavoring Devices: Pre-filled or refillable cartridge Substance Use Topics Alcohol use: Yes Comment: Occasionally Drug use: No REVIEW OF SYSTEMS: GENERAL: No weight loss, malaise or fevers HEENT: Negative for frequent or significant headaches, No changes in hearing or vision, no nose bleeds or other nasal problems NECK: Negative for lumps, goiter, pain and significant neck swelling RESPIRATORY: Negative for cough, hemoptysis, wheezing, COPD, dyspnea or shortness of breath CARDIOVASCULAR: Negative for chest pain, leg swelling, hypertension, CHF or palpitations GI: No nausea, vomiting, or diarrhea MUSCULOSKELETAL: Negative for joint pain or swelling, back pain or muscle pain SKIN: Negative for lesions, rash, and itching HEMATOLOGY/LYMPHOLOGY Negative for prolonged bleeding, bruising easily or swollen nodes NEURO: negative for migraine headaches PHYSICAL EXAMINATION: BP 120/76 Pulse 80 Temp 36.6 C (97.8 F) (Temporal) Ht 158 cm (5' 2.21) Wt (!) 170.5 kg (375 lb 14.2 oz) LMP 10/08/2023 (Exact Date) BMI 68.30 kg/m Body mass index is 68.3 kg/m . General appearance - Well appearing, alert, in no acute distress, well-hydrated, well nourished. Skin - Skin color, texture, turgor normal, no suspicious rashes or lesions HEENT - Normocephalic, no masses, lesions, tenderness or abnormalities- Anicteric sclera. Pupils are equally round and reactive to light. Extraocular movements are intact. - External ears normal, canals clear - Nares normal, septum midline, mucosa normal, no drainage or sinus tenderness - Lips, mucosa, and tongue normal, teeth and gums normal, oropharynx normal Lungs - Lungs clear to auscultation. No wheezing, rhonchi, rales. Heart - RRR without murmur, gallop, or rubs. No ectopy Neuro - Gait normal. Reflexes normal and symmetric. Sensation grossly intact. ASSESSMENT/PLAN: 1. Wellness examination - ICD9: V70.0, ICD10: Z00.00 (primary diagnosis) - Counseled on healthy diet and regular exercise - Follow up for annual exam in one year - COMPREHENSIVE METABOLIC PANEL - COMPLETE BLOOD COUNT AND DIFFERENTIAL 2. Screening for depression - ICD9: V79.0, ICD10: Z13.31 - DEPRESSION SCREENING 3. Vitamin D deficiency - ICD9: 268.9, ICD10: E55.9 - VITAMIN D 25 HYDROXY 4. Mixed hyperlipidemia - ICD9: 272.2, ICD10: E78.2 - Control undetermined, due for labs - Counseled on healthy diet and regular exercise - LIPID PANEL BASIC 5. Class 3 severe obesity due to excess calories without serious comorbidity with body mass index (BMI) of 60.0 to 69.9 in adult (HCC) - ICD9: 278.01, V85.44, ICD10: E66.01, Z68.44 Weight increasing - ENDOCRINE MEDICAL WEIGHT MANAGEMENT Julienne Boyle PA-C documented in this encounter [facility] 06-09-2023 Note HNO ID: [id number] Author: AURY PEDERSEN APRN.BUILD ENGINEER Service: ? Author Type: Nurse Practitioner Type: Progress Notes Filed: 06/09/2023 10:42 Note Text: Telemedicine Visit - Distance Health Virtual Visit Note Patient seen on [employer] Video Visit platform. Location of patient: [place] I have communicated my name and active licensure. The patient's identity and physical location were verified at the time of this visit. Either the patient or their legal product support representative has been informed of the risks and benefits of -- and alternatives to -- treatment through a remote evaluation and consents to proceed with the evaluation remotely. History of Present Illness Elaine Orellana is a 33 year old year old female who presents for the past 1 day with symptoms that are:constant. C/o Fever, cold chills, mouth pain from broken tooth, Tooth affected in left lower wisdom tooth. There is redness, swelling, and reports she can taste the infection. Pain described as aching and constant. Current pain /10. Reports slight elevation in temp of 100.7 F this am. Has been nauseous and vomited several times. Unable to eat on affected side. Reports hard time chewing or holding teeth closed together d/t pain. States she cracked her tooth several months ago. Hx of cavities and unknown if it was from that or just poor hygiene. Had a cleaning back in March and reports she was unable to get tooth removed at that time. Was put on a Z patricia or something like that Called the Dentist and can't get in into 06/30. Symptoms include: Positive for Fever, Chills/Sweats, Headache, Teeth pain , Sore throat, Nausea, and Emesis, Negative for Cough, SOB, CHARLES, and Wheezing Oral intake: decreased appetite Tobacco use: No OTC meds/remedies that patient has tried: Trazodone; Ibuprofen; cold compress PAST MEDICAL HISTORY Diagnosis Date Anxiety Bipolar affective disorder (HCC) 03/18/1999 multiple personalities? Cyst near tailbone Gall stones H/O borderline personality disorder Hiatal hernia Manic-depressive (HCC) Miscarriage 07/2022 Tobacco user 02/06/2018 PAST SURGICAL HISTORY Procedure Laterality Date CHOLECYSTECTOMY 12/16/2012 Cholecystectomy PAST SURGICAL HISTORY OF removal of tailbone cyst FAMILY HISTORY Problem Relation Age of Onset Multiple Sclerosis Mother Mental illness Mother No Known Problems Father No Known Problems Sister No Known Problems Sister No Known Problems Brother No Known Problems Brother Heart Maternal Grandmother stent AND pacemaker other (endometrial cancer) Maternal Grandmother COPD Maternal Grandfather No Known Problems Paternal Grandmother Prostate Cancer Paternal Grandfather Social History Tobacco Use Smoking status: Former Types: Cigarettes Smokeless tobacco: Never Tobacco comments: Quit July 2021 Vaping Use Vaping Use: Former Substances: Flavoring Devices: Pre-filled or refillable cartridge Substance Use Topics Alcohol use: Yes Comment: Occasionally Drug use: No Current Outpatient Medications Medication Sig albuterol HFA (PROVENTIL HFA, VENTOLIN HFA) 90 mcg/actuation inhaler INHALE 2 (TWO) puffs EVERY 4 HOURS NEEDED for cough norgestimate 0.25 mg-ethinyl estradiol 35 mcg (SPRINTEC) 0.25-35 mg-mcg per tablet Take 1 tablet by mouth once daily. buPROPion XL (WELLBUTRIN XL) 150 mg 24 hr tablet Take 1 oral tablet every morning busPIRone (BUSPAR) 10 mg tablet Take 1 tablet by mouth every 12 hours. hydrOXYzine HCl (ATARAX) 10 mg tablet Take 30 mg by mouth daily at bedtime. ondansetron orally disintegrating (ZOFRAN ODT) 4 mg disintegrating tablet TAKE 1 TABLET BY MOUTH FOUR TIMES DAILY NEEDED FOR NAUSEA PARoxetine (PAXIL) 30 mg tablet Take 1 tablet by mouth every afternoon. traZODone (DESYREL) 100 mg tablet Take 100 mg by mouth daily at bedtime. metroNIDAZOLE (METROGEL) 0.75 % Topical Gel Apply to affected areas twice daily Clindamycin Phosphate (CLEOCIN T) 1 % lotion Apply a thin film 1-2 times daily to affected areas on chin. Use enough to cover the entire affected area lightly No current facility-administered medications for this visit. ALLERGIES No Known Allergies Video Exam (Examination performed via Video enabled technology) General appearance: Alert, oriented, pleasant, in NAD :Yes Ill appearing :No Lethargic appearing :No Mouth: Limited viewing d/t location of tooth but appears to have gum swelling and redness on left lower side. There appears to have some decay of wisdom tooth/molar. Oropharynx: normal, no erythema, edema, or exudate Frontal sinus tenderness by self palpation;No Maxillary sinus tenderness by self palpation :Yes Tender cervical adenopathy by self palpation :Yes, face appears puffier on left side Respiratory distress :No ASSESSMENT/PLAN: 1. Cracked tooth - ICD9: 521.81, ICD10: K03.81 (primary diagnosis) 2. Tooth abscess - ICD9: 522.5, ICD10: K04.7 Discussed etiology a (more content not included)... [facility] 06-09-2023 History of Presen t illness Narrative Telemedicine Visit - Distance Health Virtual Visit Note Patient seen on [employer] Video Visit platform. Location of patient: [place] I have communicated my name and active licensure. The patient's identity and physical location were verified at the time of this visit. Either the patient or their legal product support representative has been informed of the risks and benefits of -- and alternatives to -- treatment through a remote evaluation and consents to proceed with the evaluation remotely. History of Present Illness Elaine Orellana is a 33 year old year old female who presents for the past 1 day with symptoms that are:constant. C/o Fever, cold chills, mouth pain from broken tooth, Tooth affected in left lower wisdom tooth. There is redness, swelling, and reports she can taste the infection. Pain described as aching and constant. Current pain 7/10. Reports slight elevation in temp of 100.7 F this am. Has been nauseous and vomited several times. Unable to eat on affected side. Reports hard time chewing or holding teeth closed together d/t pain. States she cracked her tooth several months ago. Hx of cavities and unknown if it was from that or just poor hygiene. Had a cleaning back in March and reports she was unable to get tooth removed at that time. Was put on a Z patricia or something like that Called the Dentist and can't get in into 06/30. Symptoms include: Positive for Fever, Chills/Sweats, Headache, Teeth pain , Sore throat, Nausea, and Emesis, Negative for Cough, SOB, CHARLES, and Wheezing Oral intake: decreased appetite Tobacco use: No OTC meds/remedies that patient has tried: Trazodone; Ibuprofen; cold compress PAST MEDICAL HISTORY Diagnosis Date Anxiety Bipolar affective disorder (HCC) 03/18/1999 multiple personalities? Cyst near tailbone Gall stones H/O borderline personality disorder Hiatal hernia Manic-depressive (HCC) Miscarriage 07/2022 Tobacco user 02/06/2018 PAST SURGICAL HISTORY Procedure Laterality Date CHOLECYSTECTOMY 12/16/2012 Cholecystectomy PAST SURGICAL HISTORY OF removal of tailbone cyst FAMILY HISTORY Problem Relation Age of Onset Multiple Sclerosis Mother Mental illness Mother No Known Problems Father No Known Problems Sister No Known Problems Sister No Known Problems Brother No Known Problems Brother Heart Maternal Grandmother stent & pacemaker other (endometrial cancer) Maternal Grandmother COPD Maternal Grandfather No Known Problems Paternal Grandmother Prostate Cancer Paternal Grandfather Social History Tobacco Use Smoking status: Former Types: Cigarettes Smokeless tobacco: Never Tobacco comments: Quit July 2021 Vaping Use Vaping Use: Former Substances: Flavoring Devices: Pre-filled or refillable cartridge Substance Use Topics Alcohol use: Yes Comment: Occasionally Drug use: No Current Outpatient Medications Medication Sig albuterol HFA (PROVENTIL HFA, VENTOLIN HFA) 90 mcg/actuation inhaler INHALE 2 (TWO) puffs EVERY 4 HOURS NEEDED for cough norgestimate 0.25 mg-ethinyl estradiol 35 mcg (SPRINTEC) 0.25-35 mg-mcg per tablet Take 1 tablet by mouth once daily. buPROPion XL (WELLBUTRIN XL) 150 mg 24 hr tablet Take 1 oral tablet every morning busPIRone (BUSPAR) 10 mg tablet Take 1 tablet by mouth every 12 hours. hydrOXYzine HCl (ATARAX) 10 mg tablet Take 30 mg by mouth daily at bedtime. ondansetron orally disintegrating (ZOFRAN ODT) 4 mg disintegrating tablet TAKE 1 TABLET BY MOUTH FOUR TIMES DAILY NEEDED FOR NAUSEA PARoxetine (PAXIL) 30 mg tablet Take 1 tablet by mouth every afternoon. traZODone (DESYREL) 100 mg tablet Take 100 mg by mouth daily at bedtime. metroNIDAZOLE (METROGEL) 0.75 % Topical Gel Apply to affected areas twice daily Clindamycin Phosphate (CLEOCIN T) 1 % lotion Apply a thin film 1-2 times daily to affected areas on chin. Use enough to cover the entire affected area lightly No current facility-administered medications for this visit. ALLERGIES No Known Allergies Video Exam (Examination performed via Video enabled technology) General appearance: Alert, oriented, pleasant, in NAD :Yes Ill appearing :No Lethargic appearing :No Mouth: Limited viewing d/t location of tooth but appears to have gum swelling and redness on left lower side. There appears to have some decay of wisdom tooth/molar. Oropharynx: normal, no erythema, edema, or exudate Frontal sinus tenderness by self palpation;No Maxillary sinus tenderness by self palpation :Yes Tender cervical adenopathy by self palpation :Yes, face appears puffier on left side Respiratory distress :No ASSESSMENT/PLAN: 1. Cracked tooth - ICD9: 521.81, ICD10: K03.81 (primary diagnosis) 2. Tooth abscess - ICD9: 522.5, ICD10: K04.7 Discussed etiology and rationale for treatment. Will start tx with oral ABX. However, discussed red flags that would require immediate follow up in person - AMOXICILLIN 875 MG-POTASSIUM CLAVULANATE 125 MG TABLET - PRN NSAIDs-Ibuprofen 600-800 mg every 6-8 hours as needed for pain for 3-5 days - Frequent salt water rinses - Avoid irritating foods or chewing/eating on affected - Warm compresses - To keep scheduled appt with Dentist. However, advised to call office this week for sooner appt. - Red flags discussed for need for in person care - All questions answered Aury Pedersen APRN.BUILD ENGINEER If you let us know who your primary care provider is, we will send them a notification of today s visit through our electronic medical records system. Since not all providers have access to our notifications, we strongly encourage you to share the following record of today s visit with your primary care provider at your next visit. This will help in providing you the best care. If you do not have an established Primary Care physician and would like to continue care with a [facility] Virtual Primary Care physician, please ask your provider to place a Establish Primary Care order. Use [employer] to manage your care, wherever you are, 08/10, on your mobile device or computer. [employer] connects you to [employer] so you can access all your health information in one place and also schedule and request virtual appointments with primary care providers. documented in this encounter [facility] 05-20-2023 Instructions Soco Cole APRN.CNP - 05/20/2023 2:03 PM EST Oral Contraceptives: The Pill Beginning the Pill Pills come in either a 21 day pack or a 28 day pack. With the 21 day pack you will take one pill for 21 days then no pill for 7 days, during which time you will have what is known as withdrawal bleeding. The 28 day pack allows you to take a pill every day of the cycle with no interruptions. The first 21 pills are the pills with the active ingredients and the last 7 are the nonmedical pills (placebo) or they may contain iron. There will be bleeding during the week you are taking the nonmedical pills. The advantage to the 28 day pack is that you don t have to keep track of when you stopped the pill. There are a group of 28 day pills that contain 24 active pills and only 4 placebo pills. These are formulated to give you a design tech period. Unless otherwise instructed, you should start your pills the Saturday following your first day of bleeding with your next period (if your period starts on a Saturday, you should start pills the same day) Read your information packet that comes with the pills. Pill Benefits The pill is the most popular method of reversible control being used today. Millions of women rely on oral contraceptives as their control method. It is important to have an examination by your physician to determine if the pill is safe for you. There are several advantages associated with the pill: it is 97-98% effective when used correctly; may improve acne; periods are more regular and less painful; there is less iron deficiency anemia in pill users. group home use is associated with a decreased incidence of ovarian and uterine cancer. There is also no evidence that the pill increases the incidence of any cancer. How Oral Contraceptives Work Oral contraceptives come in two varieties. One is the combination pill which contains both estrogen and progesterone. Combination pills are considered 98-99% effective in preventing . This pill comes in either monophasic, which delivers the same amount of estrogen and progesterone throughout the cycle; and triphasic, which try tries to mimic the normal hormone cycle by changing the levels of the hormones in the pills during the month. There is no real advantage to taking the one over the other. The other type of pill only contains progesterone. It is best used for women who can t take estrogen. This type of pill is slightly less effective than the combination pill in preventing . It is VERY important to take the progesterone only pill at the same time every day. Oral contraceptives prevent ovulation (release of an egg from the ovary) by suppressing the pituitary gland s action. The pill does NOT prevent sexually transmitted disease. Obtaining a Prescription It is important to see your doctor before starting oral contraceptives so that you can have a full medical history taken and a physical examination given. Certain medical conditions may make the pill inappropriate for you, therefore it is very important to be honest and as complete as possible with the information you share with your doctor. The types of predisposing factors which would make the pill a poor choice of control would include: History of blood clots Stroke Serious liver disease or impaired liver function Unexplained vaginal bleeding or Cancer of the reproductive system Active gall bladder disease Hypertension Possible Side Effects It can take up to three months for your body to become adjusted to the pill. The more common side effects experienced at this time are: breakthrough spotting or bleeding, which is bleeding at any other time other than when you should be having a period; nausea or vomiting; breast tenderness; and mild fluid retention. There is no termite treater weight gain with the use of the pill. Breakthrough bleeding is the most common complaint of new pill users. There is no way to predict who will have it and there is no way of preventing it. Breakthrough bleeding usually subsides on its own with no further treatment after the first three months of taking the pill. If these symptoms continue to occur after the first three months you should check with your physician to see if there is any physical cause and possibly change to another control pill. Problems: Missed 1 pill: Take 2 pills the next day. Missed 2 pills: Take 2 pills the next day and 2 pills the following day. Also use another form of control (condoms) along with the pill for the rest of the month. Missed 3 or more pills: You have two choices. You can take two pills each day until you are on schedule, plus use an additional form of control along with the pill for the rest of the month. Or you can stop the pill and start a completely new pack of pills the next Saturday. You must use another form of control with the pill for at least the first two weeks of the new pack. You re ill and you have been vomiting or have diarrhea: You must use another form of control with the pill since the pill may not be fully absorbed during your illness. Continue to use the added control until the end of the cycle. Desire to become : Stop using the pill for one month before trying to become . Taking other medications: The control pill is less effective when you take the antibiotic Rifampin, epilepsy (seizure) drugs such as phenytoin, carbamazepine, phenobarbital, topiramate and some medications for HIV. Let your doctor know if you start taking any of these medications while on the pill. Symptoms to Notify Your Doctor with Immediately: Pain in your chest or legs Continuous blurred vision Severe headaches Slurred speech Tingling or weakness on one side of your body Shortness of breath Swelling of one leg Refills of Control Pills You need to see a doctor every year for a refill of your prescription. This is necessary in order that your health can be monitored closely while you are taking control pills. If your prescription should before your next scheduled appointment you can usually get a one month extension from your doctors office if you call during regular business hours about one week before you need to start the new package of pills. This allows the physician to refer to your chart for necessary health information. documented in this encounter [facility] 05-20-2023 History of Presen t illness Narrative CONTRACEPTION Elaine Orellana is a 33 year old who presents today for contraception. Patient's last menstrual period was 05/01/2023 (exact date).. HPI: Dysmenorrhea Yes Heavy menses Yes Irregular menses No Pt also states that she is having severe PMS. She is wanting to lose weight and has decided not to have surgery SUBJECTIVE Sexually active: Yes Last PAP 05/29/2021 Method of control: none Methods tried previously: oral contraceptives did not take them consistently Patient currently interested in: oral contraceptives Interested in in the next 3 years? Not sure Date of last test: Not applicable Relevant Past Medical History: No relevant past medical history OB History T0 L0 SAB1 IAB0 Ectopic0 Multiple0 Live Births0 PAST MEDICAL HISTORY Diagnosis Date Anxiety Bipolar affective disorder (HCC) 03/18/1999 multiple personalities? Cyst near tailbone Gall stones H/O borderline personality disorder Hiatal hernia Manic-depressive (HCC) Miscarriage 07/2022 Tobacco user 02/06/2018 PAST SURGICAL HISTORY Procedure Laterality Date CHOLECYSTECTOMY 12/16/2012 Cholecystectomy PAST SURGICAL HISTORY OF removal of tailbone cyst FAMILY HISTORY Problem Relation Age of Onset Multiple Sclerosis Mother Mental illness Mother No Known Problems Father No Known Problems Sister No Known Problems Sister No Known Problems Brother No Known Problems Brother Heart Maternal Grandmother stent & pacemaker other (endometrial cancer) Maternal Grandmother COPD Maternal Grandfather No Known Problems Paternal Grandmother Prostate Cancer Paternal Grandfather SOCIAL HISTORY Social History Tobacco Use Smoking status: Former Types: Cigarettes Smokeless tobacco: Never Tobacco comments: Quit July 2021 Vaping Use Vaping Use: Former Substances: Flavoring Devices: Pre-filled or refillable cartridge Substance Use Topics Alcohol use: Yes Comment: Occasionally Drug use: No PAST SURGICAL HISTORY Procedure Laterality Date CHOLECYSTECTOMY 12/16/2012 Cholecystectomy PAST SURGICAL HISTORY OF removal of tailbone cyst Current Outpatient Medications Medication Sig buPROPion XL (WELLBUTRIN XL) 150 mg 24 hr tablet Take 1 oral tablet every morning busPIRone (BUSPAR) 10 mg tablet Take 1 tablet by mouth every 12 hours. hydrOXYzine HCl (ATARAX) 10 mg tablet Take 30 mg by mouth daily at bedtime. ondansetron orally disintegrating (ZOFRAN ODT) 4 mg disintegrating tablet TAKE 1 TABLET BY MOUTH FOUR TIMES DAILY NEEDED FOR NAUSEA PARoxetine (PAXIL) 30 mg tablet Take 1 tablet by mouth every afternoon. traZODone (DESYREL) 100 mg tablet Take 100 mg by mouth daily at bedtime. metroNIDAZOLE (METROGEL) 0.75 % Topical Gel Apply to affected areas twice daily Clindamycin Phosphate (CLEOCIN T) 1 % lotion Apply a thin film 1-2 times daily to affected areas on chin. Use enough to cover the entire affected area lightly albuterol HFA (PROVENTIL HFA, VENTOLIN HFA) 90 mcg/actuation inhaler INHALE 2 (TWO) puffs EVERY 4 HOURS NEEDED for cough norgestimate 0.25 mg-ethinyl estradiol 35 mcg (SPRINTEC) 0.25-35 mg-mcg per tablet Take 1 tablet by mouth once daily. No current facility-administered medications for this visit. Allergies As of Date: 05/20/2023 (No Known Allergies) Fully Assessed 05/17/2023 OBJECTIVE: General Appearance: Well appearing, alert, in no acute distress, well-hydrated, well nourished. and Obese Skin: Color normal Lungs: normal inspiratory effort ASSESSMENT/PLAN: 1. Encounter for initial prescription of contraceptive pills - ICD9: V25.01, ICD10: Z30.011 - RX for Sprintec given today. - discussed with patient on how to take OCP's. - counseled on benefits, risks and possible severe side effects of OCP's. - discussed need to use Condoms to help to prevent STD's including HIV etc. Follow up in 3-4 months Soco Cole APRN.HALEY Medical Decision Making: Problems: Low: Acute, uncomplicated illness or injury Risk: Moderate: Drug management Medical Decision Making Level: 3 - Low documented in this encounter [facility] 05-17-2023 Padma Dang APRN.CNP - 05/17/2023 1:21 PM EST Rosacea Avoid known triggers: Spicy foods Alcohol Emotional stress, Hot beverages (eg, hot soup, coffee, tea), Extremes of temperature (Hot or cold weather) Heavy exercise Appropriate use of broad-spectrum sunscreens with SPF 30 or higher and sun avoidance are also important. Camouflage makeups with green or yellow-tinted preparations are helpful in reducing appearance of redness Avoid waterproof make-up, exfoliating scrubs, astringents, toners, or prducts that contain alcohol, witch verena, menthol, camphor, peppermint, and eucalyptus oil documented in this encounter [facility] 05-17-2023 History of Presen t illness Narrative NEW PATIENT Chief Complaint: Rash History of Present Ilness: Elaine Orellana is a 33 year old female who presents today for a acne #1: rash Location: face Duration: years Symptoms: redness to cheeks nose and chin Current Treatment: Sumner acne defense face wash and Bassam luisito face wash and moisturizer Past Treatment: multiple different different OTC washes and lotion #2: growth Location: left side of nose Duration: month Symptoms: raised Current Treatment: none Past Treatment: none Pertinent History: History of skin cancer: No History of atypical nevi: No History of immunosuppression/organ transplant: No , planning , or ? No Pertinent Family medical history: History of melanoma: No History of non melanoma skin cancer: No Other family history (autoimmune, dermatologic, etc): None Past Medical History is reviewed. Medication List is reviewed. ROS: Skin as above. Physical Exam: Hendrickson skin type: II The patient is a pleasant female in no apparent distress. Alert and oriented x 3. A skin exam performed of the face is significant for: Left Malar Cheek, Nose, Right Malar Cheek Few erythematous papules and pustules with underlying erythema and fine telangiectasis Left Malar Cheek Smooth hayes dome shaped papule Left Submandibular Area, Mid Submental Area, Right Submandibular Area Scattered erythematous papules Assessment and Plan: Rosacea (3) Nose; Left Malar Cheek; Right Malar Cheek Etiology and treatment options discussed. Advised to avoid known triggers, including spicy foods, alcohol, emotional stress, hot beverages (eg, hot soup, coffee, tea), extremes of temperature, etc. Appropriate use of broad-spectrum sunscreens and sun avoidance are also important. Start metronidazole 0.75% gel twice daily to affected areas May consider following up with cosmetic dermatology for pulsed dye laser to telangiectasias Related Medications metroNIDAZOLE (METROGEL) 0.75 % Topical Gel Apply to affected areas twice daily Benign nevus Left Malar Cheek Reassurance provided regarding benign appearance of lesion. Observational course. Continue to monitor for growth and change. Acne vulgaris Left Submandibular Area; Right Submandibular Area; Mid Submental Area Discussed etiology, course, prognosis and treatment options Continue cleansing area with benzoyl peroxide 4% wash followed by application of clindamycin once to twice daily as needed May consider starting spironolactone to treat underlying hormonal component Discussed r/b/o of medication including side effects but not limited to: headaches, irregular menses, breast tenderness, dizziness/lightheadedness, elevated potassium levels, urinary frequency and teratogenicity. Patient advised not to become while taking spironolactone. Patient will discuss this at her upcoming PAPER PATTERN INSPECTOR appointment Related Medications Clindamycin Phosphate (CLEOCIN T) 1 % lotion Apply a thin film 1-2 times daily to affected areas on chin. Use enough to cover the entire affected area lightly Follow up: 3 months and PRN The documentation for this note was completed by Rowan Orr LPN acting as scribe for Padma Steve APRN.CNP. I agree with the Chief Complaint, ROS, and Past Histories independently gathered by the clinical sales support rep and the remaining scribed note accurately describes my personal service to the patient. Padma Steve APRN.CNP Medical Decision Making: Problems: Low: 2+ self-limited or minor problems Risk: Moderate: Drug management Medical Decision Making Level: 3 - Low documented in this encounter [facility] 04-26-2023 Miscellaneous Notes Patient no longer has an appointment scheduled with the orthopedic office. Attempted to call patient. No answer. Left voicemail requesting call back. Attempted to call patient. Left voicemail requesting a call back. Attempted to call patient. No answer and left a voicemail to call the office. A my chart message was sent to the patient as well. Patient has appointment on 04/29 with Clarissa for knee pain. Need to know laterality and if she has had any recent x-rays? Left message for patient to call office. documented in this encounter [facility] 02-11-2023 Miscellaneous Notes Spoke to [facility]. They are updating records and canceling any orders Received order request for breast pump and sacroiliac support. Last OV 08/24/2022 and it's noted that she had a miscarriage. Spoke to patient and she confirmed she is not currently . She keeps getting notifications of congrats which is not helping her process the situation. Advised I will try to update her chart so it reflects and hopefully she no longer gets these notifications. Cycle updated in 08/24/22 OV since no other way to do so and no upcoming appts documented in this encounter [facility] 08-31-2022 History of Presen t illness Narrative Behavioral Health Social Work Progress Note Patient identified for [facility] from: PCP Reason for referral: Resources Behavioral Health Resources: Psychiatry med management [facility] encounter type: MyChart Message Attempts to Outreach: 3 attempts Referral made: Psychiatry - External Psychiatry-External referral type: Medication Management Reason for external referral: Wait times at [facility] too long Final Disposition: Resources given Patient Discharged?: Yes Patient reported that caregiver was able to meet their needs today?: N/A Patient read [employer] message with requested resources by PCP. [facility] sent follow-up message to see if any additional questions or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 for Success, Post op diet stages Time spent with patient: 26 minutes [facility] 12-20-2021 History of Presen t illness Narrative Elaine Orellana is a 31 year old female Follow Up and Forms HPI: Patient is here today for follow-up on anxiety has been controlled, she does not need referral to therapist or psychiatry at this time. Also for follow-up on low vitamin D, she would like a refill on vitamin D prescription. She finished it in November. Her tremor is slightly better she has an upcoming appointment with neurology. Also would like me to fill the forms for referral to consider bariatric surgery for weight loss with her elevated BMI at 71. She denies any other complaints. Denies any history of sleep apnea. She had a tried multiple modalities for weight loss including diet and watching oral intake, weight watchers, medications for weight loss without help at all. HISTORIES FAMILY HISTORY Problem Relation Age of Onset Multiple Sclerosis Mother Mental illness Mother No Known Problems Father None Brother Heart Maternal Grandmother stent & pacemaker other (endometrial cancer) Maternal Grandmother COPD Maternal Grandfather No Known Problems Paternal Grandmother Prostate Cancer Paternal Grandfather PAST MEDICAL HISTORY Diagnosis Date Anxiety Bipolar affective disorder (HCC) 03/18/1999 multiple personalities? Cyst near tailbone Gall stones H/O borderline personality disorder Manic-depressive (HCC) Tobacco user 02/06/2018 PAST SURGICAL HISTORY Procedure Laterality Date CHOLECYSTECTOMY 12/16/2012 Cholecystectomy PAST SURGICAL HISTORY OF removal of tailbone cyst Social History Tobacco Use Smoking status: Former Types: Cigarettes Smokeless tobacco: Never Tobacco comments: Quit July 2021 Vaping Use Vaping Use: Former Substances: Flavoring Devices: Pre-filled or refillable cartridge Substance Use Topics Alcohol use: Yes Comment: [facility] Drug use: No ALLERGIES: ALLERGIES No Known Allergies Current Outpatient Medications on File Prior to Visit Medication Sig multivitamin (MULTI-DAY ORAL) Take by mouth once daily. iron bisgly,ps-FA-B-C#12-succ 65 mg-65 mg -1,000 mcg (24) tab Take by mouth once daily. cyanocobalamin (VITAMIN B-12) 1,000 mcg tab Take 1,000 mcg by mouth once daily. multivitamin with minerals (HAIR,SKIN AND NAILS ORAL) Take by mouth once daily. Bacillus coagulans/inulin (PROBIOTIC WITH PREBIOTIC ORAL) Take 1 capsule by mouth once daily. No current facility-administered medications on file prior to visit. REVIEW OF SYSTEMS GENERAL: NAD. HEENT: No headache, dizziness, changes in vision or hearing. RESPIRATORY: No dyspnea, cough, wheeze. CARDIOVASCULAR: No CP, orthopnea, PND, LE swelling, palpitations. GI: No abdo pain, N/V/D/C. : No dysuria, frequency or incontinence. MUSCULOSKELETAL: No joint pain or swelling, back pain or muscle pain. SKIN: Negative for lesions, rash, and itching. PSYCH: No depression, anxiety, sleep disturbance. NEURO: No syncope, seizure, tremor, weakness or altered sensation. PHYSICAL EXAM: BP 132/85 Pulse 76 Ht 157.5 cm (5' 2) Wt (!) 176.1 kg (388 lb 3.2 oz) LMP 06/17/2021 (Approximate) BMI 71.00 kg/m General Appearance: Well appearing, alert, in no acute distress. Head: Normocephalic, no masses, lesions. Eyes: Anicteric sclera. Extraocular movements are intact. Neck: Supple, no adenopathy. Lungs: Lungs clear to auscultation. No wheezing, rhonchi, rales. Heart: RRR, nl S1+S2, no added sounds, no murmurs. Abdomen: Abdomen soft, non-tender. Bowel sounds normal. Extremities: No deformities, edema, skin discoloration, clubbing or cyanosis. ASSESSMENT/PLAN: 1. Class 3 severe obesity due to excess calories without serious comorbidity with body mass index (BMI) greater than or equal to 70 in adult (HCC) - ICD9: 278.01, V85.45, ICD10: E66.01, Z68.45 (primary diagnosis) Referral to bariatric surgery evaluation is recommended per patient request at [facility]. 2. Anxiety - ICD9: 300.00, ICD10: F41.9 Controlled,Declines psychiatry or psychotherapy at this time. 3. Low vitamin D level - ICD9: 790.6, ICD10: R79.89 Refilled her vitamin D prescription. Take as directed 4. Tremor - ICD9: 781.0, ICD10: R25.1 Follow-up with neurology recommendations. Nae Aguilar MD This note was partially generated using [employer] voice recognition system. documented in this encounter [facility] 09-24-2021 History of Presen t illness Narrative Initial Fall Risk Screening:ELAINE has not fallen in the last 6 months. Her fall did not result in injury. ELAINE does not have a fear of falling. She does not need assistance with sitting, standing or walking. Does not need assistance walking in her home. She does not need assistance in an unfamiliar setting. The patient is not using an assistive device. [facility] [place] Work Phone: 09-04-2021 Miscellaneous Notes Patient's request for medication is as follows: Signed Prescriptions Disp Refills ergocalciferol 50,000 unit capsule (VITAMIN D2, DRISDOL) 8 capsule 2 Sig: Take 1 capsule by mouth two times a week for 30 days, THEN 1 capsule one time a week. Prescription(s) as above. Please process accordingly. Debra Lowe PA-C documented in this encounter [facility] 09-01-2021 Miscellaneous Notes Behavioral Health Social Work Progress Note Patient identified for [facility] from: PCP Reason for referral: Resources Behavioral Health Resources: Psychiatry med management;Psychology - talk therapy [facility] encounter type: Telephone Encounter Attempts to Outreach: 1 attempt Referral made: Psychiatry - Internal;Psychiatry - External;Psychology - Internal;Psychology - External Psychiatry-Internal referral type: Medication Management Psychology-Internal referral type: Therapy Psychology-External referral type: Therapy Psychiatry-External referral type: Medication Management Reason for external referral: Patient choice;Wait times at [facility] too long Final Disposition: Resources given Patient Discharged?: No Patient reported that caregiver was able to meet their needs today?: Yes SW placed a phone call to patient at the request of the PCP. Pt reported she was working with a provider a long time ago, but is unsure of who it was. Pt looking for talk therapy and medication management referrals at this time. SW will provide the following referrals via [employer]: [facility] Psychiatry and Counseling Central Scheduling Call Center [phone] Psychiatry and Counseling Psych [facility] [address] [place] [address] Counseling and psychiatry Affiliates in Behavioral Health [address] [id number] Counseling and psychiatry [facility] [place] [address] [address], [address] [place] [address] Psychiatry and Counseling [facility] and [facility] [address] [place] [address] [place] location also DIMA Lopez September 01, 2021 documented in this encounter [facility] 09-01-2021 History of Presen t illness Narrative Elaine Orellana is a 31 year old female Chief complaint: Anxiety and depression, weight issues, tremor. HPI: Patient is a pleasant 31-year-old female, who is here today to establish care. She sees [employer] for her Pap smear/HPV. She complains about inability to lose weight, she had tried multiple weight loss programs and tried medications for weight loss without much help. Her BMI is elevated at 71.3. She does not exercise regularly. She complains about tremor fine and her hands, and occasional twitching in the right eyelids. Has been going on for about 2 to 3 months. She is concerned because her mother has MS. Patient has anxiety and depression/bipolar disorder are not controlled . She quit taking medications a few years ago and quit going to herpsychiatrist and she quit taking her medications. She denies any other complaints. HISTORIES FAMILY HISTORY Problem Relation Age of Onset Multiple Sclerosis Mother Mental illness Mother No Known Problems Father None Brother Heart Maternal Grandmother stent & pacemaker other (endometrial cancer) Maternal Grandmother COPD Maternal Grandfather No Known Problems Paternal Grandmother Prostate Cancer Paternal Grandfather PAST MEDICAL HISTORY Diagnosis Date Anxiety Bipolar affective disorder (HCC) 03/18/1999 multiple personalities? Cyst near tailbone Gall stones H/O borderline personality disorder Manic-depressive (HCC) PAST SURGICAL HISTORY Procedure Laterality Date CHOLECYSTECTOMY 12/16/2012 Cholecystectomy PAST SURGICAL HISTORY OF removal of tailbone cyst Social History Tobacco Use Smoking status: Former Smoker Types: Cigarettes Smokeless tobacco: Never Used Tobacco comment: Quit July 2021 Vaping Use Vaping Use: Some days Substances: Flavoring Devices: Pre-filled or refillable cartridge Substance Use Topics Alcohol use: Yes Comment: a beer a week or less Drug use: No ALLERGIES: ALLERGIES No Known Allergies Current Outpatient Medications on File Prior to Visit Medication Sig Bacillus coagulans/inulin (PROBIOTIC WITH PREBIOTIC ORAL) Take 1 capsule by mouth once daily. No current facility-administered medications on file prior to visit. REVIEW OF SYSTEMS GENERAL: NAD. Inability to lose weight. HEENT: No headache, dizziness, changes in vision or hearing. Positive for left eyelid twitching. RESPIRATORY: No dyspnea, cough, wheeze. CARDIOVASCULAR: No CP, orthopnea, PND, LE swelling, palpitations. GI: No abdo pain, N/V/D/C. : No dysuria, frequency or incontinence. MUSCULOSKELETAL: No joint pain or swelling, back pain or muscle pain. SKIN: Negative for lesions, rash, and itching. PSYCH: Please see history of present illness. NEURO: No syncope, seizure, positive tremor, no weakness or altered sensation. PHYSICAL EXAM: BP 112/76 (BP Site: Left Arm) Pulse 71 Temp 36.6 C (97.8 F) (Temporal) Wt (!) 176.9 kg (390 lb) LMP 06/17/2021 (Approximate) SpO2 96% BMI 71.33 kg/m General Appearance: Well appearing, alert, in no acute distress. Head: Normocephalic, no masses, lesions. Eyes: Anicteric sclera. Extraocular movements are intact. Neck: Supple, no adenopathy. Lungs: Lungs clear to auscultation. No wheezing, rhonchi, rales. Heart: RRR, nl S1+S2, no added sounds, no murmurs. Abdomen: Abdomen soft, non-tender. Bowel sounds normal. Extremities: No deformities, edema, skin discoloration, clubbing or cyanosis. Musculoskeletal: No joint swelling, deformity, or tenderness. Peripheral Pulses: Normal. Present fine tremor in both hands. ASSESSMENT/PLAN: 1. Encounter for medical examination to establish care - ICD9: V70.9, ICD10: Z00.00 (primary diagnosis) I reviewed and updated her histories. Increase exercise, watch oral intake, weight loss is recommended. 2. BMI 70 and over, adult (HCC) - ICD9: V85.45, ICD10: Z68.45 Recommended referral to weight management navigation. - CONSULT TO WEIGHT MANAGEMENT NAVIGATION 3. Bipolar disorder, in partial remission, most recent episode mixed (HCC) - ICD9: 296.65, ICD10: F31.77 Referral to behavioral health psychiatry and psychotherapy is recommended. - CONSULT TO PRIMARY CARE BEHAVIORAL HEALTH ADULT 4. Anxiety and depression - ICD9: 300.00, 311, ICD10: F41.9, F32.A - VITAMIN B12 BLOOD 5. Tremor - ICD9: 781.0, ICD10: R25.1 - TSH BLD - CONSULT TO NEUROLOGY 6. Encounter for immunization - ICD9: V03.89, ICD10: Z23 - TDAP VACCINE AGE 7+ IM 7. Low vitamin D level - ICD9: 790.6, ICD10: R79.89 - VITAMIN D 25 HYDROXY 8. Special screening examination for viral disease - ICD9: V73.99, ICD10: Z11.59 - HEP C AB IA W/CONF SCRN 9. Screening for HIV (human immunodeficiency virus) - ICD9: V73.89, ICD10: Z11.4 - HIV 1 2 COMBO(AG/AB),WITH REFLEX TO DIFFERENTIATION 10. Routine lab draw - ICD9: V72.60, ICD10: Z01.89 - CBC - COMP METABOLIC PANEL - LIPID PANEL BASIC 11. Twitching - ICD9: 781.0, ICD10: R25.3 - CONSULT TO NEUROLOGY Nae Aguilar MD This note was partially generated using Dragon voice recognition system. documented in this encounter [facility] 02-06-2018 History of Past i llness Narrative Problem Noted Date Resolved Date Tobacco user 02/06/2018 12/20/2021 documented as of this encounter (statuses as of 12/20/2021) [facility] History of Past illness Narrative* Problem Noted Date Resolved Date Tobacco user 02/06/2018 12/20/2021 documented as of this encounter (statuses as of 07/28/2022) [facility] History of Past illness Narrative* Problem Noted Date Resolved Date Tobacco user 02/06/2018 12/20/2021 Class 3 severe obesity due t o excess calories without serious comorbidity with body mass index (BMI) greater than or equal to 70 in adult 10/28/2014 08/24/2022 documented as of this encounter (statuses as of 08/31/2022) [facility] History of Past illness Narrative* Problem Noted Date Diagnosed Date Resolved Date Tobacco user 02/06/2018 12/20/2021 Class 3 severe obesity due t o excess calories without serious comorbidity with body mass index (BMI) greater than or equal to 70 in adult 10/28/2014 08/24/2022 documented as of this encounter (statuses as of 02/11/2023) [facility] History of Past illness Narrative* Problem Noted Date Diagnosed Date Resolved Date Tobacco user 02/06/2018 12/20/2021 Class 3 severe obesity due t o excess calories without serious comorbidity with body mass index (BMI) greater than or equal to 70 in adult 10/28/2014 08/24/2022 documented as of this encounter (statuses as of 02/12/2023) [facility] History of Past illness Narrative* Problem Noted Date Diagnosed Date Resolved Date Tobacco user 02/06/2018 12/20/2021 Class 3 severe obesity due t o excess calories without serious comorbidity with body mass index (BMI) greater than or equal to 70 in adult 10/28/2014 08/24/2022 documented as of this encounter (statuses as of 04/26/2023) [facility] History of Past illness Narrative* Problem Noted Date Diagnosed Date Resolved Date Tobacco user 02/06/2018 12/20/2021 Class 3 severe obesity due t o excess calories without serious comorbidity with body mass index (BMI) greater than or equal to 70 in adult 10/28/2014 08/24/2022 documented as of this encounter (statuses as of 05/17/2023) [facility] History of Past illness Narrative* Problem Noted Date Diagnosed Date Resolved Date Tobacco user 02/06/2018 12/20/2021 Class 3 severe obesity due t o excess calories without serious comorbidity with body mass index (BMI) greater than or equal to 70 in adult 10/28/2014 08/24/2022 documented as of this encounter (statuses as of 05/20/2023) [facility] History of Past illness Narrative* Problem Noted Date Diagnosed Date Resolved Date Tobacco user 02/06/2018 12/20/2021 Class 3 severe obesity due t o excess calories without serious comorbidity with body mass index (BMI) greater than or equal to 70 in adult 10/28/2014 08/24/2022 documented as of this encounter (statuses as of 06/09/2023) [facility] Diagnosis Encounter for medical examination to establish care- Primary BMI 70 and over, adult ([facility]) Body Mass Index 70 and over, adult Bipolar disorder, in partial remission, most recent episode mixed (HCC) Bipolar I disorder, most recent episode (or current) mixed, in partial or unspecified remission Anxiety and depression Dysthymic disorder Tremor Abnormal involuntary movements Encounter for immunization Need for other specified prophylactic vaccination against single bacterial disease Low vitamin D level Special screening examination for viral disease Special screening examination for unspecified viral disease Screening for HIV (human immunodeficiency virus) Special screening examination for other specified viral diseases Routine lab draw Laboratory examination ordered as part of a routine general medical examination Twitching Abnormal involuntary movements [facility] Diagnosis Vitamin D deficiency- Primary Unspecified vitamin D deficiency [facility] Diagnosis Class 3 severe obesity due to excess calories without serious comorbidity with body mass index (BMI) greater than or equal to 70 in adult ([facility])- Primary Anxiety Anxiety state, unspecified Low vitamin D level Tremor Abnormal involuntary movements [facility]* Diagnosis of unknown anatomic location- Primary state, incidental [facility] Diagnosis SAB (spontaneous )- Primary Unspecified spontaneous without mention of complication documented in this encounter [facility] note* Diagnosis Vitamin D deficiency- Primary Unspecified vitamin D deficiency [facility]* Diagnosis Rosacea- Primary Benign nevus Benign neoplasm of skin, site unspecified Acne vulgaris Other acne documented in this encounter [facility] note* Diagnosis Encounter for initial prescription of contraceptive pills- Primary General counseling for prescription of oral contraceptives documented in this encounter [facility] note* Diagnosis Cracked tooth- Primary Tooth abscess Periapical abscess without sinus documented in this encounter [facility] note* Diagnosis Right knee pain, unspecified chronicity- Primary documented in this encounter [facility] note* Diagnosis Wellness examination- Primary Screening for depression Vitamin D deficiency Unspecified vitamin D deficiency Mixed hyperlipidemia Class 3 severe obesity due to excess calories without serious comorbidity with body mass index (BMI) of 60.0 to 69.9 in adult ([facility]) documented in this encounter [facility] note* Diagnosis History of recurrent miscarriages- Primary documented in this encounter [facility] note* Diagnosis Severe obesity (BMI >= 40) ([facility])- Primary Morbid obesity BMI 60.0-69.9, adult ([facility]) Body Mass Index 60.0-69.9, adult Bipolar affective disorder, remission status unspecified ([facility]) Low vitamin D level Medication management Encounter for long-term (current) use of other medications Dietary counseling Dietary surveillance and counseling Exercise counseling documented in this encounter [facility] note* Diagnosis Irregular menses- Primary Irregular menstrual cycle documented in this encounter [facility] note* Diagnosis PCOS (polycystic ovarian syndrome)- Primary Polycystic ovaries documented in this encounter [facility] note* Diagnosis Encounter for gynecological examination (general) (routine) without abnormal findings- Primary documented in this encounter [facility] for referral (narrative)* Diagnostic Procedure Only (Routine) - New Request Specialty Diagnoses / Procedures Referred By Parker cabrera Referred To Contact XR IMAGING Diagnoses Right knee pain, unspecified chronicity Procedures XR KNEE GENERAL 4V AP BOTH/PA BOTH/LAT/MERC RIGHT RADIOLOGIC EXAM KNEE COMPLETE 4/MORE VIEWS Clarissa Lyman PA-C [address] [place] [address] [facility] [id number] Referral ID Status Reason Start Date Expiration Date Visits Requested Visits Authorized [id number] New Request Auto-Generat ed Referral 10/10/2023 11/08/2024 1 1 [facility] Summary Purpose Family History No Family History Records FoundNo Family History Records FoundNo Family History Records FoundNo Family History Records FoundNo Family History Records FoundNo Family History Records FoundNo Family History Records FoundNo Family History Records FoundNo Family History Records FoundNo Family History Records FoundNo Family History Records Found Advance Directives No Advanced Directives Records FoundDocuments on File Type Date Recorded Patient Driver License Technician Expl anation Advance Directive(s) 05/01/2019 10:01 PM Documents on File Type Date Recorded Patient Driver License Technician Expl anation Advance Directive(s) 05/01/2019 10:01 PM Reason for Referral Specialty Diagnoses / Procedures Referred By Contac t Referred To Contact Neurology Diagnoses Tremor Twitching Procedures CONSULT TO NEUROLOGY OFFICE/OUTPATIENT [facility] 60-74 MINUT[place] Nae Agu[place] [id number] [place] [id number] Referral ID Status Reason Start Date Expiration Date Visits Requested Visits Authorized [id number] Authorized PCP Requested Referral 09/01/2021 09/01/2022 1 1 Specialty Diagnoses / Procedures Referred By Contac t Referred To Contact Diagnoses Class 3 severe obesity due to excess calories without serious comorbidity with body mass index (BMI) of 60.0 to 69.9 in adult (HCC) Procedures ENDOCRINE MEDICAL WEIGHT MANAGEMENT OFFICE/OUTPATIENT [facility] MDM 60 MINUTES Julienne Boyle PA-C [id number] [place] [address] [address] [place] [address] Referral ID Status Reason Start Date Expiration Date Visits Requested Visits Authorized [id number] Authorized PCP Requested Referral 11/05/2023 11/04/2024 1 1 Specialty Diagnoses / Procedures Referred By Contac t Referred To Contact Diagnoses Severe obesity (BMI >= 40) (HCC) Procedures ENDOCRINOLOGY DIETITIAN VISIT (MNT) MEDICAL NUTRITION ASSMT&IVNTJ INDIV EACH 15 [place] MEDICAL NUTRITION ASSMT&IVNTJ INDIV EACH 15 [place] MEDICAL NUTRITION ASSMT&IVNTJ INDIV EACH 15 [place] MEDICAL NUTRITION ASSMT&IVNTJ INDIV EACH 15 [place] Marlen Riley APRN.BUILD ENGINEER [address] [place] [address] Referral ID Status Reason Start Date Expiration Date Visits Requested Visits Authorized [id number] Authorized PCP Requested Referral 03/25/2024 03/25/2025 1 1 Additional Source Comments INFORMATION SOURCE (unrecogn ized section and content) DATE CREATED AUTHOR 02/24/2018 [facility] DATE CREATED AUTHOR AUTHOR'S ORGANIZ ATION 08/23/2018 [facility] DATE CREATED AUTHOR AUTHOR'S ORGANIZ ATION 05/02/2019 [facility] DATE CREATED AUTHOR AUTHOR'S ORGANIZ ATION 01/12/2022 [facility] DATE CREATED AUTHOR AUTHOR'S ORGANIZ ATION 03/27/2022 [facility] DATE CREATED AUTHOR AUTHOR'S ORGANIZ ATION 04/02/2022 [facility] DATE CREATED AUTHOR AUTHOR'S ORGANIZ ATION 07/19/2022 [facility] DATE CREATED AUTHOR AUTHOR'S ORGANIZ ATION 09/30/2022 [facility] DATE CREATED AUTHOR AUTHOR'S ORGANIZ ATION 04/17/2024 [facility] DATE CREATED AUTHOR AUTHOR'S ORGANIZ ATION 05/24/2024 [facility] DATE CREATED AUTHOR AUTHOR'S ORGANIZ ATION [facility]24 [facility] Source Comments (unrecognize d section and content) In the event this informatio n is protected by the Federal Confidentiality of Alcohol and Drug Abuse Patient Records regulations: The Federal rules restrict any use of the information to criminally investigate or prosecute any alcohol or drug abuse patient.[facility] ClinicIn the event this information is protected by the Federal Confidentiality of Alcohol and Drug Abuse Patient Records regulations: The Federal rules restrict any use of the information to criminally investigate or prosecute any alcohol or drug abuse patient.[facility] the event this information is protected by the Federal Confidentiality of Alcohol and Drug Abuse Patient Records regulations: The Federal rules restrict any use of the information to criminally investigate or prosecute any alcohol or drug abuse patient.[facility] HospitalIn the event this information is protected by the Federal Confidentiality of Alcohol and Drug Abuse Patient Records regulations: The Federal rules restrict any use of the information to criminally investigate or prosecute any alcohol or drug abuse patient.[facility] HospitalIn the event this information is protected by the Federal Confidentiality of Alcohol and Drug Abuse Patient Records regulations: The Federal rules restrict any use of the information to criminally investigate or prosecute any alcohol or drug abuse patient.[facility] HospitalIn the event this information is protected by the Federal Confidentiality of Alcohol and Drug Abuse Patient Records regulations: The Federal rules restrict any use of the information to criminally investigate or prosecute any alcohol or drug abuse patient.[facility] HospitalIn the event this information is protected by the Federal Confidentiality of Alcohol and Drug Abuse Patient Records regulations: The Federal rules restrict any use of the information to criminally investigate or prosecute any alcohol or drug abuse patient.[facility] HospitalIn the event this information is protected by the Federal Confidentiality of Alcohol and Drug Abuse Patient Records regulations: The Federal rules restrict any use of the information to criminally investigate or prosecute any alcohol or drug abuse patient.[facility] HospitalIn the event this information is protected by the Federal Confidentiality of Alcohol and Drug Abuse Patient Records regulations: The Federal rules restrict any use of the information to criminally investigate or prosecute any alcohol or drug abuse patient.[facility] HospitalIn the event this information is protected by the Federal Confidentiality of Alcohol and Drug Abuse Patient Records regulations: The Federal rules restrict any use of the information to criminally investigate or prosecute any alcohol or drug abuse patient.[facility] HospitalIn the event this information is protected by the Federal Confidentiality of Alcohol and Drug Abuse Patient Records regulations: The Federal rules restrict any use of the information to criminally investigate or prosecute any alcohol or drug abuse patient.[facility] HospitalIn the event this information is protected by the Federal Confidentiality of Alcohol and Drug Abuse Patient Records regulations: The Federal rules restrict any use of the information to criminally investigate or prosecute any alcohol or drug abuse patient.[facility] HospitalIn the event this information is protected by the Federal Confidentiality of Alcohol and Drug Abuse Patient Records regulations: The Federal rules restrict any use of the information to criminally investigate or prosecute any alcohol or drug abuse patient.[facility] HospitalIn the event this information is protected by the Federal Confidentiality of Alcohol and Drug Abuse Patient Records regulations: The Federal rules restrict any use of the information to criminally investigate or prosecute any alcohol or drug abuse patient.[facility] HospitalIn the event this information is protected by the Federal Confidentiality of Alcohol and Drug Abuse Patient Records regulations: The Federal rules restrict any use of the information to criminally investigate or prosecute any alcohol or drug abuse patient.[facility] HospitalIn the event this information is protected by the Federal Confidentiality of Alcohol and Drug Abuse Patient Records regulations: The Federal rules restrict any use of the information to criminally investigate or prosecute any alcohol or drug abuse patient.[facility] HospitalIn the event this information is protected by the Federal Confidentiality of Alcohol and Drug Abuse Patient Records regulations: The Federal rules restrict any use of the information to criminally investigate or prosecute any alcohol or drug abuse patient.[facility] HospitalIn the event this information is protected by the Federal Confidentiality of Alcohol and Drug Abuse Patient Records regulations: The Federal rules restrict any use of the information to criminally investigate or prosecute any alcohol or drug abuse patient.[facility] HospitalIn the event this information is protected by the Federal Confidentiality of Alcohol and Drug Abuse Patient Records regulations: The Federal rules restrict any use of the information to criminally investigate or prosecute any alcohol or drug abuse patient.[facility] HospitalIn the event this information is protected by the Federal Confidentiality of Alcohol and Drug Abuse Patient Records regulations: The Federal rules restrict any use of the information to criminally investigate or prosecute any alcohol or drug abuse patient.[facility] HospitalIn the event this information is protected by the Federal Confidentiality of Alcohol and Drug Abuse Patient Records regulations: The Federal rules restrict any use of the information to criminally investigate or prosecute any alcohol or drug abuse patient.[facility] HospitalIn the event this information is protected by the Federal Confidentiality of Alcohol and Drug Abuse Patient Records regulations: The Federal rules restrict any use of the information to criminally investigate or prosecute any alcohol or drug abuse patient.[facility] HospitalIn the event this information is protected by the Federal Confidentiality of Alcohol and Drug Abuse Patient Records regulations: The Federal rules restrict any use of the information to criminally investigate or prosecute any alcohol or drug abuse patient.[facility] HospitalIn the event this information is protected by the Federal Confidentiality of Alcohol and Drug Abuse Patient Records regulations: The Federal rules restrict any use of the information to criminally investigate or prosecute any alcohol or drug abuse patient.[facility] Care Teams (unrecognized sec tion and content) Substation Operator Helper Generation Relationship Specialty [place] [address] [place] [address] PCP - General Internal Medicine 09/01/21 Substation Operator [employer] Relationship Specialty [place] [address] [place] [address] PCP - General Internal Medicine 09/01/21 Substation Operator [employer]per Generation Relationship Specialty [place] [address] [place] [address] PCP - General Internal Medicine 09/01/21 Substation Operator Helper Generation Relationship Specialty [place] [address] [place] [address] PCP - General Internal Medicine 09/01/21 Substation Operator [employer]per Generation Relationship Specialty [place] [address] [place] [address] PCP - General Internal Medicine 09/01/21 Substation Operator Helper Generation Relationship Specialty [place] [address] [place] [address] PCP - General Internal Medicine 09/01/21 Substation Operator Helper Generation Relationship Specialty [place] [address] [place] [address] PCP - General Internal Medicine 09/01/21 Substation Operator Helper Generation Relationship Specialty [place] [address] [place] [address] PCP - General Internal Medicine 09/01/21 Substation Operator Helper Generation Relationship Specialty [place] [address] [place] [address] PCP - General Internal Medicine 09/01/21 Substation Operator [employer]per Generation Relationship Specialty [place] [address] [place] [address] PCP - General Internal Medicine 09/01/21 Substation Operator [employer]per Generation Relationship Specialty [place] [address] [place] [address] PCP - General Internal Medicine 09/01/21 Substation Operator Helper Generation Relationship Specialty [place] [address] [place] [address] PCP - General Internal Medicine 09/01/21 Substation Operator Helper Generation Relationship Specialty [place] [address] [place] [address] PCP - General Internal Medicine 09/01/21 Substation Operator Helper Generation Relationship Specialty [place] [address] [place] [address] PCP - General Internal Medicine 09/01/21 Substation Operator Helper Generation Relationship Specialty [place] [address] [place] [address] PCP - General Internal Medicine 09/01/21 Substation Operator Helper Generation Relationship Specialty [place] [address] [place] [address] PCP - General Internal Medicine 09/01/21 Substation Operator Helper Generation Relationship Specialty [place] [address] [place] [address] PCP - General Internal Medicine 09/01/21 Substation Operator Helper Generation Relationship Specialty [place] [address] [place] [address] PCP - General Internal Medicine 09/01/21 France Sutton PA-C [address] [place], [place] [id number] [place] [address] Hospice Nurse Internal Medicine 02/23/24 Substation Operator [employer] Generation Relationship Specialty [place] [address] [place] [address] PCP - General Internal Medicine 09/01/21 France Sutton PA-C [address] [place] [address], [address] [place] [address] Hospice Nurse Internal Medicine 02/23/24 Substation Operator [employer]per Generation Relationship Specialty [place] [address] [place] [address] PCP - General Internal Medicine 09/01/21 France Sutton PA-C [address] [place] [address], [address] [place] [address] Hospice Nurse Internal Medicine 02/23/24 Substation Operator [employer] Generation Relationship Specialty Start Date End Date Nae Aguilar MD [address] [place] [address] PCP - General Internal Medicine 09/01/21 France Sutton PA-C [address] [place] [address], [address] [place] [address] Hospice Nurse Internal Medicine 02/23/24 Substation Operator [employer] Generation Relationship Specialty Start Date End Date Nae Aguilar MD [address] [place] [address] PCP - General Internal Medicine 09/01/21 France Sutton PA-C [address] [place] [address], [address] [place] [address] Hospice Nurse Internal Medicine 02/23/24 Substation Operator [employer]per Generation Relationship Specialty Start Date End Date Nae Aguilar MD [address] [place] [address] PCP - General Internal Medicine 09/01/21 France Sutton PA-C [address] [place] [address], [address] [place] [address] Hospice Nurse Internal Medicine 02/23/24 Reason for Visit (unrecogniz ed section and content) Reason Comments behavioral health social work Reason Comments Follow Up Forms Reason Comments Follow Up UPT was Saturday bl eeding yesterday spotting then heavy bleeding in the evening and light pink--cramping yesterday mildly Reason Comments Results Reason Comments Behavioral Health/Social Work Reason Comments Forms Reason Comments Chart prep Reason Comments Rash Reason Comments Discussion birthcontrol Reason Comments Mouth/Lip Problem Reason Comments Physical Reason Comments Future Appointment Reason Comments Discussion Reason Comments Weight Management Specialty Diagnoses / Procedures Referred By Parker t Referred To Contact Diagnoses Class 3 severe obesity due to excess calories without serious comorbidity with body mass index (BMI) of 60.0 to 69.9 in adult (HCC) Procedures ENDOCRINE MEDICAL WEIGHT MANAGEMENT OFFICE/OUTPATIENT [facility] 60 MINUTES Julienne Boyle PA-C [address] [facility] [address] [place] [address] Referral ID Status Reason Start Date Expiration Date V isits Requested Visits Authorized [id number] Closed PCP Requested Referral 11/05/2023 11/04/2024 1 1 Reason Comments Problem Visit Reason Comments [facility] FOR RECORDS PERTAINING TO PATIENTS WHO ARE OR HAVE BEEN ENROLLED IN A CHEMICAL DEPENDENCY/SUBSTANCEABUSE PROGRAM, SOME INFORMATION MAY BE OMITTED. This clinical summary was aggregated from multiple sources. Caution should be exercised in using it in the provision of clinical care. This summary normalizes information from multiple sources, and as a consequence, information in this document may materially change the coding, format and clinical context of patient data. In addition, data may be omitted in some cases. CLINICAL DECISIONS SHOULD BE BASED ON THE PRIMARY CLINICAL RECORDS. [facility] [employer] provides no warranty or guarantee of the accuracy or completeness of information in this document.
[2025-03-09 01:23] LABS: Internal QC Validated? YES +Cl - CLEAR BKGD; Pregnancy, Serum, hCG Quali. NEGATIVE Negative
--- NOTE | 2025-03-09 01:35 | CT_ITS ---
PROCEDURE: ABDOMEN/PELVIS WITHOUT CONT 03/09/2025 REASON FOR EXAM: R FLANK PAIN, UR FREQUENCY TECHNIQUE: Procedure Code: [id number] Modality: CT Procedure: ABDOMEN/PELVIS WITHOUT CONT Noncontrast technique limits evaluation of the abdominal and pelvic viscera. Coronal and Sagittal reconstruction series were provided. One or more dose reduction techniques were used (e.g., Automated exposure control, adjustment of the mA and/or kV according to patient size, use of iterative reconstruction technique). RADIATION DOSE SUMMARY: DLP: 1317 mGycm COMPARISON: None FINDINGS: Limited sections of the lung bases demonstrate no focal pulmonary mass or consolidations. The liver, spleen, pancreas, and both adrenal glands demonstrate no acute findings. Hepatomegaly to 20.9 cm. The gallbladder is surgically removed The stomach is unremarkable. The small bowel loops are not dilated. The appendix is normal No colonic obstruction. Colonic diverticulosis without acute diverticulitis. There is no free air or significant free fluid. Mesenteric stranding with prominent mesenteric lymph nodes may reflect panniculitis. The kidneys are unremarkable. The urinary bladder is collapsed. The pelvic structures are intact. 3 cm right ovarian cyst. No significant lymphadenopathy. The aorta and IVC demonstrate no acute findings. Visualized osseous structures demonstrate no acute abnormality. CT/Abdomen/Pelvis without Cont IMPRESSION: No obstructive uropathy. Mesenteric stranding with prominent mesenteric lymph nodes may reflect pannicul itis. Reading Location: [facility]
[2025-03-09 01:39] LABS: Anion Gap 12 (7-18); BUN 16 mg/dL (4-19); Calcium,Total 9.3 mg/dL (7.6-11.0); Carbon Dioxide 25.0 mmol/L (20.0-29.0); Chloride 103 mmol/L (96-106); Glucose 100 mg/dL (70-99); Potassium 4.0 mmol/L (3.5-5.1)
[2025-03-09 02:02] LABS: BUN/Creat Ratio 21.0 RATIO (10-20); Estimated Creatinine Clearance 157.32 ml/min (50-250)
[2025-03-09 02:22] LABS: Mucous, Urine 0 SEEN /hpf (<or=2+); Red Blood Cells-Urine 0 SEEN /hpf (0-5)
[2025-03-09 02:23] LABS: Color, Urine Yellow (Yellow); Glucose, Dipstick Normal (Normal); Ketone-Dipstick Negative (Negative); Leukocyte Esterase-Dipstick 25 /ul (Negative); Nitrite-Dipstick Negative (Negative); Occult Blood-Urine Negative /ul (Negative); Protein-Dipstick 30 mg/dl (Negative); Specific Gravity, Urine 1.025 (1.002-1.030); Urine Bilirubin Dipstick Negative (Negative)
[2025-03-09 02:35] LABS: Squamous Epithelial Cells - UA 0-5 SEEN /hpf (5-10)
[2025-03-09 03:43] VITALS: BP 126/84; PULSE 73; RESP 18; TEMP 36.8; O2SAT 99
== END 2025-03-09 03:49 | disposition home or self-care (01) ==
PROVIDERS: Emergency Provider Emergency Medicine; Visit Provider Emergency Medicine
DX: R35.0 Frequency of micturition (principal); N39.41 Urge incontinence; Z87.891 Personal history of nicotine dependence; N83.201 Unspecified ovarian cyst, right side; E66.9 Obesity, unspecified; R10.9 Unspecified abdominal pain; F32.A Depression, unspecified; F41.9 Anxiety disorder, unspecified
CPT/HCPCS: 74176; 80048; 81001; 84703; 85025; 96374; 99282; A4216